=== PATIENT | female | born 1935 | race Caucasian/White ===

== ENCOUNTER → 2016-08-11 | Outpatient (CLI) | payer OTHER ==
[~2016-08-11] MED LIST: ACET-1256 PO; ALBUAER19 INH; CALCTAB5 PO; CHOL1CAP57 PO; GLUCTAB7 PO; MULT-1092 PO; MULTCHW PO; OMEG10007 PO; OYST500T47 PO; VNTHFA/IN INH
[2016-08-11 17:23] LABS: BLOOD UREA NITROGEN 24 mg/dl (7-18)
== END | disposition home or self-care (01) ==
LOC: C.LABBC 13:51
DX: R22.0 Localized swelling, mass and lump, head (principal)

== ENCOUNTER → 2016-08-12 | Outpatient (CLI) | payer OTHER ==
[~2016-08-12] MED LIST changes: +OPTIRAY 320 IV PRN
--- NOTE | 2016-08-12 14:13 | DIAGNOSTIC IMAGING REPORT ---
CT OF THE NECK WITH CONTRAST CT DOSE: 561.74 mGy.cm CLINICAL HISTORY: Left anterior parotid/zygomatic fullness on physical exam with swelling. TECHNIQUE: Axial images of the neck were obtained following intravenous injection of 93 cc Optiray 320 IV. Sagittal and coronal reconstructions were viewed. COMPARISON STUDY: Maxillofacial CT August 09, 2007. FINDINGS: Visualized portions of the intracranial contents are unremarkable. The orbits are unremarkable. The left maxillary sinus is largely opacified with mucosal thickening and secretions. Mastoid air cells are clear. There is no mass or lymphadenopathy within the neck. A 2.4 x 0.8 cm soft tissue density is noted anterior to the left parotid gland. This is similar to CT of August 09, 2007 and suggestive of accessory parotid tissue. There is no suspicious mass. Airway is patent. Epiglottis is normal. No mucosal lesion is identified although these may be occult by CT. Submandibular glands are normal. There is a 9 mm left lobe thyroid nodule. Mild emphysema is noted within visualized portions of the lungs. No suspicious osseous lesions are present. IMPRESSION: 1. 2.4 x 0.8 cm soft tissue density superficial to the left masseter muscle and anterior to the left parotid gland. This could reflect the palpable abnormality. This is unchanged since exam of August 09, 2007 and consistent with accessory parotid tissue. 2. Findings suggestive of left maxillary sinusitis, possibly acute. Electronically signed by: Reynaldo Cheng M.D. 08/12/2016 2:10 PM Dictated Date/Time: 08/12/2016 2:00 PM
== END | disposition home or self-care (01) ==
LOC: C.CTS 12:56
DX: R22.0 Localized swelling, mass and lump, head (principal); M79.9 Soft tissue disorder, unspecified

== ENCOUNTER → 2016-09-10 | Outpatient (CLI) | payer OTHER ==
[~2016-09-10] MED LIST changes: -OPTIRAY 320 IV PRN
--- NOTE | 2016-09-10 11:10 | DIAGNOSTIC IMAGING REPORT ---
FUSION CT SINUSES W/O HISTORY: J32.9 Chronic sinusitis PATIENT WITH LEFT MAXILLARY SINUSITIS ON TECHNIQUE: Multiaxial CT images of the sinuses were performed and reformatted in the coronal plane without the use of contrast. COMPARISON STUDY: Maxillofacial CT 08/09/2007. Neck CT 08/12/2016. FINDINGS: The frontal sinuses, ethmoid air cells, right renal sinus, and right maxillary sinus are clear. The mastoid air cells are clear. Small amount of bubbly secretions within the left sphenoid sinus, unchanged. There is improved aeration within the left maxillary sinus with [id number] polypoid mucosal thickening remaining. No fluid levels within the left maxillary sinus. The nasal septum is essentially midline. The orbital floors and lamina papyracea are intact. The bilateral ostiomeatal units are patent. Small defect seen within the medial wall the left maxillary sinus may be due to postoperative change. This is best seen on coronal image 28 of 79. This measures 4 mm in diameter. The orbits are unremarkable. Asymmetric prominence of the right extra-axial space within the brain is again noted. This favors a stable chronic subdural hematoma. IMPRESSION: 1. Improved aeration within the left maxillary sinus with mild to moderate polypoid mucosal thickening remaining. Small amount of bubbly secretions within the left sphenoid sinus, unchanged. 2. No fluid levels within the paranasal sinuses. 3. The bilateral ostiomeatal units are patent. 4. Stable asymmetric prominence of the right extra-axial space within the brain suggesting a chronic subdural hematoma. Electronically signed by: Tao Ward M.D. 09/10/2016 11:09 AM Dictated Date/Time: 09/10/2016 10:57 AM
== END | disposition home or self-care (01) ==
LOC: C.CTS 10:40
DX: J32.9 Chronic sinusitis, unspecified (principal)

== ENCOUNTER → 2016-09-11 | Outpatient (CLI) | payer OTHER ==
--- NOTE | 2016-09-11 11:40 | DIAGNOSTIC IMAGING REPORT ---
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 DISCUSSION: Moderate degenerative change of the interphalangeal joints. Mild hallux valgus configuration to the great toe with bunion deformity distal first metatarsal. Small heel spur. Somewhat diminished generalized bone mineralization. There is no evidence for soft tissue swelling. IMPRESSION: Moderate generalized degenerative change. Osteopenia. Small heel spur. Electronically signed by: Darci Heller M.D. 09/11/2016 11:39 AM Dictated Date/Time: 09/11/2016 11:38 AM
--- NOTE | 2016-09-11 11:51 | DIAGNOSTIC IMAGING REPORT ---
RIGHT WRIST MIN 3 VIEWS ROUTINE CLINICAL HISTORY: Osteoporosis. Crystal arthropathy. COMPARISON: None FINDINGS: There is chondrocalcinosis within the TFCC. There is marked joint space narrowing of the triscaphe joint and the right first carpometacarpal joint. There is moderate to severe arthritis of the right second metacarpophalangeal joint. There is no fracture or suspicious lesion. IMPRESSION: 1. Marked joint space narrowing with osteophytosis of the right triscaphe and first carpometacarpal joints which suggests severe osteoarthritis. 2. Chondrocalcinosis within the TFCC with moderate to severe arthritis of the right second metacarpophalangeal joint. The findings could reflect osteoarthritis or CPPD arthropathy. Electronically signed by: Reynaldo Cheng M.D. 09/11/2016 11:50 AM Dictated Date/Time: 09/11/2016 11:48 AM
--- NOTE | 2016-09-11 11:53 | DIAGNOSTIC IMAGING REPORT ---
RIGHT HAND MIN 3 VIEWS ROUTINE CLINICAL HISTORY: Osteoporosis. Crystal arthropathy. COMPARISON: None FINDINGS: There is chondrocalcinosis within the TFCC. There is marked joint space narrowing of the triscaphe joint and the right first carpometacarpal joint. There is moderate to severe arthritis of the right second metacarpophalangeal joint. There is no fracture or suspicious lesion. There is moderate to severe arthritis of multiple distal interphalangeal joints, most prominent within the second and third digits. There is no acute fracture. IMPRESSION: 1. Marked joint space narrowing with osteophytosis of the right triscaphe and first carpometacarpal joints which suggests severe osteoarthritis. 2. Chondrocalcinosis within the TFCC with moderate to severe arthritis of the right second metacarpophalangeal joint. The findings could reflect osteoarthritis or CPPD arthropathy. Electronically signed by: Reynaldo Cheng M.D. 09/11/2016 11:51 AM Dictated Date/Time: 09/11/2016 11:50 AM
== END | disposition home or self-care (01) ==
LOC: C.RAD1850 11:09
PROVIDERS: ATTEND Internal Medicine Rheumatology
DX: M10.9 Gout, unspecified (principal); M81.0 Age-related osteoporosis without current pathological fracture; M25.841 Other specified joint disorders, right hand; M25.741 Osteophyte, right hand; M11.241 Other chondrocalcinosis, right hand; M85.871 Other specified disorders of bone density and structure, right ankle and foot

== ENCOUNTER → 2016-10-30 | Outpatient (CLI) | payer OTHER ==
[~2016-10-30] MED LIST changes: -MULT-1092 PO; -OYST500T47 PO; -VNTHFA/IN INH
--- NOTE | 2016-10-30 09:50 | DIAGNOSTIC IMAGING REPORT ---
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 FINDINGS: There is no fracture or dislocation. Mild medial soft tissue swelling. No radiopaque foreign bodies. Plantar heel spur. IMPRESSION: No fractures. Electronically signed by: Tao Ward M.D. 10/30/2016 9:48 AM Dictated Date/Time: 10/30/2016 9:47 AM
--- NOTE | 2016-10-30 09:56 | DIAGNOSTIC IMAGING REPORT ---
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 DISCUSSION: Components of the medial humeral calcific and colitis. All remaining components of the elbow appear unremarkable. No significant joint effusion. No evidence for fracture or dislocation. There is no evidence for soft tissue swelling. IMPRESSION: Calcific medial epicondylitis Electronically signed by: Darci Heller M.D. 10/30/2016 9:54 AM Dictated Date/Time: 10/30/2016 9:54 AM
== END | disposition home or self-care (01) ==
LOC: C.RAD1850 09:27
PROVIDERS: ATTEND Internal Medicine Rheumatology
DX: E83.59 Other disorders of calcium metabolism (principal); M25.571 Pain in right ankle and joints of right foot; M70.20 Olecranon bursitis, unspecified elbow

== ENCOUNTER → 2017-03-30 | Outpatient (CLI) | payer OTHER ==
[~2017-03-30] MED LIST changes: -ALBUAER19 INH; -CALCTAB5 PO; -GLUCTAB7 PO; +MULT-1092 PO; -MULTCHW PO; -OMEG10007 PO; +OYST500T47 PO; +VNTHFA/IN INH
--- NOTE | 2017-03-30 15:10 | MAMMOGRAPHY REPORT ---
BILATERAL DIGITAL SCREENING MAMMOGRAM WITH CAD: 03/30/2017 CLINICAL HISTORY: Routine screening. Patient has no complaints. TECHNIQUE: Bilateral CC, MLO and repeat right MLO views were obtained. Current study was also evalua rosette with a Computer Aided Detection (CAD) system. COMPARISON: Comparison is made to exams dated: 03/24/2016 mammogram, 03/20/2015 mammogram, 4 mammogram, 03/16/2013 mammogram, 03/14/2012 mammogram, and 03/11/2011 mammogram - [facility]. BREAST COMPOSITION: The tissue of both breasts is heterogeneously dense, which may obscure small mas ses. FINDINGS: There are stable benign rim calcifications and rodlike signatory calcifications in the kermit asts. Minimal vascular calcification. No suspicious mass, architectural distortion or cluster of george rocalcifications is seen. IMPRESSION: ACR BI-RADS CATEGORY 2: BENIGN There is no mammographic evidence of malignancy. A 1 year screening mammogram is recommended. The pa tient will receive written notification of the results. Approximately 10% of breast cancers are not detected with mammography. A negative mammographic report should not delay biopsy if a clinically suggestive mass is present. Brenna Huang M.D. ay/:03/30/2017 12:49:55 Shipping & Receiving Lead: Nesha JACOBO(Hugo)(Mushtaq)([place]), [facility] letter sent: Normal 1/2 BI-RADS Code: ACR BI-RADS Category 2: Benign
== END | disposition home or self-care (01) ==
LOC: C.MAMM 09:22
PROVIDERS: ATTEND Internal Medicine Pulmonary Disease
DX: Z12.31 Encounter for screening mammogram for malignant neoplasm of breast (principal)

== ENCOUNTER → 2017-04-08 | Outpatient (CLI) | payer OTHER ==
[2017-04-08 10:43] LABS: BASO % 0.4 %; BASO ABS # 0.03 K/uL (0-0.2); COMPLETE YES; EOS % 2.9 %; HEMATOCRIT 44.8 % (37-47); IG% 0.6 %; LYMPH % 36.2 %; LYMPH ABS # 2.85 K/uL (1.2-3.4); MEAN CELL VOLUME 100.7 fL (80-100); MEAN CORPUSCULAR HEMOGLOBIN 32.6 pg (25-34); MEAN CORPUSCULAR HGB CONC 32.4 g/dl (32-36); MONO % 15.7 %; NEUT % 44.2 %; PLATELET COUNT 254 K/uL (130-400); RED BLOOD COUNT 4.45 M/uL (4.2-5.4); WHITE BLOOD COUNT 7.88 K/uL (4.8-10.8)
[2017-04-08 10:53] LABS: ESTIMATED AVERAGE GLUCOSE 123 mg/dl; HA1C FLAG Normal (Normal)
[2017-04-08 11:08] LABS: BLOOD UREA NITROGEN 25 mg/dl (7-18); BUN/CREATININE RATIO 19.9 (10-20); CALCIUM 9.3 mg/dl (8.5-10.1); CARBON DIOXIDE 29 mmol/L (21-32); CHLORIDE 106 mmol/L (98-107); CREATININE 1.24 mg/dl (0.60-1.20); GLUCOSE 87 mg/dl (70-99); POTASSIUM 4.3 mmol/L (3.5-5.1); SODIUM 139 mmol/L (136-145)
[2017-04-08 11:20] LABS: ALB/GLOB RATIO 1.2 (0.9-2); ALKALINE PHOSPHATASE 76 U/L (45-117); ALT/SGPT 21 U/L (12-78); AST/SGOT 16 U/L (15-37); CHOLESTEROL 217 mg/dl (0-200); CHOLESTEROL/HDL RATIO 2.9; HDL CHOLESTEROL 74 mg/dl; LDL CHOLESTEROL CALCULATED 113 mg/dl; TRIGLYCERIDES 152 mg/dl (0-150); VERY LOW DENSITY LIPOPROT CALC 30 mg/dl
== END | disposition home or self-care (01) ==
LOC: C.LABBC 08:17
PROVIDERS: ATTEND Internal Medicine Pulmonary Disease
DX: Z00.00 Encounter for general adult medical examination without abnormal findings (principal); M19.90 Unspecified osteoarthritis, unspecified site; H91.90 Unspecified hearing loss, unspecified ear; R73.9 Hyperglycemia, unspecified; E78.5 Hyperlipidemia, unspecified; J44.9 Chronic obstructive pulmonary disease, unspecified

== ENCOUNTER → 2017-04-09 | Day surgery (SDC) | payer OTHER ==
[2017-04-07 14:09] VITALS: Ht 167.6 cm; Wt 72.7 kg
[~2017-04-09] VITALS: Ht 167.6 cm; Wt 72.7 kg
[~2017-04-09] MED LIST changes: +BUPIVACAINE 0.25% 2.5MG/ML PF 10 ML VIAL ONE; +IOPAMIDOL INJ 61% 15 ML VIAL ONE; +LIDOCAINE HCL 1% MPF 5 ML VIAL ONE
--- NOTE | 2017-04-09 15:30 | History & Physical Bridge - [place] ---
H&P Re-Evaluation Bridge Note: I have examined the patient, reviewed the History & Physical and in the interval since the performance of the History & Physical I have noted the following changes of clinical significance: No changes noted
[2017-04-09 15:50] VITALS: TEMP 37.2
--- NOTE | 2017-04-09 15:52 | Discharge Instructions ---
Discharge Instructions Date of Service Apr 09, 2017. Visit Reason for Visit: Sacroiliitis Discharge Discharge Diagnosis / Problem: low back pain Discharge Goals Goal(s): Decrease discomfort, Improve function Activity Recommendations Activity Limitations: resume your previous activity Anesthesia . Post Anesthesia Instructions: If you have had General Anesthesia or IV Sedation: * Do not drive today. * Resume driving when surgeon permits. * Do not make important decisions or sign legal documents today. * Call surgeon for: 1. Temperature elevations greater than 101 degrees F. 2. Uncontrollable pain. 3. Excessive bleeding. 4. Persistent nausea and vomiting. 5. Medication intolerance (nausea, vomiting or rash). * For nausea and vomiting use only clear liquids such as: tea, soda, bouillon until nausea subsides, then gradually increase diet as tolerated. * If you have any concerns or questions, call your surgeon's office. If physician is unavailable and it is an emergency, call 911 or go to the nearest emergency room. . Diet Recommendations Recommended Home Diet: resume previous diet Procedures Procedures Performed: Sacroccygeal Ligament Injection Pending Studies Studies pending at discharge: no Medical Emergencies . Who to Call and When: Medical Emergencies: If at any time you feel your situation is an emergency, please call 911 immediately. . Non-Emergent Contact Non-Emergency issues call your: Specialist . . "Provider Documentation" section prepared by Farhan Horn. .
[2017-04-09 16:01] VITALS: BP 171/83; PULSE 77; O2SAT 96
--- NOTE | 2017-04-09 16:10 | OPERATIVE REPORT ---
DATE OF OPERATION: 04/09/2017 PREOPERATIVE DIAGNOSIS: Coccydynia. POSTOPERATIVE DIAGNOSIS: Same. PROCEDURE: Sacrococcygeal ligament injection under fluoroscopic guidance. INDICATIONS: The patient is an 81-year-old female who had a fantastic response to bilateral SI joint injections with 80% relief. She still; however, bothered by coccydynia. She had underwent injections about a year ago in the SI joint and then a sacrococcygeal ligament injection that relieved entirely of her pain. She presents today for a sacrococcygeal ligament injection to provide her with relief. PHYSICAL EXAMINATION: Pleasant female seated comfortably. She has coccyx pain to the tip of her coccyx; other areas are nontender including the sacroiliac joints. CONSENT: Verbal and written consent was obtained from the patient. Risks and benefits were reviewed. Risks include but are not limited to abscess and allergic reaction. The patient wishes to proceed. PROCEDURE: The patient was taken back to the special procedures room of the [facility]. She was maintained in a prone position. Backside was cleansed with Betadine x3 and a dry sterile dressing was applied. Fluoroscope was used to identify the sacrococcygeal ligament junction. The overlying skin was anesthetized with 2 mL of lidocaine 1% with a 25 gauge 1.5-inch needle and a 25 gauge 3.5 inch spinal needle was then directed under fluoroscopic guidance into the SI joint. Injection was well tolerated and she was injected with 1 mL of bupivacaine 0.25% and 40 mg of Depo-Medrol. DISPOSITION: 1. The patient is taken out into the discharge recovery area where she will be discharged home once discharge criteria have been met. 2. Follow up in the [facility] office in 4 weeks' time. I attest to the content of the Intraoperative Record and any orders documented therein. Any exception s are noted below.
== END | disposition home or self-care (01) ==
LOC: X.SURG 13:53
PROVIDERS: ATTEND Physical Medicine & Rehabilitation
DX: M53.3 Sacrococcygeal disorders, not elsewhere classified (principal); M46.1 Sacroiliitis, not elsewhere classified

== ENCOUNTER 2022-05-05 16:44 | Inpatient (IN) ==
[2022-05-05 19:27] LABS: Alanine Aminotransferase 69 U/L (7-52); Albumin Level 3.3 gm/dl (3.4-5.0); Alkaline Phosphatase 57 U/L (34-104); Anion Gap 10 (3-11); Aspartate Aminotransferase 122 U/L (13-39); BUN Creatinine Ratio 31.3 (10-20); Blood Urea Nitrogen 56 mg/dl (6-23); Carbon Dioxide 22 mmol/L (21-32); Chloride 92 mmol/L (98-107); Est GFR (African American) 29.4 ml/min; Est GFR (Non-African American) 25.4 ml/min; Globulin 3.3 gm/dl (2.5-4.0); Glucose 119 mg/dl (70-99(Fasting)); Potassium 3.9 mmol/L (3.5-5.1); Sodium 124 mmol/L (136-145); Total Protein 6.6 gm/dl (6.0-8.3)
[2022-05-05 19:47] LABS: Hematocrit (blood only) 34.7 % (34.1-44.9); Hemoglobin 12.4 g/dl (12.0-16.0); Mean Corpuscular Hemoglobin 33.6 pg (25.0-34.0); Mean Corpuscular Hgb Conc 35.7 g/dL (32.0-36.0); Mean Platelet Volume 11.4 fL (9.4-12.3); Platelet Count 216 K/uL (130-400); RDW Coefficient of Variation 15.1 % (11.5-14.5); RDW Standard Deviation 52.1 fL (36.4-46.3); Red Blood Count 3.69 M/uL (3.93-5.22); White Blood Count 8.89 K/ul (4.8-10.8)
[2022-05-05 19:49] LABS: Basophils # (auto) 0.03 K/uL (0-0.2); Basophils % (auto) 0.3 %; Dohle Bodies 1+; Echinocytes 1+; Immature Granulocytes # (auto) 0.12 K/uL (0.00-0.02); Immature Granulocytes % (auto) 1.3 %; Lymphocytes # (auto) 0.49 K/uL (1.2-3.4); Lymphocytes % (auto) 5.5 %; Monocytes % (auto) 4.5 %; Neutrophils # (auto) 7.85 K/uL (1.4-6.5); Neutrophils % (auto) 88.4 %; Toxic Granulation 1+; Toxic Vacuolation 1+
[2022-05-05 20:06] LABS: Influenza A virus by PCR Negative (Neg); Influenza B virus by PCR Negative (Neg); RSV by PCR Negative (Neg); SARS CoV2 RNA(COVID-19) Ceph NEGATIVE (Negative)
[2022-05-05] MEDS ORDERED: CEFEPIME 2,000 MG/20 ML VIAL IV STA (23:14)
[2022-05-05] MEDS ORDERED: SODIUM CHLORIDE 0.9% 1000ML 1,000 ML IV SCH (23:15)
--- NOTE | 2022-05-05 23:22 | Emergency Department Note ---
Impression & Plan Dyspnea, Hypoxia, SHABBIR (acute kidney injury), Hyponatremia, Elevated procalcitonin ED Provider Note INFORMANT: Patient and daughter ED PROVIDER(S): Dr. Nath CHIEF COMPLAINT: Shortness of breath, fever, diarrhea, dehydration, chest pain PLAN: Disposition: Inpatient hospitalization Condition: Fair Outpatient prescription management: none MEDICAL DECISION MAKING: This is an 86-year-old female who presents to the emergency department due to concern for worsening flulike symptoms over the course of the week. Patient presented on day of high volume and acuity and protocols were started by nursing staff prior to my evaluation. Patient was placed in a room and I reviewed labs with her that had resulted which included concerning abnormalities for evolving infection. Additional labs for possible sepsis were added by myself at this time. I also reviewed the abnormalities on chest x-ray given patient's history of COPD and ongoing tobacco abuse with her. We discussed IV antibiotics and additional medications to aid in her breathing. We discussed IV fluids that she has had decreased oral intake over the last several days. Patient and family who was present at bedside and helped with history both verbalized understanding of this and were agreement with the plan for additional inpatient evaluation and treatment. EKG and chest x-ray read by me as documented below. Patient rechecked multiple times after interventions have been initiated and continued to report feeling improved. She was placed on oxygen via nasal cannula. Case was discussed with hospitalist for additional evaluation and management. Patient with an increase risk of complication given age and comorbidities, and also risk of evolving sepsis. Patient and family made aware blood cultures were pending and will take 48 hours to result. Patient given IV fluids, nebulizer treatments, and 2 different IV antibiotics while in the emergency room. After review of the information above and other included data, I feel the patient requires additional inpatient management. Triage Nursing notes reviewed and agree them. Vital Signs: reviewed and remarkable for tachycardia, tachypnea, and mild hypoxia. Prior /Outside records reviewed: none Differential diagnosis: Differential diagnoses includes but is not limited to pneumonia, bronchitis, COPD/Asthma exacerbation, pneumothorax, pulmonary embolism, congestive heart failure, acute coronary syndrome, pleural effusion, noncompliance Diagnostics, as interpreted by me: ECG: Sinus tachycardia 108, normal QRS and QTc, normal axis, nonspecific ST/T wave changes, low voltage noted, PVC present Cardiac Monitoring: An order was placed for continuous cardiac monitoring. The monitor shows a rate of 100 with sinus tachycardia. Medical decision rules: CURB 65 score elevated - severe risk Imaging studies: Chest: A single view study of the chest was reviewed and was negative for cardiomegaly, or wide mediastinum. Left sided infiltrate and effus ion. HPI: This is an 86-year-old female who presents emergency department with daughter at bedside due to concern for worsening flulike symptoms over the course of the week. Patient states she noticed fevers, increasing cough, decreased appetite, diarrhea, weakness and fatigue, increased shortness of breath over the course of the last 4 to 5 days. Patient does have a history of COPD and has inhalers but does not typically wear oxygen at home. Daughter has been coming to check on her daily the last 3 days and had noticed a steady decline including minimal oral intake, and weakness so much so the patient cannot even safely get up and down off the toilet. Daughter states she does not believe she has been using any of her inhalers or breathing treatments at home. She confirms she does not typically wear home oxygen however they do have a pulse oximeter and it has been reading in the mid to upper 80s daily. Patient states she does still smoke approximately 4 cigarettes a day. Patient denies any known sick contact. She states she does have accompanying chest pain on the left side of her chest just inferior to the left breast. She states the diarrhea seems to have resolved, however she still has no appetite. She denies any abdominal pain. She denies any falls or injury related to her recent illness. I did contact her PCP and were instructed to come the emergency room for additional evaluation. PAST MEDICAL HISTORY: See Below, COPD PAST SURGICAL HISTORY: See Below, SOCIAL HISTORY: See Below, HOME MEDICATIONS: See Below ALLERGIES:None reported by patient VITALS: [See Below] PHYSICAL EXAMINATION: GENERAL: alert, unwell appearing, well nourished, no distress, non-toxic EYE EXAM: normal conjunctiva, PERRL and EOM's grossly intact OROPHARYNX: no exudate, no erythema, lips, buccal mucosa, and tongue normal and mucous membranes are moist NECK: supple, no nuchal rigidity, no adenopathy, non-tender LUNGS: Decreased b/l to auscultation. Normal chest wall mechanics, no w/r/r HEART: no murmurs, S1 normal and S2 normal ABDOMEN: abdomen soft, non-tender, normo-active bowel sounds, no masses, no rebound or guarding. BACK: Back is symmetrical on inspection and there is no deformity, no midline tenderness, no CVA tenderness. SKIN: no rashes and no bruising UPPER EXTREMITIES: upper extremities are grossly normal. FROM, nml pulses b/l. LOWER EXTREMITIES: No pitting edema. FROM, nml pulses b/l. NEURO EXAM: Normal sensorium, cranial nerves II-XII grossly intact, normal speech, no gross weakness of arms, no gross weakness of legs. Gross sensation intact. Past Med/Surg History Medical History Chronic back pain Chronic obstructive pulmonary disease CKD (chronic kidney disease) Hx of gastric ulcer Hx of gout Hx of skin cancer, basal cell Osteoarthritis Osteoporosis Sacroiliitis Schatzki's ring Sciatica RT Scoliosis Sensorineural hearing loss (SNHL) of both ears SNHL (sensorineural hearing loss) Spinal stenosis Surgical History History of arthroplasty of knee RT/LEFT History of bilateral tubal ligation History of breast biopsy History of colonoscopy History of esophagogastroduodenoscopy (EGD) History of Mohs micrographic surgery for skin cancer S/P epidural steroid injection Family History Mother Family history of colon cancer Family history of cardiac disorder Hearing loss Cancer Other No family history of adverse response to anesthesia Denies family history of Ovarian cancer Prostate cancer Myocardial infarction Breast cancer Colorectal cancer Social History Smoking Status: Current every day smoker Tobacco Type: Cigarettes Cigarettes Per Day: 4 CIGS DAILY; Second Hand Exposure: Yes ( A CHILD); Hx Alcohol Use: No Hx Substance Use: No Preferred Language: Turkish Communication Ability: Effective Manager Science Required: No Beliefs That Will Affect Care: Anabaptism marital status: / Current Living Situation: Alone current occupational status: retired Other Information That Helps Us Care for You: No Feels Safe at Home: Yes Safety Concerns: Feels Safe At This Time Assistive Devices: Hearing Aid - Bilateral Allergies Allergies Allergy/AdvReac Type Severity Reaction Status Date / Time No Known Drug Allergies Allergy Unknown nkda Verified 05/06/22 02:21 Home Meds Home Medications Medication Instructions Recorded Confirmed multivitamin 1 tab PO QAM 02/16/20 05/06/22 calcium carbonate 500 mg calcium 500 mg PO QAM 06/02/21 05/06/22 (1,250 mg) chewable tablet (Calcium 500) aspirin 81 mg tablet 81 mg PO HS 06/12/21 05/06/22 cholecalciferol (vitamin D3) 25 25 mcg PO QAM 06/12/21 05/06/22 mcg (1,000 unit) tablet (Vitamin D3) mecobalamin (vitamin B12) 1,000 3,000 mcg PO DAILY 03/04/22 05/06/22 mcg chewable tablet ascorbic acid (vitamin C) 1,000 mg 1 g PO DAILY 04/07/22 05/06/22 tablet (Vitamin C) potassium gluconate 595 mg (99 mg) 595 mg PO DAILY 04/07/22 05/06/22 tablet Previous Rx's Medication Instructions Recorded allopurinol 300 mg tablet 300 mg PO DAILY #90 tabs 12/15/21 atorvastatin 40 mg tablet 40 mg PO QAM #90 tabs 12/15/21 tiotropium bromide 2.5 2 puff inhalation QAM #4 grams 12/15/21 mcg/actuation mist for inhalation (Spiriva Respimat) albuterol sulfate 90 mcg/actuation 2 puff inhalation Q4H PRN 01/14/22 aerosol inhaler (Ventolin HFA) Shortness Of Breath #1 inhaler Results & Data (ED) Vital Signs Vital Signs - 24 hr 05/05/22 17:03 05/05/22 18:37 05/05/22 22:44 Temperature 36.6 C Temperature Source Temporal Artery Scan Pulse Rate 109 H Pulse Rate [Finger] 101 H 100 H Pulse Strength [Finger] Normal Respiratory Rate 20 20 20 Respiratory Effort / Characteristics Non-Labored Spontaneous Non-Labored Spontaneous Non-Labored Respiratory Depth Normal Normal Normal Respiratory Pattern Regular Blood Pressure 119/58 L Blood Pressure [Right Arm] 123/65 117/74 Blood Pressure Mean 78 Blood Pressure Mean [Right Arm] 84 88 Blood Pressure Position Sitting Pulse Oximetry 92 91 88 L Oxygen Delivery Method Room Air Room Air Room Air Sepsis Recent Fever Within 48 Hours Yes Sepsis New/Unexplained Change in Mental Status N/A Sepsis Action Taken by Nursing No Action Required Laboratory Data 05/05/22 18:49 05/05/22 18:49 Lab Results 05/05/22 05/05/22 05/05/22 Range/Units 18:49 18:49 18:49 WBC 8.89 (4.8-10.8) K/ul RBC 3.69 L (3.93-5.22) M/uL Hgb 12.4 (12.0-16.0) g/dl Hct 34.7 (34.1-44.9) % MCV 94.0 (80.0-100.0) fL MCH 33.6 (25.0-34.0) pg MCHC 35.7 (32.0-36.0) g/dL RDW Std Deviation 52.1 H (36.4-46.3) fL RDW Coeff of Lazara 15.1 H (11.5-14.5) % Plt Count 216 (130-400) K/uL MPV 11.4 (9.4-12.3) fL Immature Gran % (Auto) 1.3 % Neut % (Auto) 88.4 % Lymph % (Auto) 5.5 % [place] % (Auto) 4.5 % Eos % (Auto) 0.0 % Baso % (Auto) 0.3 % Neut # (Auto) 7.85 H (1.4-6.5) K/uL Lymph # (Auto) 0.49 L (1.2-3.4) K/uL [place] # (Auto) 0.40 (0.24-0.82) K/uL Eos # (Auto) 0.00 (0-0.50) K/uL Baso # (Auto) 0.03 (0-0.2) K/uL Immature Gran # (Auto) 0.12 H (0.00-0.02) K/uL Toxic Granulation 1+ Toxic Vacuolation 1+ Dohle Bodies 1+ Echinocytes 1+ ABG pH (7.35-7.45) ABG pCO2 (35-46) mmHg ABG pO2 (80-95) mmHg ABG HCO3 (19-24) mmol/L ABG O2 Saturation (90-95) % ABG Base Excess (-9-1.8) mEq/L Sarbjit Test (Pos) Oxygen Given Sodium 124 L (136-145) mmol/L Potassium 3.9 (3.5-5.1) mmol/L Chloride 92 L (98-107) mmol/L Carbon Dioxide 22 (21-32) mmol/L Anion Gap 10 (3-11) BUN 56 H (6-23) mg/dl Creatinine 1.79 H (0.6-1.2) mg/dl Est Cr Clr Drug Dosing Not Reportable Est GFR ( Amer) 29.4 ml/min Est GFR (Non-Af Amer) 25.4 ml/min BUN/Creatinine Ratio 31.3 H (10-20) Glucose 119 H (70-99(Fasting)) mg/dl Lactate (0.4-2.0) mmol/L Calcium 9.0 (8.5-10.1) mg/dl Magnesium (1.7-2.4) mg/dl Total Bilirubin 1.0 (0.2-1.0) mg/dl AST 122 H (13-39) U/L ALT 69 H (7-52) U/L Alkaline Phosphatase 57 (34-104) U/L Total Creatine Kinase (26-192) U/L Troponin I High Sens (0-14) pg/ml Total Protein 6.6 (6.0-8.3) gm/dl Albumin 3.3 L (3.4-5.0) gm/dl Globulin 3.3 (2.5-4.0) gm/dl Albumin/Globulin Ratio 1.0 (0.9-2) Procalcitonin 64.44 H (0-0.5) ng/ml SARS-CoV-2 (PCR) (Negative) Influenza Type A (PCR) (Neg) Influenza Type B (PCR) (Neg) RSV (RT-PCR) (Neg) Streptococcus sp PCR (NotDetected) Strep pneumoniae (PCR) (NotDetected) Bld Cult ID Panel PCR (NotDetected) 05/05/22 05/05/22 05/05/22 Range/Units 18:52 23:46 23:46 WBC (4.8-10.8) K/ul RBC (3.93-5.22) M/uL Hgb (12.0-16.0) g/dl Hct (34.1-44.9) % MCV (80.0-100.0) fL MCH (25.0-34.0) pg MCHC (32.0-36.0) g/dL RDW Std Deviation (36.4-46.3) fL RDW Coeff of Lazara (11.5-14.5) % Plt Count (130-400) K/uL MPV (9.4-12.3) fL Immature Gran % (Auto) % Neut % (Auto) % Lymph % (Auto) % [place] % (Auto) % Eos % (Auto) % Baso % (Auto) % Neut # (Auto) (1.4-6.5) K/uL Lymph # (Auto) (1.2-3.4) K/uL [place] # (Auto) (0.24-0.82) K/uL Eos # (Auto) (0-0.50) K/uL Baso # (Auto) (0-0.2) K/uL Immature Gran # (Auto) (0.00-0.02) K/uL Toxic Granulation Toxic Vacuolation Dohle Bodies Echinocytes ABG pH (7.35-7.45) ABG pCO2 (35-46) mmHg ABG pO2 (80-95) mmHg ABG HCO3 (19-24) mmol/L ABG O2 Saturation (90-95) % ABG Base Excess (-9-1.8) mEq/L Sarbjit Test (Pos) Oxygen Given Sodium (136-145) mmol/L Potassium (3.5-5.1) mmol/L Chloride (98-107) mmol/L Carbon Dioxide (21-32) mmol/L Anion Gap (3-11) BUN (6-23) mg/dl Creatinine (0.6-1.2) mg/dl Est Cr Clr Drug Dosing Est GFR ( Amer) ml/min Est GFR (Non-Af Amer) ml/min BUN/Creatinine Ratio (10-20) Glucose (70-99(Fasting)) mg/dl Lactate 0.8 (0.4-2.0) mmol/L Calcium (8.5-10.1) mg/dl Magnesium 1.9 (1.7-2.4) mg/dl Total Bilirubin (0.2-1.0) mg/dl AST (13-39) U/L ALT (7-52) U/L Alkaline Phosphatase (34-104) U/L Total Creatine Kinase 257 H (26-192) U/L Troponin I High Sens 36.5 H (0-14) pg/ml Total Protein (6.0-8.3) gm/dl Albumin (3.4-5.0) gm/dl Globulin (2.5-4.0) gm/dl Albumin/Globulin Ratio (0.9-2) Procalcitonin (0-0.5) ng/ml SARS-CoV-2 (PCR) NEGATIVE (Negative) Influenza Type A (PCR) Negative (Neg) Influenza Type B (PCR) Negative (Neg) RSV (RT-PCR) Negative (Neg) Streptococcus sp PCR (NotDetected) Strep pneumoniae (PCR) (NotDetected) Bld Cult ID Panel PCR (NotDetected) 05/05/22 05/05/22 Range/Units 23:46 23:46 WBC (4.8-10.8) K/ul RBC (3.93-5.22) M/uL Hgb (12.0-16.0) g/dl Hct (34.1-44.9) % MCV (80.0-100.0) fL MCH (25.0-34.0) pg MCHC (32.0-36.0) g/dL RDW Std Deviation (36.4-46.3) fL RDW Coeff of Lazara (11.5-14.5) % Plt Count (130-400) K/uL MPV (9.4-12.3) fL Immature Gran % (Auto) % Neut % (Auto) % Lymph % (Auto) % [place] % (Auto) % Eos % (Auto) % Baso % (Auto) % Neut # (Auto) (1.4-6.5) K/uL Lymph # (Auto) (1.2-3.4) K/uL [place] # (Auto) (0.24-0.82) K/uL Eos # (Auto) (0-0.50) K/uL Baso # (Auto) (0-0.2) K/uL Immature Gran # (Auto) (0.00-0.02) K/uL Toxic Granulation Toxic Vacuolation Dohle Bodies Echinocytes ABG pH 7.45 (7.35-7.45) ABG pCO2 30 L (35-46) mmHg ABG pO2 61 L (80-95) mmHg ABG HCO3 21 (19-24) mmol/L ABG O2 Saturation 93.5 (90-95) % ABG Base Excess -2.1 (-9-1.8) mEq/L Sarbjit Test Pos (Pos) Oxygen Given RA Sodium (136-145) mmol/L Potassium (3.5-5.1) mmol/L Chloride (98-107) mmol/L Carbon Dioxide (21-32) mmol/L Anion Gap (3-11) BUN (6-23) mg/dl Creatinine (0.6-1.2) mg/dl Est Cr Clr Drug Dosing Est GFR ( Amer) ml/min Est GFR (Non-Af Amer) ml/min BUN/Creatinine Ratio (10-20) Glucose (70-99(Fasting)) mg/dl Lactate (0.4-2.0) mmol/L Calcium (8.5-10.1) mg/dl Magnesium (1.7-2.4) mg/dl Total Bilirubin (0.2-1.0) mg/dl AST (13-39) U/L ALT (7-52) U/L Alkaline Phosphatase (34-104) U/L Total Creatine Kinase (26-192) U/L Troponin I High Sens (0-14) pg/ml Total Protein (6.0-8.3) gm/dl Albumin (3.4-5.0) gm/dl Globulin (2.5-4.0) gm/dl Albumin/Globulin Ratio (0.9-2) Procalcitonin (0-0.5) ng/ml SARS-CoV-2 (PCR) (Negative) Influenza Type A (PCR) (Neg) Influenza Type B (PCR) (Neg) RSV (RT-PCR) (Neg) Streptococcus sp PCR DETECTED A (NotDetected) Strep pneumoniae (PCR) DETECTED A (NotDetected) Bld Cult ID Panel PCR See PCR Comment (NotDetected) Administered Medications Albuterol (Albut/Ipratrop 3mg/0.5mg Neb 3 Ml Vial) 3 ml NEB QIDR NATALIE; Protocol Stop: 06/05/22 06:59 Last Admin: 05/06/22 17:39 Dose: 3 ml Documented By: Admin: 05/06/22 14:31 Dose: 3 ml Documented By: Admin: 05/06/22 11:12 Dose: 3 ml Documented By: Admin: 05/06/22 07:24 Dose: 3 ml Documented By: SUZY Allopurinol (Allopurinol 300 Mg Tab) 300 mg PO DAILY [facility] Stop: 06/05/22 08:59 Last Admin: 05/06/22 08:00 Dose: 300 mg Documented By: HS Ascorbic Acid (Ascorbic Acid 500 Mg Tab) 1,000 mg PO DAILY NATALIE Stop: 06/05/22 08:59 Last Admin: 05/06/22 07:59 Dose: 1,000 mg Documented By: HS Aspirin (Aspirin 81 Mg Ectab) 81 mg PO [facility] Stop: 06/05/22 20:59 Last Admin: 05/06/22 20:40 Dose: 81 mg Documented By: BOBBY Atorvastatin Calcium ([facility]atin 40 Mg Tab) [facility]: 06/05/22 08:59 Last Admin: 05/06/22 08:00 Dose: 40 mg Documented By: HS Calcium Carbonate (Calcium Carbonate 1250mg Tab) 1,[facility]: 06/05/22 08:59 Last Admin: 05/06/22 08:00 Dose: 1,250 mg Documented By: HS Cyanocobalamin (Cyanocobalamin (B-12) 500 Mcg Tablet) 3,000 mcg PO DAILY [facility] Stop: 06/05/22 08:59 Last Admin: 05/06/22 07:59 Dose: 3,000 mcg Documented By: HS Enoxaparin Sodium (Enoxaparin Inj 30 Mg/0.3 Ml Syr) 30 mg SQ Q24H NATALIE Stop: 06/05/22 08:59 Last Admin: 05/06/22 08:01 Dose: 30 mg Documented By: HS Guaifenesin (Guaifenesin 600 Mg Tabcr) 1,200 mg PO Q12 [facility] Stop: 06/05/22 08:59 Last Admin: 05/06/22 20:42 Dose: 1,200 mg Documented By: Admin: 05/06/22 08:00 Dose: 1,200 mg Documented By: HS Ceftriaxone Sodium 1,000 mg/ (Dextrose) 50 mls @ 100 mls/hr IV Q24H [facility]; Protocol Stop: 05/11/22 23:59 Last Infusion: 05/07/22 01:38 Dose: 0 mls/hr Documented By: Admin: 05/07/22 00:39 Dose: 100 mls/hr Documented By: HANK Sodium Chloride (Nss) 500 mls @ 80 mls/hr IV .Q6H15M [facility] Stop: 05/07/22 06:29 Last Admin: 05/07/22 02:56 Dose: 80 mls/hr Documented By: Infusion: 05/07/22 02:55 Dose: 0 mls/hr Documented By: Admin: 05/06/22 19:18 Dose: 80 mls/hr Documented By: BOBBY Multivitamins (Multivitamin Tab) 1 tab PO [facility] Stop: 06/05/22 08:59 Last Admin: 05/06/22 08:00 Dose: 1 tab Documented By: AGNIESZKA Prednisone (Prednisone 20 Mg Tab) 40 mg PO [facility] Stop: 05/10/22 09:01 Last Admin: 05/06/22 10:43 Dose: 40 mg Documented By: AGNIESZKA Umeclidinium Oran (Umeclidinium Or[place] 62.5mcg/Blister 7 Puffs/Inhaler) 1 puffs INH [facility] Stop: 06/05/22 08:59 Last Admin: 05/06/22 08:01 Dose: 1 puffs Documented By: AGNIESZKA Vitamin D (Cholecalciferol 1,000 Units 25 Mcg Tab) 1,000 units PO [facility] Stop: 06/05/22 08:59 Last Admin: 05/06/22 08:00 Dose: 1,000 units Documented By: AGNIESZKA Discontinued Medications Azithromycin (Azithromycin 250 Mg Tab) 500 mg PO NOW ONE Stop: 05/06/22 10:27 Last Admin: 05/06/22 10:43 Dose: 500 mg Documented By: AGNIESZKA Sodium Chloride (Nss 1000ml) 1,000 mls @ 999 mls/hr IV .Q1H1M [facility] Stop: 05/06/22 00:15 Last Infusion: 05/06/22 01:21 Dose: 0 mls/hr Documented By: Admin: 05/05/22 23:54 Dose: 999 mls/hr Documented By: MANASA Cefepime HCl (Maxipime) 2,000 mg in 20 mls @ 5 mls/min IV NOW STA; Protocol Stop: 05/05/22 23:17 Last Admin: 05/05/22 23:55 Dose: 5 mls/min Documented By: MANASA Sodium Chloride (Nss 1000ml) 1,000 mls @ 80 mls/hr IV .[id number] NATALIE Stop: 05/06/22 15:07 Last Infusion: 05/06/22 15:30 Dose: 0 mls/hr Documented By: Admin: 05/06/22 03:00 Dose: 80 mls/hr Documented By: JEFF Discharge Plan Visit Data Chief Complaint: Illness Stated Complaint: ILLNESS ED Provider: Karissa Nath Discharge Problem: Dyspnea, Hypoxia, SHABBIR (acute kidney injury), Hyponatremia, Elevated procalcitonin Patient Disposition: Admitted As Inpatient Discharge Instructions Interventions: ED Discharge Assessment Last Done: 05/06/22 02:39
[2022-05-05 23:59] LABS: Base Excess ABG -2.1 mEq/L (-9-1.8); HCO3 ABG 21 mmol/L (19-24); Oxygen Saturation ABG 93.5 % (90-95); PCO2 ABG 30 mmHg (35-46); PO2 ABG 61 mmHg (80-95); pH ABG 7.45 (7.35-7.45)
[2022-05-06] LABS: Allen Test Pos (Pos)
[2022-05-06 00:20] LABS: Magnesium 1.9 mg/dl (1.7-2.4)
[2022-05-06 00:23] LABS: Troponin I High Sensitivity 36.5 pg/ml (0-14)
--- NOTE | 2022-05-06 00:34 | History & Physical Report ---
Date of Service May 06, 2022 Assessment & Plan (1) Acute respiratory failure with hypoxia: (2) COPD exacerbation: (3) Pneumonia involving left lung: (4) Hyponatremia: (5) Acute kidney injury superimposed on CKD: (6) Arthritis: (7) Hyperlipidemia: (8) Peripheral arterial disease: (9) Gout: Plan Acute respiratory failure with hypoxia/pneumonia involving left lung/COPD exacerbation- Cefepime 2 g IV every 12 hours Duonebs every 4 hours while awake and every 2 hours when necessary. Guaifenesin extended release 12 mg p.o. twice daily MRSA swab Continue Incruse Ellipta Nasal cannula oxygen, titrate to keep pulse ox around 94% Elevated troponin- Troponin 36.5 on admission The patient will be admitted to telemetry for serial cardiac enzymes, serial EKG's, cardiac rhythm monitoring and a 2-D echocardiogram with Dopplers. Continue aspirin 81 mg daily Hyponatremia/acute kidney injury- Sodium 124 at admission Creatinine 1.79, with baseline 1.14 Patient has had significantly decreased oral intake over the past few days Placedon NSS at 80 mils per hour, and recheck laboratories in a.m. Hyperlipidemia- Continue atorvastatin 40 mg daily Gout- Continue allopurinol 300 mg daily B12 deficiency- Continue supplement 3000 mcg daily History of Present Illness Chief Complaint: The patient presents to the emergency department with complaint of shortness of breath, dyspnea on exertion, decreased oral intake, intermittently productive cough, 1 day of loose stools 3 days ago. Primary Care Provider: Angel Ac MD The patient is an 86-year-old female with a past medical history including sacroiliitis, arthritis, calcium pyrophosphate deposition disease, COPD, lumbar disc degeneration, Hatle hernia, hyperlipidemia, renal insufficiency, acquired spondylolisthesis, PAD, gout, CKD, SNHL of bilateral ears, Schatzki's ring and osteoporosis. The patient presents to the emergency department with symptoms as noted above. Work-up in the emergency department include the following abnormal laboratories: Sodium 124, creatinine 1.79, glucose 119, troponin 36.5, AST 12.2, ALT 69, albumin 3.3, Pro-Bao 64.44. Patient was COVID-19, influenza a and B, and RSV negative Chest x-ray showed left sided pneumonia Pulse ox was 88% on room air Allergies Allergy/AdvReac Type Severity Reaction Status Date / Time No Known Drug Allergies Allergy Unknown [id number] Verified 05/06/22 02:21 Home Medications Medication Instructions Recorded Confirmed Type multivitamin 1 tab PO QAM 02/16/20 05/06/22 History calcium carbonate 500 mg calcium 500 mg PO QAM 06/02/21 05/06/22 History (1,250 mg) chewable tablet (Calcium 500) aspirin 81 mg tablet 81 mg PO HS 06/12/21 05/06/22 History cholecalciferol (vitamin D3) 25 25 mcg PO QAM 06/12/21 05/06/22 History mcg (1,000 unit) tablet (Vitamin D3) allopurinol 300 mg tablet 300 mg PO DAILY #90 tabs 12/15/21 05/06/22 Rx atorvastatin 40 mg tablet 40 mg PO QAM #90 tabs 12/15/21 05/06/22 Rx tiotropium bromide 2.5 2 puff inhalation QAM #4 grams 12/15/21 05/06/22 Rx mcg/actuation mist for inhalation (Spiriva Respimat) albuterol sulfate 90 mcg/actuation 2 puff inhalation Q4H PRN 01/14/22 05/06/22 Rx aerosol inhaler (Ventolin HFA) Shortness Of Breath #1 inhaler mecobalamin (vitamin B12) 1,000 3,000 mcg PO DAILY 03/04/22 05/06/22 History mcg chewable tablet ascorbic acid (vitamin C) 1,000 mg 1 g PO DAILY 04/07/22 05/06/22 History tablet (Vitamin C) potassium gluconate 595 mg (99 mg) 595 mg PO DAILY 04/07/22 05/06/22 History tablet Past Med/Surg History Medical History Chronic back pain Chronic obstructive pulmonary disease CKD (chronic kidney disease) Hx of gastric ulcer Hx of gout Hx of skin cancer, basal cell Osteoarthritis Osteoporosis Sacroiliitis Schatzki's ring Sciatica RT Scoliosis Sensorineural hearing loss (SNHL) of both ears SNHL (sensorineural hearing loss) Spinal stenosis Surgical History History of arthroplasty of knee RT/LEFT History of bilateral tubal ligation History of breast biopsy History of colonoscopy History of esophagogastroduodenoscopy (EGD) History of Mohs micrographic surgery for skin cancer S/P epidural steroid injection Family History Mother Family history of colon cancer Family history of cardiac disorder Hearing loss Cancer Other No family history of adverse response to anesthesia Denies family history of Ovarian cancer Prostate cancer Myocardial infarction Breast cancer Colorectal cancer Social History Smoking Status: Current every day smoker Tobacco Type: Cigarettes Cigarettes Per Day: 4 CIGS DAILY; Second Hand Exposure: Yes ( A CHILD); Hx Alcohol Use: Yes Alcohol type: beer, wine and hard liquor Hx Substance Use: No Preferred Language: Persian Communication Ability: Effective Documentation Engineer Required: No Beliefs That Will Affect Care: None marital status: / Current Living Situation: Alone current occupational status: retired Feels Safe at Home: Yes Assistive Devices: Glasses and Hearing Aid - Bilateral Review of Systems Review of Systems: The patient denies chest pain, palpitations, lower extremity swelling, sore throat, fevers, chills, sweats, nausea, vomiting, diarrhea , constipation, abdominal pain, pelvic pain, blood in urine or stool, dysuria, urinary frequency or urgency, lightheadedness, dizziness, headache, memory loss, loss of consciousness, rash, abnormal bruising or bleeding, Focal weakness, numbness or tingling in arms or legs, generalized arthralgias or myalgias, back or neck pain, or night sweats. The review of systems is otherwise negative other than for that already noted above, and at least 10 systems have been reviewed. Physical Exam Physical Exam: The patient is awake, alert and oriented 3, well developed and well nourished, normocephalic and atraumatic, lying in bed and in no acute di stress. HEENT--PERRL, EOMI, mucous membranes and oropharynx normal. Neck--supple. No JVD. No bruits. Thyroid normal, trachea midline, no adenopathy. Heart--normal S1 and S2. No murmurs, rubs or gallops. Lungs--coarse breath sounds left much greater than right. No respiratory distress, no accessory muscle use. Abdomen--normal bowel sounds and soft. Nontender. Nondistended, no hernias or masses, no organomegaly. Extremities--no cyanosis or clubbing. No edema. Dermatologic--normal skin turgor, normal color, no abnormal lymph nodes, no rash. Neurologic--cranial nerves II through XII grossly intact. Rheumatologic--normal range of motion. Psychiatric--normal affect. Results & Data Results & Data ([facility]) Vital Signs (Past 12 Hours) Vital Signs Temp Pulse Pulse Resp BP BP Pulse Ox 05/06/22 00:30 95 H 25 H 94 05/06/22 00:20 94 H 25 H 95 05/06/22 00:10 96 H 28 H 94 05/05/22 23:50 96 H 20 90 05/05/22 22:44 100 H 20 117/74 88 L 05/05/22 18:37 101 H 20 123/65 91 05/05/22 17:03 36.6 C 109 H 20 119/58 L 92 O2 Del Method 05/06/22 00:30 05/06/22 00:20 05/06/22 00:10 05/05/22 23:50 Room Air 05/05/22 22:44 Room Air 05/05/22 18:37 Room Air 05/05/22 17:03 Room Air Laboratory Results Laboratory Results WBC 8.89 K/ul (4.8-10.8) 05/05/22 18:49 RBC 3.69 M/uL (3.93-5.22) L 05/05/22 18:49 Hgb 12.4 g/dl (12.0-16.0) 05/05/22 18:49 Hct 34.7 % (34.1-44.9) 05/05/22 18:49 MCV 94.0 fL (80.0-100.0) 05/05/22 18:49 MCH 33.6 pg (25.0-34.0) 05/05/22 18:49 MCHC 35.7 g/dL (32.0-36.0) 05/05/22 18:49 RDW Std Deviation 52.1 fL (36.4-46.3) H 05/05/22 18:49 RDW Coeff of Lazara 15.1 % (11.5-14.5) H 05/05/22 18:49 Plt Count 216 K/uL (130-400) 05/05/22 18:49 MPV 11.4 fL (9.4-12.3) 05/05/22 18:49 Immature Gran % (Auto) 1.3 % 05/05/22 18:49 Neut % (Auto) 88.4 % 05/05/22 18:49 Lymph % (Auto) 5.5 % 05/05/22 18:49 [place] % (Auto) 4.5 % 05/05/22 18:49 Eos % (Auto) 0.0 % 05/05/22 18:49 Baso % (Auto) 0.3 % 05/05/22 18:49 Neut # (Auto) 7.85 K/uL (1.4-6.5) H 05/05/22 18:49 Lymph # (Auto) 0.49 K/uL (1.2-3.4) L 05/05/22 18:49 [place] # (Auto) 0.40 K/uL (0.24-0.82) 05/05/22 18:49 Eos # (Auto) 0.00 K/uL (0-0.50) 05/05/22 18:49 Baso # (Auto) 0.03 K/uL (0-0.2) 05/05/22 18:49 Immature Gran # (Auto) 0.12 K/uL (0.00-0.02) H 05/05/22 18:49 Toxic Granulation 1+ 05/05/22 18:49 Toxic Vacuolation 1+ 05/05/22 18:49 Dohle Bodies 1+ 05/05/22 18:49 Echinocytes 1+ 05/05/22 18:49 ABG pH 7.45 (7.35-7.45) 05/05/22 23:46 ABG pCO2 30 mmHg (35-46) L 05/05/22 23:46 ABG pO2 61 mmHg (80-95) L 05/05/22 23:46 ABG HCO3 21 mmol/L (19-24) 05/05/22 23:46 ABG O2 Saturation 93.5 % (90-95) 05/05/22 23:46 ABG Base Excess -2.1 mEq/L (-9-1.8) 05/05/22 23:46 Sarbjit Test Pos (Pos) 05/05/22 23:46 Oxygen Given RA 05/05/22 23:46 Sodium 124 mmol/L (136-145) L 05/05/22 18:49 Potassium 3.9 mmol/L (3.5-5.1) 05/05/22 18:49 Chloride 92 mmol/L (98-107) L 05/05/22 18:49 Carbon Dioxide 22 mmol/L (21-32) 05/05/22 18:49 Anion Gap 10 (3-11) 05/05/22 18:49 BUN 56 mg/dl (6-23) H 05/05/22 18:49 Creatinine 1.79 mg/dl (0.6-1.2) H 05/05/22 18:49 Est Cr Clr Drug Dosing Not Reportable 05/05/22 18:49 Est GFR ( Amer) 29.4 ml/min 05/05/22 18:49 Est GFR (Non-Af Amer) 25.4 ml/min 05/05/22 18:49 BUN/Creatinine Ratio 31.3 (10-20) H 05/05/22 18:49 Glucose 119 mg/dl (70-99(Fasting)) H 05/05/22 18:49 Lactate 0.8 mmol/L (0.4-2.0) 05/05/22 23:46 Calcium 9.0 mg/dl (8.5-10.1) 05/05/22 18:49 Magnesium 1.9 mg/dl (1.7-2.4) 05/05/22 23:46 Total Bilirubin 1.0 mg/dl (0.2-1.0) 05/05/22 18:49 AST 122 U/L (13-39) H 05/05/22 18:49 ALT 69 U/L (7-52) H 05/05/22 18:49 Alkaline Phosphatase 57 U/L (34-104) 05/05/22 18:49 Total Creatine Kinase 257 U/L (26-192) H 05/05/22 23:46 Troponin I High Sens 34.8 pg/ml (0-14) H 05/06/22 02:37 Total Protein 6.6 gm/dl (6.0-8.3) 05/05/22 18:49 Albumin 3.3 gm/dl (3.4-5.0) L 05/05/22 18:49 Globulin 3.3 gm/dl (2.5-4.0) 05/05/22 18:49 Albumin/Globulin Ratio 1.0 (0.9-2) 05/05/22 18:49 Procalcitonin 64.44 ng/ml (0-0.5) H 05/05/22 18:49 SARS-CoV-2 (PCR) NEGATIVE (Negative) 05/05/22 18:52 Influenza Type A (PCR) Negative (Neg) 05/05/22 18:52 Influenza Type B (PCR) Negative (Neg) 05/05/22 18:52 RSV (RT-PCR) Negative (Neg) 05/05/22 18:52 Code Status & VTE Plan Code Status Full code VTE Prophylaxis Plan VTE Prophylaxis will be ordered: Yes
[2022-05-06] MEDS ORDERED: ONDANSETRON INJ 2 MG/ML 2 ML VIAL IV PRN (02:38)
[2022-05-06] MEDS ORDERED: SODIUM CHLORIDE 0.9% 1000ML 1,000 ML IV SCH (02:38)
--- NOTE | 2022-05-06 04:56 | Billing Data ---
Date of Service May 06, 2022 Coding Level of Care Code 06161 INT INP/OBS CARE
[2022-05-06 07:10] LABS: Albumin Level 2.9 gm/dl (3.4-5.0); BUN Creatinine Ratio 32.5 (10-20); Bilirubin,Total 0.9 mg/dl (0.2-1.0); Creatinine Clr Calc Pharmacy 25.3 ml/min; Est GFR (African American) 31.5 ml/min; Est GFR (Non-African American) 27.2 ml/min; Globulin 2.9 gm/dl (2.5-4.0); Potassium 3.6 mmol/L (3.5-5.1); Total Protein 5.8 gm/dl (6.0-8.3)
[2022-05-06] MEDS: ALBUT/IPRATROP 3MG/0.5MG NEB 3 ML VIAL NEB SCH ×4 (07:24→17:39)
[2022-05-06 07:25] LABS: Hematocrit (blood only) 32.1 % (34.1-44.9); Hemoglobin 11.4 g/dl (12.0-16.0); Mean Corpuscular Hgb Conc 35.5 g/dL (32.0-36.0); Platelet Count 184 K/uL (130-400); RDW Coefficient of Variation 13.8 % (11.5-14.5); RDW Standard Deviation 46.3 fL (36.4-46.3); Red Blood Count 3.45 M/uL (3.93-5.22); White Blood Count 8.19 K/ul (4.8-10.8)
[2022-05-06 07:26] LABS: Basophils # (auto) 0.03 K/uL (0-0.2); Basophils % (auto) 0.4 %; Immature Granulocytes # (auto) 0.18 K/uL (0.00-0.02); Immature Granulocytes % (auto) 2.2 %; Lymphocytes # (auto) 0.55 K/uL (1.2-3.4); Lymphocytes % (auto) 6.7 %; Monocytes # (auto) 0.26 K/uL (0.24-0.82); Monocytes % (auto) 3.2 %; Neutrophils # (auto) 7.17 K/uL (1.4-6.5); Neutrophils % (auto) 87.5 %; Polychromasia 1+
--- NOTE | 2022-05-06 07:40 | Hospitalist Progress Note ---
Date of Service May 06, 2022 Assessment & Plan (1) Acute respiratory failure with hypoxia: (2) COPD exacerbation: (3) Pneumonia involving left lung: (4) Hyponatremia: (5) Acute kidney injury superimposed on CKD: (6) Arthritis: (7) Hyperlipidemia: (8) Peripheral arterial disease: (9) Gout: Plan 86 y/o female with a PMHx of COPD, gout, HLD, and B12 deficiency presented for evaluation of SOB, CASTILLO, productive cough, and decreased PO intake found to be hyponatremic to 126 and hypoxic with increased RR and new oxygen requirement likely in the setting of PNA and subsequent COPD exacerbation admitted for supplemental oxygen, abx management, and hydration. #Acute respiratory failure with hypoxia/pneumonia involving left lung/COPD exacerbation [] Cefepime 2 g IV every 12 hours - less likely need for pseudomonas coverage, switch to ceftriaxone [] add on atypical coverage with Azithromycin 500 mg x1, 250 x4 [] pred 40 mg QAM for 5 days [] Pulmonary Toilet - duonebs every 4 hours while awake and every 2 hours when necessary, guaifenesin extended release 12 mg PO BID [] IS/flutter valve hourly while awake [] MRSA swab [] Continue Incruse Ellipta [] supplemental oxygen - titrate to keep pulse ox around 94% [] blood cultures #Slightly elevated troponin - peaked Troponin 36.5 on admission --> 34.8. Likely in the setting of acute infection, but she did have an abnormal EKG in the ED. TTE. Awaiting cards read of EKG. [] admit to tele, serial EKGs, trend trops [] ASA 81 mg QD [] TTE #Hyponatremia/acute kidney injury 2/2 decreased PO intake Sodium 124 at admission. Creatinine 1.79, with baseline 1.14. Patient has had significantly decreased oral intake over the past few days. Likely in the setting of decreased PO intake. Urine solutes ordered. [] urine sodium and osmolality [] IVF NS 80 mL/hr [] AM BMP #Hyperlipidemia Continue atorvastatin 40 mg daily #Gout Continue allopurinol 300 mg daily #B12 deficiency Continue supplement 3000 mcg daily Code status: full DVT ppx: lovenox FENGI: IVF NS 80 mL/hr, heart healthy diet Dispo:admit to tele Admission and Anticipated Discharge Date Admission Date: May 06, 2022 Supervising Physician Co-Signing Physician Notes I personally examined the patient and verified all dowd points of history and exam, discussed case, and agree with decision making with Dr Finley. Feels about the same as yesterday. Still cough still shortness of breath. Vitals noted, in general she is awake and alert pleasant no distress. HEENT normocephalic atraumatic mucous membranes moist. Left lower lung diminished with faint rales above. Right is clear Community-acquired pneumonia with subsequent COPD exacerbationantibiotics, steroids, time. Appears to have had subsequent strep bacteremiawe will need to repeat cultures, and evaluate for possible endocarditisalthough fortunately at this point does not seem overly likely Otherwise as above Subjective Patient notes that she is feeling about the same. No change in breathing. Does report having general achiness diffusely. Has not noticed a change in symptoms at this time. Review of Systems Review of Systems: See HPI Physical Exam Physical Exam: The patient is awake, alert and oriented 3, well developed and well nourished, normocephalic and atraumatic, lying in bed and in no acute distress. HEENT--PERRL, EOMI, mucous membranes and oropharynx normal. Neck--supple. No JVD. No bruits. Thyroid normal, trachea midline, no adenopathy. Heart--normal S1 and S2. No murmurs, rubs or gallops. Lungs--coarse breath sounds left much greater than right. No respiratory distress, no accessory muscle use. Abdomen--normal bowel sounds and soft. Nontender. Nondistended, no hernias or masses, no organomegaly. Extremities--no cyanosis or clubbing. No edema. Dermatologic--normal skin turgor, normal color, no abnormal lymph nodes, no rash. Neurologic--cranial nerves II through XII grossly intact. Rheumatologic--normal range of motion. Psychiatric--normal affect. Results & Data Results & Data ([facility]) Vital Signs (Past 12 Hours) Vital Signs Pulse Pulse Resp BP BP Pulse Ox O2 Del Method 05/06/22 07:25 102 H 18 99 Nasal Cannula 05/06/22 06:00 95 H 22 120/65 95 Nasal Cannula 05/06/22 06:00 Nasal Cannula 05/06/22 03:22 68 19 88 L Room Air 05/06/22 02:10 97 H 25 H 91 05/06/22 02:02 94 H 24 92 05/06/22 02:01 113/60 05/06/22 02:00 95 H 25 H 91 05/06/22 01:50 99 H 25 H 93 05/06/22 01:40 94 H 26 H 05/06/22 01:30 95 H 30 H 93 05/06/22 01:20 96 H 26 H 93 05/06/22 01:10 98 H 27 H 93 05/06/22 01:00 95 H 25 H 94 05/06/22 00:50 92 H 26 H 94 05/06/22 00:40 93 H 26 H 05/06/22 00:30 95 H 25 H 94 05/06/22 00:20 94 H 25 H 95 05/06/22 00:10 96 H 28 H 94 05/05/22 23:50 96 H 20 90 Room Air 05/05/22 22:44 100 H 20 117/74 88 L Room Air O2 Flow Rate 05/06/22 07:25 2 05/06/22 06:00 2 05/06/22 06:00 2 05/06/22 03:22 2 05/06/22 02:10 05/06/22 02:02 05/06/22 02:01 05/06/22 02:00 05/06/22 01:50 05/06/22 01:40 05/06/22 01:30 05/06/22 01:20 05/06/22 01:10 05/06/22 01:00 05/06/22 00:50 05/06/22 00:40 05/06/22 00:30 05/06/22 00:20 05/06/22 00:10 05/05/22 23:50 05/05/22 22:44 Laboratory Results 05/06/22 05/06/22 05/06/22 Range/Units 06:30 06:30 02:37 WBC 8.19 (4.8-10.8) K/ul RBC 3.45 L (3.93-5.22) M/uL Hgb 11.4 L (12.0-16.0) g/dl Hct 32.1 L (34.1-44.9) % MCV 93.0 (80.0-100.0) fL MCH 33.0 (25.0-34.0) pg MCHC 35.5 (32.0-36.0) g/dL RDW Std Deviation 46.3 (36.4-46.3) fL RDW Coeff of Lazara 13.8 (11.5-14.5) % Plt Count 184 (130-400) K/uL MPV 11.0 (9.4-12.3) fL Immature Gran % (Auto) 2.2 % Neut % (Auto) 87.5 % Lymph % (Auto) 6.7 % [place] % (Auto) 3.2 % Eos % (Auto) 0.0 % Baso % (Auto) 0.4 % Neut # (Auto) 7.17 H (1.4-6.5) K/uL Lymph # (Auto) 0.55 L (1.2-3.4) K/uL [place] # (Auto) 0.26 (0.24-0.82) K/uL Eos # (Auto) 0.00 (0-0.50) K/uL Baso # (Auto) 0.03 (0-0.2) K/uL Immature Gran # (Auto) 0.18 H (0.00-0.02) K/uL Toxic Granulation Toxic Vacuolation Dohle Bodies Polychromasia 1+ Echinocytes ABG pH (7.35-7.45) ABG pCO2 (35-46) mmHg ABG pO2 (80-95) mmHg ABG HCO3 (19-24) mmol/L ABG O2 Saturation (90-95) % ABG Base Excess (-9-1.8) mEq/L Sarbjit Test (Pos) Oxygen Given Sodium 126 L (136-145) mmol/L Potassium 3.6 (3.5-5.1) mmol/L Chloride 97 L (98-107) mmol/L Carbon Dioxide 20 L (21-32) mmol/L Anion Gap 9 (3-11) BUN 55 H (6-23) mg/dl Creatinine 1.69 H (0.6-1.2) mg/dl Est Cr Clr Drug Dosing 25.3 Est GFR ( Amer) 31.5 ml/min Est GFR (Non-Af Amer) 27.2 ml/min BUN/Creatinine Ratio 32.5 H (10-20) Glucose 97 (70-99(Fasting)) mg/dl Lactate (0.4-2.0) mmol/L Calcium 8.0 L (8.5-10.1) mg/dl Magnesium (1.7-2.4) mg/dl Total Bilirubin 0.9 (0.2-1.0) mg/dl AST 97 H (13-39) U/L ALT 60 H (7-52) U/L Alkaline Phosphatase 51 (34-104) U/L Total Creatine Kinase (26-192) U/L Troponin I High Sens 34.8 H (0-14) pg/ml Total Protein 5.8 L (6.0-8.3) gm/dl Albumin 2.9 L (3.4-5.0) gm/dl Globulin 2.9 (2.5-4.0) gm/dl Albumin/Globulin Ratio 1.0 (0.9-2) Procalcitonin (0-0.5) ng/ml SARS-CoV-2 (PCR) (Negative) Influenza Type A (PCR) (Neg) Influenza Type B (PCR) (Neg) RSV (RT-PCR) (Neg) 05/05/22 05/05/22 05/05/22 Range/Units 23:46 23:46 23:46 WBC (4.8-10.8) K/ul RBC (3.93-5.22) M/uL Hgb (12.0-16.0) g/dl Hct (34.1-44.9) % MCV (80.0-100.0) fL MCH (25.0-34.0) pg MCHC (32.0-36.0) g/dL RDW Std Deviation (36.4-46.3) fL RDW Coeff of Lazara (11.5-14.5) % Plt Count (130-400) K/uL MPV (9.4-12.3) fL Immature Gran % (Auto) % Neut % (Auto) % Lymph % (Auto) % [place] % (Auto) % Eos % (Auto) % Baso % (Auto) % Neut # (Auto) (1.4-6.5) K/uL Lymph # (Auto) (1.2-3.4) K/uL [place] # (Auto) (0.24-0.82) K/uL Eos # (Auto) (0-0.50) K/uL Baso # (Auto) (0-0.2) K/uL Immature Gran # (Auto) (0.00-0.02) K/uL Toxic Granulation Toxic Vacuolation Dohle Bodies Polychromasia Echinocytes ABG pH 7.45 (7.35-7.45) ABG pCO2 30 L (35-46) mmHg ABG pO2 61 L (80-95) mmHg ABG HCO3 21 (19-24) mmol/L ABG O2 Saturation 93.5 (90-95) % ABG Base Excess -2.1 (-9-1.8) mEq/L Sarbjit Test Pos (Pos) Oxygen Given RA Sodium (136-145) mmol/L Potassium (3.5-5.1) mmol/L Chloride (98-107) mmol/L Carbon Dioxide (21-32) mmol/L Anion Gap (3-11) BUN (6-23) mg/dl Creatinine (0.6-1.2) mg/dl Est Cr Clr Drug Dosing Est GFR ( Amer) ml/min Est GFR (Non-Af Amer) ml/min BUN/Creatinine Ratio (10-20) Glucose (70-99(Fasting)) mg/dl Lactate 0.8 (0.4-2.0) mmol/L Calcium (8.5-10.1) mg/dl Magnesium 1.9 (1.7-2.4) mg/dl Total Bilirubin (0.2-1.0) mg/dl AST (13-39) U/L ALT (7-52) U/L Alkaline Phosphatase (34-104) U/L Total Creatine Kinase 257 H (26-192) U/L Troponin I High Sens 36.5 H (0-14) pg/ml Total Protein (6.0-8.3) gm/dl Albumin (3.4-5.0) gm/dl Globulin (2.5-4.0) gm/dl Albumin/Globulin Ratio (0.9-2) Procalcitonin (0-0.5) ng/ml SARS-CoV-2 (PCR) (Negative) Influenza Type A (PCR) (Neg) Influenza Type B (PCR) (Neg) RSV (RT-PCR) (Neg) 05/05/22 05/05/22 05/05/22 Range/Units 18:52 18:49 18:49 WBC (4.8-10.8) K/ul RBC (3.93-5.22) M/uL Hgb (12.0-16.0) g/dl Hct (34.1-44.9) % MCV (80.0-100.0) fL MCH (25.0-34.0) pg MCHC (32.0-36.0) g/dL RDW Std Deviation (36.4-46.3) fL RDW Coeff of Lazara (11.5-14.5) % Plt Count (130-400) K/uL MPV (9.4-12.3) fL Immature Gran % (Auto) % Neut % (Auto) % Lymph % (Auto) % [place] % (Auto) % Eos % (Auto) % Baso % (Auto) % Neut # (Auto) (1.4-6.5) K/uL Lymph # (Auto) (1.2-3.4) K/uL [place] # (Auto) (0.24-0.82) K/uL Eos # (Auto) (0-0.50) K/uL Baso # (Auto) (0-0.2) K/uL Immature Gran # (Auto) (0.00-0.02) K/uL Toxic Granulation Toxic Vacuolation Dohle Bodies Polychromasia Echinocytes ABG pH (7.35-7.45) ABG pCO2 (35-46) mmHg ABG pO2 (80-95) mmHg ABG HCO3 (19-24) mmol/L ABG O2 Saturation (90-95) % ABG Base Excess (-9-1.8) mEq/L Sarbjit Test (Pos) Oxygen Given Sodium 124 L (136-145) mmol/L Potassium 3.9 (3.5-5.1) mmol/L Chloride 92 L (98-107) mmol/L Carbon Dioxide 22 (21-32) mmol/L Anion Gap 10 (3-11) BUN 56 H (6-23) mg/dl Creatinine 1.79 H (0.6-1.2) mg/dl Est Cr Clr Drug Dosing Not Reportable Est GFR ( Amer) 29.4 ml/min Est GFR (Non-Af Amer) 25.4 ml/min BUN/Creatinine Ratio 31.3 H (10-20) Glucose 119 H (70-99(Fasting)) mg/dl Lactate (0.4-2.0) mmol/L Calcium 9.0 (8.5-10.1) mg/dl Magnesium (1.7-2.4) mg/dl Total Bilirubin 1.0 (0.2-1.0) mg/dl AST 122 H (13-39) U/L ALT 69 H (7-52) U/L Alkaline Phosphatase 57 (34-104) U/L Total Creatine Kinase (26-192) U/L Troponin I High Sens (0-14) pg/ml Total Protein 6.6 (6.0-8.3) gm/dl Albumin 3.3 L (3.4-5.0) gm/dl Globulin 3.3 (2.5-4.0) gm/dl Albumin/Globulin Ratio 1.0 (0.9-2) Procalcitonin 64.44 H (0-0.5) ng/ml SARS-CoV-2 (PCR) NEGATIVE (Negative) Influenza Type A (PCR) Negative (Neg) Influenza Type B (PCR) Negative (Neg) RSV (RT-PCR) Negative (Neg) 05/05/22 Range/Units 18:49 WBC 8.89 (4.8-10.8) K/ul RBC 3.69 L (3.93-5.22) M/uL Hgb 12.4 (12.0-16.0) g/dl Hct 34.7 (34.1-44.9) % MCV 94.0 (80.0-100.0) fL MCH 33.6 (25.0-34.0) pg MCHC 35.7 (32.0-36.0) g/dL RDW Std Deviation 52.1 H (36.4-46.3) fL RDW Coeff of Lazara 15.1 H (11.5-14.5) % Plt Count 216 (130-400) K/uL MPV 11.4 (9.4-12.3) fL Immature Gran % (Auto) 1.3 % Neut % (Auto) 88.4 % Lymph % (Auto) 5.5 % [place] % (Auto) 4.5 % Eos % (Auto) 0.0 % Baso % (Auto) 0.3 % Neut # (Auto) 7.85 H (1.4-6.5) K/uL Lymph # (Auto) 0.49 L (1.2-3.4) K/uL [place] # (Auto) 0.40 (0.24-0.82) K/uL Eos # (Auto) 0.00 (0-0.50) K/uL Baso # (Auto) 0.03 (0-0.2) K/uL Immature Gran # (Auto) 0.12 H (0.00-0.02) K/uL Toxic Granulation 1+ Toxic Vacuolation 1+ Dohle Bodies 1+ Polychromasia Echinocytes 1+ ABG pH (7.35-7.45) ABG pCO2 (35-46) mmHg ABG pO2 (80-95) mmHg ABG HCO3 (19-24) mmol/L ABG O2 Saturation (90-95) % ABG Base Excess (-9-1.8) mEq/L Sarbjit Test (Pos) Oxygen Given Sodium (136-145) mmol/L Potassium (3.5-5.1) mmol/L Chloride (98-107) mmol/L Carbon Dioxide (21-32) mmol/L Anion Gap (3-11) BUN (6-23) mg/dl Creatinine (0.6-1.2) mg/dl Est Cr Clr Drug Dosing Est GFR ( Amer) ml/min Est GFR (Non-Af Amer) ml/min BUN/Creatinine Ratio (10-20) Glucose (70-99(Fasting)) mg/dl Lactate (0.4-2.0) mmol/L Calcium (8.5-10.1) mg/dl Magnesium (1.7-2.4) mg/dl Total Bilirubin (0.2-1.0) mg/dl AST (13-39) U/L ALT (7-52) U/L Alkaline Phosphatase (34-104) U/L Total Creatine Kinase (26-192) U/L Troponin I High Sens (0-14) pg/ml Total Protein (6.0-8.3) gm/dl Albumin (3.4-5.0) gm/dl Globulin (2.5-4.0) gm/dl Albumin/Globulin Ratio (0.9-2) Procalcitonin (0-0.5) ng/ml SARS-CoV-2 (PCR) (Negative) Influenza Type A (PCR) (Neg) Influenza Type B (PCR) (Neg) RSV (RT-PCR) (Neg) Diagnostic Findings Chest X-Ray 05/05/22 23:14 XR chest 1V portable HISTORY: 86 years-old Female Sepsis acute sepsis COMPARISON: Chest radiograph 01/14/2022 TECHNIQUE: AP view of the chest FINDINGS: Cardiac silhouette is enlarged. No pneumothorax. Left pleural effusion with left midlung and left basilar consolidation. No pneumothorax. Degenerative changes of the shoulders and spine. IMPRESSION: Extensive left lung airspace opacities suggestive of pneumonia with small left pleural effusion. ACT 112: Negative or not required by law. The above report was generated using voice recognition software. It may contain grammatical, syntax or spelling errors. Electronically signed by: Sivakumar Jacobson M.D. 05/06/2022 8:45 AM Resident Activity Tracking Resident Involvement: Resident Care Provided Care Provided: Adult Hospital Medicine
[2022-05-06] MEDS: ASCORBIC ACID 500 MG TAB PO SCH (07:59)
[2022-05-06] MEDS: CYANOCOBALAMIN (B-12) 500 MCG TABLET PO SCH (07:59)
[2022-05-06] MEDS: ATORVASTATIN 40 MG TAB PO SCH (08:00)
[2022-05-06] MEDS: allopurinoL 300 MG TAB PO SCH (08:00)
[2022-05-06] MEDS: guaiFENesin 600 MG TABCR PO SCH ×2 (08:00→20:42)
[2022-05-06] MEDS: MULTIVITAMIN TAB PO SCH (08:00)
[2022-05-06] MEDS: CHOLECALCIFEROL 1,000 UNITS 25 MCG TAB PO SCH (08:00)
[2022-05-06] MEDS: CALCIUM CARBONATE 1250MG TAB PO SCH (08:00)
[2022-05-06] MEDS: ENOXAPARIN INJ 30 MG/0.3 ML SYR SQ SCH (08:01)
[2022-05-06] MEDS: UMECLIDINIUM BROMIDE 62.5MCG/BLISTER 7 PUFFS/INHALER INH SCH (08:01)
--- NOTE | 2022-05-06 08:47 | XRay Report ---
XR chest 1V portable HISTORY: 86 years-old Female Sepsis acute sepsis COMPARISON: Chest radiograph 01/14/2022 TECHNIQUE: AP view of the chest FINDINGS: Cardiac silhouette is enlarged. No pneumothorax. Left pleural effusion with left midlung and left bas ilar consolidation. No pneumothorax. Degenerative changes of the shoulders and spine. IMPRESSION: Extensive left lung airspace opacities suggestive of pneumonia with small left pleural ef fusion. ACT 112: Negative or not required by law. The above report was generated using voice recognition software. It may contain grammatical, syntax o r spelling errors. Electronically signed by: Sivakumar Jacobson M.D. 05/06/2022 8:45 AM
[2022-05-06] MEDS ORDERED: NON-FORMULARY MEDICATION (Potassium Gluconate 595 mg (99 mg) Tablet) PO SCH (09:00)
[2022-05-06] MEDS ORDERED: AZITHROMYCIN 250 MG TAB PO ONE (10:26)
[2022-05-06] MEDS: predniSONE 20 MG TAB PO SCH (10:43)
[2022-05-06 12:09] LABS: A calco-baum cmplx NotReported Not Detected (NotDetected); Bact fragilis Not Reported Not Detected (NotDetected); C auris Not Reported Not Detected (NotDetected); Calbicans Not Reported Not Detected (NotDetected); Candida glabrata Not Reported Not Detected (NotDetected); Candida krusei Not Reported Not Detected (NotDetected); Cneoformans/gatti Not Reported Not Detected (NotDetected); Cparapsilosis Not Reported Not Detected (NotDetected); Ctropicalis Not Reported Not Detected (NotDetected); E cloacae compx Not Reported Not Detected (NotDetected); Efaecalis Not Reported Not Detected (NotDetected); Efaecium Not Reported Not Detected (NotDetected); Enterobacterales Not Reported Not Detected (NotDetected); Escherichia coli Not Reported Not Detected (NotDetected); H influenzae Not Reported Not Detected (NotDetected); K aerogenes Not Reported Not Detected (NotDetected); Koxytoca Not Reported Not Detected (NotDetected); Kpneumoniae grp Not Reported Not Detected (NotDetected); Lmonocyt Not Reported Not Detected (NotDetected); N meningitidis Not Reported Not Detected (NotDetected); P aeruginosa Not Reported Not Detected (NotDetected); Proteus spp Not Reported Not Detected (NotDetected); Salmonella spp Not Reported Not Detected (NotDetected); Smarcescens Not Reported Not Detected (NotDetected); Staph lugdunensis Not Reported Not Detected (NotDetected); Staph spp. Not Reported Not Detected (NotDetected); Staphaureus Not Reported Not Detected (NotDetected); Staphepi Not Reported Not Detected (NotDetected); Stenmaltophilia Not Reported Not Detected (NotDetected); Strep agal(GrpB) Not Reported Not Detected (NotDetected); Strep pneum Not Reported DETECTED (NotDetected); Strep pyog (GrpA) Not Reported Not Detected (NotDetected); Strep spp Not Reported DETECTED (NotDetected); Streptococcus spp DETECTED (NotDetected)
--- NOTE | 2022-05-06 12:10 | XCELERA ---
[id number]
[2022-05-06 12:44] LABS: Streptococcus pneumoniae DETECTED (NotDetected)
--- NOTE | 2022-05-06 13:52 | Pharmacy Report ---
ED Pharmacist Progress Note - ED Pharmacist Progress Note Date of Service:: May 06, 2022 Notes:: Gram positive cocci in chains growing in 3/4 blood cultures. Identified as Strep pneumo on BCID2. Patient is on rocephin which should cover Strep pneumo but pending sensitivities. (100% non-meningitis sensitivity on latest antibiogram). Inpatient team alerted to results.
--- NOTE | 2022-05-06 14:51 | Electrocardiogram Report ---
Test Reason : Blood Pressure : / mmHG Vent. Rate : 108 BPM Atrial Rate : 108 BPM P-R Int : 148 ms QRS Dur : 068 ms QT Int : 304 ms P-R-T Axes : 073 -03 052 degrees QTc Int : 407 ms Poor data quality, interpretation may be adversely affected Sinus tachycardia with occasional Premature ventricular complexes Low voltage QRS Cannot rule out Inferior infarct , age undetermined Possible Anterolateral infarct , age undetermined Abnormal ECG When compared with ECG of 19-AUG-2000 15:21, Premature ventricular complexes are now Present Vent. rate has increased BY 42 BPM Borderline criteria for Anterior infarct are now Present Borderline criteria for Anterolateral infarct are now Present Confirmed by Jorge A Dugan ([id number]) on 05/06/2022 2:50:35 PM Referred By: REFERRED SELF Confirmed By:Jorge A Dugan
[2022-05-06 18:26] LABS: Appearance Urine Cloudy (Clear); Bilirubin Urine Negative (Negative); Blood Urine 1+ (Negative); Color Urine Yellow; Glucose Urine UA Negative (Negative); Ketones Urine Negative (Negative); Leukocyte Esterase Urine Negative (Negative); Nitrite Urine Negative (Negative); Protein Urine 2+ (Negative); RBC Urine Automated 0-4 /hpf (0-4); Specific Gravity Urine 1.012 (1.000-1.030); Urobilinogen Urine Negative (Negative); pH Urine 5.5 (4.5-7.5)
[2022-05-06 19:02] LABS: Amorphous Sediment Urine Present (None Prsent)
[2022-05-06 19:03] LABS: Bacteria Urine Automated 1+ (Negative)
[2022-05-06] MEDS: SODIUM CHLORIDE 0.9% 500 ML IV SCH (19:18)
[2022-05-06] MEDS: ASPIRIN 81 MG ECTAB PO SCH (20:40)
--- NOTE | 2022-05-06 21:35 | Billing Data ---
Date of Service May 06, 2022 Coding Level of Care Code 62275 SUB INP/OBS CARE
[2022-05-06] MEDS ORDERED: CEFEPIME 2,000 MG in SYRINGE 0 ML IV SCH (22:00)
[2022-05-07] MEDS: cefTRIAXone SODIUM 1,000 MG in DEXTROSE 5% AD-VAN 50 ML IV SCH ×2 (00:39→23:37)
[2022-05-07] MEDS: SODIUM CHLORIDE 0.9% 500 ML IV SCH (02:56)
[2022-05-07] MEDS: ALBUT/IPRATROP 3MG/0.5MG NEB 3 ML VIAL NEB SCH (05:29)
--- NOTE | 2022-05-07 07:44 | Hospitalist Progress Note ---
Date of Service May 07, 2022 Assessment & Plan (1) Acute respiratory failure with hypoxia: (2) COPD exacerbation: (3) Pneumonia involving left lung: (4) Hyponatremia: (5) Acute kidney injury superimposed on CKD: (6) Arthritis: (7) Hyperlipidemia: (8) Peripheral arterial disease: (9) Gout: Plan 86 y/o female with a PMHx of COPD, gout, HLD, and B12 deficiency presented for evaluation of SOB, CASTILLO, productive cough, and decreased PO intake found to be hyponatremic to 126 and hypoxic with increased RR and new oxygen requirement likely in the setting of PNA and subsequent COPD exacerbation admitted for supplemental oxygen, abx management, and hydration who has noted new chest pain with deep inspiration and coughing. #Gram Positive Bacteremia - s. pneumonia #Acute respiratory failure with hypoxia/pneumonia involving left lung/COPD exacerbation Blood cultures grew s. pneumonia. MRSA negative. Patient had new onset CP with deep inspiration and coughing. Repeat CXR showed worsening left sided pleural effusion with small right side effusion. CT Chest w/o ordered. Patient continues to be HDS and afebrile. [] CT Chest - concern for necrotizing PNA, add on anaerobic coverage with Clindamycin 600 mg IV Q8H [] blood cultures - s. pneumonia, waiting on sensitivities [] Azithromycin 500 mg x1, 250 x4 - final dose 05/10. Ceftriaxone Q24 as less likely need for pseudomonas coverage - less likely need for pseudomonas coverage, switch to from cefepime to ceftriaxone [] pred 40 mg QAM for 5 days - final dose 05/10 [] Duonebs as needed, guaifenesin extended release 12 mg PO BID [] IS/flutter valve hourly while awake [] Continue Incruse Ellipta [] supplemental oxygen - titrate to keep pulse ox around 94% [] AM CXR #Hyponatremia/acute kidney injury 2/2 decreased PO intake - improving with IVF Sodium 124 at admission, now 132 - avoid overcorrection. Creatinine 1.79 - 1.40, with baseline 1.14. Patient has had significantly decreased oral intake over the past few days. Likely in the setting of decreased PO intake. [] IVF NS 80 mL/hr [] AM BMP #Slightly elevated troponin - peaked Troponin peak 36.6. Likely in the setting of acute infection, but she did have an abnormal EKG in the ED. TTE - normal LVF EF 60-65%, mild tricuspid regurg. A waiting cards read of EKG. [] admit to tele [] ASA 81 mg QD #Hyperlipidemia Continue atorvastatin 40 mg daily #Gout Continue allopurinol 300 mg daily #B12 deficiency Continue supplement 3000 mcg daily Code status: full DVT ppx: Lovenox FENGI: IVF NS 80 mL/hr, heart healthy diet Dispo:admit to tele Admission and Anticipated Discharge Date Admission Date: May 06, 2022 Supervising Physician Co-Signing Physician Notes I personally examined the patient and verified all dowd points of history and exam, discussed case, and agree with decision making with Dr Finley. Feels the same, maybe a little bit worse. Very weak. Not much of an appetite. Vitals noted, in general she is awake and alert pleasant no distress. HEENT normocephalic atraumatic mucous membranes moist. Breathing unlabored no accessory muscle use good effort. Skin shows no rashes no pallor or icterus. Neuro without focal deficits. Community-acquired pneumonia with subsequent COPD exacerbationfeeling worse/looking worse this morningrepeat chest x-raythis showed a much larger effusionconcern on empyemachest CT without anything appearing consistent with empyema at this time, but did appear to have a degree of a necrotic area. Fortunately clinically she is stableno clear indication for acute bronchoscopy. Add anaerobic coverage given the concern on possible necrotic area versus abscess, continue supportive care and follow closely. May need bronchoscopy or simply following imaging to clearing, but for now aggressive medical management. Deconditioningencouraged as much activity as possible, encourage p.o. intake. Otherwise as above Subjective Patient notes that she is feeling worse today. She reports feeling chest pain with coughing and deep inspiration. Patient is coughing more. Review of Systems Review of Systems: See HPI Physical Exam Physical Exam: Gen: awake, alert, and oriented. Non-toxic yet ill appearing female in NAD. Patient is coughing and wincing with deep inhalation HEENT--PERRL, EOMI, dry mucous membranes Neck--supple. trachea midline Heart--normal S1 and S2. No murmurs, rubs or gallops. Lungs--coarse breath sounds left much greater than right. Muffled breath sounds LLL. No respiratory distress, no accessory muscle use. Abdomen--Nondistended, Extremities--no cyanosis or clubbing. No edema. Neurologic--cranial nerves II through XII grossly intact. Psychiatric--normal affect. Results & Data Results & Data ([facility]) Vital Signs (Past 12 Hours) Vital Signs Pulse Pulse Resp BP Pulse Ox Pulse Ox O2 Del Method 05/07/22 07:30 92 H 20 151/86 H 94 Nasal Cannula 05/07/22 07:00 100 H 19 93 05/07/22 06:30 97 H 19 93 05/07/22 05:30 BiPAP 05/07/22 05:00 79 20 117/74 05/07/22 03:00 119/63 93 05/07/22 06:20 Nasal Cannula 05/07/22 03:00 93 05/07/22 05:31 80 18 93 Nasal Cannula 05/07/22 02:01 113/65 94 05/07/22 01:00 94 05/07/22 00:00 128/65 93 05/06/22 23:57 124/69 91 05/06/22 20:00 110/59 L 94 05/06/22 20:00 93 05/06/22 19:59 88 L O2 Del Method O2 Flow Rate O2 Flow Rate 05/07/22 07:30 2 05/07/22 07:00 05/07/22 06:30 05/07/22 05:30 05/07/22 05:00 05/07/22 03:00 05/07/22 06:20 2 05/07/22 03:00 Nasal Cannula 2 05/07/22 05:31 2 05/07/22 02:01 05/07/22 01:00 05/07/22 00:00 05/06/22 23:57 05/06/22 20:00 05/06/22 20:00 Nasal Cannula 2 05/06/22 19:59 Room Air 0 Laboratory Results 05/07/22 05/07/22 05/06/22 Range/Units 08:18 08:18 20:41 WBC 13.37 H (4.8-10.8) K/ul RBC 3.41 L (3.93-5.22) M/uL Hgb 11.4 L (12.0-16.0) g/dl Hct 32.1 L (34.1-44.9) % MCV 94.1 (80.0-100.0) fL MCH 33.4 (25.0-34.0) pg MCHC 35.5 (32.0-36.0) g/dL RDW Std Deviation 52.8 H (36.4-46.3) fL RDW Coeff of Lazara 15.4 H (11.5-14.5) % Plt Count 203 (130-400) K/uL MPV 11.2 (9.4-12.3) fL Immature Gran % (Auto) 4.8 % Neut % (Auto) 86.8 % Lymph % (Auto) 4.1 % Wilcox % (Auto) 4.0 % Eos % (Auto) 0.0 % Baso % (Auto) 0.3 % Neut # (Auto) 11.60 H (1.4-6.5) K/uL Lymph # (Auto) 0.55 L (1.2-3.4) K/uL Wilcox # (Auto) 0.54 (0.24-0.82) K/uL Eos # (Auto) 0.00 (0-0.50) K/uL Baso # (Auto) 0.04 (0-0.2) K/uL Immature Gran # (Auto) 0.64 H (0.00-0.02) K/uL Sodium 132 L (136-145) mmol/L Potassium 3.4 L (3.5-5.1) mmol/L Chloride 101 (98-107) mmol/L Carbon Dioxide 21 (21-32) mmol/L Anion Gap 10 (3-11) BUN 44 H (6-23) mg/dl Creatinine 1.40 H (0.6-1.2) mg/dl Est Cr Clr Drug Dosing 30.6 ml/min Est GFR ( Amer) 39.6 ml/min Est GFR (Non-Af Amer) 34.2 ml/min BUN/Creatinine Ratio 31.4 H (10-20) Glucose 97 (70-99(Fasting)) mg/dl Calcium 8.7 (8.5-10.1) mg/dl Magnesium 2.0 (1.7-2.4) mg/dl Total Bilirubin 0.6 (0.2-1.0) mg/dl AST 123 H (13-39) U/L ALT 81 H (7-52) U/L Alkaline Phosphatase 78 (34-104) U/L Troponin I High Sens 27.8 H (0-14) pg/ml Total Protein 6.2 (6.0-8.3) gm/dl Albumin 3.0 L (3.4-5.0) gm/dl Globulin 3.2 (2.5-4.0) gm/dl Albumin/Globulin Ratio 0.9 (0.9-2) Urine Color Urine Appearance (Clear) Urine pH (4.5-7.5) Ur Specific [place] (1.000-1.030) Urine Protein (Negative) Urine Glucose (UA) (Negative) Urine Ketones (Negative) Urine Blood (Negative) Urine Nitrite (Negative) Urine Bilirubin (Negative) Urine Urobilinogen (Negative) Ur Leukocyte Esterase (Negative) Urine WBC (Auto) (0-5) /hpf Urine RBC (Auto) (0-4) /hpf U Hyaline Cast (Auto) (0-5) /lpf U Epithel Cells (Auto) (0-5) /lpf Urine Bacteria (Auto) (Negative) Ur Renal Epithelial Cell (0-5) /lpf Amorphous Sediment (None Prsent) Urine Yeast Urine Osmolality (500-800) mOsm/kg Ur Random Sodium mmol/L Nasal Screen MRSA (PCR) (Negative) Streptococcus sp PCR (NotDetected) Strep pneumoniae (PCR) (NotDetected) Bld Cult ID Panel PCR (NotDetected) 01/04/23 01/04/23 01/04/23 Range/Units 17:58 17:58 17:58 WBC (4.8-10.8) K/ul RBC (3.93-5.22) M/uL Hgb (12.0-16.0) g/dl Hct (34.1-44.9) % MCV (80.0-100.0) fL MCH (25.0-34.0) pg MCHC (32.0-36.0) g/dL RDW Std Deviation (36.4-46.3) fL RDW Coeff of Lazara (11.5-14.5) % Plt Count (130-400) K/uL MPV (9.4-12.3) fL Immature Gran % (Auto) % Neut % (Auto) % Lymph % (Auto) % Wilcox % (Auto) % Eos % (Auto) % Baso % (Auto) % Neut # (Auto) (1.4-6.5) K/uL Lymph # (Auto) (1.2-3.4) K/uL Wilcox # (Auto) (0.24-0.82) K/uL Eos # (Auto) (0-0.50) K/uL Baso # (Auto) (0-0.2) K/uL Immature Gran # (Auto) (0.00-0.02) K/uL Sodium (136-145) mmol/L Potassium (3.5-5.1) mmol/L Chloride (98-107) mmol/L Carbon Dioxide (21-32) mmol/L Anion Gap (3-11) BUN (6-23) mg/dl Creatinine (0.6-1.2) mg/dl Est Cr Clr Drug Dosing ml/min Est GFR ( Amer) ml/min Est GFR (Non-Af Amer) ml/min BUN/Creatinine Ratio (10-20) Glucose (70-99(Fasting)) mg/dl Calcium (8.5-10.1) mg/dl Magnesium (1.7-2.4) mg/dl Total Bilirubin (0.2-1.0) mg/dl AST (13-39) U/L ALT (7-52) U/L Alkaline Phosphatase (34-104) U/L Troponin I High Sens (0-14) pg/ml Total Protein (6.0-8.3) gm/dl Albumin (3.4-5.0) gm/dl Globulin (2.5-4.0) gm/dl Albumin/Globulin Ratio (0.9-2) Urine Color Yellow Urine Appearance Cloudy A (Clear) Urine pH 5.5 (4.5-7.5) Ur Specific [place] 1.012 (1.000-1.030) Urine Protein 2+ H (Negative) Urine Glucose (UA) Negative (Negative) Urine Ketones Negative (Negative) Urine Blood 1+ H (Negative) Urine Nitrite Negative (Negative) Urine Bilirubin Negative (Negative) Urine Urobilinogen Negative (Negative) Ur Leukocyte Esterase Negative (Negative) Urine WBC (Auto) 1-5 (0-5) /hpf Urine RBC (Auto) 0-4 (0-4) /hpf U Hyaline Cast (Auto) 1-5 (0-5) /lpf U Epithel Cells (Auto) 10-20 H (0-5) /lpf Urine Bacteria (Auto) 1+ H (Negative) Ur Renal Epithelial Cell 5-10 H (0-5) /lpf Amorphous Sediment Present A (None Prsent) Urine Yeast Not Reportable Urine Osmolality 294 L (500-800) mOsm/kg Ur Random Sodium 13 mmol/L Nasal Screen MRSA (PCR) (Negative) Streptococcus sp PCR (NotDetected) Strep pneumoniae (PCR) (NotDetected) Bld Cult ID Panel PCR (NotDetected) 05/06/22 05/06/22 05/05/22 Range/Units 14:51 14:35 23:46 WBC (4.8-10.8) K/ul RBC (3.93-5.22) M/uL Hgb (12.0-16.0) g/dl Hct (34.1-44.9) % MCV (80.0-100.0) fL MCH (25.0-34.0) pg MCHC (32.0-36.0) g/dL RDW Std Deviation (36.4-46.3) fL RDW Coeff of Lazara (11.5-14.5) % Plt Count (130-400) K/uL MPV (9.4-12.3) fL Immature Gran % (Auto) % Neut % (Auto) % Lymph % (Auto) % Wilcox % (Auto) % Eos % (Auto) % Baso % (Auto) % Neut # (Auto) (1.4-6.5) K/uL Lymph # (Auto) (1.2-3.4) K/uL Wilcox # (Auto) (0.24-0.82) K/uL Eos # (Auto) (0-0.50) K/uL Baso # (Auto) (0-0.2) K/uL Immature Gran # (Auto) (0.00-0.02) K/uL Sodium (136-145) mmol/L Potassium (3.5-5.1) mmol/L Chloride (98-107) mmol/L Carbon Dioxide (21-32) mmol/L Anion Gap (3-11) BUN (6-23) mg/dl Creatinine (0.6-1.2) mg/dl Est Cr Clr Drug Dosing ml/min Est GFR ( Amer) ml/min Est GFR (Non-Af Amer) ml/min BUN/Creatinine Ratio (10-20) Glucose (70-99(Fasting)) mg/dl Calcium (8.5-10.1) mg/dl Magnesium (1.7-2.4) mg/dl Total Bilirubin (0.2-1.0) mg/dl AST (13-39) U/L ALT (7-52) U/L Alkaline Phosphatase (34-104) U/L Troponin I High Sens 34.4 H (0-14) pg/ml Total Protein (6.0-8.3) gm/dl Albumin (3.4-5.0) gm/dl Globulin (2.5-4.0) gm/dl Albumin/Globulin Ratio (0.9-2) Urine Color Urine Appearance (Clear) Urine pH (4.5-7.5) Ur Specific [place] (1.000-1.030) Urine Protein (Negative) Urine Glucose (UA) (Negative) Urine Ketones (Negative) Urine Blood (Negative) Urine Nitrite (Negative) Urine Bilirubin (Negative) Urine Urobilinogen (Negative) Ur Leukocyte Esterase (Negative) Urine WBC (Auto) (0-5) /hpf Urine RBC (Auto) (0-4) /hpf U Hyaline Cast (Auto) (0-5) /lpf U Epithel Cells (Auto) (0-5) /lpf Urine Bacteria (Auto) (Negative) Ur Renal Epithelial Cell (0-5) /lpf Amorphous Sediment (None Prsent) Urine Yeast Urine Osmolality (500-800) mOsm/kg Ur Random Sodium mmol/L Nasal Screen MRSA (PCR) Negative (Negative) Streptococcus sp PCR DETECTED A (NotDetected) Strep pneumoniae (PCR) DETECTED A (NotDetected) Bld Cult ID Panel PCR See PCR Comment (NotDetected) Diagnostic Findings Chest X-Ray 05/07/22 10:11 XR chest 2V PA/lateral CLINICAL HISTORY: cough, pneumonia TECHNIQUE: 2 views of the chest were obtained. Comparison: Comparison is made to chest radiograph 05/05/2022 FINDINGS: No lines and tubes are seen. Cardiomegaly is noted. Left lower lung consolidation is unchanged from prior exam. Redemonstration of a trace right and small to moderate left pleural effusion. IMPRESSION: Stable left airspace disease, suggestive of pneumonia, and small to moderate left pleural effusion. Trace right pleural effusion which was not well evaluated on prior exam. Chest CT 05/07/22 12:27 CT SCAN OF THE CHEST WITHOUT IV CONTRAST CLINICAL HISTORY: Sepsis. Pleural effusion. COMPARISON STUDY: Chest x-ray dated 05/07/2022. TECHNIQUE: CT scan of the thorax was performed from the thoracic inlet to the upper abdomen. Images are reviewed in the axial, sagittal, and coronal planes. IV contrast was not administered for this examination as per the referring clinician. Note that the examination was performed in significantly suboptimal fashion without IV contrast. A dose lowering technique was utilized adhering to the principles of ALARA. CT DOSE: 297.42 mGy.cm FINDINGS: Thyroid: Normal in size and heterogeneous in attenuation. Thoracic aorta: There is atherosclerotic calcification of the thoracic aorta, which is normal in caliber and demonstrates standard 3-vessel arch anatomy. Heart: The heart is top normal in size and without pericardial effusion. Lungs and pleural spaces: Evaluation of the lung parenchyma is degraded by motion artifact. There is moderate emphysematous change. The trachea is clear. There is a small right pleural effusion with right basilar atelectasis. There is dense airspace consolidation throughout the left lower lobe and a small left pleural effusion. Foci of cavitation and fluid within the superior segment of the left lower lobe is seen on image #128. This measures at least 3.5 cm. Abscess is not excluded. No pleural collection is clearly identified. Atelectasis/consolidation is also seen in the lingula. There is focal narrowing of the left lower lobe bronchus seen on image #152. Mediastinum: There are numerous mildly enlarged mediastinal lymph nodes. An AP window node measures 14 mm in short axis. Prevascular nodes measure up to 11 mm short axis. Phoebe: Not well assessed without IV contrast. Axillae: There is no axillary lymphadenopathy. Upper abdomen: There is an indeterminant 2.3 cm left adrenal nodule. Partially visualized upper abdominal viscera is within normal limits. Skeletal structures: The skeletal structures are osteopenic. No lytic or blastic bony lesions are seen. Degenerative change and kyphoscoliosis is noted in the thoracic spine. IMPRESSION: 1. Emphysema. 2. There is dense airspace consolidation throughout the left lower lobe. 3. Cavitation with loculated gas and fluid is seen in the superior segment of the left lower lobe. This is consistent with necrotizing pneumonia. Developing abscess would be impossible to exclude. 4. Small pleural effusions, left larger than right. No pleural collection is clearly seen. 5. There is focal narrowing of the left lower lobe bronchus. An underlying mass lesion would be impossible to exclude. Follow-up to resolution is recommended. 6. Mildly enlarged mediastinal lymph nodes are nonspecific and may be reactive. 7. Additional findings as above. Resident Activity Tracking Resident Involvement: Resident Care Provided Care Provided: Adult [facility] Medicine
[2022-05-07] MEDS: ENOXAPARIN INJ 30 MG/0.3 ML SYR SQ SCH (07:57)
[2022-05-07] MEDS: predniSONE 20 MG TAB PO SCH (07:58)
[2022-05-07] MEDS: AZITHROMYCIN 250 MG TAB PO SCH (07:59)
[2022-05-07] MEDS: CHOLECALCIFEROL 1,000 UNITS 25 MCG TAB PO SCH (07:59)
[2022-05-07] MEDS: UMECLIDINIUM BROMIDE 62.5MCG/BLISTER 7 PUFFS/INHALER INH SCH (07:59)
[2022-05-07] MEDS: allopurinoL 300 MG TAB PO SCH (07:59)
[2022-05-07] MEDS: CALCIUM CARBONATE 1250MG TAB PO SCH (07:59)
[2022-05-07] MEDS: MULTIVITAMIN TAB PO SCH (07:59)
[2022-05-07] MEDS: ASCORBIC ACID 500 MG TAB PO SCH (07:59)
[2022-05-07] MEDS: ATORVASTATIN 40 MG TAB PO SCH (07:59)
[2022-05-07] MEDS: CYANOCOBALAMIN (B-12) 500 MCG TABLET PO SCH (08:05)
[2022-05-07] MEDS: guaiFENesin 600 MG TABCR PO SCH ×2 (08:06→19:52)
[2022-05-07 08:41] LABS: Hematocrit (blood only) 32.1 % (34.1-44.9); Hemoglobin 11.4 g/dl (12.0-16.0); Mean Corpuscular Hemoglobin 33.4 pg (25.0-34.0); Mean Corpuscular Hgb Conc 35.5 g/dL (32.0-36.0); Mean Corpuscular Volume 94.1 fL (80.0-100.0); Mean Platelet Volume 11.2 fL (9.4-12.3); Platelet Count 203 K/uL (130-400); RDW Coefficient of Variation 15.4 % (11.5-14.5); RDW Standard Deviation 52.8 fL (36.4-46.3); Red Blood Count 3.41 M/uL (3.93-5.22); White Blood Count 13.37 K/ul (4.8-10.8)
[2022-05-07 09:03] LABS: Basophils # (auto) 0.04 K/uL (0-0.2); Basophils % (auto) 0.3 %; Immature Granulocytes # (auto) 0.64 K/uL (0.00-0.02); Immature Granulocytes % (auto) 4.8 %; Lymphocytes # (auto) 0.55 K/uL (1.2-3.4); Lymphocytes % (auto) 4.1 %; Monocytes # (auto) 0.54 K/uL (0.24-0.82); Neutrophils % (auto) 86.8 %
[2022-05-07 09:37] LABS: Albumin Globulin Ratio 0.9 (0.9-2); BUN Creatinine Ratio 31.4 (10-20); Bilirubin,Total 0.6 mg/dl (0.2-1.0); Calcium 8.7 mg/dl (8.5-10.1); Creatinine Clr Calc Pharmacy 30.6 ml/min; Est GFR (African American) 39.6 ml/min; Est GFR (Non-African American) 34.2 ml/min; Globulin 3.2 gm/dl (2.5-4.0); Potassium 3.4 mmol/L (3.5-5.1); Total Protein 6.2 gm/dl (6.0-8.3)
[2022-05-07] MEDS ORDERED: POTASSIUM CHLORIDE CRTAB 20 MEQ TABCR PO STA (10:15)
[2022-05-07] MEDS: SODIUM CHLORIDE 0.9% 1000ML 1,000 ML IV SCH (10:30)
--- NOTE | 2022-05-07 12:09 | XRay Report ---
XR chest 2V PA/lateral CLINICAL HISTORY: cough, pneumonia TECHNIQUE: 2 views of the chest were obtained. Comparison: Comparison is made to chest radiograph 05/05/2022 FINDINGS: No lines and tubes are seen. Cardiomegaly is noted. Left lower lung consolidation is unchanged from p rior exam. Redemonstration of a trace right and small to moderate left pleural effusion. IMPRESSION: Stable left airspace disease, suggestive of pneumonia, and small to moderate left pleural effusion. T race right pleural effusion which was not well evaluated on prior exam. ACT 112: Negative or not required by law. Electronically signed by: Eduar Guardado M.D. 05/07/2022 12:08 PM
--- NOTE | 2022-05-07 14:48 | CT Scan Report ---
CT SCAN OF THE CHEST WITHOUT IV CONTRAST CLINICAL HISTORY: Sepsis. Pleural effusion. COMPARISON STUDY: Chest x-ray dated 05/07/2022. TECHNIQUE: CT scan of the thorax was performed from the thoracic inlet to the upper abdomen. Images are reviewed in the axial, sagittal, and coronal planes. IV contrast was not administered for this ex amination as per the referring clinician. Note that the examination was performed in significantly mohamud boptimal fashion without IV contrast. A dose lowering technique was utilized adhering to the principl es of ALARA. CT DOSE: 297.42 mGy.cm FINDINGS: Thyroid: Normal in size and heterogeneous in attenuation. Thoracic aorta: There is atherosclerotic calcification of the thoracic aorta, which is normal in merlin nadiya and demonstrates standard 3-vessel arch anatomy. Heart: The heart is top normal in size and without pericardial effusion. Lungs and pleural spaces: Evaluation of the lung parenchyma is degraded by motion artifact. There is moderate emphysematous change. The trachea is clear. There is a small right pleural effusion with rig ht basilar atelectasis. There is dense airspace consolidation throughout the left lower lobe and a sm all left pleural effusion. Foci of cavitation and fluid within the superior segment of the left lower lobe is seen on image #128. This measures at least 3.5 cm. Abscess is not excluded. No pleural colle ction is clearly identified. Atelectasis/consolidation is also seen in the lingula. There is focal na rrowing of the left lower lobe bronchus seen on image #152. Mediastinum: There are numerous mildly enlarged mediastinal lymph nodes. An AP window node measures 1 4 mm in short axis. Prevascular nodes measure up to 11 mm short axis. Phoebe: Not well assessed without IV contrast. Axillae: There is no axillary lymphadenopathy. Upper abdomen: There is an indeterminant 2.3 cm left adrenal nodule. Partially visualized upper abdom inal viscera is within normal limits. Skeletal structures: The skeletal structures are osteopenic. No lytic or blastic bony lesions are see n. Degenerative change and kyphoscoliosis is noted in the thoracic spine. IMPRESSION: 1. Emphysema. 2. There is dense airspace consolidation throughout the left lower lobe. 3. Cavitation with loculated gas and fluid is seen in the superior segment of the left lower lobe. Th is is consistent with necrotizing pneumonia. Developing abscess would be impossible to exclude. 4. Small pleural effusions, left larger than right. No pleural collection is clearly seen. 5. There is focal narrowing of the left lower lobe bronchus. An underlying mass lesion would be impos sible to exclude. Follow-up to resolution is recommended. 6. Mildly enlarged mediastinal lymph nodes are nonspecific and may be reactive. 7. Additional findings as above. ACT 112: Negative or not required by law. Electronically signed by: Danyel Shukla M.D. 05/07/2022 2:47 PM
[2022-05-07] MEDS ORDERED: CLINDAMYCIN/D5W 600 MG/50 ML BAG IV SCH (18:00)
--- NOTE | 2022-05-07 18:54 | Billing Data ---
Date of Service May 07, 2022 Coding Level of Care Code 68762 SUB INP/OBS CARE MIN
[2022-05-07] MEDS: metroNIDAZOLE 500 MG/100 ML BAG IV SCH (19:41)
[2022-05-07] MEDS: ASPIRIN 81 MG ECTAB PO SCH (19:52)
[2022-05-08] MEDS: SODIUM CHLORIDE 0.9% 1000ML 1,000 ML IV SCH ×2 (01:16→12:20)
[2022-05-08] MEDS: metroNIDAZOLE 500 MG/100 ML BAG IV SCH ×3 (03:22→18:30)
[2022-05-08] MEDS: ACETAMINOPHEN 500 MG TAB PO PRN (05:43)
[2022-05-08] MEDS: ALBUT/IPRATROP 3MG/0.5MG NEB 3 ML VIAL NEB PRN (05:55)
[2022-05-08 06:14] LABS: Hematocrit (blood only) 32.9 % (34.1-44.9); Hemoglobin 11.8 g/dl (12.0-16.0); Mean Corpuscular Hemoglobin 33.6 pg (25.0-34.0); Mean Corpuscular Hgb Conc 35.9 g/dL (32.0-36.0); Mean Corpuscular Volume 93.7 fL (80.0-100.0); Mean Platelet Volume 11.1 fL (9.4-12.3); Nucleated RBC # (auto) 0.02 K/uL (0-0); Nucleated RBC % (auto) 0.1 %; Platelet Count 259 K/uL (130-400); RDW Coefficient of Variation 15.7 % (11.5-14.5); RDW Standard Deviation 53.4 fL (36.4-46.3); Red Blood Count 3.51 M/uL (3.93-5.22); White Blood Count 18.53 K/ul (4.8-10.8)
[2022-05-08 06:30] LABS: Albumin Globulin Ratio 0.9 (0.9-2); Albumin Level 2.9 gm/dl (3.4-5.0); Bilirubin,Total 0.9 mg/dl (0.2-1.0); Calcium 8.7 mg/dl (8.5-10.1); Creatinine Clr Calc Pharmacy 35.1 ml/min; Est GFR (African American) 47.4 ml/min; Est GFR (Non-African American) 40.9 ml/min; Globulin 3.4 gm/dl (2.5-4.0); Magnesium 1.8 mg/dl (1.7-2.4); Potassium 3.7 mmol/L (3.5-5.1); Total Protein 6.3 gm/dl (6.0-8.3)
[2022-05-08 06:49] LABS: Basophils # (auto) 0.07 K/uL (0-0.2); Basophils % (auto) 0.4 %; Echinocytes 1+; Immature Granulocytes # (auto) 0.79 K/uL (0.00-0.02); Immature Granulocytes % (auto) 4.3 %; Lymphocytes # (auto) 0.73 K/uL (1.2-3.4); Lymphocytes % (auto) 3.9 %; Monocytes # (auto) 0.67 K/uL (0.24-0.82); Monocytes % (auto) 3.6 %; Neutrophils # (auto) 16.27 K/uL (1.4-6.5); Neutrophils % (auto) 87.8 %; Polychromasia 1+
--- NOTE | 2022-05-08 07:24 | Hospitalist Progress Note ---
Date of Service May 08, 2022 Assessment & Plan (1) Acute respiratory failure with hypoxia: (2) COPD exacerbation: (3) Pneumonia involving left lung: (4) Hyponatremia: (5) Acute kidney injury superimposed on CKD: (6) Arthritis: (7) Hyperlipidemia: (8) Peripheral arterial disease: (9) Gout: Plan 86 y/o female with a PMHx of COPD, gout, HLD, and B12 deficiency presented for evaluation of SOB, CASTILLO, productive cough, and decreased PO intake found to be hyponatremic to 126 and hypoxic with increased RR and new oxygen requirement likely in the setting of PNA and subsequent COPD exacerbation admitted for supplemental oxygen, abx management, and hydration with worsening of pleural effusion and minimal improvement. #LLL Community Acquired Pneumonia with concern for necrotizing PNA and COPD exacerbation c/b acute respiratory failure CAP with s. pneumonia - afebrile and HDS. MRSA negative. On abx. No O2 requirement at baseline. On 2L. [] ceftriaxone, flagyl - will likely continue abx therapy for 4 weeks [] azithromycin x 5 days for anti-inflammatory effect - final dose 05/10 [] blood cultures - pansensitive s. pneumonia, f/u repeat blood cx [] pred 40 mg x 5 days - final dose 05/10 [] pulmonary toilet, duonebs PRN, mucinex BID, IS/flutter Q1HWA [] continue home inhaler - Incruse Ellipta [] supplemental oxygen - goal ~94% #Gram Positive Bacteremia - pansensitive s. pneumonia [] ceftriaxone [] repeat blood cultures at 48 hours - pending [] IVF #Pleural effusion Patient had new onset CP with deep inspiration and coughing. Repeat CXR showed worsening left sided pleural effusion with small right side effusion. CT chest showed concern for necrotizing PNA and worsening effusions. AM CXR looked worse per my read. Patient does not have an urgent need for a tap, but may progress to this. Pulm consult for possible thoracentesis. Will likely need bronchoscopy outpatient. Appreciate recs - effusion not large enough to tap per pulm, sputum culture, rec 3 weeks abx with repeat CT Chest in a month. [] AM CXR [] pulm consult [] monitor respiratory status and respiratory effort [] sputum cx #Hyponatremia/acute kidney injury 2/2 decreased PO intake - improving with IVF Sodium 124 at admission, now 132 - avoid overcorrection. Creatinine 1.79 --> 1.20, with baseline 1.14. Patient has had significantly decreased oral intake over the past few days. SHABBIR likely pre-renal in the setting of decreased PO intake. [] IVF NS 80 mL/hr [] AM BMP #Slightly elevated troponin - peaked Troponin peak 36.6. Likely in the setting of acute infection, but she did have an abnormal EKG in the ED. TTE - normal LVF EF 60-65%, mild tricuspid regurg. Awaiting cards read of EKG. [] admit to tele [] ASA 81 mg QD #Transaminitis AST 122 ALT 69 Alk Phos 57 on admit - up trending. Likely in the setting of acute infection and bacteremia. Will continue to monitor. [] AM CMP #Hyperlipidemia Continue atorvastatin 40 mg daily #Gout Continue allopurinol 300 mg daily #B12 deficiency Continue supplement 3000 mcg daily Code status: full DVT ppx: Lovenox FENGI: IVF NS 80 mL/hr, heart healthy diet Dispo:admit to tele Admission and Anticipated Discharge Date Admission Date: May 06, 2022 Supervising Physician Co-Signing Physician Notes I personally examined the patient and verified all dowd points of history and exam, discussed case, and agree with decision making with Dr Finley. Still weak, overall about the same. Vitals noted, in general she is awake and alert pleasant no distress. HEENT normocephalic atraumatic mucous membranes moist. Breathing unlabored no accessory muscle use good effort. Skin shows no rashes no pallor or icterus. Neuro without focal deficits. Community-acquired pneumonia with subsequent COPD exacerbationand subsequent strep bacteremiaeffusion, necrotizing pneumoniaoverall stable, appreciate pulmonary input. Continue antibiotics, echo reassuring, repeat cultures negative to date. We will likely goodman infectious disease input, but then again, given duration of antibiotics likely to need to be long, if follow-up cultures remain negative may simply be treating for the same duration anyway. Deconditioningencouraged as much activity as possible, encourage p.o. intake. Otherwise as above Subjective Patient notes little to no improvement in symptoms. Reports continued chest pain with deep inhalation. Review of Systems Review of Systems: See HPI Physical Exam Physical Exam: Gen: awake, alert, and oriented. Non-toxic yet ill appearing female in NAD. Patient is coughing and wincing with deep inhalation HEENT--PERRL, EOMI, dry mucous membranes Neck--supple. trachea midline Heart--normal S1 and S2. No murmurs, rubs or gallops. Lungs--coarse breath sounds left much greater than right. Muffled breath sounds LLL. No respiratory distress, no accessory muscle use. Abdomen--Nondistended, Extremities--no cyanosis or clubbing. No edema. Neurologic--cranial nerves II through XII grossly intact. Psychiatric--normal affect. Results & Data Results & Data ([facility]) Vital Signs (Past 12 Hours) Vital Signs Temp Pulse Pulse Resp BP Pulse Ox Pulse Ox 05/08/22 06:00 100 H 92 05/08/22 04:00 36.6 C 88 18 123/75 96 05/08/22 04:06 81 05/08/22 03:35 95 05/07/22 19:40 05/07/22 22:49 37.0 C 84 20 102/64 94 O2 Del Method O2 Del Method O2 Flow Rate O2 Flow Rate 05/08/22 06:00 Nasal Cannula 2 05/08/22 04:00 Nasal Cannula 2 05/08/22 04:06 05/08/22 03:35 Nasal Cannula 1 05/07/22 19:40 Nasal Cannula 2 05/07/22 22:49 Room Air Laboratory Results 05/08/22 05/08/22 05/07/22 Range/Units 05:36 05:36 08:18 WBC 18.53 H (4.8-10.8) K/ul RBC 3.51 L (3.93-5.22) M/uL Hgb 11.8 L (12.0-16.0) g/dl Hct 32.9 L (34.1-44.9) % MCV 93.7 (80.0-100.0) fL MCH 33.6 (25.0-34.0) pg MCHC 35.9 (32.0-36.0) g/dL RDW Std Deviation 53.4 H (36.4-46.3) fL RDW Coeff of Lazara 15.7 H (11.5-14.5) % Plt Count 259 (130-400) K/uL MPV 11.1 (9.4-12.3) fL Immature Gran % (Auto) 4.3 % Neut % (Auto) 87.8 % Lymph % (Auto) 3.9 % Bledsoe % (Auto) 3.6 % Eos % (Auto) 0.0 % Baso % (Auto) 0.4 % Neut # (Auto) 16.27 H (1.4-6.5) K/uL Lymph # (Auto) 0.73 L (1.2-3.4) K/uL Bledsoe # (Auto) 0.67 (0.24-0.82) K/uL Eos # (Auto) 0.00 (0-0.50) K/uL Baso # (Auto) 0.07 (0-0.2) K/uL Immature Gran # (Auto) 0.79 H (0.00-0.02) K/uL Absolute Nucleated RBC 0.02 H (0-0) K/uL Nucleated RBC % (auto) 0.1 % Polychromasia 1+ Echinocytes 1+ Sodium 132 L 132 L (136-145) mmol/L Potassium 3.7 3.4 L (3.5-5.1) mmol/L Chloride 103 101 (98-107) mmol/L Carbon Dioxide 21 21 (21-32) mmol/L Anion Gap 8 10 (3-11) BUN 36 H 44 H (6-23) mg/dl Creatinine 1.20 1.40 H (0.6-1.2) mg/dl Est Cr Clr Drug Dosing 35.1 30.6 ml/min Est GFR ( Amer) 47.4 39.6 ml/min Est GFR (Non-Af Amer) 40.9 34.2 ml/min BUN/Creatinine Ratio 30.0 H 31.4 H (10-20) Glucose 86 97 (70-99(Fasting)) mg/dl Calcium 8.7 8.7 (8.5-10.1) mg/dl Magnesium 1.8 2.0 (1.7-2.4) mg/dl Total Bilirubin 0.9 0.6 (0.2-1.0) mg/dl AST 268 H 123 H (13-39) U/L ALT 198 H 81 H (7-52) U/L Alkaline Phosphatase 165 H D 78 (34-104) U/L Total Protein 6.3 6.2 (6.0-8.3) gm/dl Albumin 2.9 L 3.0 L (3.4-5.0) gm/dl Globulin 3.4 3.2 (2.5-4.0) gm/dl Albumin/Globulin Ratio 0.9 0.9 (0.9-2) 05/07/22 Range/Units 08:18 WBC 13.37 H (4.8-10.8) K/ul RBC 3.41 L (3.93-5.22) M/uL Hgb 11.4 L (12.0-16.0) g/dl Hct 32.1 L (34.1-44.9) % MCV 94.1 (80.0-100.0) fL MCH 33.4 (25.0-34.0) pg MCHC 35.5 (32.0-36.0) g/dL RDW Std Deviation 52.8 H (36.4-46.3) fL RDW Coeff of Lazara 15.4 H (11.5-14.5) % Plt Count 203 (130-400) K/uL MPV 11.2 (9.4-12.3) fL Immature Gran % (Auto) 4.8 % Neut % (Auto) 86.8 % Lymph % (Auto) 4.1 % Bledsoe % (Auto) 4.0 % Eos % (Auto) 0.0 % Baso % (Auto) 0.3 % Neut # (Auto) 11.60 H (1.4-6.5) K/uL Lymph # (Auto) 0.55 L (1.2-3.4) K/uL Bledsoe # (Auto) 0.54 (0.24-0.82) K/uL Eos # (Auto) 0.00 (0-0.50) K/uL Baso # (Auto) 0.04 (0-0.2) K/uL Immature Gran # (Auto) 0.64 H (0.00-0.02) K/uL Absolute Nucleated RBC (0-0) K/uL Nucleated RBC % (auto) % Polychromasia Echinocytes Sodium (136-145) mmol/L Potassium (3.5-5.1) mmol/L Chloride (98-107) mmol/L Carbon Dioxide (21-32) mmol/L Anion Gap (3-11) BUN (6-23) mg/dl Creatinine (0.6-1.2) mg/dl Est Cr Clr Drug Dosing ml/min Est GFR ( Amer) ml/min Est GFR (Non-Af Amer) ml/min BUN/Creatinine Ratio (10-20) Glucose (70-99(Fasting)) mg/dl Calcium (8.5-10.1) mg/dl Magnesium (1.7-2.4) mg/dl Total Bilirubin (0.2-1.0) mg/dl AST (13-39) U/L ALT (7-52) U/L Alkaline Phosphatase (34-104) U/L Total Protein (6.0-8.3) gm/dl Albumin (3.4-5.0) gm/dl Globulin (2.5-4.0) gm/dl Albumin/Globulin Ratio (0.9-2) Resident Activity Tracking Resident Involvement: Resident Care Provided Care Provided: Adult Hospital Medicine
[2022-05-08] MEDS: UMECLIDINIUM BROMIDE 62.5MCG/BLISTER 7 PUFFS/INHALER INH SCH (07:38)
[2022-05-08] MEDS: CALCIUM CARBONATE 1250MG TAB PO SCH (08:07)
[2022-05-08] MEDS: AZITHROMYCIN 250 MG TAB PO SCH (08:07)
[2022-05-08] MEDS: predniSONE 20 MG TAB PO SCH (08:07)
[2022-05-08] MEDS: allopurinoL 300 MG TAB PO SCH (08:07)
[2022-05-08] MEDS: ATORVASTATIN 40 MG TAB PO SCH (08:07)
[2022-05-08] MEDS: guaiFENesin 600 MG TABCR PO SCH ×2 (08:07→20:24)
[2022-05-08] MEDS: MULTIVITAMIN TAB PO SCH (08:08)
[2022-05-08] MEDS: ASCORBIC ACID 500 MG TAB PO SCH (08:08)
[2022-05-08] MEDS: CHOLECALCIFEROL 1,000 UNITS 25 MCG TAB PO SCH (08:08)
[2022-05-08] MEDS: CYANOCOBALAMIN (B-12) 500 MCG TABLET PO SCH (08:08)
--- NOTE | 2022-05-08 09:05 | Pulmonary Consultation ---
Date of Consultation May 08, 2022 Assessment & Plan (1) Acute respiratory failure with hypoxia: (2) Multifocal pneumonia: (3) Pleural effusion: (4) COPD with emphysema: Plan CT chest 05/07/2022 personally reviewed: Bilateral apical pleural scarring, centrilobular emphysema appreciated bilaterally Dense consolidative process appreciated in the left lower lobe with possible necrosis Small loculated left-sided pleural effusion Minimal reactive mediastinal lymphadenopathy -- Dense consolidative process of the left lower lobe Small left-sided pleural effusion loculated Blood culture positive for strep pneumonia Likely representing necrotizing strep pneumonia COVID-19 PCR, influenza A/B, RSV all negative Nasal MRSA negative Procalcitonin 64.4 Continue with antibiotics --Acute respiratory failure with hypoxia Secondary to above Continue with O2 supplementation to keep oxygen saturation between 90-92% --Pleural effusion Bilateral, loculated on the left side Too small to intervene --COPD with emphysema On Spiriva at home Continue with Incruse while in the hospital Plan: Small likely difficult effusion, no need for thoracentesis Would recommend continuing antibiotics for at least 3 weeks and repeating a CAT scan at around 4 weeks. No need for bronchoscopy right now. Follow-up sputum culture Case was discussed with Dr. Geronimo Please note the above document was generated using voice recognition software. It may contain grammatical, syntax or spelling errors.Any formal questions or concerns about the content, text or information contained within the body of this dictation should be directly addressed to the provider for clarification. History of Present Illness Attending Physician: Abdiaziz Quinones DO History of Present Illness 87-year-old female admitted to the hospital with complaints of shortness of breath cough Past medical history: Sacroiliitis, calcium pyrophosphate deposition disease, COPD, lumbar degeneration, CKD, peripheral vascular disease, Schatzki's ring Pulmonary consulted because of abnormal chest CT At the time of examination patient was saturating 93-94% on 2 L nasal cannula. She was not in any respiratory distress. She stated that she still has pain when she takes deep breath and on the left side. It has not decreased in intensity since coming to the hospital She does have phlegm and has difficulty bringing it up. Patient has been having issues with fatigue and shortness of breath for approximately 2 weeks and she did not seek any medical attention prior to this. No hemoptysis. No dysuria, had 1 bout of diarrhea up extremity 2 days prior to presentation Social history: Approximately 30-[id number]-hcgc smoking history currently smoking 3-4 cigarettes a day. No birds or poultry nearby. No history of lung cancer in the family Allergies Allergy/AdvReac Type Severity Reaction Status Date / Time No Known Drug Allergies Allergy Unknown nkda Verified 05/06/22 02:21 Home Medications Medication Instructions Recorded Confirmed Type multivitamin 1 tab PO QAM 02/16/20 05/06/22 History calcium carbonate 500 mg calcium 500 mg PO QAM 06/02/21 05/06/22 History (1,250 mg) chewable tablet (Calcium 500) aspirin 81 mg tablet 81 mg PO HS 06/12/21 05/06/22 History cholecalciferol (vitamin D3) 25 25 mcg PO QAM 06/12/21 05/06/22 History mcg (1,000 unit) tablet (Vitamin D3) allopurinol 300 mg tablet 300 mg PO DAILY #90 tabs 12/15/21 05/06/22 Rx atorvastatin 40 mg tablet 40 mg PO QAM #90 tabs 12/15/21 05/06/22 Rx tiotropium bromide 2.5 2 puff inhalation QAM #4 grams 12/15/21 05/06/22 Rx mcg/actuation mist for inhalation (Spiriva Respimat) albuterol sulfate 90 mcg/actuation 2 puff inhalation Q4H PRN 01/14/22 05/06/22 Rx aerosol inhaler (Ventolin HFA) Shortness Of Breath #1 inhaler mecobalamin (vitamin B12) 1,000 3,000 mcg PO DAILY 03/04/22 05/06/22 History mcg chewable tablet ascorbic acid (vitamin C) 1,000 mg 1 g PO DAILY 04/07/22 05/06/22 History tablet (Vitamin C) potassium gluconate 595 mg (99 mg) 595 mg PO DAILY 04/07/22 05/06/22 History tablet Patient History Medical History Chronic back pain Chronic obstructive pulmonary disease CKD (chronic kidney disease) Hx of gastric ulcer Hx of gout Hx of skin cancer, basal cell Osteoarthritis Osteoporosis Sacroiliitis Schatzki's ring Sciatica RT Scoliosis Sensorineural hearing loss (SNHL) of both ears SNHL (sensorineural hearing loss) Spinal stenosis Surgical History History of arthroplasty of knee RT/LEFT History of bilateral tubal ligation History of breast biopsy History of colonoscopy History of esophagogastroduodenoscopy (EGD) History of Mohs micrographic surgery for skin cancer S/P epidural steroid injection Family History Mother Family history of colon cancer Family history of cardiac disorder Hearing loss Cancer Other No family history of adverse response to anesthesia Denies family history of Ovarian cancer Prostate cancer Myocardial infarction Breast cancer Colorectal cancer Social History Smoking Status: Current every day smoker Tobacco Type: Cigarettes Cigarettes Per Day: 4 CIGS DAILY; Second Hand Exposure: Yes ( A CHILD); Hx Alcohol Use: No Hx Substance Use: No Preferred Language: Kiswahili Communication Ability: Effective Dark Room Attendant Required: No Beliefs That Will Affect Care: Confucianist marital status: / Current Living Situation: Alone current occupational status: retired Feels Safe at Home: Yes Assistive Devices: Hearing Aid - Bilateral Review of Systems Review of Systems: All systems reviewed & are unremarkable except as noted in HPI & below Physical Exam Physical Exam: Constitutional: No acute distress HEENT: EOMI, PERRLA Respiratory system: Decreased air entry bilaterally, more decreased on the left side, positive crackles bilateral lower lobes, no wheeze, no rhonchi CVS: S1-S2 positive, no murmurs or gallops Abdomen: Soft, nontender, nondistended, positive bowel sounds x4 Extremities: +2 pulses bilaterally radialis/ dorsalis pedis, no cyanosis, no edema Neuro: Awake alert oriented x3 Psych: Normal mood and affect G/U: No Celestin Skin: no rashes, warm and dry Lymphatic: no cervical or axillary lymphadenopathy Results & Data Results & Data ([facility]) Vital Signs (Past 12 Hours) Vital Signs Temp Pulse Pulse Resp BP Pulse Ox Pulse Ox 05/08/22 07:56 37 C 101 H 18 115/52 L 94 05/08/22 06:00 100 H 92 05/08/22 04:00 36.6 C 88 18 123/75 96 05/08/22 04:06 81 05/08/22 03:35 95 05/07/22 22:49 37.0 C 84 20 102/64 94 O2 Del Method O2 Del Method O2 Flow Rate O2 Flow Rate 05/08/22 07:56 Nasal Cannula 2 05/08/22 06:00 Nasal Cannula 2 05/08/22 04:00 Nasal Cannula 2 05/08/22 04:06 05/08/22 03:35 Nasal Cannula 1 05/07/22 22:49 Room Air Laboratory Results 05/08/22 05:36 05/08/22 05:36 PG Care Time/CCT Total # of Minutes Spent Total Time Spent with Patient: Total time spent is greater than 50% in coordination of care (as documented) at patient's floor/unit and/or counseling patient: Coding Level of Care Code 70950 INT INP/OBS CARE 375MIN Diagnoses Acute respiratory failure with hypoxia J96.01 Multifocal pneumonia J18.9 Pleural effusion J90 COPD with emphysema J43.9
[2022-05-08] MEDS: LACTOBACILLUS ACIDOPHILUS 1 GM PACK PO SCH ×3 (09:52→16:22)
--- NOTE | 2022-05-08 14:32 | XRay Report ---
XR chest 1V portable HISTORY: following possible necrotizing pna to resolution COMPARISON: Chest on 523. FINDINGS: [id number] left pleural effusion has progressed. Left mid to lower lung zone airspac e opacities again noted. No pneumothorax. The heart is stable in size. IMPRESSION: Increase in size in the small to moderate left pleural effusion. The left mid to lower lung zone airs pace opacities are again noted. ACT 112: Negative or not required by law. Electronically signed by: Tao Ward M.D. 05/08/2022 2:31 PM
--- NOTE | 2022-05-08 16:28 | Billing Data ---
Date of Service May 08, 2022 Coding Level of Care Code 61276 SUB INP/OBS CARE MIN
--- NOTE | 2022-05-08 16:28 | Billing Data ---
Date of Service May 08, 2022 Coding Level of Care Code 46559 SUB INP/OBS CARE MIN
[2022-05-08] MEDS: ASPIRIN 81 MG ECTAB PO SCH (20:23)
[2022-05-08] MEDS: cefTRIAXone SODIUM 1,000 MG in DEXTROSE 5% AD-VAN 50 ML IV SCH (22:47)
[2022-05-09] MEDS: metroNIDAZOLE 500 MG/100 ML BAG IV SCH ×3 (03:37→19:55)
[2022-05-09 06:55] LABS: Hemoglobin 10.8 g/dl (12.0-16.0); Mean Corpuscular Hemoglobin 33.4 pg (25.0-34.0); Mean Corpuscular Volume 92.9 fL (80.0-100.0); Mean Platelet Volume 10.6 fL (9.4-12.3); Platelet Count 296 K/uL (130-400); RDW Coefficient of Variation 15.7 % (11.5-14.5); RDW Standard Deviation 53.3 fL (36.4-46.3); Red Blood Count 3.23 M/uL (3.93-5.22); White Blood Count 19.52 K/ul (4.8-10.8)
[2022-05-09] MEDS: LACTOBACILLUS ACIDOPHILUS 1 GM PACK PO SCH ×3 (07:13→16:14)
[2022-05-09 07:21] LABS: Albumin Globulin Ratio 0.9 (0.9-2); Albumin Level 2.4 gm/dl (3.4-5.0); BUN Creatinine Ratio 34.2 (10-20); Bilirubin,Total 0.5 mg/dl (0.2-1.0); Calcium 8.5 mg/dl (8.5-10.1); Creatinine Clr Calc Pharmacy 37.5 ml/min; Est GFR (African American) 52.1 ml/min; Est GFR (Non-African American) 44.9 ml/min; Globulin 2.8 gm/dl (2.5-4.0); Magnesium 1.6 mg/dl (1.7-2.4); Potassium 3.5 mmol/L (3.5-5.1); Total Protein 5.2 gm/dl (6.0-8.3)
--- NOTE | 2022-05-09 07:39 | Hospitalist Progress Note ---
Date of Service May 09, 2022 Assessment & Plan (1) Acute respiratory failure with hypoxia: (2) COPD exacerbation: (3) Pneumonia involving left lung: (4) Hyponatremia: (5) Acute kidney injury superimposed on CKD: (6) Arthritis: (7) Hyperlipidemia: (8) Peripheral arterial disease: (9) Gout: Plan Josie is a 87 yo F with history of COPD, gout, HLD, and B12 deficiency presented for evaluation of SOB, CASTILLO, productive cough, and decreased PO intake. She was found to be hyponatremic and hypoxic in the setting of PNA a/w COPD exacerbation. She is being managed inpatient for pneumonia and Gram + Bacteremia (Strep Pneumoniae). LLL Pneumonia (a/w S. Pneumoniae) a/w Necrotizing Core and COPD Exacerbation - Patient found to be in Acute Respiratory Failure upon presentation - CAP 2/2 infection w/ S. Pneumo - MRSA negative - Receiving Ceftriaxone and Flagyl (planned course 4 weeks) - Receiving 5 days of Azithromycin and Prednisone 40 mg (anti-inflammatory), last dose 05/10 --- Continue pulmonary hygeine support measures --- Continue home inhaler --- Continue Ceftriaxone, Flagyl, Azithromycin, and Prednisone --- SpO2 goal 94%, currently receiving supplemental O2 via NC Gram + (S. pneumoniae) Bacteremia - Pansensitive - Repeat blood cultures remain negative --- Continue Abx as above --- Continue to follow blood cultures Pleural Effusion (Left) - CT Chest indicating Necrotizing PNA w/ worsening effusions - No urgent need for tap at this time - 05/08 Pulmonary consult: Recommending continued abx w/o thoracentesis at this time. Recommending repeat CT scan @ 4 wks. - Follow sputum culture showing scant normal stephanie - 05/09 Repeat CXR showing improvement to LLL w/ possible worsening of RLL --- Follow CXR --- Monitor respiratory status and effort Hyponatremia/SHABBIR a/w poor PO Intake - Improved w/ IVF - Na 134 (from 132) - Cr 1.11 (from 1.20) --- Discontinued IVF, strongly encouraged adequate PO intake --- Continue to monitor Troponin Elevation - S/p peak, 36.5 on admission, 27.8 on 05/06 - Likely a/w acute infection - Abnormal EKG in ED - Normal TTE, EF 60-65% --- Continue Tele --- Continue ASA 81 mg daily Transaminitis - Likely associated w/ acute infection and bacteremia - 05/09 improved overall (AST 121 from 268, ALT 123 from 198) --- Continue to follow HLD - Continue home Atorvastatin 40 mg daily Gout - Continue home Allopurinol 300 mg daily B12 Deficiency - Continue to supplement 3000 mcg daily Code status: Full DVT ppx: Zamonica VILAI: IVF stop 05/09, Heart Healthy Dispo: Med/tele Admission and Anticipated Discharge Date Admission Date: May 06, 2022 Supervising Physician Co-Signing Physician Notes I personally examined the patient and verified all dowd points of history and exam, discussed case, and agree with decision making with Dr Marie May be starting to feel slightly better. Does have slight worsening of back painbut relates it feels like her chronic pain from spinal stenosis. Vitals noted, in general she is awake and alert pleasant no distress. HEENT normocephalic atraumatic mucous membranes moist. Breathing unlabored no accessory muscle use good effort. Skin shows no rashes no pallor or icterus. Neuro without focal deficits. Has minimal tenderness to palpation over spinous processes L-spine, has quite significant tenderness left-sided paraspinals which are high tone, tender, decreased range of motion Community-acquired pneumonia with subsequent COPD exacerbationand subsequent strep bacteremiaeffusion, necrotizing pneumoniaoverall stable, appreciate pulmonary input. Continue antibiotics, echo reassuring, repeat cultures negative to date. Infectious disease consult to evaluate for best choice/duration of antibiotics in the long-term. Follow back pain closelybut suspect it is her chronic pain and being in a strange bedexam nonspecific but strongly favors muscularserial exam/history, low threshold to image L-spine Deconditioningencouraged as much activity as possible, encourage p.o. intake. again - she's doing fairly well in this regard dtr at bedside updated and answered all questions to the best of my ability/to her satisfaction Otherwise as above Subjective Josie is a 87 yo F with history of COPD, gout, HLD, and B12 deficiency presented for evaluation of SOB, CASTILLO, productive cough, and decreased PO intake. She was found to be hyponatremic and hypoxic in the setting of PNA a/w COPD exacerbation. She is being managed inpatient for pneumonia and Gram + Bacteremia (Strep Pneumoniae). Patient states that overall she is improved, but that she continues to have discomfort in her chest, primarily when breathing, and that when she rises to walk to the bathroom she notices an increased work of breathing. She continues to have a deep cough, but denies any central chest pain, fevers/chills, headaches, or bowel/bladder changes. She notes today that she has been experiencing back pain at night, but that this is chronic for her. Last night she awakened overnight and required Tylenol, which improved her symptoms. Review of Systems Review of Systems: As per HPI Physical Exam Physical Exam: Gen: NAD, fatigued, interactive, pt. winces w/ deep inspiration HEENT: Supple, no JVD, MMM Resp:Deep cough, non-labored (at rest), coarse breath sounds bilaterally at bases (L > R), diminished air movement in LLL CV:RRR, normal S1/S2, no M/R/G Abd: Soft, non-distended, no TTP, normoactive bowels, no masses Extr: 2+ dp bilaterally, no edema Skin: No rashes lesions or erythema Results & Data Results & Data ([facility]) Vital Signs (Past 12 Hours) Vital Signs Temp Pulse Pulse Resp BP BP Pulse Ox 05/09/22 04:39 05/09/22 04:31 36.8 C 83 18 101/65 94 05/09/22 01:43 92 H 05/08/22 23:24 36.8 C 91 H 18 123/75 92 05/08/22 21:43 05/08/22 19:48 36.3 C L 88 18 94 Pulse Ox O2 Del Method O2 Del Method O2 Flow Rate O2 Flow Rate 05/09/22 04:39 98 Nasal Cannula 2 05/09/22 04:31 Nasal Cannula 2 05/09/22 01:43 05/08/22 23:24 Nasal Cannula 2 05/08/22 21:43 Nasal Cannula 2 05/08/22 19:48 Nasal Cannula 2 Diagnostic Findings Abnormal lab results 05/09/22 05/09/22 05/09/22 Range/Units 06:41 06:41 06:41 WBC 19.52 H (4.8-10.8) K/ul RBC 3.23 L (3.93-5.22) M/uL Hgb 10.8 L (12.0-16.0) g/dl Hct 30.0 L (34.1-44.9) % RDW Std Deviation 53.3 H (36.4-46.3) fL RDW Coeff of Lazara 15.7 H (11.5-14.5) % Sodium 134 L (136-145) mmol/L Carbon Dioxide 20 L (21-32) mmol/L BUN 38 H (6-23) mg/dl BUN/Creatinine Ratio 34.2 H (10-20) POC Glucose (70-99) mg/dl Magnesium 1.6 L (1.7-2.4) mg/dl AST 121 H (13-39) U/L ALT 123 H (7-52) U/L Alkaline Phosphatase 179 H (34-104) U/L Total Protein 5.2 L (6.0-8.3) gm/dl Albumin 2.4 L (3.4-5.0) gm/dl Procalcitonin 13.98 H (0-0.5) ng/ml 05/09/22 Range/Units 11:13 WBC (4.8-10.8) K/ul RBC (3.93-5.22) M/uL Hgb (12.0-16.0) g/dl Hct (34.1-44.9) % RDW Std Deviation (36.4-46.3) fL RDW Coeff of Lazara (11.5-14.5) % Sodium (136-145) mmol/L Carbon Dioxide (21-32) mmol/L BUN (6-23) mg/dl BUN/Creatinine Ratio (10-20) POC Glucose 106 H (70-99) mg/dl Magnesium (1.7-2.4) mg/dl AST (13-39) U/L ALT (7-52) U/L Alkaline Phosphatase (34-104) U/L Total Protein (6.0-8.3) gm/dl Albumin (3.4-5.0) gm/dl Procalcitonin (0-0.5) ng/ml Chest X-Ray 05/08/22 07:00 XR chest 1V portable HISTORY: following possible necrotizing pna to resolution COMPARISON: Chest on 523. FINDINGS: [id number] left pleural effusion has progressed. Left mid to lower lung zone airspace opacities again noted. No pneumothorax. The heart is stable in size. IMPRESSION: Increase in size in the small to moderate left pleural effusion. The left mid to lower lung zone airspace opacities are again noted. Chest X-Ray 05/09/22 07:00 XR chest 1V portable HISTORY: following possible necrotizing pna to resolution COMPARISON: Chest 05/08/2022. FINDINGS: No pneumothorax. A small to moderate left pleural effusion and left base airspace opacities have slightly improved. A small right pleural effusion and right base airspace opacities have slightly progressed. The heart is stable in size. IMPRESSION: Bilateral pleural effusions with associated airspace opacities as above. Resident Activity Tracking Resident Involvement: Resident Care Provided Care Provided: Adult [facility]
--- NOTE | 2022-05-09 08:01 | XRay Report ---
XR chest 1V portable HISTORY: following possible necrotizing pna to resolution COMPARISON: Chest 05/08/2022. FINDINGS: No pneumothorax. A small to moderate left pleural effusion and left base airspace opacities have slightly improved. A small right pleural effusion and right base airspace opacities have slight ly progressed. The heart is stable in size. IMPRESSION: Bilateral pleural effusions with associated airspace opacities as above. ACT 112: Negative or not required by law. Electronically signed by: Tao Ward M.D. 05/09/2022 8:00 AM
[2022-05-09] MEDS: ATORVASTATIN 40 MG TAB PO SCH (08:08)
[2022-05-09] MEDS: CALCIUM CARBONATE 1250MG TAB PO SCH (08:08)
[2022-05-09] MEDS: AZITHROMYCIN 250 MG TAB PO SCH (08:08)
[2022-05-09] MEDS: guaiFENesin 600 MG TABCR PO SCH ×2 (08:08→20:03)
[2022-05-09] MEDS: CHOLECALCIFEROL 1,000 UNITS 25 MCG TAB PO SCH (08:09)
[2022-05-09] MEDS: ASCORBIC ACID 500 MG TAB PO SCH (08:09)
[2022-05-09] MEDS: predniSONE 20 MG TAB PO SCH (08:09)
[2022-05-09] MEDS: MULTIVITAMIN TAB PO SCH (08:09)
[2022-05-09] MEDS: CYANOCOBALAMIN (B-12) 500 MCG TABLET PO SCH (08:09)
[2022-05-09] MEDS: allopurinoL 300 MG TAB PO SCH (08:09)
[2022-05-09] MEDS: UMECLIDINIUM BROMIDE 62.5MCG/BLISTER 7 PUFFS/INHALER INH SCH (08:10)
--- NOTE | 2022-05-09 10:16 | Pulmonology Progress Note ---
Date of Service May 09, 2022 Assessment & Plan (1) Acute respiratory failure with hypoxia: (2) Multifocal pneumonia: (3) Pleural effusion: (4) COPD with emphysema: Plan CT chest 05/07/2022 personally reviewed: Bilateral apical pleural scarring, centrilobular emphysema appreciated bilaterally Dense consolidative process appreciated in the left lower lobe with possible necrosis Small loculated left-sided pleural effusion Minimal reactive mediastinal lymphadenopathy -- Dense consolidative process of the left lower lobe Small left-sided pleural effusion loculated Blood culture positive for strep pneumonia Likely representing necrotizing strep pneumonia COVID-19 PCR, influenza A/B, RSV all negative Nasal MRSA negative Procalcitonin 64.4 Continue with antibiotics --Acute respiratory failure with hypoxia Secondary to above Continue with O2 supplementation to keep oxygen saturation between 90-92% --Pleural effusion Bilateral, loculated on the left side Too small to intervene --COPD with emphysema On Spiriva at home Continue with Incruse while in the hospital Plan: In/out: +1.4 L Chest x-ray from today shows mild improvement compared to yesterday. On bedside ultrasound today patient has small pleural effusion on the right side, minimal on the left side, no loculations were appreciated on the left side. She does have dense consolidative process in the left lower lobe. Recommend to keep the patient euvolemic to slightly negative balance. Continue with antibiotics Upper airway clearance techniques Incentive spirometry Procalcitonin is trending down Case was discussed with Dr. Marie Please note the above document was generated using voice recognition software. It may contain grammatical, syntax or spelling errors.Any formal questions or concerns about the content, text or information contained within the body of th is dictation should be directly addressed to the provider for clarification. Admission and Anticipated Discharge Date Admission Date: May 06, 2022 Subjective Patient seen and examined at bedside. No acute distress, no adverse events overnight She still complains of chest pain when she takes deep breath in. Has phlegm which is mostly dry. Denies any hemoptysis No headache. No nausea vomiting, fair appetite Has been complaining of blood coming out from the nose when clearing Review of Systems Review of Systems: All systems reviewed & are unremarkable except as noted in Subjective Physical Exam Physical Exam: Constitutional: No acute distress HEENT: EOMI, PERRLA Respiratory system: Decreased air entry bilaterally, more decreased on the left side, positive crackles bilateral lower lobes, no wheeze, no rhonchi CVS: S1-S2 positive, no murmurs or gallops Abdomen: Soft, nontender, nondistended, positive bowel sounds x4 Extremities: +2 pulses bilaterally radialis/ dorsalis pedis, no cyanosis, +1 edema bilateral lower extremity Neuro: Awake alert oriented x3 Psych: Normal mood and affect G/U: No Celestin Skin: no rashes, warm and dry Lymphatic: no cervical or axillary lymphadenopathy Results & Data Results & Data ([facility]) Vital Signs (Past 12 Hours) Vital Signs Temp Pulse Pulse Pulse Resp BP BP 05/09/22 09:00 83 05/09/22 09:00 05/09/22 08:27 36.6 C 97 H 18 157/78 H 05/09/22 04:39 05/09/22 04:31 36.8 C 83 18 101/65 05/09/22 01:43 92 H 05/08/22 23:24 36.8 C 91 H 18 123/75 Pulse Ox Pulse Ox O2 Del Method O2 Del Method O2 Flow Rate O2 Flow Rate 05/09/22 09:00 05/09/22 09:00 Nasal Cannula 2 05/09/22 08:27 91 Nasal Cannula 05/09/22 04:39 98 Nasal Cannula 2 05/09/22 04:31 94 Nasal Cannula 2 05/09/22 01:43 05/08/22 23:24 92 Nasal Cannula 2 Laboratory Results 05/09/22 06:41 05/09/22 06:41 PG Care Time/CCT Total # of Minutes Spent Total Time Spent with Patient: Total time spent is greater than 50% in coordination of care (as documented) at patient's floor/unit and/or counseling patient: Coding Level of Care Code 97239 SUB INP/OBS CARE 3/50MIN Diagnoses Acute respiratory failure with hypoxia J96.01 Multifocal pneumonia J18.9 Pleural effusion J90 COPD with emphysema J43.9
--- NOTE | 2022-05-09 13:10 | Procedure Note ---
Procedure Note Date of Service May 09, 2022 Note Bedside ultrasound: Lung:- Right: Small right-sided pleural effusion, B-lines appreciated posteriorly, a lines anteriorly Left: Minimal left-sided pleural effusion with atelectasis consolidative process of the left lower lobe, no loculations appreciated right now Please note the above document was generated using voice recognition software. It may contain grammatical, syntax or spelling errors.Any formal questions or concerns about the content, text or information contained within the body of this dictation should be directly addressed to the provider for clarification. Coding CPT Codes Pulmonary/Thoracic - Pulmonary and Thoracic: 21831 US, Chest, real time with imaging documentation ([id number]) [facility] [place] Procedure Codes (Charges) Pulmonary/Thoracic Procedure 1: Pulmonary and Thoracic: 88652 US, Chest, real time with imaging documentation
--- NOTE | 2022-05-09 18:51 | Billing Data ---
Date of Service May 09, 2022 Coding Level of Care Code 81074 SUB INP/OBS CARE MIN
[2022-05-09] MEDS: ASPIRIN 81 MG ECTAB PO SCH (20:03)
[2022-05-09] MEDS: ACETAMINOPHEN 500 MG TAB PO PRN (20:03)
[2022-05-09] MEDS: cefTRIAXone SODIUM 1,000 MG in DEXTROSE 5% AD-VAN 50 ML IV SCH (23:02)
[2022-05-10] MEDS: ALBUT/IPRATROP 3MG/0.5MG NEB 3 ML VIAL NEB PRN (02:37)
[2022-05-10] MEDS: metroNIDAZOLE 500 MG/100 ML BAG IV SCH ×3 (03:04→19:38)
--- NOTE | 2022-05-10 07:01 | Hospitalist Progress Note ---
Date of Service May 10, 2022 Assessment & Plan (1) Acute respiratory failure with hypoxia: (2) COPD exacerbation: (3) Pneumonia involving left lung: (4) Hyponatremia: (5) Acute kidney injury superimposed on CKD: (6) Arthritis: (7) Hyperlipidemia: (8) Peripheral arterial disease: (9) Gout: Plan Josie is a 87 yo F with history of COPD, gout, HLD, and B12 deficiency presented for evaluation of SOB, CASTILLO, productive cough, and decreased PO intake. She was found to be hyponatremic and hypoxic in the setting of PNA a/w COPD exacerbation. She is being managed inpatient for pneumonia and Gram + Bacteremia (Strep Pneumoniae). LLL Pneumonia (a/w S. Pneumoniae) a/w Necrotizing Core and COPD Exacerbation - Patient found to be in Acute Respiratory Failure upon presentation - CAP 2/2 infection w/ S. Pneumo - MRSA negative - Receiving Ceftriaxone and Flagyl (planned course 4 weeks) - Receiving 5 days of Azithromycin and Prednisone 40 mg (anti-inflammatory), last dose 05/10 --- Continue pulmonary hygiene support measures and home inhaler --- Continue Ceftriaxone, Flagyl, Azithromycin, and Prednisone --- SpO2 goal 94%, currently receiving supplemental O2 via NC Gram + (S. pneumoniae) Bacteremia - Pansensitive - Repeat blood cultures remain negative - Blood cultures: No growth after 48 hours (05/07) --- Continue Abx as above and monitor for sx Pleural Effusion (Bilateral, R>L) - CT Chest indicating Necrotizing PNA on LLL w/ effusions on L and RLL - No urgent need for tap at this time - 05/08 Pulmonary consult: Recommending continued abx w/o thoracentesis at this time. Recommending repeat CT scan @ 4 wks. - Follow sputum culture showing scant normal stephanie - 05/09 Repeat CXR showing improvement to LLL w/ possible worsening of RLL - 05/10 Repeat CXR showing stable appearance of the left greater than right pleural effusions with associated airspace opacities. --- Monitor respiratory status and effort --- Pulm recommending Lasix 20 mg and Potassium 20 mg today, appreciate recommendations --- Continue to follow volume status closely Hyponatremia/SHABBIR a/w poor PO Intake - Improved w/ IVF - Na 134 (from 132) - Cr 1.11 (from 1.20) --- Discontinued IVF, strongly encouraged adequate PO intake (Boost, small meals, etc) --- Continue to monitor Troponin Elevation - S/p peak, 36.5 on admission, 27.8 on 05/06 - Likely a/w acute infection - Abnormal EKG in ED - Normal TTE, EF 60-65% --- Discontinue Tele --- Continue ASA 81 mg daily Transaminitis - Likely associated w/ acute infection and bacteremia - 05/09 improved overall (AST 121 from 268, ALT 123 from 198) --- Improving, continue to follow HLD - Continue home Atorvastatin 40 mg daily Gout - Continue home Allopurinol 300 mg daily B12 Deficiency - Continue to supplement 3000 mcg daily Code status: Full DVT ppx: Zanox JULITOI: IVF stop 05/09, Heart Healthy Dispo: Med/surg Admission and Anticipated Discharge Date Admission Date: May 06, 2022 Supervising Physician Co-Signing Physician Notes I personally examined the patient and verified all dowd points of history and exam, discussed case, and agree with decision making with Dr Marie Cough, some degree of abdominal discomfort, ongoing poor appetite. She does not spontaneously complain of back painon directed questioning it seems like it is about the same. Vitals noted, in general she is awake and alert pleasant no distress. HEENT normocephalic atraumatic mucous membranes moist. Breathing unlabored no accessory muscle use good effort. Skin shows no rashes no pallor or icterus. Neuro without focal deficits. Has minimal tenderness to palpation over spinous processes L-spine, has quite significant tenderness left-sided paraspinals which are high tone, tender, decreased range of motionexam essentially identical to yesterday Community-acquired pneumonia with subsequent COPD exacerbationand subsequent strep bacteremiaeffusion, necrotizing pneumoniaoverall stable, appreciate pulmonary input. Continue antibiotics, echo reassuring, repeat cultures negative to date. Infectious disease consult to evaluate for best choice/duration of antibiotics in the long-term. Follow back pain closelybut suspect it is her chronic pain and being in a strange bedexam nonspecific but strongly favors muscularserial exam/history, low threshold to image L-spine, stability from yesterday to today is reassuring Deconditioningcontinued to encourage as much activity as possible, encourage p.o. intake. again - she's doing fairly well in this regard Otherwise as above Subjective Josie is a 87 yo F with history of COPD, gout, HLD, and B12 deficiency presented for evaluation of SOB, CASTILLO, productive cough, and decreased PO intake. She was found to be hyponatremic and hypoxic in the setting of PNA a/w COPD exacerbation. She is being managed inpatient for pneumonia and Gram + Bacteremia (Strep Pneumoniae). Patient was sitting upright at bedside and was enjoying a Boost upon arrival. Patient states that she is continuing to improve, but that she continues to have discomfort in her left chest (worst with coughing and deep breaths). She cont inues to have a deep cough, but denies any central chest pain, fevers/chills, headaches, or bowel/bladder changes. Patient's back pain is unchanged and is chronic for her. Review of Systems Review of Systems: As per HPI Physical Exam Physical Exam: Gen: NAD, fatigued, interactive, pt. winces w/ deep inspiration HEENT: Supple, no JVD, MMM Resp:Deep cough, non-labored (at rest), coarse breath sounds bilaterally at bases (L > R, improved) CV:RRR, normal S1/S2, no M/R/G Abd: Soft, non-distended, no TTP, normoactive bowels, no masses Extr: 2+ dp bilaterally, no edema Skin: No rashes lesions or erythema Results & Data Results & Data ([facility]) Vital Signs (Past 12 Hours) Vital Signs Temp Pulse Pulse Pulse Resp BP Pulse Ox 05/10/22 04:05 78 05/10/22 04:04 05/10/22 02:38 80 95 05/10/22 02:24 36.4 C L 73 18 125/74 96 05/09/22 23:15 36.5 C 82 16 120/75 93 05/09/22 19:45 05/09/22 19:04 36.9 C 82 18 141/71 H 95 Pulse Ox O2 Del Method O2 Del Method O2 Flow Rate 05/10/22 04:05 05/10/22 04:04 95 Nasal Cannula 05/10/22 02:38 Nasal Cannula 2 05/10/22 02:24 Nasal Cannula 2 05/09/22 23:15 Nasal Cannula 2 05/09/22 19:45 Nasal Cannula 2 05/09/22 19:04 Nasal Cannula 2 Laboratory Results Abnormal lab results 05/10/22 05/10/22 Range/Units 06:57 06:57 WBC 23.28 H (4.8-10.8) K/ul RBC 3.29 L (3.93-5.22) M/uL Hgb 10.8 L (12.0-16.0) g/dl Hct 29.8 L (34.1-44.9) % MCHC 36.2 H (32.0-36.0) g/dL RDW Std Deviation 53.1 H (36.4-46.3) fL RDW Coeff of Lazara 16.1 H (11.5-14.5) % Plt Count 407 H (130-400) K/uL Sodium 133 L (136-145) mmol/L BUN 41 H (6-23) mg/dl BUN/Creatinine Ratio 36.3 H (10-20) Glucose 115 H (70-99(Fasting)) mg/dl AST 65 H (13-39) U/L ALT 89 H (7-52) U/L Alkaline Phosphatase 194 H (34-104) U/L Total Protein 5.3 L (6.0-8.3) gm/dl Albumin 2.5 L (3.4-5.0) gm/dl Diagnostic Findings Chest X-Ray 05/10/22 07:00 FINDINGS: Left greater than right pleural effusions with possible loculation on the left appears stable. Bibasilar and left midlung airspace opacities are again noted. No pneumothorax. Mild pulmonary vascular congestion. Degenerative changes of the shoulders and spine. IMPRESSION: 1. Stable appearance of the left greater than right pleural effusions with associated airspace opacities. 2. No pneumothorax. Resident Activity Tracking Resident Involvement: Resident Care Provided Care Provided: Adult [facility]
[2022-05-10 08:03] LABS: Hematocrit (blood only) 29.8 % (34.1-44.9); Hemoglobin 10.8 g/dl (12.0-16.0); Mean Corpuscular Hemoglobin 32.8 pg (25.0-34.0); Mean Corpuscular Hgb Conc 36.2 g/dL (32.0-36.0); Mean Corpuscular Volume 90.6 fL (80.0-100.0); Platelet Count 407 K/uL (130-400); RDW Coefficient of Variation 16.1 % (11.5-14.5); RDW Standard Deviation 53.1 fL (36.4-46.3); Red Blood Count 3.29 M/uL (3.93-5.22); White Blood Count 23.28 K/ul (4.8-10.8)
[2022-05-10 08:25] LABS: Albumin Globulin Ratio 0.9 (0.9-2); Albumin Level 2.5 gm/dl (3.4-5.0); BUN Creatinine Ratio 36.3 (10-20); Bilirubin,Total 0.4 mg/dl (0.2-1.0); Calcium 9.2 mg/dl (8.5-10.1); Creatinine Clr Calc Pharmacy 36.8 ml/min; Globulin 2.8 gm/dl (2.5-4.0); Potassium 3.6 mmol/L (3.5-5.1); Total Protein 5.3 gm/dl (6.0-8.3)
[2022-05-10] MEDS: ATORVASTATIN 40 MG TAB PO SCH (08:30)
[2022-05-10] MEDS: allopurinoL 300 MG TAB PO SCH (08:30)
[2022-05-10] MEDS: CALCIUM CARBONATE 1250MG TAB PO SCH (08:30)
[2022-05-10] MEDS: CYANOCOBALAMIN (B-12) 500 MCG TABLET PO SCH (08:30)
[2022-05-10] MEDS: ASCORBIC ACID 500 MG TAB PO SCH (08:30)
[2022-05-10] MEDS: predniSONE 20 MG TAB PO SCH (08:30)
[2022-05-10] MEDS: guaiFENesin 600 MG TABCR PO SCH ×2 (08:30→20:00)
[2022-05-10] MEDS: CHOLECALCIFEROL 1,000 UNITS 25 MCG TAB PO SCH (08:30)
[2022-05-10] MEDS: AZITHROMYCIN 250 MG TAB PO SCH (08:30)
[2022-05-10] MEDS: LACTOBACILLUS ACIDOPHILUS 1 GM PACK PO SCH ×3 (08:30→17:20)
[2022-05-10] MEDS: UMECLIDINIUM BROMIDE 62.5MCG/BLISTER 7 PUFFS/INHALER INH SCH (08:30)
[2022-05-10] MEDS: MULTIVITAMIN TAB PO SCH (08:30)
[2022-05-10] MEDS: ENOXAPARIN INJ 30 MG/0.3 ML SYR SQ SCH (08:31)
--- NOTE | 2022-05-10 08:33 | XRay Report ---
XR chest 1V portable HISTORY: 87 years-old Female following possible necrotizing pna to resolution follow-up study in a p atient with left greater than right pleural effusions COMPARISON: Chest radiograph May 09, 2022, chest CT May 07, 2022 TECHNIQUE: The chest FINDINGS: Left greater than right pleural effusions with possible loculation on the left appears stable. Bibasi lar and left midlung airspace opacities are again noted. No pneumothorax. Mild pulmonary vascular con gestion. Degenerative changes of the shoulders and spine. IMPRESSION: 1. Stable appearance of the left greater than right pleural effusions with associated airspace opacit ies. 2. No pneumothorax. ACT 112: Negative or not required by law. The above report was generated using voice recognition software. It may contain grammatical, syntax o r spelling errors. Electronically signed by: Sivakumar Jacobson M.D. 05/10/2022 8:32 AM
[2022-05-10] MEDS ORDERED: FUROSEMIDE INJ 20 MG/2 ML VIAL IV ONE (10:41)
[2022-05-10] MEDS ORDERED: POTASSIUM CHLORIDE CRTAB 20 MEQ TABCR PO STA (10:42)
--- NOTE | 2022-05-10 10:42 | Pulmonology Progress Note ---
Date of Service May 10, 2022 Assessment & Plan (1) Acute respiratory failure with hypoxia: (2) Multifocal pneumonia: (3) Pleural effusion: (4) COPD with emphysema: Plan CT chest 05/07/2022 personally reviewed: Bilateral apical pleural scarring, centrilobular emphysema appreciated bilaterally Dense consolidative process appreciated in the left lower lobe with possible necrosis Small loculated left-sided pleural effusion Minimal reactive mediastinal lymphadenopathy -- Dense consolidative process of the left lower lobe Small left-sided pleural effusion loculated Blood culture positive for strep pneumonia Likely representing necrotizing strep pneumonia COVID-19 PCR, influenza A/B, RSV all negative Nasal MRSA negative Procalcitonin 64.4 Continue with antibiotics --Acute respiratory failure with hypoxia Secondary to above Continue with O2 supplementation to keep oxygen saturation between 90-92% --Pleural effusion Bilateral, loculated on the left side Too small to intervene --COPD with emphysema On Spiriva at home Continue with Incruse while in the hospital Plan: In/out: -11 ml, +7 L since coming to the hospital Chest x-ray from today does not show any significant change compared to yesterday. Will give 20 mg of Lasix today along with 20 mg of p.o. potassium Bedside ultrasound again shows right greater than left sided pleural effusion. Significant consolidative process in the left lower lobe. Continue with antibiotics, Upper airway clearance techniques Incentive spirometry Please note the above document was generated using voice recognition software. It may contain grammatical, syntax or spelling errors.Any formal questions or concerns about the content, text or information contained within the body of this dictation should be directly addressed to the provider for clarification. Admission and Anticipated Discharge Date Admission Date: May 06, 2022 Subjective Patient seen and examined at bedside. No acute distress, no adverse events overnight. Patient was saturating 92-93% on 2 L nasal cannula at rest. Denies any headache. The pleuritic chest pain is still there but has decreased in intensity Denies any hemoptysis Review of Systems Review of Systems: All systems reviewed & are unremarkable except as noted in Subjective Physical Exam Physical Exam: Constitutional: No acute distress HEENT: EOMI, PERRLA Respiratory system: Decreased air entry bilaterally, more decreased on the left side, positive crackles bilateral lower lobes, no wheeze, no rhonchi CVS: S1-S2 positive, no murmurs or gallops Abdomen: Soft, nontender, nondistended, positive bowel sounds x4 Extremities: +2 pulses bilaterally radialis/ dorsalis pedis, no cyanosis, +1 edema bilateral lower extremity Neuro: Awake alert oriented x3 Psych: Normal mood and affect G/U: No Celestin Skin: no rashes, warm and dry Lymphatic: no cervical or axillary lymphadenopathy Results & Data Results & Data ([facility]) Vital Signs (Past 12 Hours) Vital Signs Temp Pulse Pulse Pulse Resp BP Pulse Ox 05/10/22 08:37 05/10/22 07:35 36.6 C 87 16 124/68 95 05/10/22 04:05 78 05/10/22 04:04 05/10/22 02:38 80 95 05/10/22 02:24 36.4 C L 73 18 125/74 96 05/09/22 23:15 36.5 C 82 16 120/75 93 Pulse Ox O2 Del Method O2 Del Method O2 Flow Rate 05/10/22 08:37 Nasal Cannula 2 05/10/22 07:35 Nasal Cannula 2 05/10/22 04:05 05/10/22 04:04 95 Nasal Cannula 05/10/22 02:38 Nasal Cannula 2 05/10/22 02:24 Nasal Cannula 2 05/09/22 23:15 Nasal Cannula 2 Laboratory Results 05/10/22 06:57 05/10/22 06:57 PG Care Time/CCT Total # of Minutes Spent Total Time Spent with Patient: Total time spent is greater than 50% in coordination of care (as documented) at patient's floor/unit and/or counseling patient: Coding Level of Care Code 22690 SUB INP/OBS CARE 3/50MIN Diagnoses Acute respiratory failure with hypoxia J96.01 Multifocal pneumonia J18.9 Pleural effusion J90 COPD with emphysema J43.9
--- NOTE | 2022-05-10 16:20 | Procedure Note ---
Procedure Note Date of Service May 10, 2022 Note Bedside Ultrasound: Lung:- Right: Small right-sided pleural effusion with minimal atelectasis, a lines anteriorly, B-lines posteriorly Left: Minimal left-sided layering pleural effusion with consolidative process of the left lower lobe, B-lines appreciated posteriorly, no loculations Please note the above document was generated using voice recognition software. It may contain grammatical, syntax or spelling errors.Any formal questions or concerns about the content, text or information contained within the body of this dictation should be directly addressed to the provider for clarification. Coding CPT Codes Pulmonary/Thoracic - Pulmonary and Thoracic: 11898 US, Chest, real time with imaging documentation ([id number]) [facility] [place] Procedure Codes (Charges) Pulmonary/Thoracic Procedure 1: Pulmonary and Thoracic: 14566 US, Chest, real time with imaging documentation
--- NOTE | 2022-05-10 18:48 | Billing Data ---
Date of Service May 10, 2022 Coding Level of Care Code 98740 SUB INP/OBS CARE MIN
[2022-05-10] MEDS: POLYETHYLENE (MIRALAX) 17 GM PACK PO SCH (20:00)
[2022-05-10] MEDS: ASPIRIN 81 MG ECTAB PO SCH (20:00)
[2022-05-10] MEDS: cefTRIAXone SODIUM 1,000 MG in DEXTROSE 5% AD-VAN 50 ML IV SCH (22:37)
[2022-05-11] MEDS: metroNIDAZOLE 500 MG/100 ML BAG IV SCH ×3 (02:58→19:13)
[2022-05-11] MEDS: ACETAMINOPHEN 500 MG TAB PO PRN (03:01)
--- NOTE | 2022-05-11 07:38 | Hospitalist Progress Note ---
Date of Service May 11, 2022 Assessment & Plan (1) Acute respiratory failure with hypoxia: (2) COPD exacerbation: (3) Pneumonia involving left lung: (4) Hyponatremia: (5) Acute kidney injury superimposed on CKD: (6) Arthritis: (7) Hyperlipidemia: (8) Peripheral arterial disease: (9) Gout: Plan Josie is a 87 yo F with history of COPD, gout, HLD, and B12 deficiency presented for evaluation of SOB, CASTILLO, productive cough, and decreased PO intake. She was found to be hyponatremic and hypoxic in the setting of PNA a/w COPD exacerbation. She is being managed inpatient for pneumonia and Gram + Bacteremia (Strep Pneumoniae). LLL Pneumonia (a/w S. Pneumoniae) a/w Necrotizing Core and COPD Exacerbation - Patient found to be in Acute Respiratory Failure upon presentation - CAP 2/2 infection w/ S. Pneumo - MRSA negative - Receiving Ceftriaxone and Flagyl (planned course 4 weeks) - Receiving 5 days of Azithromycin and Prednisone 40 mg (anti-inflammatory), last dose 05/10 --- Continue pulmonary hygiene support measures and home inhaler --- Continue Ceftriaxone, Flagyl, Azithromycin, and Prednisone --- SpO2 goal 94%, currently receiving supplemental O2 via NC Gram + (S. pneumoniae) Bacteremia - Pansensitive - Repeat blood cultures remain negative - Blood cultures: No growth after 48 hours (05/07) --- Continue Abx as above and monitor for sx Pleural Effusion (Bilateral, R>L) - CT Chest indicating Necrotizing PNA on LLL w/ effusions on L and RLL - No urgent need for tap at this time - 05/08 Pulmonary consult: Recommending continued abx w/o thoracentesis at this time. Recommending repeat CT scan @ 4 wks. - Follow sputum culture showing scant normal stephanie - 05/09 Repeat CXR showing improvement to LLL w/ possible worsening of RLL - 05/10 Repeat CXR showing stable appearance of the left greater than right pleural effusions with associated airspace opacities. --- Monitor respiratory status and effort --- Pulm recommending Lasix 20 mg and Potassium 20 mg today, appreciate recommendations --- Continue to follow volume status closely Hyponatremia/SHABBIR a/w poor PO Intake - Improved w/ IVF - Na 134 (from 132) - Cr 1.11 (from 1.20) --- Discontinued IVF, strongly encouraged adequate PO intake (Boost, small meals, etc) --- Continue to monitor Troponin Elevation - S/p peak, 36.5 on admission, 27.8 on 05/06 - Likely a/w acute infection - Abnormal EKG in ED - Normal TTE, EF 60-65% --- Discontinue Tele --- Continue ASA 81 mg daily Transaminitis - Likely associated w/ acute infection and bacteremia - 05/09 improved overall (AST 121 from 268, ALT 123 from 198) --- Improving, continue to follow HLD - Continue home Atorvastatin 40 mg daily Gout - Continue home Allopurinol 300 mg daily B12 Deficiency - Continue to supplement 3000 mcg daily Code status: Full DVT ppx: Alcides VILAI: IVF stop 05/09, Heart Healthy Dispo: Med/surg Admission and Anticipated Discharge Date Admission Date: May 06, 2022 Subjective Patient was seen beside this AM. She has no issues or concerns at this time. Results & Data Results & Data ([facility]) Vital Signs (Past 12 Hours) Vital Signs Temp Pulse Resp BP Pulse Ox O2 Del Method O2 Flow Rate 05/11/22 07:08 36.5 C 79 18 136/80 95 Nasal Cannula 2 05/10/22 21:46 36.6 C 85 16 130/76 96 Nasal Cannula 2
[2022-05-11] MEDS: ENOXAPARIN INJ 30 MG/0.3 ML SYR SQ SCH (09:10)
[2022-05-11] MEDS: CALCIUM CARBONATE 1250MG TAB PO SCH (09:11)
[2022-05-11] MEDS: CYANOCOBALAMIN (B-12) 500 MCG TABLET PO SCH (09:11)
[2022-05-11] MEDS: CHOLECALCIFEROL 1,000 UNITS 25 MCG TAB PO SCH (09:11)
[2022-05-11] MEDS: ASCORBIC ACID 500 MG TAB PO SCH (09:11)
[2022-05-11] MEDS: guaiFENesin 600 MG TABCR PO SCH ×2 (09:11→20:59)
[2022-05-11] MEDS: ATORVASTATIN 40 MG TAB PO SCH (09:11)
[2022-05-11] MEDS: allopurinoL 300 MG TAB PO SCH (09:11)
[2022-05-11] MEDS: UMECLIDINIUM BROMIDE 62.5MCG/BLISTER 7 PUFFS/INHALER INH SCH (09:12)
[2022-05-11] MEDS: LACTOBACILLUS ACIDOPHILUS 1 GM PACK PO SCH ×3 (09:12→16:40)
[2022-05-11] MEDS: MULTIVITAMIN TAB PO SCH (09:12)
[2022-05-11] MEDS: POLYETHYLENE (MIRALAX) 17 GM PACK PO SCH (09:12)
--- NOTE | 2022-05-11 09:28 | Infectious Disease Consult ---
Date of Consultation May 11, 2022 Assessment & Plan (1) Streptococcal bacteremia: (2) Pneumonia involving left lung: (3) COPD exacerbation: (4) Acute respiratory failure with hypoxia: (5) Pleural effusion: (6) Elevated LFTs: Plan 87 yo F with a history of COPD, CKD, sacroiliitis, HLD, PAD, bilateral TKA who presented on 05/05 with a few days of cough, shortness of breath, decreased PO intake, and 1 day of loose stools, and is now admitted with Strep pneumoniae necrotizing pneumonia c/b Strep pneumo bacteremia. CT chest on 05/07 showed a dense airspace consolidation through the LLL, a small L pleural effusion, small R pleural effusion with R basilar atelectasis, foci of cavitation and fluid within superior segment of LLL measuring at least 3.5 cm consistent with necrotizing pneumonia, unable to exclude developing abscess, and a focal narrowing of LLL bronchus with underlying mass lesion impossible to exclude. A TTE on 05/06 showed no visible vegetations (although PV and TV were not well visualized), and repeat BCx from 05/07 are NGTD. COVID-19, flu, RSV negative. She is currently on ceftriaxone and metronidazole, and has completed 5 days of azithromycin. She continues on 2 L supplemental O2, with leukocytosis that peaked at 23.3 on 05/10 (potential contribution from prednisone 40 mg daily). She has had elevated LFTs (peak AST 268, ALT 198, alk phos 194) of unclear etiology, now downtrending. Procalcitonin of 64 has downtrended. Pulmonology is consulted and did not feel pleural effusions were large enough to tap, and bedside ultrasounds have shown no loculations. Micro: 05/08 Sputum cx: light normal stephanie. GS--rare GPCs 05/07 BCx x2: NGTD 05/06 UCx: NG 05/06 MRSA nares: negative 05/05 BCx x2: Strep pneumo in 08/04 bottles Antimicrobial course: Ceftriaxone 05/06 - present Metronidazole 05/07 - present Azithromycin 05/06 - 05/10 Clindamycin 05/07 Cefepime 05/05 Problems: #Strep pneumo necrotizing pneumonia: 3.5 cm cavitation/fluid in LLL, unable to exclude developing abscess #Strep pneumo bacteremia #Bilateral pleural effusions: too small for thoracentesis, no loculations #Hypoxemia #Leukocytosis: likely contribution from being on prednisone 40 mg daily #Elevated LFTs: downtrending Recommendations: -Consider RUQ ultrasound to evaluate elevated LFTs, abdominal pain in setting of Strep pneumo bacteremia. Her abdominal soreness is likely related to her coughing, but also consider seeding (ie hepatic abscess) -Increased ceftriaxone dosing to 2 g IV q24h -No known aspiration event, but ok to continue metronidazole for empiric anaerobic coverage for lung abscess -When stabilized and on discharge, anticipate being able to transition to amoxicillin-clavulanate 875 mg PO BID -Would continue antibiotics until the lung lesion/abscess has resolved or significantly improved on repeat imaging. Would repeat CT chest around week of 06/01 Above recommendations discussed with primary team Consultation Information Consultation was provided via telemedicine using two-way real-time interactive telecommunication between the patient and the telemedicine provider. For the duration of the visit, the provider was performing the assessment from a different facility than the patient. This includesuse of bluetooth stethoscope forauscultationperformed by the telepresenter that the telemedicine provider can hear if described in the physical exam. Negative Assembler contact information: Please call [facility] [phone]. (Phone Number For Physician Use Only) After establishing a telemedicine visit, patient was: Patient was verified with two unique identifiers, Patient/authorized rep acknowledged consent and understanding and Gave permission to continue telehealth session Time Spent with Patient: Initial => 40 min History of Present Illness Reason for Consultation: Strep pneumo bacteremia Attending Physician: Rebecca Hoffmann MD History of Present Illness 87 yo F with a history of COPD, CKD, sacroiliitis, HLD, PAD, bilateral TKA who presented on 05/05 with a few days of shortness of breath, dyspnea on exertion, decreased PO intake, intermittently productive cough, and 1 day of loose stools. On presentation, she was afebrile, with O2 sat as low as 88% on room air, for which she was placed on 2 L NC. Labs showed WBC 8.89, Na 124, Cr 1.79, AST 122, ALT 69, procalcitonin 64. COVID-19, flu, RSV negative. UA with 1-5 WBCs. CXR showed extensive L lung airspace opacities suggestive of pneumonia, with small L pleural effusion. Blood cultures were obtained. She was admitted for CAP and COPD exacerbation. Pt was started on cefepime, then switched to ceftriaxone and azithromycin. BCID PCR panel was positive for Strep pneumo. MRSA nares negative. A TTE was performed to rule out endocarditis--no vegetations were seen, although per report the pulmonic valve and tricuspid valves were not well visualized. Pt developed new chest pain with deep inspiration and coughing, and a repeat CXR showed worsening L sided pleural effusion with small R effusion. A CT chest on 05/07 then showed a dense airspace consoildation through the LLL, a small L pleural effusion, small R pleural effusion with R basilar atelectasis, foci of cavitation and fluid within superior segment of LLL measuring at least 3.5 cm consistent with necrotizing pneumonia, unable to exclude developing abscess, and a focal narrowing of LLL bronchus with underlying mass lesion impossible to exclude. Pulmonology was consulted to evaluate for possible thoracentesis--did not think pleural effusions were large enough to tap, and recommended several weeks of antibiotics with a repeat CT scan in ~4 weeks. A bedside ultrasound on 05/09, 05/10 showed no loculations in the L pleural effusion. Procalcitonin decreased to 13.98 on 05/09. WBC was uptrending to 23.28 on 05/10, and today is stable at 22.47. Cr has downtrended to 1.09. AST, ALT, alk phos downtrending. Repeat BCx from 05/07 NGTD. Sputum culture growing light normal stephanie. Pt states she does not feel she has improved much since admission. Continues to cough and have shortness of breath, and L sided chest pain. Reports lower abdominal soreness associated with coughing. Her diarrhea has resolved. Denies rash. Had bilateral TKA ~20 years ago, denies knee pain/swelling/erythema. Allergies Allergy/AdvReac Type Severity Reaction Status Date / Time No Known Drug Allergies Allergy Unknown [email or web address] Verified 05/06/22 02:21 Home Medications Medication Instructions Recorded Confirmed Type multivitamin 1 tab PO QAM 02/16/20 05/06/22 History calcium carbonate 500 mg calcium 500 mg PO QAM 06/02/21 05/06/22 History (1,250 mg) chewable tablet (Calcium 500) aspirin 81 mg tablet 81 mg PO HS 06/12/21 05/06/22 History cholecalciferol (vitamin D3) 25 25 mcg PO QAM 06/12/21 05/06/22 History mcg (1,000 unit) tablet (Vitamin D3) allopurinol 300 mg tablet 300 mg PO DAILY #90 tabs 12/15/21 05/06/22 Rx atorvastatin 40 mg tablet 40 mg PO QAM #90 tabs 12/15/21 05/06/22 Rx tiotropium bromide 2.5 2 puff inhalation QAM #4 grams 12/15/21 05/06/22 Rx mcg/actuation mist for inhalation (Spiriva Respimat) albuterol sulfate 90 mcg/actuation 2 puff inhalation Q4H PRN 01/14/22 05/06/22 Rx aerosol inhaler (Ventolin HFA) Shortness Of Breath #1 inhaler mecobalamin (vitamin B12) 1,000 3,000 mcg PO DAILY 03/04/22 05/06/22 History mcg chewable tablet ascorbic acid (vitamin C) 1,000 mg 1 g PO DAILY 04/07/22 05/06/22 History tablet (Vitamin C) potassium gluconate 595 mg (99 mg) 595 mg PO DAILY 04/07/22 05/06/22 History tablet Patient History Medical History Chronic back pain Chronic obstructive pulmonary disease CKD (chronic kidney disease) Hx of gastric ulcer Hx of gout Hx of skin cancer, basal cell Osteoarthritis Osteoporosis Sacroiliitis Schatzki's ring Sciatica RT Scoliosis Sensorineural hearing loss (SNHL) of both ears SNHL (sensorineural hearing loss) Spinal stenosis Surgical History History of arthroplasty of knee RT/LEFT History of bilateral tubal ligation History of breast biopsy History of colonoscopy History of esophagogastroduodenoscopy (EGD) History of Mohs micrographic surgery for skin cancer S/P epidural steroid injection Family History Mother Family history of colon cancer Family history of cardiac disorder Hearing loss Cancer Other No family history of adverse response to anesthesia Denies family history of Ovarian cancer Prostate cancer Myocardial infarction Breast cancer Colorectal cancer Social History Smoking Status: Current every day smoker Tobacco Type: Cigarettes Cigarettes Per Day: 4 CIGS DAILY; Second Hand Exposure: Yes ( A CHILD); Hx Alcohol Use: No Hx Substance Use: No Preferred Language: Tuvaluan Communication Ability: Effective Cable Supervisor Required: No Beliefs That Will Affect Care: Holiness marital status: / Current Living Situation: Alone current occupational status: retired Feels Safe at Home: Yes Assistive Devices: Hearing Aid - Bilateral Review of System A complete ROS was performed and is negative except as mentioned in the HPI. Physical Exam Physical Exam: GEN: elderly woman laying in bed in NAD. HEENT: Normocephalic, atraumatic. Nasal cannula in place CV: Regular rate and rhythm RESP: crackles bilaterally ABD: Soft, non-distended. Tender to palpation in RLQ SKIN: No rashes on exposed skin. Bilateral upper extremity ecchymosis NEURO: Alert and oriented. Answers all questions appropriately. Speech not slurred. PSYCH: Normal mood, affect appropriate. Results & Data ([facility]) Vital Signs (Past 12 Hours) Vital Signs Temp Pulse Resp BP Pulse Ox O2 Del Method O2 Flow Rate 05/11/22 07:08 36.5 C 79 18 136/80 95 Nasal Cannula 2 05/10/22 21:46 36.6 C 85 16 130/76 96 Nasal Cannula 2 Laboratory Results Laboratory Results - last 48 hr 05/10/22 05/10/22 05/11/22 06:57 06:57 10:27 WBC 23.28 H 22.47 H RBC 3.29 L 3.30 L Hgb 10.8 L 10.9 L Hct 29.8 L 29.8 L MCV 90.6 90.3 MCH 32.8 33.0 MCHC 36.2 H 36.6 H RDW Std Deviation 53.1 H 53.3 H RDW Coeff of Lazara 16.1 H 16.0 H Plt Count 407 H 512 H MPV 11.0 10.6 Immature Gran % (Auto) 8.3 Neut % (Auto) 73.7 Lymph % (Auto) 9.1 Jerome % (Auto) 7.8 Eos % (Auto) 0.5 Baso % (Auto) 0.6 Neut # (Auto) 16.56 H Lymph # (Auto) 2.04 Jerome # (Auto) 1.75 H Eos # (Auto) 0.12 Baso # (Auto) 0.13 Immature Gran # (Auto) 1.87 H Polychromasia 1+ Target Cells 1+ Sodium 133 L Potassium 3.6 Chloride 105 Carbon Dioxide 22 Anion Gap 6 BUN 41 H Creatinine 1.13 Est Cr Clr Drug Dosing 36.8 Est GFR ( Amer) 51.0 Est GFR (Non-Af Amer) 44.0 BUN/Creatinine Ratio 36.3 H Glucose 115 H Calcium 9.2 Total Bilirubin 0.4 AST 65 H ALT 89 H Alkaline Phosphatase 194 H Total Protein 5.3 L Albumin 2.5 L Globulin 2.8 Albumin/Globulin Ratio 0.9 05/11/22 10:27 WBC RBC Hgb Hct MCV MCH MCHC RDW Std Deviation RDW Coeff of Lazara Plt Count MPV Immature Gran % (Auto) Neut % (Auto) Lymph % (Auto) Jerome % (Auto) Eos % (Auto) Baso % (Auto) Neut # (Auto) Lymph # (Auto) Jerome # (Auto) Eos # (Auto) Baso # (Auto) Immature Gran # (Auto) Polychromasia Target Cells Sodium 136 Potassium 3.4 L Chloride 104 Carbon Dioxide 25 Anion Gap 7 BUN 45 H Creatinine 1.09 Est Cr Clr Drug Dosing 38.2 Est GFR ( Amer) 53.2 Est GFR (Non-Af Amer) 45.9 BUN/Creatinine Ratio 41.3 H Glucose 119 H Calcium 9.9 Total Bilirubin 0.5 AST 36 ALT 67 H Alkaline Phosphatase 156 H Total Protein 5.4 L Albumin 2.5 L Globulin 2.9 Albumin/Globulin Ratio 0.9 Diagnostic Findings Chest X-Ray 05/08/22 07:00 XR chest 1V portable HISTORY: following possible necrotizing pna to resolution COMPARISON: Chest on 523. FINDINGS: [id number] left pleural effusion has progressed. Left mid to lower lung zone airspace opacities again noted. No pneumothorax. The heart is stable in size. IMPRESSION: Increase in size in the small to moderate left pleural effusion. The left mid to lower lung zone airspace opacities are again noted. ACT 112: Negative or not required by law. Electronically signed by: Tao Ward M.D. 05/08/2022 2:31 PM Chest X-Ray 05/09/22 07:00 XR chest 1V portable HISTORY: following possible necrotizing pna to resolution COMPARISON: Chest 05/08/2022. FINDINGS: No pneumothorax. A small to moderate left pleural effusion and left ba se airspace opacities have slightly improved. A small right pleural effusion and right base airspace opacities have slightly progressed. The heart is stable in size. IMPRESSION: Bilateral pleural effusions with associated airspace opacities as above. ACT 112: Negative or not required by law. Electronically signed by: Tao Ward M.D. 05/09/2022 8:00 AM Chest X-Ray 05/10/22 07:00 XR chest 1V portable HISTORY: 87 years-old Female following possible necrotizing pna to resolution follow-up study in a patient with left greater than right pleural effusions COMPARISON: Chest radiograph May 09, 2022, chest CT May 07, 2022 TECHNIQUE: The chest FINDINGS: Left greater than right pleural effusions with possible loculation on the left appears stable. Bibasilar and left midlung airspace opacities are again noted. No pneumothorax. Mild pulmonary vascular congestion. Degenerative changes of the shoulders and spine. IMPRESSION: 1. Stable appearance of the left greater than right pleural effusions with associated airspace opacities. 2. No pneumothorax. ACT 112: Negative or not required by law. The above report was generated using voice recognition software. It may contain grammatical, syntax or spelling errors. Electronically signed by: Sivakumar Jacobson M.D. 05/10/2022 8:32 AM Medications Administered Current Inpatient Medications Acetaminophen (Acetaminophen 500 Mg Tab) 1,000 mg PO Q8H PRN PRN Reason: Pain Stop: 06/07/22 05:11 Last Admin: 05/11/22 03:01 Dose: 1,000 mg Albuterol (Albut/Ipratrop 3mg/0.5mg Neb 3 Ml Vial) 3 ml NEB QIDR PRN; Protocol PRN Reason: Shortness Of Breath Or Wheezing Stop: 06/05/22 06:59 Last Admin: 05/10/22 02:37 Dose: 3 ml Allopurinol (Allopurinol 300 Mg Tab) 300 mg PO DAILY NATALIE Stop: 06/05/22 08:59 Last Admin: 05/11/22 09:11 Dose: 300 mg Ascorbic Acid (Ascorbic Acid 500 Mg Tab) 1,000 mg PO DAILY NATALIE Stop: 06/05/22 08:59 Last Admin: 05/11/22 09:11 Dose: 1,000 mg Aspirin (Aspirin 81 Mg Ectab) 81 mg PO HS [facility] Stop: 06/05/22 20:59 Last Admin: 05/10/22 20:00 Dose: 81 mg Atorvastatin Calcium (Atorvastatin 40 Mg Tab) 40 mg PO QAM [facility] Stop: 06/05/22 08:59 Last Admin: 05/11/22 09:11 Dose: 40 mg Calcium Carbonate (Calcium Carbonate 1250mg Tab) 1,250 mg PO QAM [facility] Stop: 06/05/22 08:59 Last Admin: 05/11/22 09:11 Dose: 1,250 mg Cyanocobalamin (Cyanocobalamin (B-12) 500 Mcg Tablet) 3,000 mcg PO DAILY [facility] Stop: 06/05/22 08:59 Last Admin: 05/11/22 09:11 Dose: 3,000 mcg Enoxaparin Sodium (Enoxaparin Inj 30 Mg/0.3 Ml Syr) 30 mg SQ Q24H [facility] Stop: 06/05/22 08:59 Last Admin: 05/11/22 09:10 Dose: 30 mg Guaifenesin (Guaifenesin 600 Mg Tabcr) 1,200 mg PO Q12 [facility] Stop: 06/05/22 08:59 Last Admin: 05/11/22 09:11 Dose: 1,200 mg Ceftriaxone Sodium 1,000 mg/ (Dextrose) 50 mls @ 100 mls/hr IV Q24H [facility]; Protocol Stop: 05/11/22 23:59 Last Infusion: 05/10/22 23:16 Dose: Infused Metronidazole (Flagyl) 500 mg in 100 mls @ 100 mls/hr IV Q8H [facility] Stop: 05/14/22 18:59 Last Infusion: 05/11/22 04:09 Dose: Infused Lactobacillus Acidophilus (Lactobacillus Acidophilus 1 Gm Pack) 1 gm PO TIDM [facility] Stop: 06/07/22 07:59 Last Admin: 05/11/22 09:12 Dose: 1 gm Multivitamins (Multivitamin Tab) 1 tab PO QAM [facility] Stop: 06/05/22 08:59 Last Admin: 05/11/22 09:12 Dose: 1 tab Ondansetron HCl (Ondansetron Inj 2 Mg/Ml 2 Ml Vial) 4 mg IV Q6H PRN PRN Reason: Nausea Stop: 06/05/22 02:37 Polyethylene Glycol (Polyethylene (Miralax) 17 Gm Pack) 17 gm PO DAILY [facility] Stop: 06/09/22 18:59 Last Admin: 05/11/22 09:12 Dose: Not Given Umeclidinium [place] (Umeclidinium [place] 62.5mcg/Blister 7 Puffs/Inhaler) 1 puffs INH QAM [facility] Stop: 06/05/22 08:59 Last Admin: 05/11/22 09:12 Dose: 1 puffs Vitamin D (Cholecalciferol 1,000 Units 25 Mcg Tab) 1,000 units PO QAM [facility] Stop: 06/05/22 08:59 Last Admin: 05/11/22 09:11 Dose: 1,000 units
[2022-05-11 10:51] LABS: Hematocrit (blood only) 29.8 % (34.1-44.9); Hemoglobin 10.9 g/dl (12.0-16.0); Mean Corpuscular Hgb Conc 36.6 g/dL (32.0-36.0); Mean Corpuscular Volume 90.3 fL (80.0-100.0); Mean Platelet Volume 10.6 fL (9.4-12.3); Platelet Count 512 K/uL (130-400); RDW Standard Deviation 53.3 fL (36.4-46.3); White Blood Count 22.47 K/ul (4.8-10.8)
[2022-05-11 11:23] LABS: Albumin Globulin Ratio 0.9 (0.9-2); Albumin Level 2.5 gm/dl (3.4-5.0); BUN Creatinine Ratio 41.3 (10-20); Bilirubin,Total 0.5 mg/dl (0.2-1.0); Calcium 9.9 mg/dl (8.5-10.1); Creatinine Clr Calc Pharmacy 38.2 ml/min; Est GFR (African American) 53.2 ml/min; Est GFR (Non-African American) 45.9 ml/min; Globulin 2.9 gm/dl (2.5-4.0); Potassium 3.4 mmol/L (3.5-5.1); Total Protein 5.4 gm/dl (6.0-8.3)
[2022-05-11 11:29] LABS: Basophils # (auto) 0.13 K/uL (0-0.2); Basophils % (auto) 0.6 %; Eosinophils # (auto) 0.12 K/uL (0-0.50); Eosinophils % (auto) 0.5 %; Immature Granulocytes # (auto) 1.87 K/uL (0.00-0.02); Immature Granulocytes % (auto) 8.3 %; Lymphocytes # (auto) 2.04 K/uL (1.2-3.4); Lymphocytes % (auto) 9.1 %; Monocytes # (auto) 1.75 K/uL (0.24-0.82); Monocytes % (auto) 7.8 %; Neutrophils # (auto) 16.56 K/uL (1.4-6.5); Neutrophils % (auto) 73.7 %; Polychromasia 1+; Target Cells 1+
--- NOTE | 2022-05-11 12:19 | Medical Student Progress Note ---
Date of Service May 11, 2022 Assessment & Plan (1) COPD with emphysema: (2) COPD exacerbation: (3) Pleural effusion: (4) Acute kidney injury superimposed on CKD: (5) Pneumonia involving left lung: Plan Josie is a 87 yo F with history of COPD, gout, HLD, and B12 deficiency presented 05/05/2022 for sob, cough, and decreased PO intake. She was found to be hyponatremic and hypoxic in the setting of PNA a/w COPD exacerbation. She was given O2, prednisone, duonebs prn, and incruse. She receives 5 days prednisone since last 05/10/2022. She was started on Ceftriaxone and metronidazole due to Imaging revealing possible necrotizing pna. 05/10 pt started on azithromycin. Effusions found on cxr and chest CT followed by pulmonary who recommended one dose of Lasix. LLL Pneumonia (a/w S. Pneumoniae) a/w Necrotizing Core and COPD Exacerbation: improving -negative blood cultures -Receiving Ceftriaxone and Flagyl (planned course 4 weeks) -awaiting Infx disease recs -Receiving 4 days of Azithromycin and last Prednisone 40 mg (anti-inflammatory) 05/10 -SpO2 goal 94%, currently receiving supplemental O2 via NC, incentive spirometry -consider PT/OT evaluation -continue Incruse daily and duonebs prn Gram + (S. pneumoniae) Bacteremia -Pansensitive -Repeat blood cultures remain negative -Blood cultures: No growth after 48 hours (05/07) -Continue Abx as above and monitor for sx Pleural Effusion (Bilateral, R>L) - CT Chest indicating Necrotizing PNA on LLL w/ effusions on L and RLL - No urgent need for tap at this time - 05/08 Pulmonary consult: Recommending continued abx w/o thoracentesis at this time. Recommending repeat CT scan @ 4 wks. Hyponatremia/SHABBIR a/w poor PO Intake - Improved w/ IVF - sodium improved 136 - Cr stable at 1.09 -Discontinued IVF, strongly encouraged adequate PO intake (Boost, small meals, etc) -Continue to monitor Troponin Elevation -S/p peak, 36.5 on admission, 27.8 on 05/06 -Likely a/w acute infection -Abnormal EKG in ED -Normal TTE, EF 60-65% -Discontinue Tele -Continue ASA 81 mg daily Transaminitis -Likely associated w/ acute infection and bacteremia -05/11 improved overall (AST 36, ALT 67) -Improving, continue to follow HLD - Continue home Atorvastatin 40 mg daily Gout - Continue home Allopurinol 300 mg daily B12 Deficiency - Continue to supplement 3000 mcg daily FEN/GI: reg diet DVT PPX: lovenox Dispo: Med/Surg Admission and Anticipated Discharge Date Admission Date: May 06, 2022 Subjective Today pt can get eat and get to bathroom. Still left sided abdominal pain and suprapubic pain with cough. Still sob with activity. no lightheadedness, chest pain, dysuria, hematuria. Physical Exam Constitutional: WD/WN, vitals as above Respiratory: no labored breathing, breath sounds present, rhonchi preset on left > right. deep breaths cause cough. Results & Data ([facility]) Vital Signs (Past 12 Hours) Vital Signs Temp Pulse Resp BP Pulse Ox O2 Del Method O2 Flow Rate 05/11/22 08:00 Nasal Cannula 05/11/22 07:08 36.5 C 79 18 136/80 95 Nasal Cannula 2
[2022-05-11] MEDS: ACETAMINOPHEN 500 MG TAB PO SCH ×2 (14:35→20:59)
--- NOTE | 2022-05-11 14:57 | Medical Student Progress Note ---
Date of Service May 11, 2022 Assessment & Plan (1) COPD with emphysema: (2) COPD exacerbation: (3) Pleural effusion: (4) Acute kidney injury superimposed on CKD: (5) Pneumonia involving left lung: Plan Josie is a 87 yo F with history of COPD, gout, HLD, and B12 deficiency presented 05/05/2022 for sob, cough, and decreased PO intake. She was found to be hyponatremic and hypoxic in the setting of PNA a/w COPD exacerbation. She was given O2, prednisone, duonebs prn, and incruse. She receives 5 days prednisone since last 05/10/2022. She was started on Ceftriaxone and metronidazole due to Imaging revealing possible necrotizing pna. 05/10 pt started on azithromycin. Effusions found on cxr and chest CT followed by pulmonary who recommended one dose of Lasix. LLL Pneumonia (a/w S. Pneumoniae) a/w Necrotizing Core and COPD Exacerbation: improving -repeat blood cultures neg -Receiving Ceftriaxone and Flagyl (planned course 4 weeks) -completed 4 days of Azithromycin and last Prednisone 40 mg 05/10 -SpO2 goal 94%, currently receiving supplemental O2 via NC, incentive spirometry -PT/OT evaluation: prevent deconditioning and assess function -continue Incruse daily and duonebs prn -ID recs -Consider RUQ ultrasound to evaluate elevated LFTs, abdominal pain in setting of Strep pneumo bacteremia. Her abdominal soreness is likely related to her coughing, but also consider seeding (ie hepatic abscess); ordered -Increased ceftriaxone dosing to 2 g IV q24h -No known aspiration event, but ok to continue metronidazole for empiric anaerobic coverage for lung abscess -When stabilized and on discharge, anticipate being able to transition to amoxicillin-clavulanate 875 mg PO BID -Would continue antibiotics until the lung lesion/abscess has resolved or significantly improved on repeat imaging. -Would repeat CT chest around week of 06/01 Gram + (S. pneumoniae) Bacteremia -Pansensitive -Repeat blood cultures remain negative -Blood cultures: No growth after 48 hours (05/07) -Continue Abx as above and monitor for sx Pleural Effusion (Bilateral, R>L) - CT Chest indicating Necrotizing PNA on LLL w/ effusions on L and RLL - No urgent need for tap at this time - 05/08 Pulmonary consult: Recommending continued abx w/o thoracentesis at this time. Recommending repeat CT scan @ 4 wks. Hyponatremia/SHABBIR a/w poor PO Intake - Improved w/ IVF - sodium improved 136 - Cr stable at 1.09 -Discontinued IVF, strongly encouraged adequate PO intake (Boost, small meals, etc) -Continue to monitor Troponin Elevation -S/p peak, 36.5 on admission, 27.8 on 05/06 -Likely a/w acute infection -Abnormal EKG in ED -Normal TTE, EF 60-65% -Discontinue Tele -Continue ASA 81 mg daily Transaminitis -Likely associated w/ acute infection and bacteremia -05/11 improved overall (AST 36, ALT 67) -Improving, continue to follow -Infectious Disease recommends RUQ ultrasound; ordered HLD - Continue home Atorvastatin 40 mg daily Gout - Continue home Allopurinol 300 mg daily B12 Deficiency - Continue to supplement 3000 mcg daily FEN/GI: reg diet DVT PPX: lovenox Dispo: Med/Surg Admission and Anticipated Discharge Date Admission Date: May 06, 2022 Supervising Attestation Medical Student Supervision Note: I was personally present during medical student patient encounter and independently interviewed and examined the patient and verified the dowd history and physical, reviewed labs and image studies, discussed the case with John Mederos and agree with the findings and care plan. Sepsis due to Streptococcus pneumoniae, POA Necrotizing pneumonia Strep Pneumo bacteremia - continue IV ceftriazone - dose increased to 2gm by ID. - to switch to oral abx on discharge - augmentin. course depends on improvement of repeat CT in 3-4 wks - US RUQ for elevated LFT to r/o biliary spread of strep pneumo infection Subjective Today pt can get eat and get to bathroom. Still left sided abdominal pain and suprapubic pain with cough. Still sob with activity. no lightheadedness, chest pain, dysuria, hematuria. Physical Exam Constitutional: WD/WN, vitals as above Respiratory: bilateral breath sounds, scattered rhonchi worse on the left Cardiovascular: RRR no MRG, no edema Results & Data ([facility]) Vital Signs (Past 12 Hours) Vital Signs Temp Pulse Resp BP Pulse Ox O2 Del Method O2 Flow Rate 05/11/22 08:00 Nasal Cannula 05/11/22 07:08 36.5 C 79 18 136/80 95 Nasal Cannula 2
--- NOTE | 2022-05-11 15:03 | Pulmonology Progress Note ---
Date of Service May 11, 2022 Assessment & Plan (1) Acute respiratory failure with hypoxia: (2) Multifocal pneumonia: (3) Pleural effusion: (4) COPD with emphysema: Plan Impression: 87-year-old female with multifocal necrotizing pneumonia and potential small parapneumonic effusion. Her white count has increased over the last 24 to 48 hours. Surveillance cultures have shown no growth to date after initial pneumococcal positive blood cultures on the third. Infectious disease consultation was obtained today. Recommendations: 1. Pneumococcal bacteremia: Antibiotics per ID. Necrotizing pneumonia. May require prolonged course of antibiotics for potential lung abscess. Will defer length of treatment and antimicrobial choice to infectious disease. 2. We will repeat chest x-ray in a.m.. Depending on clinical course, may consider repeat noncontrast CT of the chest especially if her white count continues to elevate. 3. Management of the patient's abdominal complaints per primary service. 4. Hypoxemic respiratory failure: Secondary to #1. Continue to wean oxygen as tolerated. Maintain oxygen saturations at or above 87%. Admission and Anticipated Discharge Date Admission Date: May 06, 2022 Subjective Patient seen and examined. EMR reviewed. Discussed with off going quality control specialist. Patient is sitting up at bedside. She reports some lower abdominal pain which crosses the midline. She is still coughing but not expectorating any phlegm. She states she is having less chest discomfort. She is not had any hemoptysis. No fevers or unintentional weight loss but the patient may be experiencing some slight chills at night. She does not yet feel back to baseline Review of Systems Review of Systems: Unchanged from prior except as noted in HPI Physical Exam Constitutional: WD/WN, vitals as above Neck: trachea midline, no thyromegaly Respiratory: no respiratory distress, no labored breathing and not tachypneic Auscultation: + diminished lung sounds Breath sounds decreased at the bilateral bases with dullness to percussion Cardiovascular: RRR, no murmur, no edema Gastrointestinal (Abdomen): normal bowel sounds, soft, nontender, no hepatosplenomegaly Musculoskeletal: Extremities: extremities normal to inspection Skin: no rashes, warm and dry Neurologic: Nonfocal exam Lymphatic: no cervical lymphadenopathy Results & Data Results & Data ([facility]) Vital Signs (Past 12 Hours) Vital Signs Temp Pulse Resp BP Pulse Ox O2 Del Method O2 Flow Rate 01/09/23 08:00 Nasal Cannula 05/11/22 07:08 36.5 C 79 18 136/80 95 Nasal Cannula 2 Critical Care Results & Data Vital Signs (Past 12 Hours) Vital Signs Temp Pulse Resp BP Pulse Ox O2 Del Method O2 Flow Rate 05/11/22 08:00 Nasal Cannula 05/11/22 07:08 36.5 C 79 18 136/80 95 Nasal Cannula 2 Lab & Micro Results (Past 24 Hours) RBC 3.30 M/uL (3.93-5.22) L 05/11/22 WBC 22.47 K/ul (4.8-10.8) H 05/11/22 Hgb 10.9 g/dl (12.0-16.0) L 05/11/22 Hct 29.8 % (34.1-44.9) L 05/11/22 MCV 90.3 fL (80.0-100.0) 05/11/22 MCH 33.0 pg (25.0-34.0) 05/11/22 MCHC 36.6 g/dL (32.0-36.0) H 05/11/22 RDW Standard Deviation 53.3 fL (36.4-46.3) H 05/11/22 RDW Coefficient of Variation 16.0 % (11.5-14.5) H 05/11/22 Plt Count 512 K/uL (130-400) H 05/11/22 MPV 10.6 fL (9.4-12.3) 05/11/22 Neutrophils (%) (Auto) 73.7 % 05/11/22 Lymphocytes (%) (Auto) 9.1 % 05/11/22 Monocytes # (Auto) 1.75 K/uL (0.24-0.82) H 05/11/22 Eosinophils # (Auto) 0.12 K/uL (0-0.50) 05/11/22 Immature Granulocyte % (Auto) 8.3 % 05/11/22 Neutrophils # (Auto) 16.56 K/uL (1.4-6.5) H 05/11/22 Lymphocytes # (Auto) 2.04 K/uL (1.2-3.4) 05/11/22 Monocytes # (Auto) 1.75 K/uL (0.24-0.82) H 05/11/22 Eosinophils # (Auto) 0.12 K/uL (0-0.50) 05/11/22 Basophils # (Auto) 0.13 K/uL (0-0.2) 05/11/22 Immature Granulocyte # (Auto) 1.87 K/uL (0.00-0.02) H 05/11 Polychromasia 1+ 05/11/22 Target Cells 1+ 05/11/22 Na 136 mmol/L (136-145) 05/11/22 K 3.4 mmol/L (3.5-5.1) L 05/11/22 Cl 104 mmol/L (98-107) 05/11/22 CO2 25 mmol/L (21-32) 05/11/22 Anion Gap 7 (3-11) 05/11/22 BUN 45 mg/dl (6-23) H 05/11/22 Creatinine 1.09 mg/dl (0.6-1.2) 05/11/22 Estimated GFR ( Amer) 53.2 ml/min 05/11/22 Estimated GFR (Non-Af Amer) 45.9 ml/min 05/11/22 BUN/Creatinine Ratio 41.3 (10-20) H 05/11/22 Glu 119 mg/dl (70-99(Fasting)) H 05/11/22 Ca 9.9 mg/dl (8.5-10.1) 05/11/22 Total Bilirubin 0.5 mg/dl (0.2-1.0) 05/11/22 AST 36 U/L (13-39) 05/11/22 ALT 67 U/L (7-52) H 05/11/22 Alkaline Phosphatase 156 U/L (34-104) H 05/11/22 TP 5.4 gm/dl (6.0-8.3) L 05/11/22 Albumin 2.5 gm/dl (3.4-5.0) L 05/11/22 Globulin 2.9 gm/dl (2.5-4.0) 05/11/22 Albumin/Globulin Ratio 0.9 (0.9-2) 05/11/22 Calcium Level 9.9 mg/dl (8.5-10.1) 05/11/22 10:27 I & O Totals 24 Hours 05/10/22 05/11/22 05/12/22 06:59 06:59 06:59 Intake Total 990 / 990 1175 / 1175 100 / 100 Output Total 1001 / 1001 1000 / 1000 Balance -11 / -11 175 / 175 100 / 100 Cumulative 05/05/22 16:44 thru 05/11/22 12:54 Intake Total 00754.000 Output Total 2701 Balance 7386.000 RT Ventilator Mngmt (Last Documented) Ventilator Ordered Settings Respiratory Rate 18 05/11/22 07:08 Ventilator - PT Measurements Respiratory Rate 18 PG Care Time/CCT Total # of Minutes Spent Total Time Spent with Patient: Total time spent is greater than 50% in coordination of care (as documented) at patient's floor/unit and/or counseling patient: Coding Level of Care Code 29833 SUB INP/OBS CARE 2/35MIN Diagnoses Acute respiratory failure with hypoxia J96.01 Multifocal pneumonia J18.9 Pleural effusion J90 COPD with emphysema J43.9
[2022-05-11] MEDS: LIDOCAINE 5% 1 PATCH TD SCH (20:56)
[2022-05-11] MEDS: ASPIRIN 81 MG ECTAB PO SCH (20:59)
--- NOTE | 2022-05-11 21:01 | Ultrasound Report ---
ABDOMINAL ULTRASOUND, RIGHT UPPER QUADRANT HISTORY: elevated LFTs with abdominal pain. COMPARISON: None. FINDINGS: Pancreas: The pancreatic tail is obscured by overlying bowel gas. The remaining portions of the pancr eas are within normal limits. Liver: There is a 9 mm cyst within the left hepatic lobe. 17 cm in length. Gallbladder: There is sludge layering within the gallbladder. No gallbladder wall thickening. No gall stones. Negative sonographic Azevedo sign CBD: 6 mm. Right kidney: No hydronephrosis. IMPRESSION: 1. Gallbladder sludge. No gallbladder wall thickening or gallstones. 2. A 9 mm left hepatic lobe cyst. ACT 112: Negative or not required by law. Electronically signed by: Tao Ward M.D. 05/11/2022 8:59 PM
[2022-05-11] MEDS: cefTRIAXone SODIUM 2,000 MG in DEXTROSE 5% 50 ML IV SCH (21:04)
[2022-05-11] MEDS ORDERED: cefTRIAXone SODIUM 2,000 MG in DEXTROSE 5% AD-VAN 50 ML IV SCH (22:00)
[2022-05-12] MEDS: metroNIDAZOLE 500 MG/100 ML BAG IV SCH ×3 (04:08→17:59)
[2022-05-12] MEDS: ACETAMINOPHEN 500 MG TAB PO SCH ×3 (04:11→19:55)
[2022-05-12] MEDS: BENZONATATE 100 MG CAPSULE PO PRN (04:31)
--- NOTE | 2022-05-12 07:00 | Hospitalist Progress Note ---
Date of Service May 12, 2022 Assessment & Plan (1) COPD with emphysema: (2) COPD exacerbation: (3) Pleural effusion: (4) Acute kidney injury superimposed on CKD: (5) Pneumonia involving left lung: (6) Rib pain on left side: Plan Josie is a 87 yo F with history of COPD, gout, HLD, and B12 deficiency presented 05/05/2022 for sob, cough, and decreased PO intake. She was found to be hyponatremic and hypoxic in the setting of PNA a/w COPD exacerbation. She was given O2, prednisone, duonebs prn, and incruse. She receives 5 days prednisone since last 05/10/2022. She was started on Ceftriaxone and metronidazole due to Imaging revealing possible necrotizing pna. 05/10 pt started on azithromycin. Effusions found on cxr and chest CT followed by pulmonary who recommended one dose of Lasix. Sepsis due to Streptococcus pneumoniae, POA LLL Pneumonia (a/w S. Pneumoniae) a/w Necrotizing Core and COPD Exacerbation: improving -repeat blood cultures neg -Receiving Ceftriaxone 2gms and Flagyl (planned course 4 weeks) -ID following -When stabilized and on discharge, anticipate being able to transition to amoxicillin-clavulanate 875 mg PO BID -Would repeat CT chest around week of 06/01 -Would continue antibiotics until the lung lesion/abscess has resolved or significantly improved on repeat imaging. -completed 4 days of Azithromycin and last Prednisone 40 mg 05/10 -SpO2 goal 94%, currently receiving supplemental O2 via NC, incentive spirometry -continue Incruse daily and duonebs prn Gram + (S. pneumoniae) Bacteremia -Pansensitive -Repeat blood cultures remain negative -Blood cultures: No growth after 48 hours (05/07) -Continue Abx as above and monitor for sx Pleural Effusion (Bilateral, R>L) - CT Chest indicating Necrotizing PNA on LLL w/ effusions on L and RLL - No urgent need for tap at this time - 05/12; Pulmonary consult: Recommending no significant effusion on US, Will repeat US in the AM. Recommending repeat CT scan @ 4 wks. Hyponatremia/SHABBIR a/w poor PO Intake - Improved w/ IVF - sodium improved 136 - Cr stable at 1.09 -Discontinued IVF, strongly encouraged adequate PO intake (Boost, small meals, etc) -Continue to monitor Rib pain on L side - Pain on her L side gets worse with deep breaths and when coughing. Most likely due to increase coughing spells. Will aim on reducing cough with symptomatic treatment at this time. - Tessalon Perles ordered on 05/11. Patient reports that, her cough did not improve. Will add on Robitussin on 05/12. Decreased Mucinex dosage due to adding on Robitussin and not going over the max daily dose of guaifenesin. - Lidocaine patch QPM - Voltaren gel Q6H prn added to help alleviate rib pain. Troponin Elevation -S/p peak, 36.5 on admission, 27.8 on 05/06 -Likely a/w acute infection -Abnormal EKG in ED -Normal TTE, EF 60-65% -Discontinue Tele -Continue ASA 81 mg daily Transaminitis -Likely associated w/ acute infection and bacteremia -05/11 improved overall (AST 36, ALT 67) -Improving, continue to follow -Infectious Disease recommends RUQ ultrasound did not showed gallbladder sludge and a 9mm L hepatic lobe cyst HLD - Continue home Atorvastatin 40 mg daily Gout - Continue home Allopurinol 300 mg daily B12 Deficiency - Continue to supplement 3000 mcg daily FEN/GI: reg diet DVT PPX: lovenox Dispo: Med/Surg; -PT/OT evaluation: prevent deconditioning and assess function Admission and Anticipated Discharge Date Admission Date: May 06, 2022 Supervising Physician Co-Signing Physician Notes Resident Physician Supervision Note: I independently interviewed and examined the patient and verified the dowd history and physical, reviewed labs and image studies and agree with resident findings and care plan. Subjective Patient was seen beside this AM. She reports that her pain and cough are still the same as yesterday and have no significant improvement. Review of Systems Review of Systems: All systems reviewed & are unremarkable except as noted in HPI & below Physical Exam Constitutional: WD/WN, vitals as above Neck: trachea midline, no thyromegaly Respiratory: no respiratory distress, no labored breathing and not tachypneic Auscultation: + diminished lung sounds Cardiovascular: RRR, no murmur, no edema Gastrointestinal (Abdomen): normal bowel sounds, soft, nontender, no hepatosplenomegaly Musculoskeletal: Extremities: extremities normal to inspection Skin: no rashes, warm and dry Lymphatic: no cervical lymphadenopathy Results & Data Results & Data ([facility]) Vital Signs (Past 12 Hours) Vital Signs Temp Pulse Resp BP Pulse Ox O2 Del Method O2 Flow Rate 05/11/22 20:30 Nasal Cannula 2 05/11/22 21:09 36.8 C 92 H 20 142/81 H 98 Nasal Cannula 2
[2022-05-12] MEDS: ATORVASTATIN 40 MG TAB PO SCH (08:58)
[2022-05-12] MEDS: guaiFENesin 600 MG TABCR PO SCH ×2 (08:59→19:55)
[2022-05-12] MEDS: LACTOBACILLUS ACIDOPHILUS 1 GM PACK PO SCH ×3 (09:00→17:59)
[2022-05-12] MEDS: MULTIVITAMIN TAB PO SCH (09:01)
[2022-05-12] MEDS: CALCIUM CARBONATE 1250MG TAB PO SCH (09:02)
[2022-05-12] MEDS: ASCORBIC ACID 500 MG TAB PO SCH (09:02)
[2022-05-12] MEDS: allopurinoL 300 MG TAB PO SCH (09:02)
[2022-05-12] MEDS: CHOLECALCIFEROL 1,000 UNITS 25 MCG TAB PO SCH (09:02)
[2022-05-12] MEDS: CYANOCOBALAMIN (B-12) 500 MCG TABLET PO SCH (09:03)
[2022-05-12] MEDS: ENOXAPARIN INJ 30 MG/0.3 ML SYR SQ SCH (09:04)
[2022-05-12] MEDS: POLYETHYLENE (MIRALAX) 17 GM PACK PO SCH (09:05)
--- NOTE | 2022-05-12 10:37 | XRay Report ---
XR chest 2V PA/lateral CLINICAL HISTORY: effusion COMPARISON STUDY: Chest CT May 07, 2022 and chest radiograph May 2022. FINDINGS: Small left pleural effusion has decreased in size since prior exam. There is a small right pleural effusion. Extensive left lung airspace opacity is again noted. This contains cavitary foci, b alyssa depicted on prior chest CT. Right lung is clear. No evidence for pulmonary edema. There is no p neumothorax. Cardiomediastinal silhouette is stable. IMPRESSION: 1. Small left pleural effusion, slightly decreased in size since prior chest radiograph. Small right pleural fusion. 2. Extensive left lung airspace opacity consistent with necrotizing pneumonia. ACT 112: Negative or not required by law. Electronically signed by: Reynaldo Cheng M.D. 05/12/2022 10:36 AM
[2022-05-12] MEDS: UMECLIDINIUM BROMIDE 62.5MCG/BLISTER 7 PUFFS/INHALER INH SCH (11:04)
[2022-05-12] MEDS ORDERED: guaiFENesin/CODEINE 100MG/10MG 5ML UDC PO PRN (11:09)
--- NOTE | 2022-05-12 14:03 | Infectious Disease Progress Nt ---
Date of Service May 12, 2022 Assessment & Plan (1) Streptococcal bacteremia: (2) Pneumonia involving left lung: (3) COPD exacerbation: (4) Acute respiratory failure with hypoxia: (5) Pleural effusion: (6) Elevated LFTs: Plan 87 yo F with a history of COPD, CKD, sacroiliitis, HLD, PAD, bilateral TKA who presented on 05/05 with a few days of cough, shortness of breath, decreased PO intake, and 1 day of loose stools, and is now admitted with Strep pneumoniae necrotizing pneumonia c/b Strep pneumo bacteremia. CT chest on 05/07 showed a dense airspace consolidation through the LLL, a small L pleural effusion, small R pleural effusion with R basilar atelectasis, foci of cavitation and fluid within superior segment of LLL measuring at least 3.5 cm consistent with necrotizing pneumonia, unable to exclude developing abscess, and a focal narrowing of LLL bronchus with underlying mass lesion impossible to exclude. A TTE on 05/06 showed no visible vegetations (although PV and TV were not well visualized), and repeat BCx from 05/07 are NGTD. COVID-19, flu, RSV negative. She is currently on ceftriaxone and metronidazole, and has completed 5 days of azithromycin. She continues on 2 L supplemental O2, with leukocytosis that peaked at 23.3 on 05/10 (potential contribution from prednisone 40 mg daily). She has had elevated LFTs (peak AST 268, ALT 198, alk phos 194) of unclear etiology, now downtrending. A RUQ ultrasound showed only a 9 mm L hepatic lobe cyst, and gallbladder sludge. Procalcitonin of 64 has downtrended. Pulmonology is consulted and did not feel pleural effusions were large enough to tap, and bedside ultrasounds have shown no loculations. Micro: 05/08 Sputum cx: light normal stephanie. GS--rare GPCs 05/07 BCx x2: NGTD 05/06 UCx: NG 05/06 MRSA nares: negative 05/05 BCx x2: Strep pneumo in 08/04 bottles Antimicrobial course: Ceftriaxone 05/06 - present Metronidazole 05/07 - present Azithromycin 05/06 - 05/10 Clindamycin 05/07 Cefepime 05/05 Problems: #Strep pneumo necrotizing pneumonia: 3.5 cm cavitation/fluid in LLL, unable to exclude developing abscess #Strep pneumo bacteremia #Bilateral pleural effusions: too small for thoracentesis, no loculations #Hypoxemia #Leukocytosis: likely some contribution from being on prednisone 40 mg daily #Elevated LFTs: downtrending Recommendations: -Continue ceftriaxone 2 g IV q24h -Can continue metronidazole for empiric anaerobic coverage for lung abscess -When stabilized and on discharge, can transition to amoxicillin-clavulanate 875 mg PO BID -Would continue amox/clav until the lung lesion/abscess has resolved or significantly improved on repeat imaging. Would repeat CT chest around week of 06/01 Will sign off. Please page [facility] with further questions. Admission and Anticipated Discharge Date Admission Date: May 06, 2022 Subjective This patient recommendation is based on a telemedicine consult request which was completed asynchronously through chart review and information provided by the primary physician. The patient was not seen or examined today. The evaluation is consultative in nature and all patient care and treatment decisions can either be accepted or rejected by the patient's primary hospital-based treating physician using their own independent medical judgment for their patient. Afebrile Remains on 2 L NC No labs this AM CXR today with small L pleural effusion, decreased in size. Extensive L lung airspace opacity c/w necrotizing pneumonia RUQ US yesterday with 9 mm L hepatic lob cyst, gallbladder sludge Review of System Pt was not seen Physical Exam Physical Exam: Pt was not seen Results & Data ([facility]) Vital Signs (Past 12 Hours) Vital Signs Temp Pulse Resp BP Pulse Ox O2 Del Method O2 Flow Rate 05/12/22 07:00 36.6 C 84 16 118/67 97 Nasal Cannula 2 Laboratory Results Laboratory Results - last 48 hr 05/11/22 05/11/22 10:27 10:27 WBC 22.47 H RBC 3.30 L Hgb 10.9 L Hct 29.8 L MCV 90.3 MCH 33.0 MCHC 36.6 H RDW Std Deviation 53.3 H RDW Coeff of [place] 16.0 H Plt Count 512 H MPV 10.6 Immature Gran % (Auto) 8.3 Neut % (Auto) 73.7 Lymph % (Auto) 9.1 [place] % (Auto) 7.8 Eos % (Auto) 0.5 Baso % (Auto) 0.6 Neut # (Auto) 16.56 H Lymph # (Auto) 2.04 [place] # (Auto) 1.75 H Eos # (Auto) 0.12 Baso # (Auto) 0.13 Immature Gran # (Auto) 1.87 H Polychromasia 1+ Target Cells 1+ Sodium 136 Potassium 3.4 L Chloride 104 Carbon Dioxide 25 Anion Gap 7 BUN 45 H Creatinine 1.09 Est Cr Clr Drug Dosing 38.2 Est GFR ( Amer) 53.2 Est GFR (Non-Af Amer) 45.9 BUN/Creatinine Ratio 41.3 H Glucose 119 H Calcium 9.9 Total Bilirubin 0.5 AST 36 ALT 67 H Alkaline Phosphatase 156 H Total Protein 5.4 L Albumin 2.5 L Globulin 2.9 Albumin/Globulin Ratio 0.9 Diagnostic Findings Liver Ultrasound 05/11/22 14:22 ABDOMINAL ULTRASOUND, RIGHT UPPER QUADRANT HISTORY: elevated LFTs with abdominal pain. COMPARISON: None. FINDINGS: Pancreas: The pancreatic tail is obscured by overlying bowel gas. The remaining portions of the pancreas are within normal limits. Liver: There is a 9 mm cyst within the left hepatic lobe. 17 cm in length. Gallbladder: There is sludge layering within the gallbladder. No gallbladder wall thickening. No gallstones. Negative sonographic Azevedo sign CBD: 6 mm. Right kidney: No hydronephrosis. IMPRESSION: 1. Gallbladder sludge. No gallbladder wall thickening or gallstones. 2. A 9 mm left hepatic lobe cyst. ACT 112: Negative or not required by law. Electronically signed by: Tao Ward M.D. 05/11/2022 8:59 PM Chest X-Ray 05/12/22 07:00 XR chest 2V PA/lateral CLINICAL HISTORY: effusion COMPARISON STUDY: Chest CT May 07, 2022 and chest radiograph May 2022. FINDINGS: Small left pleural effusion has decreased in size since prior exam. There is a small right pleural effusion. Extensive left lung airspace opacity is again noted. This contains cavitary foci, better depicted on prior chest CT. Right lung is clear. No evidence for pulmonary edema. There is no pneumothorax. Cardiomediastinal silhouette is stable. IMPRESSION: 1. Small left pleural effusion, slightly decreased in size since prior chest radiograph. Small right pleural fusion. 2. Extensive left lung airspace opacity consistent with necrotizing pneumonia. ACT 112: Negative or not required by law. Electronically signed by: Reynaldo Cheng M.D. 05/12/2022 10:36 AM Medications Administered Current Inpatient Medications Acetaminophen (Acetaminophen 500 Mg Tab) 1,000 mg PO Q8H [facility] Stop: 06/10/22 12:44 Last Admin: 05/12/22 04:11 Dose: 1,000 mg Albuterol (Albut/Ipratrop 3mg/0.5mg Neb 3 Ml Vial) 3 ml NEB QIDR PRN; Protocol PRN Reason: Shortness Of Breath Or Wheezing Stop: 06/05/22 06:59 Last Admin: 05/10/22 02:37 Dose: 3 ml Allopurinol (Allopurinol 300 Mg Tab) 300 mg PO DAILY NATALIE Stop: 06/05/22 08:59 Last Admin: 05/12/22 09:02 Dose: 300 mg Ascorbic Acid (Ascorbic Acid 500 Mg Tab) 1,000 mg PO DAILY NATALIE Stop: 06/05/22 08:59 Last Admin: 05/12/22 09:02 Dose: 1,000 mg Aspirin (Aspirin 81 Mg Ectab) 81 mg PO HS [facility] Stop: 06/05/22 20:59 Last Admin: 05/11/22 20:59 Dose: 81 mg Atorvastatin Calcium (Atorvastatin 40 Mg Tab) 40 mg PO QAM NATALIE Stop: 06/05/22 08:59 Last Admin: 05/12/22 08:58 Dose: 40 mg Benzonatate (Benzonatate 100 Mg Capsule) 100 mg PO TID PRN PRN Reason: Cough Stop: 06/10/22 13:59 Last Admin: 05/12/22 04:31 Dose: 100 mg Calcium Carbonate (Calcium Carbonate 1250mg Tab) 1,250 mg PO QAM NATALIE Stop: 06/05/22 08:59 Last Admin: 05/12/22 09:02 Dose: 1,250 mg Cyanocobalamin (Cyanocobalamin (B-12) 500 Mcg Tablet) 3,000 mcg PO DAILY NATALIE Stop: 06/05/22 08:59 Last Admin: 05/12/22 09:03 Dose: 3,000 mcg Enoxaparin Sodium (Enoxaparin Inj 30 Mg/0.3 Ml Syr) 30 mg SQ Q24H NATALIE Stop: 06/05/22 08:59 Last Admin: 05/12/22 09:04 Dose: 30 mg Guaifenesin (Guaifenesin 600 Mg Tabcr) 600 mg PO Q12 [facility] Stop: 06/11/22 20:59 Guaifenesin/Codeine Phosphate (Guaifenesin/Codeine 100mg/10mg 5ml Udc) 5 ml PO Q6H PRN PRN Reason: Cough Stop: 06/11/22 11:08 Metronidazole (Flagyl) 500 mg in 100 mls @ 100 mls/hr IV Q8H NATALIE Stop: 05/14/22 18:59 Last Infusion: 05/12/22 12:11 Dose: Infused Ceftriaxone Sodium 2,000 mg/ (Dextrose) 70 mls @ 140 mls/hr IV Q24H NATALIE Stop: 05/18/22 21:59 Last Infusion: 05/11/22 21:46 Dose: Infused Lactobacillus Acidophilus (Lactobacillus Acidophilus 1 Gm Pack) 1 gm PO TIDM NATALIE Stop: 06/07/22 07:59 Last Admin: 05/12/22 09:00 Dose: 1 gm Lidocaine (Lidocaine 5% 1 Patch) 1 patch TD QPM NATALIE Stop: 06/10/22 20:59 Last Admin: 05/11/22 20:56 Dose: 1 patch Miscellaneous (Remove Lidoderm Patch) 1 each N/A DAILY@0900 [facility] Stop: 06/11/22 08:59 Last Admin: 05/12/22 09:05 Dose: 1 each Multivitamins (Multivitamin Tab) 1 tab PO QAM [facility] Stop: 06/05/22 08:59 Last Admin: 05/12/22 09:01 Dose: 1 tab Ondansetron HCl (Ondansetron Inj 2 Mg/Ml 2 Ml Vial) 4 mg IV Q6H PRN PRN Reason: Nausea Stop: 06/05/22 02:37 Polyethylene Glycol (Polyethylene (Miralax) 17 Gm Pack) 17 gm PO DAILY [facility] Stop: 06/09/22 18:59 Last Admin: 05/12/22 09:05 Dose: Not Given Umeclidinium [place] (Umeclidinium [place] 62.5mcg/Blister 7 Puffs/Inhaler) 1 puffs INH QAM [facility] Stop: 06/05/22 08:59 Last Admin: 05/12/22 11:04 Dose: 1 puffs Vitamin D (Cholecalciferol 1,000 Units 25 Mcg Tab) 1,000 units PO QAM [facility] Stop: 06/05/22 08:59 Last Admin: 05/12/22 09:02 Dose: 1,000 units
--- NOTE | 2022-05-12 16:04 | Pulmonology Progress Note ---
Date of Service May 12, 2022 Assessment & Plan (1) Acute respiratory failure with hypoxia: (2) Multifocal pneumonia: (3) Pleural effusion: (4) COPD with emphysema: Plan Impression: 87-year-old female with multifocal necrotizing pneumonia and potential small parapneumonic effusion. Her white count has increased over the last 24 to 48 hours. Surveillance cultures have shown no growth to date after initial pneumococcal positive blood cultures on the third. Infectious disease consultation was obtained today. Recommendations: 1. Pneumococcal bacteremia: Antibiotics per ID. Necrotizing pneumonia. May require prolonged course of antibiotics for potential lung abscess. Will defer length of treatment and antimicrobial choice to infectious disease. 2. Chest x-ray shows improvement. No significant effusion identified on ultrasound requiring thoracentesis. We will continue to follow and perform ultrasound in the morning. Patient may require a follow-up CT scan in 4 to 6 weeks 3. Management of the patient's abdominal complaints per primary service. 4. Hypoxemic respiratory failure: Secondary to #1. Continue to wean oxygen as tolerated. Maintain oxygen saturations at or above 87%. 5. Pain management per primary service. Admission and Anticipated Discharge Date Admission Date: May 06, 2022 Subjective Patient seen and examined. EMR reviewed. Patient continues to complain of left-sided chest pain as well as abdominal pain. She is not had fevers chills. She is coughing but not producing any phlegm. She completed her chest x-ray which showed improvement in the aeration at the left lung base. Review of Systems Review of Systems: All systems reviewed & are unremarkable except as noted in Subjective Physical Exam Constitutional: WD/WN, vitals as above Neck: trachea midline, no thyromegaly Respiratory: no respiratory distress, no labored breathing and not tachypneic Auscultation: + diminished lung sounds Cardiovascular: RRR, no murmur, no edema Gastrointestinal (Abdomen): normal bowel sounds, soft, nontender, no hepatosplenomegaly Musculoskeletal: Extremities: extremities normal to inspection Skin: no rashes, warm and dry Lymphatic: no cervical lymphadenopathy Results & Data Results & Data ([facility]) Vital Signs (Past 12 Hours) Vital Signs Temp Pulse Resp BP Pulse Ox O2 Del Method O2 Flow Rate 05/12/22 15:31 36.8 C 96 H 16 114/68 94 Nasal Cannula 2 05/12/22 09:00 Nasal Cannula 2 01/10/23 07:00 36.6 C 84 16 118/67 97 Nasal Cannula 2 Laboratory Results 05/11/22 10:27 05/11/22 10:27 Diagnostic Findings Limited thoracic ultrasound performed. There is a very small (less than 1 cm) of band of pleural fluid with some compressive atelectasis. Too small to consider thoracentesis. Chest x-ray from this morning independently reviewed XR chest 2V PA/lateral CLINICAL HISTORY: effusion COMPARISON STUDY: Chest CT May 07, 2022 and chest radiograph May 2022. FINDINGS: Small left pleural effusion has decreased in size since prior exam. There is a small right pleural effusion. Extensive left lung airspace opacity is again noted. This contains cavitary foci, better depicted on prior chest CT. Right lung is clear. No evidence for pulmonary edema. There is no pneumothorax. Cardiomediastinal silhouette is stable. IMPRESSION: 1. Small left pleural effusion, slightly decreased in size since prior chest radiograph. Small right pleural fusion. 2. Extensive left lung airspace opacity consistent with necrotizing pneumonia. PG Care Time/CCT Total # of Minutes Spent Total Time Spent with Patient: Total time spent is greater than 50% in coordination of care (as documented) at patient's floor/unit and/or counseling patient: Coding Level of Care Code 71813 SUB INP/OBS CARE 3/50MIN Diagnoses Acute respiratory failure with hypoxia J96.01 Multifocal pneumonia J18.9 Pleural effusion J90 COPD with emphysema J43.9
[2022-05-12] MEDS ORDERED: DICLOFENAC SOD 1% GEL 100 GM TUBE EXT PRN (17:47)
[2022-05-12] MEDS: LIDOCAINE 5% 1 PATCH TD SCH (19:55)
[2022-05-12] MEDS: ASPIRIN 81 MG ECTAB PO SCH (19:55)
[2022-05-12] MEDS: cefTRIAXone SODIUM 2,000 MG in DEXTROSE 5% 50 ML IV SCH (21:55)
[2022-05-13] MEDS: ACETAMINOPHEN 500 MG TAB PO SCH ×3 (06:09→20:14)
[2022-05-13] MEDS: metroNIDAZOLE 500 MG/100 ML BAG IV SCH ×3 (06:49→21:30)
--- NOTE | 2022-05-13 06:55 | Hospitalist Progress Note ---
Date of Service May 13, 2022 Assessment & Plan (1) COPD with emphysema: (2) COPD exacerbation: (3) Pleural effusion: (4) Acute kidney injury superimposed on CKD: (5) Pneumonia involving left lung: (6) Rib pain on left side: Plan Josie is a 87 yo F with history of COPD, gout, HLD, and B12 deficiency presented 05/05/2022 for sob, cough, and decreased PO intake. She was found to be hyponatremic and hypoxic in the setting of PNA a/w COPD exacerbation. She was given O2, prednisone, duonebs prn, and incruse. She receives 5 days prednisone since last 05/10/2022. She was started on Ceftriaxone and metronidazole due to Imaging revealing possible necrotizing pna. 05/10 pt started on azithromycin. Effusions found on cxr and chest CT followed by pulmonary who recommended one dose of Lasix. Sepsis due to Streptococcus pneumoniae, POA LLL Pneumonia (a/w S. Pneumoniae) a/w Necrotizing Core and COPD Exacerbation: improving Gram + (S. pneumoniae) Bacteremia - pansensitive -repeat blood cultures neg -Receiving Ceftriaxone 2gms and Flagyl (planned course 4 weeks) -ID following -When stabilized and on discharge, anticipate being able to transition to amoxicillin-clavulanate 875 mg PO BID -Repeat CT chest around week of 06/01, which will determine if continuing antibiotics is needed. -completed 4 days of Azithromycin and last Prednisone 40 mg on 05/10 -SpO2 goal 94%, currently receiving supplemental O2 via NC, incentive spirometry -continue Incruse daily and duonebs prn -05/13:Patient is improving. VSS, 96% on 3L NC. Will need 2 step prior to discharge. -Patient continues to have a leukocytosis of 23.83. Has plateaued over the past 3-4 days. No longer on steroids since 05/10 but is otherwise clinically stable at this time. Most likely 2/2 to above diagnosis and should improve. Will c ontinue to monitor and be quick to intervene Pleural Effusion (Bilateral, R>L) - CT Chest indicating Necrotizing PNA on LLL w/ effusions on L and RLL - No urgent need for tap at this time - Pulmonary consult: No significant effusion on US requiring thoracentesis. Recommending repeat CT scan @ 4 wks. Hyponatremia/SHABBIR a/w poor PO Intake - Improved w/ IVF - sodium improved 134 - Cr stable -Discontinued IVF, strongly encouraged adequate PO intake (Boost, small meals, etc) -Continue to monitor Rib pain on L side - Pain on her L side gets worse with deep breaths and when coughing. Most likely due to increase coughing spells. Will aim on reducing cough with symptomatic treatment at this time. - Tessalon Perles ordered on 05/11. Patient reports that, her cough did not improve. - Lidocaine patch QPM - Robitussin started to help with cough and Voltaren Q6H prn gel started on 05/12 help alleviate rib pain. Both improve pain. - Will continue on working on pain management without significant reducing respiratory drive. Troponin Elevation -S/p peak, 36.5 on admission, 27.8 on 05/06 -Likely a/w acute infection -Abnormal EKG in ED -Normal TTE, EF 60-65% -Discontinue Tele -Continue ASA 81 mg daily Transaminitis -Likely associated w/ acute infection and bacteremia -05/11 improved overall (AST 36, ALT 67) -Improving, continue to follow -RUQ ultrasound did show gallbladder sludge and a 9mm L hepatic lobe cyst HLD - Continue home Atorvastatin 40 mg dailly Gout - Continue home Allopurinol 300 mg daily B12 Deficiency - Continue to supplement 3000 mcg daily FEN/GI: reg diet DVT PPX: lovenox Dispo: Med/Surg PT/OT evaluation: prevent deconditioning and assess function Admission and Anticipated Discharge Date Admission Date: May 06, 2022 Supervising Physician Co-Signing Physician Notes Resident Physician Supervision Note: I independently interviewed and examined the patient and verified the dowd history and physical, reviewed labs and image studies and agree with resident findings and care plan. Subjective Patient was seen beside this AM. She states that she is feeling better today than yesterday. She still is having SOB with her cough and she states that her L lower ab and rib pain continues to hurt but the Voltaren gel helped with her sleeping last night. Review of Systems Review of Systems: All systems reviewed & are unremarkable except as noted in HPI & below Physical Exam Constitutional: WD/WN, vitals as above Respiratory: No respiratory distress. left lower lung crackles/rhonchi +. Cardiovascular: RRR, no murmur, no edema Psychiatric: A+Ox3, euthymic affect Results & Data Results & Data ([facility]) Vital Signs (Past 12 Hours) Vital Signs Temp Pulse Resp BP Pulse Ox O2 Del Method O2 Flow Rate 05/12/22 19:30 Nasal Cannula 2 05/12/22 22:23 36.9 C 83 18 118/65 96 Nasal Cannula Resident Activity Tracking Resident Involvement: Resident Care Provided Care Provided: Adult Hospital Medicine
[2022-05-13 07:19] LABS: BUN Creatinine Ratio 34.5 (10-20); Calcium 9.6 mg/dl (8.5-10.1); Creatinine Clr Calc Pharmacy 47.8 ml/min; Est GFR (African American) 69.9 ml/min; Est GFR (Non-African American) 60.3 ml/min
[2022-05-13 07:26] LABS: Hematocrit (blood only) 30.7 % (34.1-44.9); Mean Corpuscular Hemoglobin 33.4 pg (25.0-34.0); Mean Corpuscular Hgb Conc 35.8 g/dL (32.0-36.0); Mean Corpuscular Volume 93.3 fL (80.0-100.0); Mean Platelet Volume 10.8 fL (9.4-12.3); Platelet Count 594 K/uL (130-400); RDW Coefficient of Variation 15.9 % (11.5-14.5); RDW Standard Deviation 53.9 fL (36.4-46.3); Red Blood Count 3.29 M/uL (3.93-5.22); White Blood Count 23.83 K/ul (4.8-10.8)
[2022-05-13 07:49] LABS: Basophils # (auto) 0.14 K/uL (0-0.2); Basophils % (auto) 0.6 %; Eosinophils % (auto) 0.8 %; Immature Granulocytes # (auto) 2.25 K/uL (0.00-0.02); Immature Granulocytes % (auto) 9.4 %; Lymphocytes # (auto) 1.45 K/uL (1.2-3.4); Lymphocytes % (auto) 6.1 %; Monocytes # (auto) 3.03 K/uL (0.24-0.82); Monocytes % (auto) 12.7 %; Neutrophils # (auto) 16.76 K/uL (1.4-6.5); Neutrophils % (auto) 70.4 %
[2022-05-13] MEDS: MULTIVITAMIN TAB PO SCH (08:21)
[2022-05-13] MEDS: guaiFENesin 600 MG TABCR PO SCH ×2 (08:21→19:56)
[2022-05-13] MEDS: allopurinoL 300 MG TAB PO SCH (08:21)
[2022-05-13] MEDS: ASCORBIC ACID 500 MG TAB PO SCH (08:22)
[2022-05-13] MEDS: CHOLECALCIFEROL 1,000 UNITS 25 MCG TAB PO SCH (08:22)
[2022-05-13] MEDS: CALCIUM CARBONATE 1250MG TAB PO SCH (08:23)
[2022-05-13] MEDS: CYANOCOBALAMIN (B-12) 500 MCG TABLET PO SCH (08:23)
[2022-05-13] MEDS: ATORVASTATIN 40 MG TAB PO SCH (08:23)
[2022-05-13] MEDS: POLYETHYLENE (MIRALAX) 17 GM PACK PO SCH (08:25)
[2022-05-13] MEDS: ENOXAPARIN INJ 30 MG/0.3 ML SYR SQ SCH (08:25)
[2022-05-13] MEDS: UMECLIDINIUM BROMIDE 62.5MCG/BLISTER 7 PUFFS/INHALER INH SCH (08:26)
[2022-05-13] MEDS: LACTOBACILLUS ACIDOPHILUS 1 GM PACK PO SCH ×3 (08:26→17:49)
--- NOTE | 2022-05-13 15:54 | Pulmonology Progress Note ---
Date of Service May 13, 2022 Assessment & Plan (1) Acute respiratory failure with hypoxia: (2) Multifocal pneumonia: (3) Pleural effusion: (4) COPD with emphysema: Plan Impression: 87-year-old female with multifocal necrotizing pneumonia and potential small parapneumonic effusion. She appears clinically better and is afebrile however her white count remains elevated. Recommendations: 1. Pneumococcal bacteremia: Antibiotics per ID. Necrotizing pneumonia. May require prolonged course of antibiotics for potential lung abscess. Will defer length of treatment and antimicrobial choice to infectious disease. 2. Chest x-ray shows improvement. No significant effusion identified on ultrasound requiring thoracentesis. Patient may require a follow-up CT scan in 4 to 6 weeks. If she were to develop fevers or if her white count fails to resolve, repeat imaging in the form of contrast-enhanced CT scan may be of benefit 3. Management of the patient's abdominal complaints per primary service. 4. Hypoxemic respiratory failure: Secondary to #1. Continue to wean oxygen as tolerated. Maintain oxygen saturations at or above 87%. I suspect the patient may require some form of rehab. She lives independently. Occupational the patient has recommended inpatient rehab. From my standpoint, she is ok to discharge to rehab with follow up as noted. She can followup with Dr. Cihcas in the outpatient setting if needed. Not much to else to add from a pulmonary perspective. Please contact us with questions Admission and Anticipated Discharge Date Admission Date: May 06, 2022 Subjective Patient seen and examined. EMR reviewed. She feels like she is making some slow steady progress. She is having less chest pain. She continues to cough. She is complaining of some lower abdominal pain. No fevers overnight. She denies chills or night sweats. She is tolerating an appetite. She is working with therapy. She feels weak. She is ambulating with the assistance of a walker. She lives independently. Review of Systems Review of Systems: All systems reviewed & are unremarkable except as noted in Subjective Physical Exam Constitutional: WD/WN, vitals as above Neck: trachea midline, no thyromegaly Respiratory: no respiratory distress, no labored breathing and not tachypneic Auscultation: + diminished lung sounds Cardiovascular: RRR, no murmur, no edema Gastrointestinal (Abdomen): normal bowel sounds, soft, nontender, no hepatosplenomegaly Musculoskeletal: Extremities: extremities normal to inspection Skin: no rashes, warm and dry Lymphatic: no cervical lymphadenopathy Results & Data Results & Data ([facility]) Vital Signs (Past 12 Hours) Vital Signs Temp Pulse Resp BP Pulse Ox O2 Del Method O2 Flow Rate 05/13/22 15:22 36.4 C L 88 16 110/67 97 Oxymask 3 05/13/22 07:45 Nasal Cannula 3 05/13/22 07:06 36.9 C 87 18 116/70 96 Nasal Cannula 3 Laboratory Results 05/13/22 06:07 05/13/22 06:07 PG Care Time/CCT Total # of Minutes Spent Total Time Spent with Patient: Total time spent is greater than 50% in coordination of care (as documented) at patient's floor/unit and/or counseling patient: Coding Level of Care Code 04894 SUB INP/OBS CARE 2/35MIN Diagnoses Acute respiratory failure with hypoxia J96.01 Multifocal pneumonia J18.9 Pleural effusion J90 COPD with emphysema J43.9
[2022-05-13] MEDS: LIDOCAINE 5% 1 PATCH TD SCH (19:56)
[2022-05-13] MEDS: ASPIRIN 81 MG ECTAB PO SCH (19:56)
[2022-05-13] MEDS: cefTRIAXone SODIUM 2,000 MG in DEXTROSE 5% 50 ML IV SCH (20:14)
[2022-05-14] MEDS: metroNIDAZOLE 500 MG/100 ML BAG IV SCH ×2 (06:12→13:04)
[2022-05-14] MEDS: ACETAMINOPHEN 500 MG TAB PO SCH ×3 (06:14→21:02)
--- NOTE | 2022-05-14 06:50 | Hospitalist Progress Note ---
Date of Service May 14, 2022 Assessment & Plan (1) COPD with emphysema: (2) COPD exacerbation: (3) Pleural effusion: (4) Acute kidney injury superimposed on CKD: (5) Pneumonia involving left lung: (6) Rib pain on left side: Plan Josie is a 87 yo F with history of COPD, gout, HLD, and B12 deficiency presented 05/05/2022 for sob, cough, and decreased PO intake. She was found to be hyponatremic and hypoxic in the setting of PNA a/w COPD exacerbation. She was given O2, prednisone, duonebs prn, and incruse. She receives 5 days prednisone since last 05/10/2022. She was started on Ceftriaxone and metronidazole due to Imaging revealing possible necrotizing pna. 05/10 pt started on azithromycin. Effusions found on cxr and chest CT followed by pulmonary who recommended one dose of Lasix. Sepsis due to Streptococcus pneumoniae, POA LLL Pneumonia (a/w S. Pneumoniae) a/w Necrotizing Core and COPD Exacerbation: improving Gram + (S. pneumoniae) Bacteremia - pansensitive -repeat blood cultures neg -Receiving Ceftriaxone 2gms and Flagyl (planned course 4 weeks) -completed 4 days of Azithromycin and last Prednisone 40 mg on 05/10 -ID following -When stabilized and on discharge, anticipate being able to transition to amoxicillin-clavulanate 875 mg PO BID -Repeat CT chest around week of 06/01, which will determine if continuing antibiotics is needed. -continue Incruse daily and duonebs prn -Patient continues to have a leukocytosis of 22.24. Has plateaued over the past 4-5 days. No longer on steroids since 05/10 but is otherwise clinically stable at this time. Most likely 2/2 to above diagnosis and should improve. Will continue to monitor and be quick to intervene Acute respiratory failure with Hypoxia -SpO2 goal 94%, currently receiving supplemental O2 via NC, incentive spirometry -05/14: VSS, 98% on 3L NC. Will need 2 step prior to discharge. Pleural Effusion (Bilateral, R>L) - CT Chest indicating Necrotizing PNA on LLL w/ effusions on L and RLL - No urgent need for tap at this time - Pulmonary consult: No significant effusion on US requiring thoracentesis. Recommending repeat CT scan @ 4 wks. Hyponatremia/SHABBIR a/w poor PO Intake - Improved w/ IVF - stable around 130s. follow Rib pain on L side Pain on her L side gets worse with deep breaths and when coughing. Most likely due to increase coughing spells. Will aim on reducing cough with symptomatic treatment at this time. - Tessalon Perles prn - Lidocaine patch QPM - Robitussin and Voltaren ordered prn. Tristonitussin received on 05/12 at night and was able to sleep well. Did not get any on 05/13 at night and had a hard time sleeping. Will order robitussin scheduled QHS for the next 3 days to see if helps with pain and cough during the night time. - Will continue on working on pain management without significant reducing respiratory drive. Troponin Elevation -demand ischemia Transaminitis -Likely associated w/ acute infection and bacteremia -05/11 improved overall (AST 36, ALT 67) -Improving, continue to follow -RUQ ultrasound did show gallbladder sludge and a 9mm L hepatic lobe cyst HLD - Continue home Atorvastatin 40 mg dailly Gout - Continue home Allopurinol 300 mg daily B12 Deficiency - Continue to supplement 3000 mcg daily FEN/GI: reg diet DVT PPX: lovenox Dispo: Med/Surg PT/OT evaluation: prevent deconditioning and assess function, rehab most likely needed at time of discharge. Admission and Anticipated Discharge Date Admission Date: May 06, 2022 Supervising Physician Co-Signing Physician Notes Resident Physician Supervision Note: I independently interviewed and examined the patient and verified the dowd history and physical, reviewed labs and image studies and agree with resident findings and care plan. Subjective Patient was seen beside this AM. She reports that she is in pain today and feels very fatigued. She states that she did not sleep well last night do to the pain. She is having pain when she coughs and with movement. She states that some of the pain though is due to her chronic back pain as well and the cough making that worse as well. She also states that she is able to eat but has a limited appetite. She denies any nausea but states that she feels like she might vomit at times. Review of Systems Review of Systems: All systems reviewed & are unremarkable except as noted in HPI & below Physical Exam Constitutional: WD/WN, vitals as above Neck: trachea midline, no thyromegaly Respiratory: no respiratory distress, no labored breathing and not tachypneic Auscultation: + diminished lung sounds Cardiovascular: RRR, no murmur, no edema Gastrointestinal (Abdomen): normal bowel sounds, soft, nontender, no hepatosplenomegaly Musculoskeletal: Extremities: extremities normal to inspection Skin: no rashes, warm and dry Lymphatic: no cervical lymphadenopathy Results & Data Results & Data ([facility]) Vital Signs (Past 12 Hours) Vital Signs Temp Pulse Resp BP Pulse Ox O2 Del Method O2 Flow Rate 05/13/22 21:19 36.6 C 86 16 127/65 97 Room Air 3.0 05/13/22 19:45 Nasal Cannula 3 Resident Activity Tracking Resident Involvement: Resident Care Provided Care Provided: Adult Hospital Medicine
[2022-05-14 07:06] LABS: Hematocrit (blood only) 29.7 % (34.1-44.9); Hemoglobin 10.5 g/dl (12.0-16.0); Mean Corpuscular Hemoglobin 32.8 pg (25.0-34.0); Mean Corpuscular Hgb Conc 35.4 g/dL (32.0-36.0); Mean Corpuscular Volume 92.8 fL (80.0-100.0); Mean Platelet Volume 10.5 fL (9.4-12.3); Platelet Count 641 K/uL (130-400); RDW Coefficient of Variation 15.9 % (11.5-14.5); RDW Standard Deviation 53.4 fL (36.4-46.3); White Blood Count 22.24 K/ul (4.8-10.8)
[2022-05-14 07:44] LABS: Basophils # (auto) 0.14 K/uL (0-0.2); Basophils % (auto) 0.6 %; Eosinophils # (auto) 0.17 K/uL (0-0.50); Eosinophils % (auto) 0.8 %; Immature Granulocytes # (auto) 2.19 K/uL (0.00-0.02); Immature Granulocytes % (auto) 9.8 %; Lymphocytes # (auto) 1.31 K/uL (1.2-3.4); Lymphocytes % (auto) 5.9 %; Monocytes # (auto) 2.52 K/uL (0.24-0.82); Monocytes % (auto) 11.3 %; Neutrophils # (auto) 15.91 K/uL (1.4-6.5); Neutrophils % (auto) 71.6 %
[2022-05-14] MEDS: CHOLECALCIFEROL 1,000 UNITS 25 MCG TAB PO SCH (08:19)
[2022-05-14] MEDS: LACTOBACILLUS ACIDOPHILUS 1 GM PACK PO SCH ×3 (08:19→18:02)
[2022-05-14] MEDS: ASCORBIC ACID 500 MG TAB PO SCH (08:20)
[2022-05-14] MEDS: CYANOCOBALAMIN (B-12) 500 MCG TABLET PO SCH (08:20)
[2022-05-14] MEDS: CALCIUM CARBONATE 1250MG TAB PO SCH (08:21)
[2022-05-14] MEDS: ATORVASTATIN 40 MG TAB PO SCH (08:21)
[2022-05-14] MEDS: allopurinoL 300 MG TAB PO SCH (08:21)
[2022-05-14] MEDS: ENOXAPARIN INJ 30 MG/0.3 ML SYR SQ SCH (08:22)
[2022-05-14] MEDS: MULTIVITAMIN TAB PO SCH (08:22)
[2022-05-14] MEDS: UMECLIDINIUM BROMIDE 62.5MCG/BLISTER 7 PUFFS/INHALER INH SCH (08:22)
[2022-05-14] MEDS: guaiFENesin 600 MG TABCR PO SCH ×2 (08:22→21:02)
[2022-05-14] MEDS: POLYETHYLENE (MIRALAX) 17 GM PACK PO SCH (08:22)
[2022-05-14 09:05] LABS: BUN Creatinine Ratio 26.4 (10-20); Calcium 9.9 mg/dl (8.5-10.1); Creatinine Clr Calc Pharmacy 47.8 ml/min; Est GFR (African American) 69.9 ml/min; Est GFR (Non-African American) 60.3 ml/min; Potassium 4.2 mmol/L (3.5-5.1)
[2022-05-14] MEDS: cefTRIAXone SODIUM 2,000 MG in DEXTROSE 5% 50 ML IV SCH (21:01)
[2022-05-14] MEDS: ASPIRIN 81 MG ECTAB PO SCH (21:02)
[2022-05-14] MEDS: LIDOCAINE 5% 1 PATCH TD SCH (21:02)
[2022-05-14] MEDS: guaiFENesin/CODEINE 100MG/10MG 5ML UDC PO SCH (21:02)
[2022-05-15] MEDS: ACETAMINOPHEN 500 MG TAB PO SCH ×3 (05:34→20:38)
--- NOTE | 2022-05-15 06:56 | Hospitalist Progress Note ---
Date of Service May 15, 2022 Assessment & Plan (1) COPD with emphysema: (2) COPD exacerbation: (3) Pleural effusion: (4) Acute kidney injury superimposed on CKD: (5) Pneumonia involving left lung: (6) Rib pain on left side: Plan Josie is a 87 yo F with history of COPD, gout, HLD, and B12 deficiency presented 05/05/2022 for sob, cough, and decreased PO intake. She was found to be hyponatremic and hypoxic in the setting of PNA a/w COPD exacerbation. She was given O2, prednisone, duonebs prn, and incruse. She receives 5 days prednisone since last 05/10/2022. She was started on Ceftriaxone and metronidazole due to Imaging revealing possible necrotizing pna. 05/10 pt started on azithromycin. Effusions found on cxr and chest CT followed by pulmonary who recommended one dose of Lasix. Sepsis due to Streptococcus pneumoniae, POA LLL Pneumonia (a/w S. Pneumoniae) a/w Necrotizing Core and COPD Exacerbation: improving Gram + (S. pneumoniae) Bacteremia - pansensitive -repeat blood cultures neg -Receiving Ceftriaxone 2gms and Flagyl (planned course 4 weeks) -completed 4 days of Azithromycin and last Prednisone 40 mg on 05/10 -ID consulted during admission and transition to amoxicillin-clavulanate 875 mg PO BID will be done on discharge. -Will Repeat CT chest around week of 06/01, which will determine if continuing antibiotics is needed. -continue Incruse daily and duonebs prn -Patient continues to improve and at this at point, once placement is made then patient can be D/C on an oral abx regiment. Acute respiratory failure with Hypoxia -SpO2 goal 94%, currently receiving supplemental O2 via NC, incentive spirometry -05/14: VSS, 98% on 3L NC. Will need 2 step prior to discharge. Pleural Effusion (Bilateral, R>L) - CT Chest indicating Necrotizing PNA on LLL w/ effusions on L and RLL - No urgent need for tap at this time - Pulmonary consult: No significant effusion on US requiring thoracentesis. Recommending repeat CT scan @ 4 wks. Hyponatremia/SHABBIR a/w poor PO Intake - Improved w/ IVF - stable around 130s. follow Rib pain on L side Pain on her L side gets worse with deep breaths and when coughing. Most likely due to increase coughing spells. Will aim on reducing cough with symptomatic treatment at this time. - Tessalon Perles prn - Lidocaine patch QPM - Robitussin and Voltaren ordered prn. Robitussin received on 05/12 at night and was able to sleep well. Did not get any on 05/13 at night and had a hard time sleeping. Will order robitussin scheduled QHS for the next 3 days to see if helps with pain and cough during the night time. - Will continue on working on pain management without significant reducing respiratory drive. Troponin Elevation -demand ischemia Transaminitis -Likely associated w/ acute infection and bacteremia -05/11 improved overall (AST 36, ALT 67) -Improving, continue to follow -RUQ ultrasound did show gallbladder sludge and a 9mm L hepatic lobe cyst HLD - Continue home Atorvastatin 40 mg dailly Gout - Continue home Allopurinol 300 mg daily B12 Deficiency - Continue to supplement 3000 mcg daily FEN/GI: reg diet DVT PPX: lovenox Dispo: Med/Surg PT/OT evaluation: prevent deconditioning and assess function, rehab most likely needed at time of discharge. Admission and Anticipated Discharge Date Admission Date: May 06, 2022 Supervising Physician Co-Signing Physician Notes Resident Physician Supervision Note: I independently interviewed and examined the patient and verified the dowd histor y and physical, reviewed labs and image studies and agree with resident findings and care plan. Subjective Patient seen beside this AM, she states that she is feeling a little better today than yesterday. She states that her appetite has improved but she still feels very weak and fatiqued. When discussing rehab after discharge. Patient stated that she lives by herself and does not think that she will have trouble with ambulation at home. Review of Systems Review of Systems: All systems reviewed & are unremarkable except as noted in HPI & below Physical Exam Constitutional: WD/WN, vitals as above Neck: trachea midline, no thyromegaly Respiratory: no respiratory distress, no labored breathing and not tachypneic Auscultation: + diminished lung sounds Cardiovascular: RRR, no murmur, no edema Gastrointestinal (Abdomen): normal bowel sounds, soft, nontender, no hepatosplenomegaly Musculoskeletal: Extremities: extremities normal to inspection Skin: no rashes, warm and dry Lymphatic: no cervical lymphadenopathy Results & Data Results & Data ([facility]) Vital Signs (Past 12 Hours) Vital Signs Temp Pulse Resp BP Pulse Ox O2 Del Method O2 Flow Rate 05/14/22 20:00 Nasal Cannula 3 05/14/22 21:06 36.7 C 96 H 20 132/78 96 Nasal Cannula 3 Resident Activity Tracking Resident Involvement: Resident Care Provided Care Provided: Adult Hospital Medicine
[2022-05-15] MEDS: MULTIVITAMIN TAB PO SCH (08:48)
[2022-05-15] MEDS: guaiFENesin 600 MG TABCR PO SCH ×2 (08:48→20:38)
[2022-05-15] MEDS: CHOLECALCIFEROL 1,000 UNITS 25 MCG TAB PO SCH (08:48)
[2022-05-15] MEDS: allopurinoL 300 MG TAB PO SCH (08:48)
[2022-05-15] MEDS: ASCORBIC ACID 500 MG TAB PO SCH (08:48)
[2022-05-15] MEDS: ATORVASTATIN 40 MG TAB PO SCH (08:48)
[2022-05-15] MEDS: CYANOCOBALAMIN (B-12) 500 MCG TABLET PO SCH (08:48)
[2022-05-15] MEDS: LACTOBACILLUS ACIDOPHILUS 1 GM PACK PO SCH ×3 (08:49→17:27)
[2022-05-15] MEDS: CALCIUM CARBONATE 1250MG TAB PO SCH (08:49)
[2022-05-15] MEDS: ENOXAPARIN INJ 30 MG/0.3 ML SYR SQ SCH (08:49)
[2022-05-15] MEDS: POLYETHYLENE (MIRALAX) 17 GM PACK PO SCH (08:49)
[2022-05-15] MEDS: UMECLIDINIUM BROMIDE 62.5MCG/BLISTER 7 PUFFS/INHALER INH SCH (08:50)
[2022-05-15] MEDS: BENZONATATE 100 MG CAPSULE PO PRN (08:52)
[2022-05-15 09:28] LABS: Hematocrit (blood only) 30.7 % (34.1-44.9); Hemoglobin 10.8 g/dl (12.0-16.0); Mean Corpuscular Hemoglobin 33.2 pg (25.0-34.0); Mean Corpuscular Hgb Conc 35.2 g/dL (32.0-36.0); Mean Corpuscular Volume 94.5 fL (80.0-100.0); Mean Platelet Volume 10.9 fL (9.4-12.3); Platelet Count 758 K/uL (130-400); RDW Coefficient of Variation 15.9 % (11.5-14.5); Red Blood Count 3.25 M/uL (3.93-5.22)
[2022-05-15 10:13] LABS: Basophils # (auto) 0.09 K/uL (0-0.2); Basophils % (auto) 0.5 %; Eosinophils # (auto) 0.16 K/uL (0-0.50); Eosinophils % (auto) 0.8 %; Immature Granulocytes # (auto) 1.46 K/uL (0.00-0.02); Immature Granulocytes % (auto) 7.5 %; Lymphocytes # (auto) 1.45 K/uL (1.2-3.4); Lymphocytes % (auto) 7.5 %; Monocytes # (auto) 2.13 K/uL (0.24-0.82); Neutrophils # (auto) 14.11 K/uL (1.4-6.5); Neutrophils % (auto) 72.7 %; Polychromasia 1+
[2022-05-15 10:16] LABS: Albumin Globulin Ratio 0.9 (0.9-2); Albumin Level 2.6 gm/dl (3.4-5.0); BUN Creatinine Ratio 23.8 (10-20); Bilirubin,Total 0.5 mg/dl (0.2-1.0); Calcium 9.8 mg/dl (8.5-10.1); Est GFR (African American) 77.4 ml/min; Est GFR (Non-African American) 66.8 ml/min; Globulin 2.8 gm/dl (2.5-4.0); Total Protein 5.4 gm/dl (6.0-8.3)
[2022-05-15] MEDS: ASPIRIN 81 MG ECTAB PO SCH (20:38)
[2022-05-15] MEDS: LIDOCAINE 5% 1 PATCH TD SCH (20:38)
[2022-05-15] MEDS: guaiFENesin/CODEINE 100MG/10MG 5ML UDC PO SCH (20:41)
[2022-05-15] MEDS: cefTRIAXone SODIUM 2,000 MG in DEXTROSE 5% 50 ML IV SCH (22:38)
[2022-05-16] MEDS: ACETAMINOPHEN 500 MG TAB PO SCH ×3 (05:29→20:30)
[2022-05-16 06:05] LABS: Hematocrit (blood only) 28.9 % (34.1-44.9); Mean Corpuscular Hemoglobin 33.1 pg (25.0-34.0); Mean Corpuscular Hgb Conc 34.6 g/dL (32.0-36.0); Mean Corpuscular Volume 95.7 fL (80.0-100.0); Mean Platelet Volume 10.5 fL (9.4-12.3); Platelet Count 740 K/uL (130-400); RDW Coefficient of Variation 15.9 % (11.5-14.5); RDW Standard Deviation 55.8 fL (36.4-46.3); Red Blood Count 3.02 M/uL (3.93-5.22); White Blood Count 17.25 K/ul (4.8-10.8)
[2022-05-16 06:33] LABS: BUN Creatinine Ratio 19.5 (10-20); Calcium 9.8 mg/dl (8.5-10.1); Creatinine Clr Calc Pharmacy 47.8 ml/min; Est GFR (African American) 69.9 ml/min; Est GFR (Non-African American) 60.3 ml/min; Potassium 4.3 mmol/L (3.5-5.1)
[2022-05-16 06:59] LABS: Basophils # (auto) 0.07 K/uL (0-0.2); Basophils % (auto) 0.4 %; Eosinophils # (auto) 0.17 K/uL (0-0.50); Immature Granulocytes # (auto) 1.11 K/uL (0.00-0.02); Immature Granulocytes % (auto) 6.4 %; Lymphocytes # (auto) 1.42 K/uL (1.2-3.4); Lymphocytes % (auto) 8.2 %; Monocytes # (auto) 2.26 K/uL (0.24-0.82); Monocytes % (auto) 13.1 %; Neutrophils # (auto) 12.22 K/uL (1.4-6.5); Neutrophils % (auto) 70.9 %
--- NOTE | 2022-05-16 07:21 | Hospitalist Progress Note ---
Date of Service May 16, 2022 Assessment & Plan (1) COPD with emphysema: (2) COPD exacerbation: (3) Pleural effusion: (4) Acute kidney injury superimposed on CKD: (5) Pneumonia involving left lung: (6) Rib pain on left side: Plan Josie is a 87 yo F with history of COPD, gout, HLD, and B12 deficiency presented 05/05/2022 for sob, cough, and decreased PO intake. She was found to be hyponatremic and hypoxic in the setting of PNA a/w COPD exacerbation. She was given O2, prednisone, duonebs prn, and incruse. She receives 5 days prednisone since last 05/10/2022. She was started on Ceftriaxone and metronidazole due to Imaging revealing possible necrotizing pna. 05/10 pt started on azithromycin. Effusions found on cxr and chest CT followed by pulmonary who recommended one dose of Lasix. Sepsis due to Streptococcus pneumoniae, POA LLL Pneumonia (a/w S. Pneumoniae) a/w Necrotizing Core and COPD Exacerbation: improving Gram + (S. pneumoniae) Bacteremia - pansensitive -repeat blood cultures neg -Receiving Ceftriaxone 2gms and Flagyl (planned course 4 weeks) -completed 4 days of Azithromycin and last Prednisone 40 mg on 05/10 -continue Incruse daily and duonebs prn -Patient continues to improve and at this at point, once placement is made then patient can be D/C on an oral abx regimen augmentin 875mg bid. -Will Repeat CT chest around week of 06/01, which will determine the duration of antibiotics. Acute respiratory failure with Hypoxia -SpO2 goal 94%, currently receiving supplemental O2 via NC, incentive spirometry -05/16: VSS, 96% on 3L NC. Has not transitioned from 3L NC in some time. Will need 2 step prior to discharge. Pleural Effusion (Bilateral, R>L) - CT Chest indicating Necrotizing PNA on LLL w/ effusions on L and RLL - No urgent need for tap at this time - Pulmonary consult: No significant effusion on US requiring thoracentesis. Recommending repeat CT scan @ 4 wks. Hyponatremia/SHABBIR a/w poor PO Intake - Improved w/ IVF - stable around 130s. follow Rib pain on L side - Pain on her L side gets worse with deep breaths and when coughing. Most likely due to increase coughing spells. Will aim on reducing cough with symptomatic treatment at this time. - Changed Tessalon Perles prn to schedule to help with cough. - Lidocaine patch QPM - Robitussin and Voltaren ordered prn. - Will continue on working on pain management without significant reducing respiratory drive. Troponin Elevation -demand ischemia Transaminitis -Likely associated w/ acute infection and bacteremia -05/11 improved overall (AST 36, ALT 67) -Improving, continue to follow -RUQ ultrasound did show gallbladder sludge and a 9mm L hepatic lobe cyst HLD - Continue home Atorvastatin 40 mg dailly Gout - Continue home Allopurinol 300 mg daily B12 Deficiency - Continue to supplement 3000 mcg daily FEN/GI: reg diet DVT PPX: lovenox Dispo: Med/Surg PT/OT evaluation: prevent deconditioning and assess function, SNF needed at time of discharge. Admission and Anticipated Discharge Date Admission Date: May 06, 2022 Supervising Physician Co-Signing Physician Notes Resident Physician Supervision Note: I independently interviewed and examined the patient and verified the dowd history and physical, reviewed labs and image studies and agree with resident findings and care plan. Subjective Patient was seen beside this AM. She states that she continues to feel about the same as yesterday. She has lower back pain and pain with coughing. She is also fatigued and having trouble with sleeping at night. Review of Systems Review of Systems: All systems reviewed & are unremarkable except as noted in HPI & below Physical Exam Constitutional: WD/WN, vitals as above Neck: trachea midline, no thyromegaly Respiratory: no respiratory distress, no labored breathing and not tachypneic Auscultation: + diminished lung sounds Cardiovascular: RRR, no murmur, no edema Gastrointestinal (Abdomen): normal bowel sounds, soft, nontender, no hepatosplenomegaly Musculoskeletal: Extremities: extremities normal to inspection Skin: no rashes, warm and dry Lymphatic: no cervical lymphadenopathy Results & Data Results & Data ([facility]) Vital Signs (Past 12 Hours) Vital Signs Temp Pulse Pulse Resp BP BP Pulse Ox 05/16/22 07:20 37.6 C H 90 18 123/67 96 05/15/22 20:00 05/15/22 20:35 36.6 C 93 H 20 136/79 98 O2 Del Method O2 Flow Rate 05/16/22 07:20 Nasal Cannula 3 05/15/22 20:00 Nasal Cannula 3 05/15/22 20:35 Nasal Cannula 3 Resident Activity Tracking Resident Involvement: Resident Care Provided Care Provided: Adult Hospital Medicine
[2022-05-16] MEDS: LACTOBACILLUS ACIDOPHILUS 1 GM PACK PO SCH ×3 (09:04→17:53)
[2022-05-16] MEDS: guaiFENesin 600 MG TABCR PO SCH ×2 (09:06→20:24)
[2022-05-16] MEDS: CYANOCOBALAMIN (B-12) 500 MCG TABLET PO SCH (09:07)
[2022-05-16] MEDS: allopurinoL 300 MG TAB PO SCH (09:07)
[2022-05-16] MEDS: ENOXAPARIN INJ 30 MG/0.3 ML SYR SQ SCH (09:07)
[2022-05-16] MEDS: ASCORBIC ACID 500 MG TAB PO SCH (09:07)
[2022-05-16] MEDS: CALCIUM CARBONATE 1250MG TAB PO SCH (09:07)
[2022-05-16] MEDS: MULTIVITAMIN TAB PO SCH (09:07)
[2022-05-16] MEDS: ATORVASTATIN 40 MG TAB PO SCH (09:07)
[2022-05-16] MEDS: CHOLECALCIFEROL 1,000 UNITS 25 MCG TAB PO SCH (09:07)
[2022-05-16] MEDS: UMECLIDINIUM BROMIDE 62.5MCG/BLISTER 7 PUFFS/INHALER INH SCH (09:08)
[2022-05-16] MEDS: POLYETHYLENE (MIRALAX) 17 GM PACK PO SCH (09:08)
[2022-05-16] MEDS: BENZONATATE 100 MG CAPSULE PO SCH ×2 (14:29→20:25)
[2022-05-16] MEDS: LIDOCAINE 5% 1 PATCH TD SCH (20:18)
[2022-05-16] MEDS: ASPIRIN 81 MG ECTAB PO SCH (20:24)
[2022-05-16] MEDS: guaiFENesin/CODEINE 100MG/10MG 5ML UDC PO SCH (20:27)
[2022-05-16] MEDS: cefTRIAXone SODIUM 2,000 MG in DEXTROSE 5% 50 ML IV SCH (22:35)
[2022-05-17] MEDS: ACETAMINOPHEN 500 MG TAB PO SCH ×3 (05:57→22:22)
--- NOTE | 2022-05-17 06:54 | Hospitalist Progress Note ---
Date of Service May 17, 2022 Assessment & Plan (1) COPD with emphysema: (2) COPD exacerbation: (3) Pleural effusion: (4) Acute kidney injury superimposed on CKD: (5) Pneumonia involving left lung: (6) Rib pain on left side: Plan Josie is a 87 yo F with history of COPD, gout, HLD, and B12 deficiency presented 05/05/2022 for sob, cough, and decreased PO intake. She was found to be hyponatremic and hypoxic in the setting of PNA a/w COPD exacerbation. She was given O2, prednisone, duonebs prn, and incruse. She receives 5 days prednisone since last 05/10/2022. She was started on Ceftriaxone and metronidazole due to Imaging revealing possible necrotizing pna. 05/10 pt started on azithromycin. Effusions found on cxr and chest CT followed by pulmonary who recommended one dose of Lasix. Sepsis due to Streptococcus pneumoniae, POA LLL Pneumonia (a/w S. Pneumoniae) a/w Necrotizing Core and COPD Exacerbation: improving Gram + (S. pneumoniae) Bacteremia - pansensitive 05/17 update: continue to improve. No changes to treatment plan below. WBC elevated but trending downward. -repeat blood cultures neg -Receiving Ceftriaxone 2gms and Flagyl (planned course 4 weeks) -completed 4 days of Azithromycin and last Prednisone 40 mg on 05/10 -continue Incruse daily and duonebs prn -Patient continues to improve. -switch to oral abx regimen augmentin 875mg bid on discharge. -Will Repeat CT chest around week of 06/01, which will determine the duration of antibiotics. Acute respiratory failure with Hypoxia -SpO2 goal 94%, currently receiving supplemental O2 via NC, incentive spirometry -05/17: VSS, 96% on 3L NC. Has not transitioned from 3L NC in some time. Will need 2 step prior to discharge if goes home -encourage IS use Pleural Effusion (Bilateral, R>L) - CT Chest indicating Necrotizing PNA on LLL w/ effusions on L and RLL - No urgent need for tap at this time - Pulmonary consult: No significant effusion on US requiring thoracentesis. Recommending repeat CT scan @ 4 wks. Hyponatremia/SHABBIR a/w poor PO Intake - Improved w/ IVF - stable around 130s. follow Rib pain on L side - sec to infection - Changed Tessalon Perles prn to schedule to help with cough. - Lidocaine patch QPM - Lula and Judithn ordered prn. - Will continue on working on pain management without significant reducing respiratory drive. Troponin Elevation -demand ischemia Transaminitis -Likely associated w/ acute infection and bacteremia -05/11 improved overall (AST 36, ALT 67) -Improving, continue to follow -RUQ ultrasound did show gallbladder sludge and a 9mm L hepatic lobe cyst HLD - Continue home Atorvastatin 40 mg dailly Gout - Continue home Allopurinol 300 mg daily B12 Deficiency - Continue to supplement 3000 mcg daily FEN/GI: reg diet DVT PPX: lovenox Dispo: Med/Surg PT/OT evaluation: prevent deconditioning and assess function, SNF needed at time of discharge. Pending placement. possibly on Wednesday. Will need 2 step before leaving if goes home. Admission and Anticipated Discharge Date Admission Date: May 06, 2022 Supervising Physician Co-Signing Physician Notes Resident Physician Supervision Note: I independently interviewed and examined the patient and verified the dowd history and physical, reviewed labs and image studies and agree with resident findings and care plan. Subjective Patient was seen bedside today. She continues to get a little better everyday. She still says that cough is causing her pain in her side. The cough comes and goes in spurts. Review of Systems Review of Systems: All systems reviewed & are unremarkable except as noted in HPI & below Physical Exam Constitutional: WD/WN, vitals as above Neck: trachea midline, no thyromegaly Respiratory: no respiratory distress, no labored breathing and not tachypneic Auscultation: + diminished lung sounds Cardiovascular: RRR, no murmur, no edema Gastrointestinal (Abdomen): normal bowel sounds, soft, nontender, no hepatosplenomegaly Musculoskeletal: Extremities: extremities normal to inspection Skin: no rashes, warm and dry Lymphatic: no cervical lymphadenopathy Results & Data Results & Data ([facility]) Vital Signs (Past 12 Hours) Vital Signs Temp Pulse Resp BP Pulse Ox O2 Del Method O2 Flow Rate 05/16/22 19:45 Nasal Cannula 3 05/16/22 20:32 36.6 C 97 H 18 138/82 97 Nasal Cannula 3 Resident Activity Tracking Resident Involvement: Resident Care Provided Care Provided: Adult [facility] Medicine
[2022-05-17 07:17] LABS: Hematocrit (blood only) 29.9 % (34.1-44.9); Hemoglobin 10.3 g/dl (12.0-16.0); Mean Corpuscular Hgb Conc 34.4 g/dL (32.0-36.0); Mean Corpuscular Volume 95.8 fL (80.0-100.0); Mean Platelet Volume 10.1 fL (9.4-12.3); Platelet Count 703 K/uL (130-400); RDW Coefficient of Variation 15.7 % (11.5-14.5); RDW Standard Deviation 54.8 fL (36.4-46.3); Red Blood Count 3.12 M/uL (3.93-5.22); White Blood Count 16.12 K/ul (4.8-10.8)
[2022-05-17 07:43] LABS: Albumin Globulin Ratio 0.9 (0.9-2); Albumin Level 2.6 gm/dl (3.4-5.0); BUN Creatinine Ratio 16.9 (10-20); Bilirubin,Total 0.4 mg/dl (0.2-1.0); Calcium 9.8 mg/dl (8.5-10.1); Creatinine Clr Calc Pharmacy 50.1 ml/min; Est GFR (Non-African American) 63.9 ml/min; Globulin 2.8 gm/dl (2.5-4.0); Potassium 4.3 mmol/L (3.5-5.1); Total Protein 5.4 gm/dl (6.0-8.3)
[2022-05-17] MEDS: ATORVASTATIN 40 MG TAB PO SCH (08:31)
[2022-05-17] MEDS: guaiFENesin 600 MG TABCR PO SCH ×2 (08:31→22:23)
[2022-05-17] MEDS: LACTOBACILLUS ACIDOPHILUS 1 GM PACK PO SCH ×3 (08:32→17:35)
[2022-05-17] MEDS: CALCIUM CARBONATE 1250MG TAB PO SCH (08:32)
[2022-05-17] MEDS: MULTIVITAMIN TAB PO SCH (08:32)
[2022-05-17] MEDS: CHOLECALCIFEROL 1,000 UNITS 25 MCG TAB PO SCH (08:32)
[2022-05-17] MEDS: UMECLIDINIUM BROMIDE 62.5MCG/BLISTER 7 PUFFS/INHALER INH SCH (08:33)
[2022-05-17] MEDS: ASCORBIC ACID 500 MG TAB PO SCH (08:33)
[2022-05-17] MEDS: POLYETHYLENE (MIRALAX) 17 GM PACK PO SCH (08:33)
[2022-05-17] MEDS: allopurinoL 300 MG TAB PO SCH (08:33)
[2022-05-17] MEDS: BENZONATATE 100 MG CAPSULE PO SCH ×3 (08:34→22:21)
[2022-05-17] MEDS: ENOXAPARIN INJ 30 MG/0.3 ML SYR SQ SCH (08:34)
[2022-05-17] MEDS: CYANOCOBALAMIN (B-12) 500 MCG TABLET PO SCH (08:34)
[2022-05-17] MEDS: ASPIRIN 81 MG ECTAB PO SCH (22:21)
[2022-05-17] MEDS: LIDOCAINE 5% 1 PATCH TD SCH (22:21)
[2022-05-17] MEDS: cefTRIAXone SODIUM 2,000 MG in DEXTROSE 5% 50 ML IV SCH (22:36)
[2022-05-18] MEDS: ACETAMINOPHEN 500 MG TAB PO SCH (06:00)
--- NOTE | 2022-05-18 07:03 | Hospitalist Progress Note ---
Date of Service May 18, 2022 Assessment & Plan (1) COPD with emphysema: (2) COPD exacerbation: (3) Pleural effusion: (4) Acute kidney injury superimposed on CKD: (5) Pneumonia involving left lung: (6) Rib pain on left side: Plan Josie is a 87 yo F with history of COPD, gout, HLD, and B12 deficiency presented 05/05/2022 for sob, cough, and decreased PO intake. She was found to be hyponatremic and hypoxic in the setting of PNA a/w COPD exacerbation. She was given O2, prednisone, duonebs prn, and incruse. She receives 5 days prednisone since last 05/10/2022. She was started on Ceftriaxone and metronidazole due to Imaging revealing possible necrotizing pna. 05/10 pt started on azithromycin. Effusions found on cxr and chest CT followed by pulmonary who recommended one dose of Lasix. Sepsis due to Streptococcus pneumoniae, POA LLL Pneumonia (a/w S. Pneumoniae) a/w Necrotizing Core and COPD Exacerbation: improving Gram + (S. pneumoniae) Bacteremia - pansensitive 05/17 update: continue to improve. No changes to treatment plan below. WBC elevated but trending downward. -repeat blood cultures neg -Receiving Ceftriaxone 2gms and Flagyl (planned course 4 weeks) -completed 4 days of Azithromycin and last Prednisone 40 mg on 05/10 -continue Incruse daily and duonebs prn -Patient continues to improve. -switch to oral abx regimen augmentin 875mg bid on discharge. -Will Repeat CT chest around week of 06/01, which will determine the duration of antibiotics. Acute respiratory failure with Hypoxia -SpO2 goal 94%, currently receiving supplemental O2 via NC, incentive spirometry -05/17: VSS, 96% on 3L NC. Has not transitioned from 3L NC in some time. Will need 2 step prior to discharge if goes home -encourage IS use Pleural Effusion (Bilateral, R>L) - CT Chest indicating Necrotizing PNA on LLL w/ effusions on L and RLL - No urgent need for tap at this time - Pulmonary consult: No significant effusion on US requiring thoracentesis. Recommending repeat CT scan @ 4 wks. Hyponatremia/SHABBIR a/w poor PO Intake - Improved w/ IVF - stable around 130s. follow Rib pain on L side - sec to infection - Changed Tessalon Perles prn to schedule to help with cough. - Lidocaine patch QPM - Lula and Mandy ordered prn. - Will continue on working on pain management without significant reducing respiratory drive. Troponin Elevation -demand ischemia Transaminitis -Likely associated w/ acute infection and bacteremia -05/11 improved overall (AST 36, ALT 67) -Improving, continue to follow -RUQ ultrasound did show gallbladder sludge and a 9mm L hepatic lobe cyst HLD - Continue home Atorvastatin 40 mg dailly Gout - Continue home Allopurinol 300 mg daily B12 Deficiency - Continue to supplement 3000 mcg daily FEN/GI: reg diet DVT PPX: lovenox Dispo: Med/Surg PT/OT evaluation: prevent deconditioning and assess function, SNF needed at time of discharge. Pending placement. possibly on Wednesday. Will need 2 step before leaving if goes home. Admission and Anticipated Discharge Date Admission Date: May 06, 2022 Results & Data Results & Data ([facility]) Vital Signs (Past 12 Hours) Vital Signs Temp Pulse Resp BP Pulse Ox O2 Del Method O2 Flow Rate 05/17/22 21:00 Nasal Cannula 3 05/17/22 22:25 36.6 C 94 H 18 122/74 98 Nasal Cannula 3
[2022-05-18] MEDS: POLYETHYLENE (MIRALAX) 17 GM PACK PO SCH (07:55)
[2022-05-18] MEDS: BENZONATATE 100 MG CAPSULE PO SCH (08:53)
[2022-05-18] MEDS: CHOLECALCIFEROL 1,000 UNITS 25 MCG TAB PO SCH (08:53)
[2022-05-18] MEDS: UMECLIDINIUM BROMIDE 62.5MCG/BLISTER 7 PUFFS/INHALER INH SCH (08:53)
[2022-05-18] MEDS: LACTOBACILLUS ACIDOPHILUS 1 GM PACK PO SCH ×2 (08:54→12:05)
[2022-05-18] MEDS: CALCIUM CARBONATE 1250MG TAB PO SCH (08:54)
[2022-05-18] MEDS: ENOXAPARIN INJ 30 MG/0.3 ML SYR SQ SCH (08:54)
[2022-05-18] MEDS: CYANOCOBALAMIN (B-12) 500 MCG TABLET PO SCH (08:54)
[2022-05-18] MEDS: ATORVASTATIN 40 MG TAB PO SCH (08:54)
[2022-05-18] MEDS: MULTIVITAMIN TAB PO SCH (08:54)
[2022-05-18] MEDS: ASCORBIC ACID 500 MG TAB PO SCH (08:54)
[2022-05-18] MEDS: allopurinoL 300 MG TAB PO SCH (08:54)
[2022-05-18] MEDS: guaiFENesin 600 MG TABCR PO SCH (08:54)
[2022-05-18] MEDS ORDERED: metroNIDAZOLE 500 MG/100 ML BAG IV SCH (10:30)
--- NOTE | 2022-05-18 11:54 | Discharge Summary ---
Date of Service May 18, 2022 Admission HPI Per Admitting Provider The patient is an 86-year-old female with a past medical history including sacroiliitis, arthritis, calcium pyrophosphate deposition disease, COPD, lumbar disc degeneration, Hatle hernia, hyperlipidemia, renal insufficiency, acquired spondylolisthesis, PAD, gout, CKD, SNHL of bilateral ears, Schatzki's ring and osteoporosis. The patient presents to the emergency department with symptoms as noted above. Work-up in the emergency department include the following abnormal laboratories: Sodium 124, creatinine 1.79, glucose 119, troponin 36.5, AST 12.2, ALT 69, albumin 3.3, Pro-Bao 64.44. Patient was COVID-19, influenza a and B, and RSV negative Chest x-ray showed left sided pneumonia Pulse ox was 88% on room air Admission Exam Per Admitting Provider The patient is awake, alert and oriented 3, well developed and well nourished, normocephalic and atraumatic, lying in bed and in no acute distress. HEENT--PERRL, EOMI, mucous membranes and oropharynx normal. Neck--supple. No JVD. No bruits. Thyroid normal, trachea midline, no adenopathy. Heart--normal S1 and S2. No murmurs, rubs or gallops. Lungs--coarse breath sounds left much greater than right. No respiratory distress, no accessory muscle use. Abdomen--normal bowel sounds and soft. Nontender. Nondistended, no hernias or masses, no organomegaly. Extremities--no cyanosis or clubbing. No edema. Dermatologic--normal skin turgor, normal color, no abnormal lymph nodes, no rash. Neurologic--cranial nerves II through XII grossly intact. Rheumatologic--normal range of motion. Psychiatric--normal affect. Principal Diagnosis LLL pneumonia with gram positive bacteremia Discharge Exam Constitutional: WD/WN, vitals as above Neck: trachea midline, no thyromegaly Respiratory: no respiratory distress, no labored breathing and not tachypneic Auscultation: + diminished lung sounds Cardiovascular: RRR, no murmur, no edema Gastrointestinal (Abdomen): normal bowel sounds, soft, nontender, no hepatosplenomegaly Musculoskeletal: Extremities: extremities normal to inspection Skin: no rashes, warm and dry Lymphatic: no cervical lymphadenopathy Discharge Data Allergies Allergy/AdvReac Type Severity Reaction Status Date / Time No Known Drug Allergies Allergy Unknown nkda Verified 05/06/22 02:21 Consultations 05/06/22 00:01 ED Decision to Admit Stat 05/08/22 07:09 Consult Pulmonology Routine 05/11/22 07:00 Consult Infectious Diseases Routine Ordered Studies 05/07/22 12:27 CT chest diagnostic wo con Urgent 05/09/22 10:15 US point of care ultrasound Urgent 05/10/22 10:38 US point of care ultrasound Urgent 05/11/22 14:22 US RUQ [US liver] Urgent Hospital Course (1) COPD with emphysema: (2) COPD exacerbation: (3) Pleural effusion: (4) Acute kidney injury superimposed on CKD: (5) Pneumonia involving left lung: (6) Rib pain on left side: Emery Galindo is a 87 yo F with history of COPD, gout, HLD, and B12 deficiency presented 05/05/2022 for sob, cough, and decreased PO intake. She was found to be hyponatremic and hypoxic in the setting of PNA a/w COPD exacerbation. She was given O2, prednisone, duonebs prn, and incruse. She receives 5 days prednisone since last 05/10/2022. She was started on Ceftriaxone and metronidazole due to Imaging revealing possible necrotizing pna. 05/10 pt started on azithromycin. Effusions found on cxr and chest CT followed by pulmonary who recommended one dose of Lasix. Sepsis due to Streptococcus pneumoniae, POA LLL Pneumonia (a/w S. Pneumoniae) a/w Necrotizing Core and COPD Exacerbation: improving Gram + (S. pneumoniae) Bacteremia - pansensitive 05/18 update: continue to improve. No changes to treatment plan below. WBC elev ated but trending downward. -repeat blood cultures neg -Receiving Ceftriaxone 2gms and Flagyl (planned course 4 weeks). Switched to oral Augmentin 875mg BID at time of discharge. Should continue abx until CT chest -completed 4 days of Azithromycin and last Prednisone 40 mg on 05/10 -continue Incruse daily and duonebs prn -Patient continues to improve. -Repeat CT chest around week of 06/01, which will determine the duration of antibiotics. Acute respiratory failure with Hypoxia -SpO2 goal 94%, currently receiving supplemental O2 via NC, incentive spirometry -05/18: VSS, 98% on 3L NC. Has not transitioned from 3L NC in some time. Pleural Effusion (Bilateral, R>L) - CT Chest indicating Necrotizing PNA on LLL w/ effusions on L and RLL - No urgent need for tap at this time - Pulmonary consult: No significant effusion on US requiring thoracentesis. Recommending repeat CT scan @ 4 wks. Hyponatremia/SHABBIR a/w poor PO Intake - Improved w/ IVF - stable around 130s. Rib pain on L side - sec to infection - Changed Tessalon Perles prn to schedule to help with cough. - Lidocaine patch QPM - Robitussin and Voltaren ordered prn. - Continue on working on pain management without significant reducing respiratory drive. Troponin Elevation -demand ischemia Transaminitis -Likely associated w/ acute infection and bacteremia -05/11 improved overall (AST 36, ALT 67) -Improving, continue to follow -RUQ ultrasound did show gallbladder sludge and a 9mm L hepatic lobe cyst -No follow up needed. HLD - Continue home Atorvastatin 40 mg dailly Gout - Continue home Allopurinol 300 mg daily B12 Deficiency - Continue to supplement 3000 mcg daily Total Time Total Time Spent Total Time Spent (In Minutes): 15 Discharge Plan Discharge Items Patient Disposition: Transfer Inpatient Rehab Fac Reason For Visit: ACUTE RESP FAILURE WITH HYPOXIA, LEFT PNEUMONIA Discharge Diagnosis: pneumonia and Gram positive bacteremia Activity: Per Instructions section Lifting: Gradually increase as tolerated Non-emergency contact: Primary Care Provider Call non-emergency contact if: you have any medication questions, your pain is unusual for you and your temperature is above 101.5 Follow-up/Referrals: Angel Ac MD [Primary Care Provider] - Diet: Regular Addtl Attending Provider Instructions: Josie is a 87 yo F with history of COPD, gout, HLD, and B12 deficiency presented 05/05/2022 for sob, cough, and decreased PO intake. She was found to be hyponatremic and hypoxic in the setting of PNA a/w COPD exacerbation. She was given O2, prednisone, duonebs prn, and incruse. She receives 5 days prednisone since last 05/10/2022. She was started on Ceftriaxone and metronidazole due to Imaging revealing possible necrotizing pna. 05/10 pt started on azithromycin. Effusions found on cxr and chest CT followed by pulmonary who recommended one d ose of Lasix. Sepsis due to Streptococcus pneumoniae, POA LLL Pneumonia (a/w S. Pneumoniae) a/w Necrotizing Core and COPD Exacerbation: improving Gram + (S. pneumoniae) Bacteremia - pansensitive 05/18 update: continue to improve. No changes to treatment plan below. WBC elevated but trending downward. -repeat blood cultures neg -Receiving Ceftriaxone 2gms and Flagyl (planned course 4 weeks). Switched to oral Augmentin 875mg BID at time of discharge. Should continue abx until CT chest -completed 4 days of Azithromycin and last Prednisone 40 mg on 05/10 -continue Incruse daily and duonebs prn -Patient continues to improve. -Will Repeat CT chest around week of 06/01, which will determine the duration of antibiotics. Acute respiratory failure with Hypoxia -SpO2 goal 94%, currently receiving supplemental O2 via NC, incentive spirometry -05/18: VSS, 98% on 3L NC. Has not transitioned from 3L NC in some time. Pleural Effusion (Bilateral, R>L) - CT Chest indicating Necrotizing PNA on LLL w/ effusions on L and RLL - No urgent need for tap at this time - Pulmonary consult: No significant effusion on US requiring thoracentesis. Recommending repeat CT scan @ 4 wks. Hyponatremia/SHABBIR a/w poor PO Intake - Improved w/ IVF - stable around 130s. Rib pain on L side - sec to infection - Changed Tessalon Perles prn to schedule to help with cough. - Lidocaine patch QPM - Robitussin and Voltaren ordered prn. - Will continue on working on pain management without significant reducing respiratory drive. Troponin Elevation -demand ischemia Transaminitis -Likely associated w/ acute infection and bacteremia -05/11 improved overall (AST 36, ALT 67) -Improving, continue to follow -RUQ ultrasound did show gallbladder sludge and a 9mm L hepatic lobe cyst -No follow up needed. HLD - Continue home Atorvastatin 40 mg dailly Gout - Continue home Allopurinol 300 mg daily B12 Deficiency - Continue to supplement 3000 mcg daily Pending Studies at Discharge: No Stand-Alone Forms: [employer] Skilled Items Patient informed of condition?: Yes DNR: No Discharge Level of Care: Skilled Communicable Disease: No Discharge Prognosis: Improving Lines: None Urinary Catheter: No Medications and DC Order Prescriptions: New ipratropium-albuterol 0.5 mg-3 mg(2.5 mg base)/3 mL Solution For Nebulization 3 ml NEB QIDR PRN (Reason: shortness of breath or wheezing) Qty: 90 0RF benzonatate 100 mg Capsule 100 mg PO TID 4 Days Qty: 12 0RF amoxicillin-pot clavulanate 875-125 mg tablet 1 tab PO BID 28 Days Qty: 56 0RF Continued allopurinol 300 mg tablet 300 mg PO DAILY Qty: 90 3RF atorvastatin 40 mg tablet 40 mg PO QAM Qty: 90 3RF Spiriva Respimat 2.5 mcg/actuation mist 2 puff inhalation QAM Qty: 4 11RF albuterol sulfate [Ventolin HFA] 90 mcg/actuation HFA aerosol inhaler 2 puff inhalation Q4H PRN (Reason: Shortness Of Breath) Qty: 1 11RF calcium carbonate [Calcium 500] 500 mg calcium (1,250 mg) tablet,chewable 500 mg PO QAM mecobalamin (vitamin B12) 1,000 mcg tablet,chewable 3,000 mcg PO DAILY multivitamin Tablet 1 tab PO QAM aspirin 81 mg Tablet 81 mg PO HS cholecalciferol (vitamin D3) [Vitamin D3] 25 mcg (1,000 unit) Tablet 25 mcg PO QAM ascorbic acid (vitamin C) [Vitamin C] 1,000 mg Tablet 1 g PO DAILY potassium gluconate 595 mg (99 mg) Tablet 595 mg PO DAILY Discharge Orders: Discharge Order (Routine); Ordered 05/18/22 Ordered By: Danyel Garcia Admission Data Admit Date/Time: 05/06/22 00:33 Attending Provider: Abdiaziz Quinones Admit Provider: Kevon Bynum Primary Care Provider: Angel Ac Other Providers: Kevon Bynum ; Mendoza Chicas ; Nida Menon ; John Jang ; Alda Kinney ; Leidy Fenton ; Bindu Ruvalcaba ; Janae Henley ; Dyana Jasmine ; Marcus Muñiz ; Millicent Chung ; [facility] ; [facility] ; [place],[facility] ; Rebecca Hoffmann Other Interventions: Discharge Summary Assessment (RN) Last Done: 01/16/23 10:37 Supervising Physician Co-Signing Physician Notes I personally examined the patient and verified all dowd points of history and exam, discussed case, and agree with decision making with Dr Garcia Feels up to going to rehab. Questions answered to the best of my ability. Vitals noted, in general she is awake and alert pleasant no distress. HEENT normocephalic atraumatic mucous membranes moist. Breathing unlabored no accessory muscle use good effort. Skin shows no rashes no pallor or icterus. Neuro without focal deficits. Community-acquired pneumonia with subsequent COPD exacerbationand subsequent strep bacteremiaeffusion, necrotizing pneumoniaoverall stable, stable for rehab. Prolonged course of antibiotics, ongoing outpatient follow-up. Otherwise as above. Deconditioningfor rehab Otherwise as above Resident Activity Tracking Resident Involvement: Resident Care Provided Care Provided: Adult Hospital Medicine
--- NOTE | 2022-05-18 19:28 | Billing Data ---
Date of Service May 18, 2022 Coding Level of Care Code HOSP INP/OBS DISCH 30 MIN/LESS
== END 2022-05-18 12:49 | DRG 871 ==
LOC: ED 16:44 → EDINP 05-06 00:33 → SUATTDRO 05-06 00:33 → 2S 05-07 02:39 → 3E 05-10 16:38

== ENCOUNTER 2023-07-06 15:04 | Inpatient (IN) ==
--- NOTE | 2023-07-06 16:11 | ED Triage Note ---
Date of Service July 06, 2023 Provider in Triage Author: Whit Porras History of Present Illness This patient was briefly evaluated while in triage. An abbreviated physical exam was performed. This patient is a 88-year-old Female who presents to the ED for evaluation of a low hemoglobin. She states that she feels perfectly normal. She was seen at her PCP's office this morning because she had noticed some blood in her stool. She was seen and had blood work done and was called and told to come in right away. She is currently being treated for lung cancer with immunotherapy. She did recently take Aleve for pain. Physical Exam GENERAL: Non-toxic and in no acute distress. HEENT: Pupils equal. No obvious scleral icterus. HEART: Regular rate and rhythm. LUNGS: Clear to auscultation. No accessory muscle use. NEURO: Alert and oriented. No obvious neurological deficits on quick neuro exam. Initial orders for labs and / or imaging were placed and patient was placed in the waiting area until a bed is available. Please see further documentation for the full ED course. MDM / Impression Impression Impression: GI bleed Impression: GI bleed Qualifiers: GI bleed type/associated pathology: unspecified gastrointestinal hemorrhage type Qualified Code(s): K92.2 - Gastrointestinal hemorrhage, unspecified
[2023-07-06] MEDS ORDERED: SODIUM CHLORIDE 0.9% 250 ML IV PRN ×2 (16:13→17:11)
[2023-07-06 16:56] LABS: Hematocrit (blood only) 21.4 % (37.0-47.0); Hemoglobin 6.5 g/dl (12.0-16.0); Mean Corpuscular Hgb Conc 30.4 g/dL (32.0-36.0); Mean Corpuscular Volume 98.6 fL (80.0-100.0); Mean Platelet Volume 9.7 fL (9.4-12.4); Nucleated RBC # (auto) 0.04 K/uL (0.00-0.12); Nucleated RBC % (auto) 0.4 %; Platelet Count 404 K/uL (130-400); RDW Coefficient of Variation 18.3 % (11.5-14.5); RDW Standard Deviation 64.8 fL (36.4-46.3); Red Blood Count 2.17 M/uL (4.20-5.40)
[2023-07-06 17:06] LABS: Albumin Globulin Ratio 1.6 (0.9-2); Albumin Level 3.9 gm/dl (3.4-5.0); BUN Creatinine Ratio 27.8 (10-20); Bilirubin,Total 0.4 mg/dl (0.2-1.0); Calcium 9.4 mg/dl (8.6-10.3); Creatinine Clr Calc Pharmacy 31.4 ml/min; Est GFR (African American) 53.5 ml/min; Est GFR (Non-African American) 46.1 ml/min; Globulin 2.5 gm/dl (2.5-4.0); Potassium 4.1 mmol/L (3.5-5.1); Total Protein 6.4 gm/dl (6.0-8.3)
[2023-07-06 17:10] LABS: Anisocytosis Present; Basophils # (auto) 0.04 K/uL (0.00-0.20); Basophils % (auto) 0.4 %; Eosinophils # (auto) 0.16 K/uL (0.00-0.50); Eosinophils % (auto) 1.4 %; Immature Granulocytes # (auto) 0.17 K/uL (0.01-0.20); Immature Granulocytes % (auto) 1.5 %; Lymphocytes % (auto) 14.4 %; Monocytes # (auto) 1.02 K/uL (0.11-0.59); Monocytes % (auto) 9.2 %; Neutrophils # (auto) 8.11 K/uL (1.40-6.50); Neutrophils % (auto) 73.1 %; Polychromasia 1+; Tear Drop Cells 1+
[2023-07-06 17:29] LABS: INR 1.1 (0.9-1.1); Partial Thromboplastin Ratio 1.1; Partial Thromboplastin Time 31 Seconds (21-31); Prothrombin Time 12.3 Seconds (9.0-12.0)
--- NOTE | 2023-07-06 17:54 | History & Physical Report ---
Date of Service July 06, 2023 Assessment & Plan (1) Acute blood loss anemia: Plan: -Admit to the PCU on tele -Currently brisa tachycardic with HR of 103 but hemodynamically stable and stable on RA -Presented to the ED after outpatient labs showed a Hgb of 6.7 (down from 9.4 on 06/30/23) -At this time the most likely cause of her blood loss anemia is an upper GI bleed due to recent Aleve use and patient being on Elqiuis for her hx of BL DVT and massive PE in January of 2023 -Was reported to have heme positive stool this am at her PCP's office -Appears clinically well and is otherwise symptomatic -Continue pantoprazole drip for now -GI consult placed, will keep her NPO except meds for now -Patient has been blood consent by the ED (confirmed in chart) >3 units PRBC's are being prepared >Will give 1 unit PRBC's on admission >Will start q6h CBC at midnight -Since the patient has been hemodynamically stable, without massive bleeding, and without abdominal discomfort we will hold anticoagulation reversal at this time -She is without any abdominal discomfort, nausea, or vomiting, will hold abdominal imaging at this time -Continue to hold Eliquis for now, last dose was this am -Will need to discuss dosing with heme onc prior to discharge as they were considering decreasing her dose from therapeutic to prophylactic starting in August of 2023 >Did speak with hematology prior to admission, appreciate their assistance >If not clinically needed for admission, can hold obtaining repeat staging CT of the chest, they will obtain outpatient as planned -Will obtain Bl LE venous dopplers to monitor for residual DVT's while holding Eliquis -Fall precautions -NPO except meds -AM CMP, mag, PT/INR, q6h CBC (2) Chronic anticoagulation: Plan: -Has been on 5 mg BID Eliquis since her admission in January of 2023 when she was diagnosed with a massive PE due to BL DVT's -Did undergo intravenous thrombolytic therapy during her admission in 2022 -Continue to hold Eliquis for now, would discussion further anticoagulation with Hematology prior to discharge (3) Squamous cell carcinoma of lung, stage III: Plan: -Continue to follow with heme/onc on discharge (4) Hyperlipidemia: Plan: -Hod statin while npo -Resume on DC (5) COPD with emphysema: Plan: -Stable on RA, no wheezing on exam -Continue home breathing treatments -Incentive spirometry Plan The patient was discussed with Dr. Ruffin at the time of the admission History of Present Illness Chief Complaint: Abnormal outpatient labs Primary Care Provider: Angel Ac MD Josie is an 88 year old female with a PMH significant for [facility] admission from 02/01-02/05 for Acute massive PE thought to be due to BL LE DVT's S/P intravenous thrombolytic therapy (on Eliquis), squamous cell carcinoma of the left lower lobe currently undergoing radiation and chemotherapy treatment (carbo/taxol), COPD, and chronic hypoxic respiratory failure on baseline 2L NC at night who presented to the [facility] ED on 07/06/23 after outpatient labs showed a Hgb of 6.7. She was noted to be tachycardic with HR of 102 but was otherwise stable while in the ED. Repeat labs in the ED showed a hgb of 6.5 (down from 9.4 as of 06/30/23), leukocytosis of 11 with neutrophil predominance of 8, BUN of 30 with stable Cr and reported heme positive stool at her PCP's office. Prior to admission the patient was started on pantoprazole drip, with bolus. She was consented for blood and was ordered for a total of 3 units to be prepared and one unit to be given on admission. At the time of the exam the patient was sitting in bed in no acute distress with her daughter sitting bedside, history was obtained from both. The patient has been experiencing chronic neck pain and headaches last week so she started to take BID Aleve at the recommended dosing. Starting on 07/01 she noticed that her stool was starting to appear "monique" in color. She denies any bright red blood with BM's and has been without abdominal pain, nausea, and vomiting. She saw her PCP this am due to concerns of possible GI bleed as she had a previous stomach ulcer approximately 10 years ago while off anticoagulation and using Aleve. Her last dose of Eliquis was this am. She denies recent fever, chills, lightheadedness, dizziness, chest pain, SOB, cough, abd pain, nausea, vomiting, diarrhea, LE swelling/pain, and recent trauma. She confirms that she is a D NR/DNI and her daughter would make medical decisions for her if she cannot make them herself. Please refer to Dr. Ruffin's attestation for any changes to the treatment plan Allergies Allergy/AdvReac Type Severity Reaction Status Date / Time No Known Allergies Allergy Verified 07/06/23 17:35 Home Medications Medication Instructions Recorded Confirmed Type multivitamin 1 tab PO QAM 02/16/20 07/06/23 History albuterol sulfate 90 mcg/actuation 2 puff inhalation Q4H PRN 01/14/22 07/06/23 Rx aerosol inhaler (Ventolin HFA) Shortness Of Breath #1 inhaler Oxygen Home [id number] 06/01/22 07/06/23 History Over Night Pulse OX #1 ea 11/30/22 07/06/23 Rx acetaminophen 500 mg tablet 1,000 mg PO DIRECTED PRN Pain 12/28/22 07/06/23 History (Tylenol Extra Strength) allopurinol 300 mg tablet 300 mg PO DAILY #90 tabs 01/21/23 07/06/23 Rx atorvastatin 40 mg tablet 40 mg PO QAM #90 tabs 02/11/23 07/06/23 Rx apixaban 5 mg tablet (Eliquis) 5 mg PO BID #60 tabs 03/10/23 07/06/23 Rx mirabegron 25 mg tablet,extended 25 mg PO DAILY #30 tabs 06/29/23 07/06/23 Rx release 24 hr tiotropium bromide 2.5 2 inh inhalation QAM 07/06/23 07/06/23 History mcg/actuation mist for inhalation (Spiriva Respimat) Past Med/Surg History Medical History (Updated 07/06/23 @ 18:40 by Paramjit Saleh PA-C) GERD (gastroesophageal reflux disease) 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) Elevated LFTs Multifocal pneumonia Acute kidney injury superimposed on CKD Elevated procalcitonin Hyponatremia SHABBIR (acute kidney injury) Hypoxia Dyspnea Sacroiliitis Sciatica RT CKD (chronic kidney disease) Sensorineural hearing loss (SNHL) of both ears Hx of gout Gout Osteoarthritis Scoliosis Spinal stenosis Chronic back pain Hx of gastric ulcer Hx of skin cancer, basal cell Chronic obstructive pulmonary disease SNHL (sensorineural hearing loss) Schatzki's ring Osteoporosis Chronic obstructive pulmonary disease Surgical History History of bronchoscopy History of Mohs micrographic surgery for skin cancer History of bilateral tubal ligation History of esophagogastroduodenoscopy (EGD) S/P epidural steroid injection History of colonoscopy History of arthroplasty of knee RT/LEFT History of breast biopsy Family History Mother Family history of colon cancer Family history of cardiac disorder Hearing loss Cancer Ovarian cancer Rectal cancer Other No family history of adverse response to anesthesia Denies family history of Myocardial infarction Breast cancer Colorectal cancer Social History Smoking Status: Never smoker Tobacco Type: Cigarettes Age Started Using Tobacco: 23; Age Quit Using Tobacco: 86; Cigarettes Per Day: 10; Second Hand Exposure: Yes ( A CHILD); Do You Dip or Chew Tobacco: No; Hx Alcohol Use: No Hx Substance Use: No Preferred Language: Vincentian Communication Ability: Effective Visual Impairment: No Limitations Hearing Ability: Use of Hearing Aid Welfare Interviewer Required: No Beliefs That Will Affect Care: None marital status: / Current Living Situation: Alone current occupational status: retired Feels Safe at Home: Yes Diet: regular during the past year weight has: decreased > 10 lbs Assistive Devices: Glasses, Hearing Aid - Bilateral and Oxygen - at Night Physical Exam Physical Exam: Physical Exam: General: In no acute distress, stated age, well-nourished, good hygiene, non- toxic appearing HEENT: Normocephalic, atraumatic, no scleral icterus, pupils around round, symmetrical, and reactive to light, moist mucus membranes, trachea midline, no thyromegaly Chest/Pulm: No respiratory distress, symmetrical chest expansion, clear breath sounds throughout Cardiac: RRR, no murmurs noted Abdomen: Negative for ascites and bruising, normoactive bowel sounds, soft, non-tender to palpation throughout Musculoskeletal: Symmetrical and without signs of acute trauma, upper and lower extremities with full ROM, no atrophy, spasticity, or flaccidity Extremities: Radial, dorsalis pedis, and posterior tibial pulses are intact and symmetrical, no edema noted in the BL LE's Skin: Warm, dry, no rashes , lesions, or scars noted Neuro: Alert and oriented to person, place, month, year, and president, no focal defects, no tremors noted Psych: No acute distress, calm and cooperative during the exam Results & Data Results & Data Vital Signs (Past 12 Hours) Vital Signs Temp Pulse Pulse Resp BP BP Pulse Ox 07/06/23 17:27 102 H 16 127/75 99 07/06/23 17:26 102 H 07/06/23 16:09 36.8 C 135 H 20 150/74 H 94 O2 Del Method 07/06/23 17:27 07/06/23 17:26 07/06/23 16:09 Room Air Laboratory Results Abnormal lab results 07/06/23 Range/Units 16:26 WBC 11.10 H (4.8-10.8) K/ul RBC 2.17 L (4.20-5.40) M/uL Hgb 6.5 L* (12.0-16.0) g/dl Hct 21.4 L (37.0-47.0) % MCHC 30.4 L (32.0-36.0) g/dL RDW Std Deviation 64.8 H (36.4-46.3) fL RDW Coeff of Lazara 18.3 H (11.5-14.5) % Plt Count 404 H (130-400) K/uL Neut # (Auto) 8.11 H (1.40-6.50) K/uL [place] # (Auto) 1.02 H (0.11-0.59) K/uL PT 12.3 H (9.0-12.0) Seconds BUN 30 H (6-23) mg/dl BUN/Creatinine Ratio 27.8 H (10-20) Glucose 104 H (70-99(Fasting)) mg/dl Alkaline Phosphatase 135 H (34-104) U/L Crossmatch See Detail ECG Additional Comments: Will obtain at the time of the admission Code Status & VTE Plan Code Status DNR/DNI VTE Prophylaxis Plan VTE Prophylaxis will be ordered: Yes Supervising Physician Co-Signing Physician Notes Patient seen and examined, chart reviewed, case discussed with Paramjit Saleh PA-C and I agree with the assessment and plan as above except as otherwise noted Labs and images reviewed Josie is an 88-year-old female with past medical history of bilateral lower extremity DVTs and massive PE s/p thrombolytics and anticoagulation in January, who has been on continuous anticoagulation for 5 to 6 months, COPD, 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 Previously had ulcers with NSAID use. At bedside assessment she is hemodynamically stable, normotensive and nontachycardic with 1 unit of blood transfusion. Eliquis temporarily held, patient has been on anticoagulation for nearly 6 months. PPI therapy initiated, GI consulted. Recommend resuming prophylactic anticoagulation once acute bleeding is addressed. No further NSAID use in the future. Lungs are clear, patient is nondistressed, heart rate is regular at bedside assessment. Agree with assessment and recommendations as above PG Care Time/CCT Total # of Minutes Spent Total Time Spent with Patient: Total time spent is greater than 50% in coordination of care (as documented) at patient's floor/unit and/or counseling patient: Coding [place] [address] INT INP/OBS CARE 3/75MIN Patient Type Established Medical Decision Making High Complexity Diagnoses Acute blood loss anemia D62 Chronic anticoagulation Z79.01 Stage III squamous cell carcinoma of left lung C34.92 Laterality: left Hyperlipidemia E78.5 Centrilobular emphysema J43.2 Emphysema type: centrilobular (3) Squamous cell carcinoma of lung, stage III Laterality: left Qualified Code(s): C34.92 - Malignant neoplasm of unspecified part of left bronchus or lung (5) COPD with emphysema Emphysema type: centrilobular Qualified Code(s): J43.2 - Centrilobular emphysema
[2023-07-06] MEDS: PANTOprazole 80 MG in DEXTROSE 5% 100 ML IV ONE (17:56)
[2023-07-06] MEDS: PANTOprazole 40 MG in DEXTROSE 5% MINI-B 100 ML IV SCH (18:21)
[2023-07-06] MEDS: PANTOPRAZOLE BOLUS/DRIP IV STA (19:30)
--- NOTE | 2023-07-06 19:47 | XRay Report ---
SINGLE VIEW CHEST CLINICAL HISTORY: Preoperative examination. FINDINGS: An AP, portable, upright chest radiograph is compared to chest x-ray and chest CT dated 02/01/2023. The heart is top normal for projection noting atherosclerotic calcification of the thoracic a asha. The pulmonary vasculature is noncongestive. Emphysema and chronic interstitial thickening is si milar to previous. There is elevation of the left hemidiaphragm with bibasilar scarring/atelectasis. Cystic change in the superior segment of the left lower lobe is again noted. There are new airspace o pacities in the left upper lung and at the right lung base. Trace pleural effusions are suspected. No pneumothorax is seen. The skeletal structures are osteopenic. The bony thorax is grossly intact. IMPRESSION: 1. Emphysema. 2. There are new airspace opacities in the left upper lobe and at the right lung base. This could rep resent scarring/atelectasis versus pneumonia/aspiration pneumonitis. Clinical correlation will be req uired and radiographic follow-up to resolution is recommended. 3. Suspect trace pleural effusions. ACT 112: Negative or not required by law. Electronically signed by: Danyel Shukla M.D. 07/06/2023 7:45 PM
[2023-07-06] MEDS ORDERED: ALBUTEROL HFA 8 GM INHALER INH PRN (20:14)
--- NOTE | 2023-07-06 22:32 | Emergency Department Note ---
History of Present Illness General Chief complaint: Referred by Doctor Stated complaint: REF BY DOC FOR INTERNAL BLEED Time Seen by Provider: 07/06/23 17:01 History of Present Illness Provider Complaint: + melena and + gross hematochezia Onset (ago): 6 day(s) Pain Consistency: + constant Relieved By: + none Exacerbated By: + bowel movement Context: + history of GI bleed, + anticoagulant use (eliquis) and + frequent NSAID use (aleve); no rectal trauma, no alcohol abuse or no known esophageal varices Associated symptoms: no abdominal pain, no nausea, no vomiting, no epistaxis, no fever, no chills, no headaches or no shortness of breath Home Medications Medication Instructions Recorded Confirmed Type multivitamin 1 tab PO QAM 02/16/20 07/06/23 History albuterol sulfate 90 mcg/actuation 2 puff inhalation Q4H PRN 01/14/22 07/06/23 Rx aerosol inhaler (Ventolin HFA) Shortness Of Breath #1 inhaler Oxygen Home [id number] 06/01/22 07/06/23 History Over Night Pulse OX #1 ea 11/30/22 07/06/23 Rx acetaminophen 500 mg tablet 1,000 mg PO DIRECTED PRN Pain 12/28/22 07/06/23 History (Tylenol Extra Strength) allopurinol 300 mg tablet 300 mg PO DAILY #90 tabs 01/21/23 07/06/23 Rx atorvastatin 40 mg tablet 40 mg PO QAM #90 tabs 02/11/23 07/06/23 Rx apixaban 5 mg tablet (Eliquis) 5 mg PO BID #60 tabs 03/10/23 07/06/23 Rx mirabegron 25 mg tablet,extended 25 mg PO DAILY #30 tabs 06/29/23 07/06/23 Rx release 24 hr tiotropium bromide 2.5 2 inh inhalation QAM 07/06/23 07/06/23 History mcg/actuation mist for inhalation (Spiriva Respimat) Allergies Allergy/AdvReac Type Severity Reaction Status Date / Time No Known Allergies Allergy Verified 07/06/23 17:35 Past Med/Surg History Medical History GERD (gastroesophageal reflux disease) 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) Elevated LFTs Multifocal pneumonia Acute kidney injury superimposed on CKD Elevated procalcitonin Hyponatremia SHABBIR (acute kidney injury) Hypoxia Dyspnea Sacroiliitis Sciatica RT CKD (chronic kidney disease) Sensorineural hearing loss (SNHL) of both ears Hx of gout Gout Osteoarthritis Scoliosis Spinal stenosis Chronic back pain Hx of gastric ulcer Hx of skin cancer, basal cell Chronic obstructive pulmonary disease SNHL (sensorineural hearing loss) Schatzki's ring Osteoporosis Chronic obstructive pulmonary disease Surgical History History of bronchoscopy History of Mohs micrographic surgery for skin cancer History of bilateral tubal ligation History of esophagogastroduodenoscopy (EGD) S/P epidural steroid injection History of colonoscopy History of arthroplasty of knee RT/LEFT History of breast biopsy Family History Mother Family history of colon cancer Family history of cardiac disorder Hearing loss Cancer Ovarian cancer Rectal cancer Other No family history of adverse response to anesthesia Denies family history of Myocardial infarction Breast cancer Colorectal cancer Social History Smoking Status: Never smoker Tobacco Type: Cigarettes Age Started Using Tobacco: 23; Age Quit Using Tobacco: 86; Cigarettes Per Day: 10; Second Hand Exposure: Yes ( A CHILD); Do You Dip or Chew Tobacco: No; Hx Alcohol Use: No Hx Substance Use: No Preferred Language: Burkinan Communication Ability: Effective Visual Impairment: No Limitations Hearing Ability: Use of Hearing Aid Electric Distribution Engineer Required: No Beliefs That Will Affect Care: None marital status: / Current Living Situation: Alone current occupational status: retired Feels Safe at Home: Yes Diet: regular during the past year weight has: decreased > 10 lbs Assistive Devices: Glasses, Hearing Aid - Bilateral and Oxygen - at Night Physical Exam 2 Vital Signs: Vital Signs - 24 hr 07/06/23 16:09 07/06/23 17:16 07/06/23 17:20 Temperature 36.8 C Temperature Source Temporal Artery Sc an Pulse Rate 135 H 103 H 104 H Pulse Rate [Apical ] Pulse Rate from Sp O2 Sensor 104 H 105 H Pulse Rhythm Regular Respiratory Rate 20 21 24 Respiratory Effort / Characteristics Non-Labored Sponta neous Respiratory Depth Normal Blood Pressure 150/74 H Blood Pressure [Le ft Arm] Blood Pressure Sisi n 99 Blood Pressure Sisi n [Left Arm] Pulse Oximetry 94 96 95 Oxygen Delivery Me thod Room Air Sepsis Recent Feve r Within 48 Hours No Sepsis New/Unexpla ined Change in Men ronal Status No Sepsis Action Take n by Nursing No Action Required 07/06/23 17:26 07/06/23 17:27 07/06/23 17:30 Temperature Temperature Source Pulse Rate 102 H 99 H Pulse Rate [Apical ] 102 H Pulse Rate from Sp O2 Sensor 100 H Pulse Rhythm Respiratory Rate 16 27 H Respiratory Effort / Characteristics Respiratory Depth Blood Pressure Blood Pressure [Le ft Arm] 127/75 Blood Pressure Sisi n Blood Pressure Sisi n [Left Arm] 92 Pulse Oximetry 99 95 Oxygen Delivery Me thod Sepsis Recent Feve r Within 48 Hours Sepsis New/Unexpla ined Change in Men ronal Status Sepsis Action Take n by Nursing 07/06/23 17:40 07/06/23 17:50 07/06/23 18:00 Temperature Temperature Source Pulse Rate 112 H 102 H 100 H Pulse Rate [Apical ] Pulse Rate from Sp O2 Sensor 101 H 101 H Pulse Rhythm Respiratory Rate 22 19 23 Respiratory Effort / Characteristics Respiratory Depth Blood Pressure Blood Pressure [Le ft Arm] Blood Pressure Siis n Blood Pressure Sisi n [Left Arm] Pulse Oximetry 95 96 Oxygen Delivery Me thod Sepsis Recent Feve r Within 48 Hours Sepsis New/Unexpla ined Change in Men ronal Status Sepsis Action Take n by Nursing 07/06/23 18:10 07/06/23 18:11 07/06/23 18:11 Temperature Temperature Source Pulse Rate 99 H 101 H Pulse Rate [Apical ] Pulse Rate from Sp O2 Sensor 98 H 101 H Pulse Rhythm Respiratory Rate 42 H 31 H Respiratory Effort / Characteristics Respiratory Depth Blood Pressure 130/67 Blood Pressure [Le ft Arm] Blood Pressure Sisi n 85 Blood Pressure Sisi n [Left Arm] Pulse Oximetry 96 98 Oxygen Delivery Me thod Sepsis Recent Feve r Within 48 Hours Sepsis New/Unexpla ined Change in Men ronal Status Sepsis Action Take n by Nursing 07/06/23 18:14 07/06/23 18:20 Temperature 36.8 C Temperature Source Oral Pulse Rate 99 H 97 H Pulse Rate [Apical ] Pulse Rate from Sp O2 Sensor 100 H Pulse Rhythm Respiratory Rate 16 23 Respiratory Effort / Characteristics Respiratory Depth Blood Pressure 130/67 Blood Pressure [Le ft Arm] Blood Pressure Sisi n 88 Blood Pressure Sisi n [Left Arm] Pulse Oximetry 96 97 Oxygen Delivery Me thod Sepsis Recent Feve r Within 48 Hours Sepsis New/Unexpla ined Change in Men ronal Status Sepsis Action Take n by Nursing Physical Exam: Physical Exam GENERAL: She is oriented to person, place, and time. She appears well-developed and well-nourished. She does not appear distressed. HENT: Exam performed. -Head: Normocephalic and atraumatic. -Right Ear: External ear normal. No mastoid erythema -Left Ear: External ear normal. No mastoid erythema -Mouth/Throat: The oropharynx is clear and moist. No trismus in the jaw. No dental abscesses or uvula swelling. No oropharyngeal exudate or tonsillar abscesses. EYES: Conjunctivae and EOM are normal.Right eye exhibits no discharge. Left eye exhibits no discharge. No scleral icterus. NECK: Normal range of motion. Neck supple. No JVD present. No tracheal deviation and normal range of motion present. CV: Normal rate, regular rhythm, normal heart sounds and intact distal pulses. There is no peripheral edema. Palpable radial pulses bue. PULM/CHEST: Effort normal and breath sounds normal. No respiratory distress. No stridor. She has no wheezes. She has no rales. -Chest Wall: She exhibits no tenderness. ABD: The abdomen is soft. Bowel sounds are normal. She has no distension. No mass is present. There is no tenderness. There is no rebound, no guarding, no Azevedo's sign and no tenderness at McBurney's point. Rovsig negative MUSC/SKEL: Normal range of motion. There is no peripheral edema, tenderness or deformity. NEURO: Motor and sensation grossly intact. SKIN: Skin is warm and dry. She is not diaphoretic. PSYCH: She has a normal mood and affect. Behavior is normal. Judgment and thought content normal. Course Course 1700: The patient was evaluated in room D3A. A complete history and physical exam was performed Administered Medications Pantoprazole Sodium 40 mg/ (Dextrose) 100 mls @ 20 mls/hr IV Q5H NATALIE Stop: 08/05/23 17:29 Last Admin: 07/06/23 18:21 Dose: 8 mg/hr, 20 mls/hr Documented By: KV Discontinued Medications Pantoprazole Sodium 80 mg/ (Dextrose) 120 mls @ 480 mls/hr IV NOW ONE Stop: 07/06/23 17:25 Last Infusion: 07/06/23 19:15 Dose: Infused Documented By: Admin: 07/06/23 17:56 Dose: 480 mls/hr Documented By: NICOLE Pantoprazole Sodium (Pantoprazole Bolus/Drip) 1 each IV NOW STA Stop: 07/06/23 17:12 Last Admin: 07/06/23 19:30 Dose: 1 each Documented By: SUZY Medical Decision Making Medical Records Attestation: I reviewed the patient's medical records. External medical records reviewed.Patient was seen by her PCP today and found to have heme positive stools and hematochezia. Rectal exam was performed at the PCPs office by Millicent Rodriguez which did show Hemoccult positive stools. Patient had blood work done outpatient today which showed a hemoglobin of 6.7. Laboratory Data Attestation: I reviewed the patient's lab results. 07/06/23 16:26 07/06/23 16:26 Lab Results 07/06/23 Range/Units 16:26 WBC 11.10 H (4.8-10.8) K/ul RBC 2.17 L (4.20-5.40) M/uL Hgb 6.5 L* (12.0-16.0) g/dl Hct 21.4 L (37.0-47.0) % MCV 98.6 (80.0-100.0) fL MCH 30.0 (25.0-34.0) pg MCHC 30.4 L (32.0-36.0) g/dL RDW Std Deviation 64.8 H (36.4-46.3) fL RDW Coeff of Lazara 18.3 H (11.5-14.5) % Plt Count 404 H (130-400) K/uL MPV 9.7 (9.4-12.4) fL Immature Gran % (Auto) 1.5 % Neut % (Auto) 73.1 % Lymph % (Auto) 14.4 % [place] % (Auto) 9.2 % Eos % (Auto) 1.4 % Baso % (Auto) 0.4 % Neut # (Auto) 8.11 H (1.40-6.50) K/uL Lymph # (Auto) 1.60 (1.20-3.40) K/uL [place] # (Auto) 1.02 H (0.11-0.59) K/uL Eos # (Auto) 0.16 (0.00-0.50) K/uL Baso # (Auto) 0.04 (0.00-0.20) K/uL Immature Gran # (Auto) 0.17 (0.01-0.20) K/uL Absolute Nucleated RBC 0.04 (0.00-0.12) K/uL Nucleated RBC % (auto) 0.4 % Polychromasia 1+ Anisocytosis Present Tear Drop Cells 1+ PT 12.3 H (9.0-12.0) Seconds INR 1.1 (0.9-1.1) APTT 31 (21-31) Seconds PTT Ratio 1.1 Sodium 141 (136-145) mmol/L Potassium 4.1 (3.5-5.1) mmol/L Chloride 107 (98-107) mmol/L Carbon Dioxide 25 (21-32) mmol/L Anion Gap 9 (3-11) BUN 30 H (6-23) mg/dl Creatinine 1.08 (0.6-1.2) mg/dl Est Cr Clr Drug Dosing 31.4 ml/min Est GFR ( Amer) 53.5 ml/min Est GFR (Non-Af Amer) 46.1 ml/min BUN/Creatinine Ratio 27.8 H (10-20) Glucose 104 H (70-99(Fasting)) mg/dl Calcium 9.4 (8.6-10.3) mg/dl Total Bilirubin 0.4 (0.2-1.0) mg/dl AST 19 (13-39) U/L ALT 14 (7-52) U/L Alkaline Phosphatase 135 H (34-104) U/L Total Protein 6.4 (6.0-8.3) gm/dl Albumin 3.9 (3.4-5.0) gm/dl Globulin 2.5 (2.5-4.0) gm/dl Albumin/Globulin Ratio 1.6 (0.9-2) Blood Type O Positive Antibody Screen NEGATIVE Crossmatch See Detail MDM Narrative Cardiac monitoring: An order was placed for continuous cardiac monitoring. The monitor shows a rate of 90 with sinus rhythm interpreted by me Patient was seen during a time of extreme volume and extreme acuity in the emergency department. Nursing triage protocols were initiated and labs were drawn by protocol in the triage area. Patient's hemoglobin6.5. Patient declined rectal exam as she had 1 done earlier today in her PCPs office. Patient will be admitted and transfused 1 unit packed red blood cells. Protonix bolus and drip started for the patient. Patient admitted to the [facility] team. Impression & Plan GI bleed Critical Care Time Critical Care Time: Yes Total Critical Care Time: 36 I have personally spent greater than 36 minutes of critical care time in the direct management of this patient. This includes bedside care, interpretation of diagnostic studies, and testing, discussion with consultants, patient, and family members, and other required patient management activities. This 36 minutes is in excess of all separately billable procedures. Discharge Plan Visit Data Chief Complaint: Referred by Doctor Stated Complaint: REF BY DOC FOR INTERNAL BLEED ED Provider: Fer Fisher Discharge Problem: GI bleed Patient Disposition: Admitted As Inpatient Discharge Instructions Interventions: ED Discharge Assessment Last Done: 07/06/23 20:16 Discharge Problem: GI bleed Qualifiers: GI bleed type/associated pathology: unspecified gastrointestinal hemorrhage type Qualified Code(s): K92.2 - Gastrointestinal hemorrhage, unspecified
--- NOTE | 2023-07-06 22:54 | Ultrasound Report ---
Exam(s): US VENOUS BILATERAL LOWER EXTREMITIES EXAM: US Duplex Bilateral Lower Extremities Veins CLINICAL HISTORY: Reason for exam: acute GI bleed, on anticoagulation for DVT/PE. TECHNIQUE: Real-time duplex ultrasound scan of the bilateral lower extremity veins integrating B-mode two-dimensional vascular structure, Doppler spectral analysis, color flow Doppler imaging and compression. COMPARISON: None. FINDINGS: Right deep veins: Unremarkable. No DVT in the right common femoral, femoral, proximal deep femoral or popliteal veins. The veins demonstrate normal color flow, are normally compressible, with normal phasic flow and/or augmentation response. Right superficial veins: Unremarkable. No thrombus in the visualized right great saphenous vein. Left deep veins: Unremarkable. No DVT in the left common femoral, femoral, proximal deep femoral or popliteal veins. The veins demonstrate normal color flow, are normally compressible, with normal phasic flow and/or augmentation response. Left superficial veins: Unremarkable. No thrombus in the visualized left great saphenous vein. Soft tissues: No acute findings. No popliteal cyst. IMPRESSION: No sonographic evidence of deep vein thrombosis in the right or left lower extremity. Electronically signed by: Rufus Dumont MD 07/06/23 22:53 PM
[2023-07-07 01:07] LABS: Hematocrit (blood only) 25.2 % (37.0-47.0); Mean Corpuscular Hemoglobin 30.5 pg (25.0-34.0); Mean Corpuscular Hgb Conc 31.7 g/dL (32.0-36.0); Mean Corpuscular Volume 96.2 fL (80.0-100.0); Mean Platelet Volume 9.5 fL (9.4-12.4); Nucleated RBC # (auto) 0.03 K/uL (0.00-0.12); Nucleated RBC % (auto) 0.4 %; Platelet Count 308 K/uL (130-400); RDW Coefficient of Variation 18.6 % (11.5-14.5); RDW Standard Deviation 62.6 fL (36.4-46.3); Red Blood Count 2.62 M/uL (4.20-5.40); White Blood Count 8.49 K/ul (4.8-10.8)
[2023-07-07 07:20] LABS: Hematocrit (blood only) 24.2 % (37.0-47.0); Hemoglobin 7.6 g/dl (12.0-16.0); Mean Corpuscular Hemoglobin 29.8 pg (25.0-34.0); Mean Corpuscular Hgb Conc 31.4 g/dL (32.0-36.0); Mean Corpuscular Volume 94.9 fL (80.0-100.0); Mean Platelet Volume 9.5 fL (9.4-12.4); Platelet Count 317 K/uL (130-400); RDW Coefficient of Variation 19.2 % (11.5-14.5); RDW Standard Deviation 63.7 fL (36.4-46.3); Red Blood Count 2.55 M/uL (4.20-5.40); White Blood Count 8.14 K/ul (4.8-10.8)
[2023-07-07 07:40] LABS: Albumin Globulin Ratio 1.5 (0.9-2); Albumin Level 3.2 gm/dl (3.4-5.0); BUN Creatinine Ratio 22.3 (10-20); Bilirubin,Total 0.5 mg/dl (0.2-1.0); Calcium 8.8 mg/dl (8.6-10.3); Creatinine Clr Calc Pharmacy 34.6 ml/min; Est GFR (African American) 56.6 ml/min; Est GFR (Non-African American) 48.8 ml/min; Globulin 2.2 gm/dl (2.5-4.0); Magnesium 1.6 mg/dl (1.7-2.4); Total Protein 5.4 gm/dl (6.0-8.3)
[2023-07-07 07:44] LABS: INR 1.1 (0.9-1.1); Prothrombin Time 12.2 Seconds (9.0-12.0)
[2023-07-07] MEDS: UMECLIDINIUM BROMIDE 62.5MCG/BLISTER 7 PUFFS/INHALER INH SCH (08:04)
--- NOTE | 2023-07-07 08:21 | Hospitalist Progress Note ---
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 -Presented to the ED with monique appearing stool since 07/01 after outpatient labs showed a Hgb of 6.7 (down from 9.4 on 06/30/23), heme+ stool in office -At this time the most likely cause of her blood loss anemia is an upper GI bleed due to recent Aleve use and patient being on Elqiuis for her hx of BL DVT and massive PE in January of 2023, LGIB is possible as well given monique stool and no tia melena or tia blood -continue IV PPI -Hg with appropriate increase from 6.7-->7.6 after 1 unit transfusion on admission. Will transfuse 1 unit today - is on immunotherapy currently for cancer will set goal closer to Hgb 8 -stop NSAIDs -discussed with Dr. Brown - considering EGD/colonoscopy wednesday versus empiric treatment only and stopping NSAIDs. He thought would be safe to resume apixaban following IV PPI treatment (2) Chronic anticoagulation: Plan: -Has been on 5 mg BID Eliquis since her admission in January of 2023 when she was diagnosed with a massive PE due to BL DVT's -Did undergo intravenous thrombolytic therapy during her admission in 2022 -hold apixaban (last dose AM 07/05) -anticipate resuming at prophylaxis dose on discharge, if reasonable risk to resume anticoagulation based on GI assessment as above (3) Squamous cell carcinoma of lung, stage III: Plan: Being treated with carbo/taxol and XRT -Continue to follow with heme/onc on discharge -due for repeat chest CT for staging can be done in outpatient setting (4) Hyperlipidemia: Plan: -Hod statin while npo -Resume on DC (5) COPD with emphysema: Plan: Chronic hypoxic respiratory failure - on nocturnal home O2 2L Not in exacerbation -Stable on RA, no wheezing on exam -Continue home breathing treatments -Incentive spirometry Plan mild hypomagnesemia, mag 1.6 - ordered IV replacement 1g updated her daughter at bedside 07/05 Admission and Anticipated Discharge Date Admission Date: July 06, 2023 Subjective no stools overnight no dyspnea or chest pain tolerated transfusion well last night took multiple doses aleve daily x 3 days for neck pain related to falling asleep in funny position sitting (which has completely resolved) no abdominal pain or nausea Physical Exam 2 Physical Exam: PHYSICAL EXAMINATION Last 24h vital signs reviewed, see documentation in flowsheet General: comfortable appearing, no distress HEENT: Normocephalic, atraumatic, pupils round and equal, sclerae anicteric, no conjunctival injection, moist mucus membranes Lungs: Normal respiratory effort. Clear to auscultation bilaterally. No RRW Heart: Regular rate and rhythm, no murmurs. No JVD Abdomen: Soft, nontender, nondistended. Bowel sounds present. Extremities: Warm, dry, well-perfused. No extremity edema. Neuro: Alert and oriented x 4, face symmetric, moves 4 extremities well Psych: Normal affect and behavior Results & Data Results & Data Vital Signs (Past 12 Hours) Vital Signs Temp Pulse Pulse Resp BP BP Pulse Ox 07/07/23 05:00 82 18 115/72 92 07/07/23 01:52 70 18 133/82 98 07/07/23 01:50 07/07/23 00:04 95 H 18 133/82 97 07/06/23 23:10 87 07/06/23 21:17 96 H 07/06/23 20:44 36.8 C 90 18 137/67 99 07/06/23 20:21 106 H 25 H Pulse Ox O2 Del Method O2 Del Method 07/07/23 05:00 Room Air 07/07/23 01:52 Room Air 07/07/23 01:50 95 Room Air 07/07/23 00:04 Room Air 07/06/23 23:10 07/06/23 21:17 07/06/23 20:44 07/06/23 20:21 Laboratory Results 07/07/23 06:47 07/07/23 06:47 PG Care Time/CCT Total # of Minutes Spent Total Time Spent with Patient: Total time spent is greater than 50% in coordination of care (as documented) at patient's floor/unit and/or counseling patient: Coding Level of Care Code 55175 SUB INP/OBS CARE 3/50MIN Diagnoses Acute blood loss anemia D62 Chronic anticoagulation Z79.01 Stage III squamous cell carcinoma of left lung C34.92 Laterality: left Hyperlipidemia E78.5 Centrilobular emphysema J43.2 Emphysema type: centrilobular (3) Squamous cell carcinoma of lung, stage III Laterality: left Qualified Code(s): C34.92 - Malignant neoplasm of unspecified part of left bronchus or lung (5) COPD with emphysema Emphysema type: centrilobular Qualified Code(s): J43.2 - Centrilobular emphysema
[2023-07-07] MEDS: MAGNESIUM SULFATE / D5W 1 GM/100 ML BAG IV ONE (09:44)
[2023-07-07] MEDS ORDERED: SODIUM CHLORIDE 0.9% 250 ML IV PRN (11:22)
[2023-07-07 12:30] LABS: Hematocrit (blood only) 25.1 % (37.0-47.0); Mean Corpuscular Hemoglobin 30.1 pg (25.0-34.0); Mean Corpuscular Hgb Conc 31.9 g/dL (32.0-36.0); Mean Corpuscular Volume 94.4 fL (80.0-100.0); Mean Platelet Volume 9.6 fL (9.4-12.4); Platelet Count 345 K/uL (130-400); RDW Coefficient of Variation 19.3 % (11.5-14.5); RDW Standard Deviation 63.7 fL (36.4-46.3); Red Blood Count 2.66 M/uL (4.20-5.40); White Blood Count 8.34 K/ul (4.8-10.8)
--- NOTE | 2023-07-07 15:44 | Gastrointestinal Consultation ---
Date of Consultation July 07, 2023 Assessment & Plan (1) GI bleed: It is kind of an interesting story. She describes having a GI bleed this past Wednesday and Wednesday with dark rust colored stool and diarrhea. However since then she has had no more bowel movements. She did take aleve but only took a total of less than 9 pills before this started. That really seems too quick to cause an ulcer but I guess it can. She does need evaluation but since she is not actively bleeding now and took eliquis through yesterday I think if we do testing we should wait until Wednesday. Also because of the fact that she only took 9 Aleve pills over three days, I think if we do testing we should do both EGD and colonoscopy. She and I discussed this at length. I do think her age should play a role in the decision so I asked her to think about it over night and let me know if she wants to have testing tomorrow. If so we will plan for Wednesday. Since she is not bleeding and she is battling lung cancer I told her she could choose just to observe and take meds for ulcers. We will make the final decision tomorrow. I will let her have clear liquids for now. History of Present Illness Reason for Consultation: anemia Attending Physician: Millicent Zapata MD History of Present Illness 88 year old female who tells me that Wednesday she passed a "funny colored stool". She describes it as dark and "monique". She had no pain with it but she did have diarrhea over Wednesday and Wednesday. She thinks that since Wednesday she has not had a bowel movement. She knows for sure she has not had one yesterday or today. Last week she slept wrong and had a very painful neck strain. On Wednesday when she went through immunotherapy she talked with the person there and they decided she could take Aleve for a few days. She took it Wednesday and Wednesday until the stool turned dark and then she stopped it. She is here now because of anemia and she feels wonderful. Of note she takes Eliquis and took it up through yesterday. She did have an ulcer from Aleve many years ago and stopped taking it then until last week. She tells me her last colonoscopy was 17 years ago. Allergies Allergy/AdvReac Type Severity Reaction Status Date / Time No Known Allergies Allergy Verified 07/06/23 17:35 Home Medications Medication Instructions Recorded Confirmed Type multivitamin 1 tab PO QAM 02/16/20 07/06/23 History albuterol sulfate 90 mcg/actuation 2 puff inhalation Q4H PRN 01/14/22 07/06/23 Rx aerosol inhaler (Ventolin HFA) Shortness Of Breath #1 inhaler Oxygen Home [id number] 06/01/22 07/06/23 History Over Night Pulse OX #1 ea 11/30/22 07/06/23 Rx acetaminophen 500 mg tablet 1,000 mg PO DIRECTED PRN Pain 12/28/22 07/06/23 History (Tylenol Extra Strength) allopurinol 300 mg tablet 300 mg PO DAILY #90 tabs 01/21/23 07/06/23 Rx atorvastatin 40 mg tablet 40 mg PO QAM #90 tabs 02/11/23 07/06/23 Rx apixaban 5 mg tablet (Eliquis) 5 mg PO BID #60 tabs 03/10/23 07/06/23 Rx mirabegron 25 mg tablet,extended 25 mg PO DAILY #30 tabs 06/29/23 07/06/23 Rx release 24 hr tiotropium bromide 2.5 2 inh inhalation QAM 07/06/23 07/06/23 History mcg/actuation mist for inhalation (Spiriva Respimat) Patient History Medical History GERD (gastroesophageal reflux disease) 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) Elevated LFTs Multifocal pneumonia Acute kidney injury superimposed on CKD Elevated procalcitonin Hyponatremia SHABBIR (acute kidney injury) Hypoxia Dyspnea Sacroiliitis Sciatica RT CKD (chronic kidney disease) Sensorineural hearing loss (SNHL) of both ears Hx of gout Gout Osteoarthritis Scoliosis Spinal stenosis Chronic back pain Hx of gastric ulcer Hx of skin cancer, basal cell Chronic obstructive pulmonary disease SNHL (sensorineural hearing loss) Schatzki's ring Osteoporosis Chronic obstructive pulmonary disease Surgical History History of bronchoscopy History of Mohs micrographic surgery for skin cancer History of bilateral tubal ligation History of esophagogastroduodenoscopy (EGD) S/P epidural steroid injection History of colonoscopy History of arthroplasty of knee RT/LEFT History of breast biopsy Family History Mother Family history of colon cancer Family history of cardiac disorder Hearing loss Cancer Ovarian cancer Rectal cancer Other No family history of adverse response to anesthesia Denies family history of Myocardial infarction Breast cancer Colorectal cancer Social History Smoking Status: Never smoker Tobacco Type: Cigarettes Age Started Using Tobacco: 23; Age Quit Using Tobacco: 86; Cigarettes Per Day: 10; Second Hand Exposure: Yes ( A CHILD); Do You Dip or Chew Tobacco: No; Hx Alcohol Use: No Hx Substance Use: No Preferred Language: Slovak Communication Ability: Effective Visual Impairment: No Limitations Hearing Ability: Use of Hearing Aid Supervisor Prep Required: No Beliefs That Will Affect Care: None marital status: / Current Living Situation: Alone Current Living Situation Comment: Lives in [facility] current occupational status: retired Feels Safe at Home: Yes Safety Concerns: Feels Safe At This Time Diet: regular during the past year weight has: decreased > 10 lbs Assistive Devices: Oxygen - at Night and Walker Review of Systems Review of Systems: All systems reviewed & are unremarkable except as noted in HPI & below Physical Exam 2 Constitutional: WD/WN, vitals as above no acute distress Eyes: PERRL, conjunctivae normal, anicteric sclerae ENMT: external ear and nose normal, oropharynx normal Neck: trachea midline, no thyromegaly Respiratory: normal respiratory effort, lungs clear to auscultation Cardiovascular: RRR, no murmur, no edema Gastrointestinal (Abdomen): normal bowel sounds, soft, nontender, no hepatospl enomegaly Musculoskeletal: Extremities: no cyanosis and no clubbing Skin: no rashes, warm and dry Neurologic: PERRL, EOMI, accommodation nl, no face palsy, no dysarthria Psychiatric: Orientation: alert and oriented x 3 Results & Data Vital Signs (Past 12 Hours) Vital Signs Temp Pulse Resp BP Pulse Ox O2 Del Method 07/07/23 14:41 36.5 C 82 19 136/74 95 07/07/23 13:41 36.5 C 77 20 134/75 94 07/07/23 13:05 122/63 07/07/23 13:05 85 23 93 07/07/23 13:00 123/65 07/07/23 13:00 84 20 93 07/07/23 12:56 36.6 C 84 15 115/63 93 07/07/23 12:56 36.8 C 81 18 117/61 95 07/07/23 12:55 115/63 07/07/23 12:55 76 15 93 07/07/23 12:50 117/64 07/07/23 12:50 81 18 95 07/07/23 12:45 117/61 07/07/23 12:45 81 15 93 07/07/23 12:45 36.7 C 80 22 117/61 93 07/07/23 12:40 85 15 07/07/23 12:40 128/74 07/07/23 12:35 36.8 C 86 18 121/69 93 07/07/23 12:34 88 12 07/07/23 12:33 121/69 07/07/23 11:48 91 H 19 07/07/23 11:40 93 H 20 95 07/07/23 11:30 90 25 H 95 07/07/23 11:20 86 21 95 07/07/23 11:10 90 21 96 07/07/23 11:00 89 22 97 07/07/23 10:50 93 H 18 93 07/07/23 10:40 90 18 95 07/07/23 10:30 88 21 97 07/07/23 10:20 86 18 97 07/07/23 10:10 88 27 H 95 07/07/23 10:00 90 17 96 07/07/23 09:50 85 20 94 07/07/23 09:40 83 13 96 07/07/23 09:30 79 21 95 07/07/23 09:20 86 18 91 07/07/23 09:10 84 22 93 07/07/23 09:00 86 21 94 07/07/23 08:58 84 07/07/23 08:50 88 20 94 07/07/23 08:40 88 93 07/07/23 08:30 91 H 20 94 07/07/23 08:23 127/60 07/07/23 08:23 93 H 12 07/07/23 08:00 129/62 07/07/23 08:00 86 14 94 07/07/23 07:50 89 15 93 07/07/23 07:40 81 23 93 07/07/23 07:30 79 22 94 07/07/23 07:20 81 22 92 07/07/23 07:10 85 18 93 07/07/23 07:00 84 13 92 07/07/23 06:50 87 25 H 93 07/07/23 06:49 91 H 24 94 07/07/23 06:49 115/60 07/07/23 06:40 84 11 L 94 07/07/23 06:30 79 16 94 07/07/23 06:20 75 14 98 07/07/23 06:10 85 19 90 07/07/23 06:00 83 24 94 07/07/23 05:50 77 24 96 07/07/23 05:40 80 24 95 07/07/23 05:30 78 20 93 07/07/23 05:20 78 18 95 07/07/23 05:10 81 18 93 07/07/23 05:00 82 18 115/72 92 Room Air Laboratory Results 07/07/23 07/07/23 07/07/23 Range/Units 11:47 06:47 00:12 WBC 8.34 8.14 8.49 (4.8-10.8) K/ul RBC 2.66 L 2.55 L 2.62 L (4.20-5.40) M/uL Hgb 8.0 L 7.6 L 8.0 L (12.0-16.0) g/dl Hct 25.1 L 24.2 L 25.2 L (37.0-47.0) % MCV 94.4 94.9 96.2 (80.0-100.0) fL MCH 30.1 29.8 30.5 (25.0-34.0) pg MCHC 31.9 L 31.4 L 31.7 L (32.0-36.0) g/dL RDW Std Deviation 63.7 H 63.7 H 62.6 H (36.4-46.3) fL RDW Coeff of Lazara 19.3 H 19.2 H 18.6 H (11.5-14.5) % Plt Count 345 317 308 (130-400) K/uL MPV 9.6 9.5 9.5 (9.4-12.4) fL Immature Gran % (Auto) % Neut % (Auto) % Lymph % (Auto) % [place] % (Auto) % Eos % (Auto) % Baso % (Auto) % Neut # (Auto) (1.40-6.50) K/uL Lymph # (Auto) (1.20-3.40) K/uL [place] # (Auto) (0.11-0.59) K/uL Eos # (Auto) (0.00-0.50) K/uL Baso # (Auto) (0.00-0.20) K/uL Immature Gran # (Auto) (0.01-0.20) K/uL Absolute Nucleated RBC 0.03 (0.00-0.12) K/uL Nucleated RBC % (auto) 0.4 % Polychromasia Anisocytosis Tear Drop Cells PT 12.2 H (9.0-12.0) Seconds INR 1.1 (0.9-1.1) APTT (21-31) Seconds PTT Ratio Sodium 141 (136-145) mmol/L Potassium 4.0 (3.5-5.1) mmol/L Chloride 109 H (98-107) mmol/L Carbon Dioxide 26 (21-32) mmol/L Anion Gap 6 (3-11) BUN 23 (6-23) mg/dl Creatinine 1.03 (0.6-1.2) mg/dl Est Cr Clr Drug Dosing 34.6 ml/min Est GFR ( Amer) 56.6 ml/min Est GFR (Non-Af Amer) 48.8 ml/min BUN/Creatinine Ratio 22.3 H (10-20) Glucose 90 (70-99(Fasting)) mg/dl Calcium 8.8 (8.6-10.3) mg/dl Magnesium 1.6 L (1.7-2.4) mg/dl Total Bilirubin 0.5 (0.2-1.0) mg/dl AST 15 (13-39) U/L ALT 11 (7-52) U/L Alkaline Phosphatase 110 H (34-104) U/L Total Protein 5.4 L (6.0-8.3) gm/dl Albumin 3.2 L (3.4-5.0) gm/dl Globulin 2.2 L (2.5-4.0) gm/dl Albumin/Globulin Ratio 1.5 (0.9-2) Blood Type Antibody Screen Crossmatch 07/06/23 Range/Units 16:26 WBC 11.10 H (4.8-10.8) K/ul RBC 2.17 L (4.20-5.40) M/uL Hgb 6.5 L* (12.0-16.0) g/dl Hct 21.4 L (37.0-47.0) % MCV 98.6 (80.0-100.0) fL MCH 30.0 (25.0-34.0) pg MCHC 30.4 L (32.0-36.0) g/dL RDW Std Deviation 64.8 H (36.4-46.3) fL RDW Coeff of Lazara 18.3 H (11.5-14.5) % Plt Count 404 H (130-400) K/uL MPV 9.7 (9.4-12.4) fL Immature Gran % (Auto) 1.5 % Neut % (Auto) 73.1 % Lymph % (Auto) 14.4 % [place] % (Auto) 9.2 % Eos % (Auto) 1.4 % Baso % (Auto) 0.4 % Neut # (Auto) 8.11 H (1.40-6.50) K/uL Lymph # (Auto) 1.60 (1.20-3.40) K/uL [place] # (Auto) 1.02 H (0.11-0.59) K/uL Eos # (Auto) 0.16 (0.00-0.50) K/uL Baso # (Auto) 0.04 (0.00-0.20) K/uL Immature Gran # (Auto) 0.17 (0.01-0.20) K/uL Absolute Nucleated RBC 0.04 (0.00-0.12) K/uL Nucleated RBC % (auto) 0.4 % Polychromasia 1+ Anisocytosis Present Tear Drop Cells 1+ PT 12.3 H (9.0-12.0) Seconds INR 1.1 (0.9-1.1) APTT 31 (21-31) Seconds PTT Ratio 1.1 Sodium 141 (136-145) mmol/L Potassium 4.1 (3.5-5.1) mmol/L Chloride 107 (98-107) mmol/L Carbon Dioxide 25 (21-32) mmol/L Anion Gap 9 (3-11) BUN 30 H (6-23) mg/dl Creatinine 1.08 (0.6-1.2) mg/dl Est Cr Clr Drug Dosing 31.4 ml/min Est GFR ( Amer) 53.5 ml/min Est GFR (Non-Af Amer) 46.1 ml/min BUN/Creatinine Ratio 27.8 H (10-20) Glucose 104 H (70-99(Fasting)) mg/dl Calcium 9.4 (8.6-10.3) mg/dl Magnesium (1.7-2.4) mg/dl Total Bilirubin 0.4 (0.2-1.0) mg/dl AST 19 (13-39) U/L ALT 14 (7-52) U/L Alkaline Phosphatase 135 H (34-104) U/L Total Protein 6.4 (6.0-8.3) gm/dl Albumin 3.9 (3.4-5.0) gm/dl Globulin 2.5 (2.5-4.0) gm/dl Albumin/Globulin Ratio 1.6 (0.9-2) Blood Type O Positive Antibody Screen NEGATIVE Crossmatch See Detail Diagnostic Findings Venous Doppler Study 07/06/23 18:28 Exam(s): US VENOUS BILATERAL LOWER EXTREMITIES EXAM: US Duplex Bilateral Lower Extremities Veins CLINICAL HISTORY: Reason for exam: acute GI bleed, on anticoagulation for DVT/PE. TECHNIQUE: Real-time duplex ultrasound scan of the bilateral lower extremity veins integrating B-mode two-dimensional vascular structure, Doppler spectral analysis, color flow Doppler imaging and compression. COMPARISON: None. FINDINGS: Right deep veins: Unremarkable. No DVT in the right common femoral, femoral, proximal deep femoral or popliteal veins. The veins demonstrate normal color flow, are normally compressible, with normal phasic flow and/or augmentation response. Right superficial veins: Unremarkable. No thrombus in the visualized right great saphenous vein. Left deep veins: Unremarkable. No DVT in the left common femoral, femoral, proximal deep femoral or popliteal veins. The veins demonstrate normal color flow, are normally compressible, with normal phasic flow and/or augmentation response. Left superficial veins: Unremarkable. No thrombus in the visualized left great saphenous vein. Soft tissues: No acute findings. No popliteal cyst. IMPRESSION: No sonographic evidence of deep vein thrombosis in the right or left lower extremity. Electronically signed by: Rufus Dumont MD 07/06/23 22:53 PM Chest X-Ray 07/06/23 18:37 SINGLE VIEW CHEST CLINICAL HISTORY: Preoperative examination. FINDINGS: An AP, portable, upright chest radiograph is compared to chest x-ray and chest CT dated 02/01/2023. The heart is top normal for projection noting atherosclerotic calcification of the thoracic aorta. The pulmonary vasculature is noncongestive. Emphysema and chronic interstitial thickening is similar to previous. There is elevation of the left hemidiaphragm with bibasilar scarring/atelectasis. Cystic change in the superior segment of the left lower lobe is again noted. There are new airspace opacities in the left upper lung and at the right lung base. Trace pleural effusions are suspected. No pneumothorax is seen. The skeletal structures are osteopenic. The bony thorax is grossly intact. IMPRESSION: 1. Emphysema. 2. There are new airspace opacities in the left upper lobe and at the right lung base. This could represent scarring/atelectasis versus pneumonia/aspiration pneumonitis. Clinical correlation will be required and radiographic follow-up to resolution is recommended. 3. Suspect trace pleural effusions. ACT 112: Negative or not required by law. Electronically signed by: Danyel Shukla M.D. 07/06/2023 7:45 PM (1) GI bleed GI bleed type/associated pathology: unspecified gastrointestinal hemorrhage type Qualified Code(s): K92.2 - Gastrointestinal hemorrhage, unspecified
--- NOTE | 2023-07-07 16:10 | Electrocardiogram Report ---
Test Reason : Blood Pressure : / mmHG Vent. 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 rate has decreased BY 46 BPM Criteria for Inferior infarct are no longer Present Confirmed by Troy Sanchez ([id number]) on 07/07/2023 4:09:46 PM Referred By: Angel Ac Confirmed By:Troy Sanchez
[2023-07-07 17:55] LABS: Hematocrit (blood only) 29.7 % (37.0-47.0); Hemoglobin 9.7 g/dl (12.0-16.0); Mean Corpuscular Hemoglobin 29.9 pg (25.0-34.0); Mean Corpuscular Hgb Conc 32.7 g/dL (32.0-36.0); Mean Corpuscular Volume 91.7 fL (80.0-100.0); Mean Platelet Volume 9.4 fL (9.4-12.4); Nucleated RBC # (auto) 0.02 K/uL (0.00-0.12); Nucleated RBC % (auto) 0.3 %; Platelet Count 315 K/uL (130-400); RDW Coefficient of Variation 18.8 % (11.5-14.5); Red Blood Count 3.24 M/uL (4.20-5.40); White Blood Count 7.74 K/ul (4.8-10.8)
[2023-07-08 01:03] LABS: Hematocrit (blood only) 28.3 % (37.0-47.0); Hemoglobin 9.4 g/dl (12.0-16.0); Mean Corpuscular Hemoglobin 30.1 pg (25.0-34.0); Mean Corpuscular Hgb Conc 33.2 g/dL (32.0-36.0); Mean Corpuscular Volume 90.7 fL (80.0-100.0); Mean Platelet Volume 9.2 fL (9.4-12.4); Nucleated RBC # (auto) 0.02 K/uL (0.00-0.12); Nucleated RBC % (auto) 0.2 %; Platelet Count 325 K/uL (130-400); RDW Coefficient of Variation 19.2 % (11.5-14.5); RDW Standard Deviation 60.7 fL (36.4-46.3); Red Blood Count 3.12 M/uL (4.20-5.40); White Blood Count 10.86 K/ul (4.8-10.8)
[2023-07-08 06:08] LABS: Hematocrit (blood only) 27.6 % (37.0-47.0); Hemoglobin 9.2 g/dl (12.0-16.0); Mean Corpuscular Hemoglobin 30.4 pg (25.0-34.0); Mean Corpuscular Hgb Conc 33.3 g/dL (32.0-36.0); Mean Corpuscular Volume 91.1 fL (80.0-100.0); Mean Platelet Volume 9.3 fL (9.4-12.4); Platelet Count 305 K/uL (130-400); RDW Standard Deviation 60.1 fL (36.4-46.3); Red Blood Count 3.03 M/uL (4.20-5.40); White Blood Count 8.48 K/ul (4.8-10.8)
[2023-07-08 06:25] LABS: Albumin Globulin Ratio 1.4 (0.9-2); Albumin Level 3.2 gm/dl (3.4-5.0); BUN Creatinine Ratio 17.8 (10-20); Bilirubin,Total 0.6 mg/dl (0.2-1.0); Calcium 8.9 mg/dl (8.6-10.3); Creatinine Clr Calc Pharmacy 33.3 ml/min; Est GFR (African American) 54.1 ml/min; Est GFR (Non-African American) 46.6 ml/min; Globulin 2.3 gm/dl (2.5-4.0); Magnesium 1.7 mg/dl (1.7-2.4); Potassium 3.9 mmol/L (3.5-5.1); Total Protein 5.5 gm/dl (6.0-8.3)
[2023-07-08 07:58] VITALS: TEMP 97.9
--- NOTE | 2023-07-08 12:01 | Gastroenterology Progress Note ---
Date of Service July 08, 2023 Assessment & Plan (1) GI bleed: Plan: I am okay with her going home. I would do double dose PPI for a month and then back off to daily. No more NSAIDs. Careful anticoagulation. She understands what to look for to determine the need to return here. Admission and Anticipated Discharge Date Admission Date: July 06, 2023 Subjective Feeling well. Had a normal brown bowel movement. Hgb 9.2. Has made decision to forego procedures and go home Physical Exam Physical Exam: She looks well Results & Data Vital Signs (Past 12 Hours) Vital Signs Temp Pulse Pulse Resp BP Pulse Ox Pulse Ox 07/08/23 07:55 36.6 C 88 16 123/76 97 07/08/23 03:16 36.2 C L 92 H 18 92/54 L 92 07/08/23 01:00 97 07/08/23 00:21 83 O2 Del Method O2 Del Method 07/08/23 07:55 Room Air 07/08/23 03:16 Room Air 07/08/23 01:00 Room Air 07/08/23 00:21 (1) GI bleed GI bleed type/associated pathology: unspecified gastrointestinal hemorrhage type Qualified Code(s): K92.2 - Gastrointestinal hemorrhage, unspecified
[2023-07-08 12:02] VITALS: BP 132/64; PULSE 91; RESP 17; O2SAT 96
--- NOTE | 2023-07-08 21:05 | Discharge Summary ---
Date of Service July 08, 2023 Admission HPI Per Admitting Provider Josie is an 88 year old female with a PMH significant for [facility] admission from 02/01-02/05 for Acute massive PE thought to be due to BL LE DVT's S/P intravenous thrombolytic therapy (on Eliquis), squamous cell carcinoma of the left lower lobe currently undergoing radiation and chemotherapy treatment (carbo/taxol), COPD, and chronic hypoxic respiratory failure on baseline 2L NC at night who presented to the [facility] ED on 07/06/23 after outpatient labs showed a Hgb of 6.7. She was noted to be tachycardic with HR of 102 but was otherwise stable while in the ED. Repeat labs in the ED showed a hgb of 6.5 (down from 9.4 as of 06/30/23), leukocytosis of 11 with neutrophil predominance of 8, BUN of 30 with stable Cr and reported heme positive stool at her PCP's office. Prior to admission the patient was started on pantoprazole drip, with bolus. She was consented for blood and was ordered for a total of 3 units to be prepared and one unit to be given on admission. At the time of the exam the patient was sitting in bed in no acute distress with her daughter sitting bedside, history was obtained from both. The patient has been experiencing chronic neck pain and headaches last week so she started to take BID Aleve at the recommended dosing. Starting on 07/01 she noticed that her stool was starting to appear "monique" in color. She denies any bright red blood with BM's and has been without abdominal pain, nausea, and vomiting. She saw her PCP this am due to concerns of possible GI bleed as she had a previous stomach ulcer approximately 10 years ago while off anticoagulation and using Aleve. Her last dose of Eliquis was this am. She denies recent fever, chills, lightheadedness, dizziness, chest pain, SOB, cough, abd pain, nausea, vomiting, diarrhea, LE swelling/pain, and recent trauma. She confirms that she is a DNR/DNI and her daughter would make medical decisions for her if she cannot make them herself. Principal Diagnosis acute gastrointestinal bleeding, acute blood loss anemia Discharge Exam PHYSICAL EXAMINATION Last 24h vital signs reviewed, see documentation in flowsheet General: comfortable appearing, no distress, sitting on EOB in street clothes HEENT: Normocephalic, atraumatic, pupils round and equal, sclerae anicteric, no conjunctival injection, moist mucus membranes Lungs: Normal respiratory effort. Clear to auscultation bilaterally. No RRW Heart: Regular rate and rhythm, no murmurs. No JVD Abdomen: Soft, nontender, nondistended. Bowel sounds present. Extremities: Warm, dry, well-perfused. No extremity edema. Neuro: Alert and oriented x 4, face symmetric, moves 4 extremities well Psych: Normal affect and behavior Discharge Data Allergies Allergy/AdvReac Type Severity Reaction Status Date / Time No Known Allergies Allergy Verified 07/06/23 17:35 Consultations 07/06/23 17:13 ED Decision to Admit Stat 07/06/23 18:35 Consult Gastroenterology Routine Ordered Studies 07/06/23 18:28 US venous doppler LE BI Urgent Venous Doppler Study 07/06/23 18:28 Exam(s): US VENOUS BILATERAL LOWER EXTREMITIES EXAM: US Duplex Bilateral Lower Extremities Veins CLINICAL HISTORY: Reason for exam: acute GI bleed, on anticoagulation for DVT/PE. TECHNIQUE: Real-time duplex ultrasound scan of the bilateral lower extremity veins integrating B-mode two-dimensional vascular structure, Doppler spectral analysis, color flow Doppler imaging and compression. COMPARISON: None. FINDINGS: Right deep veins: Unremarkable. No DVT in the right common femoral, femoral, proximal deep femoral or popliteal veins. The veins demonstrate normal color flow, are normally compressible, with normal phasic flow and/or augmentation response. Right superficial veins: Unremarkable. No thrombus in the visualized right great saphenous vein. Left deep veins: Unremarkable. No DVT in the left common femoral, femoral, proximal deep femoral or popliteal veins. The veins demonstrate normal color flow, are normally compressible, with normal phasic flow and/or augmentation response. Left superficial veins: Unremarkable. No thrombus in the visualized left great saphenous vein. Soft tissues: No acute findings. No popliteal cyst. IMPRESSION: No sonographic evidence of deep vein thrombosis in the right or left lower extremity. Electronically signed by: Rufus Dumont MD 07/06/23 22:53 PM Chest X-Ray 07/06/23 18:37 SINGLE VIEW CHEST CLINICAL HISTORY: Preoperative examination. FINDINGS: An AP, portable, upright chest radiograph is compared to chest x-ray and chest CT dated 02/01/2023. The heart is top normal for projection noting atherosclerotic calcification of the thoracic aorta. The pulmonary vasculature is noncongestive. Emphysema and chronic interstitial thickening is similar to previous. There is elevation of the left hemidiaphragm with bibasilar scarring/atelectasis. Cystic change in the superior segment of the left lower lobe is again noted. There are new airspace opacities in the left upper lung and at the right lung base. Trace pleural effusions are suspected. No pneumothorax is seen. The skeletal structures are osteopenic. The bony thorax is grossly intact. IMPRESSION: 1. Emphysema. 2. There are new airspace opacities in the left upper lobe and at the right lung base. This could represent scarring/atelectasis versus pneumonia/aspiration pneumonitis. Clinical correlation will be required and radiographic follow-up to resolution is recommended. 3. Suspect trace pleural effusions. ACT 112: Negative or not required by law. Electronically signed by: Danyel Shukla M.D. 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 -Presented to the ED with monique appearing stool since 07/01 after outpatient labs showed a Hgb of 6.7 (down from 9.4 on 06/30/23), heme+ stool in office -At this time the most likely cause of her blood loss anemia is an upper GI bleed due to recent Aleve use and patient being on Elqiuis for her hx of BL DVT and massive PE in January of 2023, LGIB is possible as well given monique stool and no tia melena or tia blood -continue IV PPI -Hg with appropriate increase from 6.7-->7.6 after 1 unit transfusion then to above 9 with second unit and remained stable -had brown stool this am. -stop NSAIDs -GI Dr. Brown consulted, ultimately Josie chose against undergoing EGD/colonoscopy favoring empiric treatment with PPI and stopping NSAIDs. -discussed with - bid PPI for a month then daily -discussed with Dr. Blanca - resume apixaban but at prophylaxis dose 2.5 mg bid (2) Chronic anticoagulation: -Has been on 5 mg BID Eliquis since her admission in January of 2023 when she was diagnosed with a massive PE due to BL DVT's -Did undergo intravenous thrombolytic therapy during her admission in 2022 LE duplex this admission negative for DVT Completed 5 months apixaban full dose Disucssed with Dr. Blanca - had planned to change to ppx dose 2.5 mg bid starting August, to reduce dose at this time given risk:benefit and GI bleeding (3) Squamous cell carcinoma of lung, stage III: Was treated with carbo/taxol and XRT, currently immunotherapy -Continue to follow with heme/onc on discharge -due for repeat chest CT for staging - scheduled as outpatient (4) Hyperlipidemia: (5) COPD with emphysema: Chronic hypoxic respiratory failure - on nocturnal home O2 2L Not in exacerbation Plan mild hypomagnesemia replaced IV Total Time Total Time Spent Total Time Spent (In Minutes): 35 minutes spent coordinating care for discharge including discussion with consultants, examining and counseling patient, reviewing vitals and labs, orders instructions and documentation Discharge Plan Discharge Items Patient Disposition: Home - Self-Care Reason For Visit: ACUTE BLOOD LOSS ANEMIA Discharge Diagnosis: Acute gastrointestinal bleeding Activity: Resume your previous activity Non-emergency contact: Primary Care Provider and Oncologist Call non-emergency contact if: you have any medication questions Follow-up/Referrals: Angel Ac MD [Primary Care Provider] - 07/19/23 9:00 am (with Millicent. ) Mary Kate Blanca MD [Physician] - (Please follow up with Dr. Blanca's office to schedule your follow up.) Diet: Regular Addtl Attending Provider Instructions: You were evaluated for gastrointestinal bleeding Dr. Brown with [facility] gastro[facility] consulted Fortunately bleeding has stopped and your blood count came up very well with 2 units blood transfusion It is possible you had stomach bleeding from ulcer related to aleve, though red stool is more characteristic of lower intestinal bleeding You decided not to have endoscopy, which is a reasonable decision Avoid NSAIDs in the future - they cause a high risk of bleeding for people who are taking blood thinners like eliquis NSAIDs include aleve/naproxen and motrin/advil/ibuprofen tylenol/acetaminophen is safe to take for aches and pains Take acid suppression medicine (pantoprazole) twice a day for a month, then decrease to daily for at least another month I spoke with Dr. Blanca and she recommends decreasing the eliquis to prophylaxis dose at this time I sent in prescriptions for these Seek medical attention if you have recurrent bleeding - black/tarry or bloody stools Pending Studies at Discharge: No Stand-Alone Forms: My [facility], Smoking Cessation Medications and DC Order Prescriptions: New apixaban 2.5 mg tablet 2.5 mg PO BID Qty: 60 0RF pantoprazole 40 mg tablet,delayed release (DR/EC) 40 mg PO BID Qty: 60 0RF Continued acetaminophen [Tylenol Extra Strength] 500 mg tablet 1,000 mg PO DIRECTED PRN (Reason: Pain) allopurinol 300 mg tablet 300 mg PO DAILY Qty: 90 3RF atorvastatin 40 mg tablet 40 mg PO QAM Qty: 90 3RF albuterol sulfate [Ventolin HFA] 90 mcg/actuation HFA aerosol inhaler 2 puff inhalation Q4H PRN (Reason: Shortness Of Breath) Qty: 1 11RF (DME) Oxygen Home [id number] Liters Per Minute See Rx Instructions .Route Rx Instructions: As directed - 2lpm at HS mirabegron 25 mg tablet extended release 24 hr 25 mg PO DAILY Qty: 30 2RF (DME) Over Night Pulse OX Misc See Rx Instructions .MEDSUPPLY Qty: 1 0RF Rx Instructions: Room air multivitamin Tablet 1 tab PO QAM Spiriva Respimat 2.5 mcg/actuation mist 2 inh inhalation QAM Rx Instructions: INHALE 2 PUFFS BY MOUTH EVERY MORNING Discontinued Eliquis 5 mg tablet 5 mg PO BID Qty: 60 5RF Rx Instructions: PER PT AND PT'S DAUGHTER "TOLD TO STOP TAKING ELIQUIS NOW". Discharge Orders: Discharge Order (Routine); Ordered 07/08/23 Ordered By: Millicent Zapata Admission Data Admit Date/Time: 07/06/23 18:28 Attending Provider: Millicent Zaptaa Admit Provider: Juan Ruffin Primary Care Provider: Angel Ac Other Providers: Juan Ruffin; Brown,Bong C. Jr Other Interventions: Discharge Summary Assessment (RN) Last Done: 07/08/23 12:34 Coding Level of Care Code 50321 INP/OBS DISCH >30 MIN Diagnoses Acute blood loss anemia D62 Chronic anticoagulation Z79.01 Stage III squamous cell carcinoma of left lung C34.92 Laterality: left Hyperlipidemia E78.5 Centrilobular emphysema J43.2 Emphysema type: centrilobular
== END 2023-07-08 13:30 | disposition home or self-care (01) | DRG 378 ==
LOC: ED 15:04 → EDINP 18:28 → SUATTDRO 18:28 → 4W 07-07 20:16
DX: J96.11 Chronic respiratory failure with hypoxia; Z87.891 Personal history of nicotine dependence; C34.32 Malignant neoplasm of lower lobe, left bronchus or lung; G89.29 Other chronic pain; D68.32 Hemorrhagic disorder due to extrinsic circulating anticoagulants; K92.1 Melena; Z66 Do not resuscitate; E83.42 Hypomagnesemia; T39.395A Adverse effect of other nonsteroidal anti-inflammatory drugs [NSAID], initial encounter; M54.2 Cervicalgia; Z87.11 Personal history of peptic ulcer disease; T45.515A Adverse effect of anticoagulants, initial encounter; E78.5 Hyperlipidemia, unspecified; Z86.711 Personal history of pulmonary embolism; Z79.899 Other long term (current) drug therapy; D62 Acute posthemorrhagic anemia; Z92.21 Personal history of antineoplastic chemotherapy; Z99.81 Dependence on supplemental oxygen; J43.2 Centrilobular emphysema; Z86.718 Personal history of other venous thrombosis and embolism; Z92.3 Personal history of irradiation

== ENCOUNTER 2024-04-26 19:58 | Inpatient (IN) ==
--- NOTE | 2024-04-26 20:23 | Emergency Department Note ---
Impression & Plan Hematemesis, Vomiting, Leukocytosis, Anticoagulated ED Provider Note NAME: LUIS ALBERTO COOK AGE: 88 SEX: F : 1935 ARRIVES VIA: Walk-In INFORMANT: [Patient] ED PROVIDER(S): [Danyel Acosta MD] CHIEF COMPLAINT: Vomiting HISTORY OF PRESENT ILLNESS: The patient is an 88-year-old female on Eliquis. She took her morning Eliquis dose but has not taken the evening dose today. She was feeling fine up until about an hour ago when she suddenly became nauseated and vomited. There was no chest pain or shortness of breath. No abdominal pain. She states that since vomiting, she feels perfectly fine. The patient noticed dark red like discoloration to the vomit, she brought some in for us to check. She is concerned that she may have stomach bleeding. She does take Eliquis. Patient admits that she did have some blueberries today which may have caused the discoloration to the vomit. PMHx/PSHx/Social Hx: See Below PHYSICAL EXAM: GENERAL: Patient is in no acute distress. HEENT: No acute trauma, normocephalic atraumatic, mucous membranes moist, no nasal congestion. NECK: No stridor, no adenopathy, no meningismus, trachea is midline. LUNGS: Clear to auscultation bilaterally, no wheeze, no rhonchi, breath sounds equal. HEART: Mildly tachycardic, regular rhythm, no murmurs. ABDOMEN: Soft, nontender, no peritonitis. EXTREMITIES: No cyanosis, full range of motion of all the joints without pain or difficulty. NEUROLOGIC: Oriented x 3, no acute motor or sensory deficits, no focal weakness. SKIN: No jaundice, no diaphoresis. DIFFERENTIAL DIAGNOSIS: OK, dysrhythmia, gastric bleeding, hematemesis, viral illness, dehydration, among others. EMERGENCY DEPARTMENT PROCEDURES: MEDICAL DECISION MAKING: There is a mild leukocytosis, this could be consistent with infection or just her vomiting. She has a mild anemia but this appears baseline looking back at previous testing. There is a normal platelet count. No elevation to her INR. Creatinine was slightly elevated, she has a history of renal insufficiency. No electrolyte abnormality requiring emergent correction. Alk phos slightly elevated, the remaining liver enzymes were unremarkable. Lipase was normal making pancreatitis unlikely. ECG showed a sinus tachycardia, no acute ST elevation. Cardiac enzyme testing x 1 was not consistent with acute cardiac injury. Gastroccult of her vomitus was positive. Chest film showed some chronic change, no pneumonia. On exam, the patient was without complaints, she was found to be tachycardic. Patient received 1 L of IV saline, her tachycardia has improved. She was given IV Pepcid and IV Protonix. Given her Eliquis use, given the hematemesis, she does require a hospital stay, she will need her hemoglobin followed. She may need seen by GI, an endoscopy may be warranted. I did speak with the patient and case management. The on-call hospitalist was consulted. Prior/Outside records/notes reviewed: None ECG per my interpretation: Indication was tachycardia. The ECG shows a sinus tachycardia with a rate of 120. There is a potential old inferior infarct. There is poor R wave progression. There is no acute ST elevation, no PVCs. QTc is 443. Continuous Cardiac Monitoring per my interpretation: An order was placed for continuous cardiac monitoring. The monitor shows a rate of 131 with sinus tachycardia. Imaging/x-ray results per my interpretation: Chest x-ray shows some chronic change. There is a left pleural effusion which looks similar to previous films. There is no acute pneumonia or free air. Chronic Medical/Social conditions affecting care: Advanced age, Eliquis use. Care/Management discussed with: Case management, the on-call hospitalist. 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 Acute on chronic respiratory failure with hypoxemia DVT of lower extremity, bilateral Hyponatremia Elevated troponin Pre-syncope Acute massive pulmonary embolism Non-small cell lung cancer Carpal tunnel syndrome of right wrist Arthritis (Acute) 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, unspecified (Acute) Disc degeneration, lumbar (Chronic) Hernia, hiatal (Acute) Hyperglycemia (Chronic) Hyperlipidemia (Chronic) Osteoporosis (Acute) Renal insufficiency (Acute) Schatzki's ring (Acute) Spinal stenosis (Acute) Spondylolisthesis, acquired (Acute) Chronic sinusitis SNHL (sensorineural hearing loss) Peripheral arterial disease Sensorineural hearing loss (SNHL) of both ears Podagra CKD (chronic kidney disease) Dyspnea Sacroiliitis Acute respiratory failure with hypoxia Pleural effusion COPD with emphysema Streptococcal bacteremia Rib pain on left side Hand pain, right Medical History GI bleed GERD (gastroesophageal reflux disease) 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) Elevated LFTs Multifocal pneumonia Acute kidney injury superimposed on CKD Elevated procalcitonin SHABBIR (acute kidney injury) Hypoxia Dyspnea Sciatica RT Hx of gout Gout Osteoarthritis Scoliosis Spinal stenosis Chronic back pain Hx of skin cancer, basal cell Chronic obstructive pulmonary disease Chronic obstructive pulmonary disease Surgical History History of bronchoscopy History of Mohs micrographic surgery for skin cancer History of bilateral tubal ligation History of esophagogastroduodenoscopy (EGD) S/P epidural steroid injection History of colonoscopy History of arthroplasty of knee History of breast biopsy Family History Mother Family history of colon cancer Family history of cardiac disorder Hearing loss Cancer Ovarian cancer Rectal cancer Other No family history of adverse response to anesthesia Denies family history of Myocardial infarction Breast cancer Colorectal cancer Social History Smoking Status: Never smoker Tobacco Type: Cigarettes Age Started Using Tobacco: 23; Age Quit Using Tobacco: 86; Cigarettes Per Day: 10; Second Hand Exposure: Yes ( A CHILD); Do You Dip or Chew Tobacco: No; Hx Alcohol Use: No Hx Substance Use: No Preferred Language: Wolof Communication Ability: Effective Visual Impairment: No Limitations Hearing Ability: 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 Beliefs That Will Affect Care: None marital status: / Current Living Situation: Alone Current Living Situation Comment: Lives in [place] current occupational status: retired Feels Safe at Home: Yes Diet: regular during the past year weight has: decreased > 10 lbs Assistive Devices: Oxygen - at Night and Walker Allergies Allergies Allergy/AdvReac Type Severity Reaction Status Date / Time No Known Allergies Allergy Verified 03/07/24 13:15 Home Meds Home Medications Medication Instructions Recorded Confirmed multivitamin 1 tab PO QAM 02/16/20 03/07/24 Oxygen Home 06/01/22 03/07/24 acetaminophen 500 mg tablet 1,000 mg PO DIRECTED PRN Pain 12/28/22 03/07/24 (Tylenol Extra Strength) Previous Rx's Medication Instructions Recorded Over Night Pulse OX #1 ea 11/30/22 apixaban 2.5 mg tablet 2.5 mg PO BID #60 tabs 10/19/23 mirabegron 25 mg tablet,extended 25 mg PO DAILY #30 tabs 12/02/23 release 24 hr (Myrbetriq) atorvastatin 40 mg tablet 40 mg PO QAM #90 tabs 12/27/23 allopurinol 300 mg tablet 300 mg PO DAILY #90 tabs 01/10/24 nystatin-triamcinolone 100,000 1 applic topical BID #30 grams 02/08/24 unit/g-0.1 % topical cream albuterol sulfate 90 mcg/actuation 2 puff inhalation Q4H PRN 02/23/24 aerosol inhaler (Ventolin HFA) Shortness Of Breath #1 inhaler tiotropium bromide 2.5 2 inh inhalation QAM #4 grams 02/23/24 mcg/actuation mist for inhalation (Spiriva Respimat) Results & Data (ED) Vital Signs Vital Signs - 24 hr 04/26/24 20:01 04/26/24 20:16 04/26/24 20:17 Temperature 36.3 C L Temperature Source Temporal Artery Scan Pulse Rate 135 H 121 H 108 H Pulse Rate [Apical] Pulse Rhythm [Apical] Pulse Strength [Apical] Respiratory Rate 16 24 Respiratory Effort / Characteristics Non-Labored Spontaneous Respiratory Depth Normal Blood Pressure 159/84 H Blood Pressure [Right Arm] Blood Pressure Mean 109 Blood Pressure Mean [Right Arm] Blood Pressure Position [Right Arm] Pulse Oximetry 94 94 Oxygen Delivery Method Room Air Room Air Sepsis Recent Fever Within 48 Hours No Sepsis New/Unexplained Change in Mental Status No Sepsis Action Taken by Nursing No Action Required 04/26/24 20:31 Temperature 36.8 C Temperature Source Oral Pulse Rate Pulse Rate [Apical] 108 H Pulse Rhythm [Apical] Regular Pulse Strength [Apical] Normal Respiratory Rate 22 Respiratory Effort / Characteristics Non-Labored Respiratory Depth Normal Blood Pressure Blood Pressure [Right Arm] 174/96 H Blood Pressure Mean Blood Pressure Mean [Right Arm] 122 Blood Pressure Position [Right Arm] Lying Pulse Oximetry 95 Oxygen Delivery Method Room Air Sepsis Recent Fever Within 48 Hours Sepsis New/Unexplained Change in Mental Status Sepsis Action Taken by Usp Medications Current Medication List: was personally reviewed by me Laboratory Data Attestation: I reviewed the patient's lab results. 04/26/24 20:28 04/26/24 20:28 Lab Results 04/26/24 04/26/24 Range/Units 20: 20:29 WBC 13.41 H (4.8-10.8) K/ul RBC 3.73 L (4.20-5.40) M/uL Hgb 11.9 L (12.0-16.0) g/dl Hct 36.9 L (37.0-47.0) % MCV 98.9 (80.0-100.0) fL MCH 31.9 (25.0-34.0) pg MCHC 32.2 (32.0-36.0) g/dL RDW Std Deviation 59.1 H (36.4-46.3) fL RDW Coeff of [place] 16.2 H (11.5-14.5) % Plt Count 299 (130-400) K/uL MPV 9.6 (9.4-12.4) fL Immature Gran % (Auto) 0.5 % Neut % (Auto) 77.4 % Lymph % (Auto) 12.3 % [place] % (Auto) 7.6 % Eos % (Auto) 1.9 % Baso % (Auto) 0.3 % Neut # (Auto) 10.38 H (1.40-6.50) K/uL Lymph # (Auto) 1.65 (1.20-3.40) K/uL [place] # (Auto) 1.02 H (0.11-0.59) K/uL Eos # (Auto) 0.25 (0.00-0.50) K/uL Baso # (Auto) 0.04 (0.00-0.20) K/uL Immature Gran # (Auto) 0.07 (0.01-0.20) K/uL PT 10.6 (9.0-12.0) Seconds INR 1.0 (0.9-1.1) APTT 30 (21-31) Seconds PTT Ratio 1.1 Sodium 140 (136-145) mmol/L Potassium 4.0 (3.5-5.1) mmol/L Chloride 105 (98-107) mmol/L Carbon Dioxide 24 (21-32) mmol/L Anion Gap 11 (3-11) BUN 32 H (6-23) mg/dl Creatinine 1.71 H (0.6-1.2) mg/dl Est Cr Clr Drug Dosing 20.9 ml/min eGFR 28.64 BUN/Creatinine Ratio 18.7 (10-20) Glucose 123 H (70-99(Fasting)) mg/dl Calcium 9.7 (8.6-10.3) mg/dl Magnesium 1.8 (1.7-2.4) mg/dl Total Bilirubin 0.5 (0.2-1.0) mg/dl AST 27 (13-39) U/L ALT 21 (7-52) U/L Alkaline Phosphatase 171 H (34-104) U/L Troponin I High Sens 10.5 (0-14) pg/ml Total Protein 7.4 (6.0-8.3) gm/dl Albumin 4.5 (3.4-5.0) gm/dl Globulin 2.9 (2.5-4.0) gm/dl Albumin/Globulin Ratio 1.6 (0.9-2) Lipase 49 (11-82) U/L Gastric Fluid pH 3 Gastric Occult Blood Positive A (Negative) Administered Medications Discontinued Medications Sodium Chloride (Nss) 500 mls @ 999 mls/hr IV .Q31M ONE Stop: 04/26/24 20:46 Last Infusion: 04/26/24 21:06 Dose: Infused Documented By: Admin: 04/26/24 20:35 Dose: 999 mls/hr Documented By: BHUMI Famotidine (Pepcid 20mg Iv Push) 20 mg in 5 mls @ 2.5 mls/min IV NOW STA Stop: 04/26/24 20:17 Last Admin: 04/26/24 20:34 Dose: 2.5 mls/min Documented By: BHUMI Pantoprazole Sodium 80 mg/ (Dextrose) 120 mls @ 400 mls/hr IV NOW ONE Stop: 04/26/24 21:15 Last Admin: 04/26/24 21:36 Dose: 400 mls/hr Documented By: FRANCISCO Sodium Chloride (Nss) 500 mls @ 999 mls/hr IV .Q31M ONE Stop: 04/26/24 21:52 Last Admin: 04/26/24 21:36 Dose: 999 mls/hr Documented By: FRANCISCO Discharge Plan Visit Data Chief Complaint: Vomiting Stated Complaint: VOMITING ED Provider: Danyel Acosta Discharge Problem: Hematemesis, Vomiting, Leukocytosis, Anticoagulated Patient Disposition: Admitted As Inpatient Condition: Fair Forms Stand Alone Forms: [facility] [place] Prescriptions Prescriptions: No Action acetaminophen [Tylenol Extra Strength] 500 mg tablet 1,000 mg PO DIRECTED PRN (Reason: Pain) apixaban 2.5 mg tablet 2.5 mg PO BID Qty: 60 11RF atorvastatin 40 mg tablet 40 mg PO QAM Qty: 90 3RF (DME) Oxygen Home Liters Per Minute See Rx Instructions .Route Rx Instructions: As directed - 2lpm at HS (DME) Over Night Pulse OX Misc See Rx Instructions .MEDSUPPLY Qty: 1 0RF Rx Instructions: Room air allopurinol 300 mg tablet 300 mg PO DAILY Qty: 90 3RF albuterol sulfate [Ventolin HFA] 90 mcg/actuation HFA aerosol inhaler 2 puff inhalation Q4H PRN (Reason: Shortness Of Breath) Qty: 1 11RF Spiriva Respimat 2.5 mcg/actuation mist 2 inh inhalation QAM Qty: 4 11RF Rx Instructions: INHALE 2 PUFFS BY MOUTH EVERY MORNING nystatin-triamcinolone 100,000-0.1 unit/g-% cream 1 applic topical BID Qty: 30 4RF mirabegron [Myrbetriq] 25 mg tablet extended release 24 hr 25 mg PO DAILY Qty: 30 2RF multivitamin Tablet 1 tab PO QAM Referrals Referrals: Angel Ac MD [Primary Care Provider] - Discharge Problem: Hematemesis Qualifiers: Nausea presence: with nausea Qualified Code(s): K92.0 - Hematemesis Vomiting Qualifiers: Vomiting type: hematemesis Nausea presence: with nausea Qualified Code(s): K 92.0 - Hematemesis Leukocytosis Qualifiers: Leukocytosis type: unspecified Qualified Code(s): D72.829 - Elevated white blood cell count, unspecified
[2024-04-26] MEDS: FAMOTIDINE 20MG IV PUSH 20 MG/5 ML SYR IV STA (20:34)
[2024-04-26] MEDS: SODIUM CHLORIDE 0.9% 500 ML IV ONE ×2 (20:35→21:36)
[2024-04-26 20:48] LABS: Gastric Occult Blood Positive (Negative); pH Gastric Fluid 3
[2024-04-26 20:53] LABS: Basophils # (auto) 0.04 K/uL (0.00-0.20); Basophils % (auto) 0.3 %; Eosinophils # (auto) 0.25 K/uL (0.00-0.50); Eosinophils % (auto) 1.9 %; Hematocrit (blood only) 36.9 % (37.0-47.0); Hemoglobin 11.9 g/dl (12.0-16.0); Immature Granulocytes # (auto) 0.07 K/uL (0.01-0.20); Immature Granulocytes % (auto) 0.5 %; Lymphocytes # (auto) 1.65 K/uL (1.20-3.40); Lymphocytes % (auto) 12.3 %; Mean Corpuscular Hemoglobin 31.9 pg (25.0-34.0); Mean Corpuscular Hgb Conc 32.2 g/dL (32.0-36.0); Mean Corpuscular Volume 98.9 fL (80.0-100.0); Mean Platelet Volume 9.6 fL (9.4-12.4); Monocytes # (auto) 1.02 K/uL (0.11-0.59); Monocytes % (auto) 7.6 %; Neutrophils # (auto) 10.38 K/uL (1.40-6.50); Neutrophils % (auto) 77.4 %; Platelet Count 299 K/uL (130-400); RDW Coefficient of Variation 16.2 % (11.5-14.5); RDW Standard Deviation 59.1 fL (36.4-46.3); Red Blood Count 3.73 M/uL (4.20-5.40); White Blood Count 13.41 K/ul (4.8-10.8)
[2024-04-26 21:12] LABS: Albumin Globulin Ratio 1.6 (0.9-2); Albumin Level 4.5 gm/dl (3.4-5.0); BUN Creatinine Ratio 18.7 (10-20); Bilirubin,Total 0.5 mg/dl (0.2-1.0); Calcium 9.7 mg/dl (8.6-10.3); Creatinine Clr Calc Pharmacy 20.9 ml/min; Globulin 2.9 gm/dl (2.5-4.0); Magnesium 1.8 mg/dl (1.7-2.4); Total Protein 7.4 gm/dl (6.0-8.3)
[2024-04-26 21:19] LABS: Troponin I High Sensitivity 10.5 pg/ml (0-14)
[2024-04-26 21:26] LABS: Partial Thromboplastin Ratio 1.1; Partial Thromboplastin Time 30 Seconds (21-31); Prothrombin Time 10.6 Seconds (9.0-12.0)
[2024-04-26] MEDS: PANTOprazole 80 MG in DEXTROSE 5% 100 ML IV ONE (21:36)
--- NOTE | 2024-04-26 22:25 | History & Physical Report ---
Date of Service April 26, 2024 Assessment & Plan (1) Hematemesis: (2) Leukocytosis: (3) Anticoagulated: (4) Vomiting: (5) History of pulmonary embolism: (6) Hx of gastric ulcer: (7) Squamous cell carcinoma of lung, stage III: (8) CKD (chronic kidney disease): Plan Hematemesis -Episode of emesis with visible blood. Anticoagulated on Eliquis for history of PE, DVTs and current cancer -Normotensive BP, mild tachycardia (HR 90s)- improved with 1L NSS in ED -Hgb 11.9 in ED, had GI bleed in early 2023 which required transfusion (Hgb ~6 at the time). Mild leukocytosis in ED. -Symptoms for last month of worsening GERD, not controlled with famotidine. History of prior GI bleed and anticoagulated on Eliquis -Keep NPO, Protonix 40mg IV BID and IV maintenance fluids. Hold Eliquis -Repeat H&H q6h. Signed blood consent was completed at time of admission. Transfuse at Hgb <8 -GI consulted, appreciate recommendations Left Sided Pleural Effusion -Chest xray shows "moderate sized possibly loculated left pleural effusion", patient denies respiratory symptoms, no increased dyspnea on exertion -Will order CT chest to investigate further, PET scan from March references a small, stable left pleural effusion -Consider pulm consult, will defer while awaiting CT report Squamous Cell Carcinoma of Left Lung -Follows with Dr. Blanca -Recent PET scan completed in March -On maintenance durvalumab since March 2023 CKD -Cr 1.71, slightly increased from baseline which appears to be 1.2-1.3 -Repeat BMP in a.m. -Avoid nephrotoxic medications Admit to telemetry VTE Prophylaxis: contraindicated Diet: NPO Code Status: DNR/DNI History of Present Illness Primary Care Provider: Angel Ac MD Josie Najera is a 88 year-old female with a medical history significant for squamous cell carcinoma of lung, radiation-induced esophagitis, history of PE and DVT, gastric ulcer, CKD, COPD. Patient presented to the ED after an episode of vomiting at home which appeared to have some blood in it, she was concerned about this finding as she takes Eliquis so she came for evaluation. Patient reports history of GI bleed in July 2023 which required transfusion, was suspected that this was caused by NSAID use on top of her Eliquis. Patient states she feels "completely normal" now, endorses a few episodes of vomiting in the past few weeks- states she has had worsening reflux which bothers her most in the evenings despite daily Pepcid and Pepto-Bismol as needed. Denies chest pain or pressure, no current nausea or abdominal pain. States she felt a bit short of breath when she arrived but attributed this to the fact that she had to park "far away" and walk into the ED. States she had a normal BM this morning, no diarrhea or blood/dark color in her stool. Patient states that she recently had a PET scan and follow up with Dr. Blanca. ED Course: -CXR -CBC, CMP -EKG Allergies Allergy/AdvReac Type Severity Reaction Status Date / Time No Known Allergies Allergy Verified 03/07/24 13:15 Home Medications Medication Instructions Recorded Confirmed Type multivitamin 1 tab PO QAM 02/16/20 03/07/24 History Oxygen Home 06/01/22 03/07/24 History Over Night Pulse OX #1 ea 11/30/22 03/07/24 Rx acetaminophen 500 mg tablet 1,000 mg PO DIRECTED PRN Pain 12/28/22 03/07/24 History (Tylenol Extra Strength) apixaban 2.5 mg tablet 2.5 mg PO BID #60 tabs 10/19/23 04/27/24 Rx mirabegron 25 mg tablet,extended 25 mg PO DAILY #30 tabs 12/02/23 03/07/24 Rx release 24 hr (Myrbetriq) atorvastatin 40 mg tablet 40 mg PO QAM #90 tabs 12/27/23 04/27/24 Rx allopurinol 300 mg tablet 300 mg PO DAILY #90 tabs 01/10/24 04/27/24 Rx nystatin-triamcinolone 100,000 1 applic topical BID #30 grams 02/08/24 04/27/24 Rx unit/g-0.1 % topical cream albuterol sulfate 90 mcg/actuation 2 puff inhalation Q4H PRN 02/23/24 04/27/24 Rx aerosol inhaler (Ventolin HFA) Shortness Of Breath #1 inhaler tiotropium bromide 2.5 2 inh inhalation QAM #4 grams 02/23/24 04/27/24 Rx mcg/actuation mist for inhalation (Spiriva Respimat) Past Med/Surg History Problem List Anticoagulated (Acute) Leukocytosis (Acute) Vomiting (Acute) Hematemesis (Acute) Nocturia History of pulmonary embolism Chronic anticoagulation Hx of gastric ulcer Lower urinary tract symptoms (Acute) Incomplete bladder emptying Squamous cell carcinoma of lung, stage III (Chronic) 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 Acute on chronic respiratory failure with hypoxemia DVT of lower extremity, bilateral Hyponatremia Elevated troponin Pre-syncope Acute massive pulmonary embolism Non-small cell lung cancer Carpal tunnel syndrome of right wrist Arthritis (Acute) 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, unspecified (Acute) Disc degeneration, lumbar (Chronic) Hernia, hiatal (Acute) Hyperglycemia (Chronic) Hyperlipidemia (Chronic) Osteoporosis (Acute) Renal insufficiency (Acute) Schatzki's ring (Acute) Spinal stenosis (Acute) Spondylolisthesis, acquired (Acute) Chronic sinusitis SNHL (sensorineural hearing loss) Peripheral arterial disease Sensorineural hearing loss (SNHL) of both ears Podagra CKD (chronic kidney disease) Dyspnea Sacroiliitis Acute respiratory failure with hypoxia Pleural effusion COPD with emphysema Streptococcal bacteremia Rib pain on left side Hand pain, right Medical History GI bleed GERD (gastroesophageal reflux disease) 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) Elevated LFTs Multifocal pneumonia Acute kidney injury superimposed on CKD Elevated procalcitonin SHABBIR (acute kidney injury) Hypoxia Dyspnea Sciatica RT Hx of gout Gout Osteoarthritis Scoliosis Spinal stenosis Chronic back pain Hx of skin cancer, basal cell Chronic obstructive pulmonary disease Chronic obstructive pulmonary disease Surgical History History of bronchoscopy History of Mohs micrographic surgery for skin cancer History of bilateral tubal ligation History of esophagogastroduodenoscopy (EGD) S/P epidural steroid injection History of colonoscopy History of arthroplasty of knee RT/LEFT History of breast biopsy Family History Mother Family history of colon cancer Family history of cardiac disorder Hearing loss Cancer Ovarian cancer Rectal cancer Other No family history of adverse response to anesthesia Denies family history of Myocardial infarction Breast cancer Colorectal cancer Social History Smoking Status: Former smoker Tobacco Type: Cigarettes Age Started Using Tobacco: 23; Age Quit Using Tobacco: 86; Cigarettes Per Day: 10; Second Hand Exposure: Yes ( A CHILD); Do You Dip or Chew Tobacco: No; Hx Alcohol Use: No Hx Substance Use: No Preferred Language: Macedonian Communication Ability: Effective Visual Impairment: No Limitations Hearing Ability: Use of Hearing Aid Supplies Packer Required: No Beliefs That Will Affect Care: None marital status: / Current Living Situation: Alone Current Living Situation Comment: Lives in [facility] current occupational status: retired Feels Safe at Home: Yes Safety Concerns: Feels Safe At This Time Diet: regular during the past year weight has: decreased > 10 lbs Assistive Devices: None Review of Systems 2 Review of Systems: as per above Physical Exam 2 Constitutional: WD/WN, vitals as above Eyes: + anicteric sclerae; no conjunctival abn ormality ENMT: Ears: no external ear abnormality Nose: no external nose abnormality moist mucous membranes Respiratory: normal respiratory effort; no respiratory distress A uscultation: + diminished lung sounds Cardiovascular: Rate/Rhythm: regular rate and regular rhythm Extremities: n o edema Gastrointestinal (Abdomen): Inspection/Auscultation: abdomen normal to inspection; abdomen not distended Percussion/Palpation: abdomen soft; abdomen nontender Musculoskeletal: Moves all limbs independently Skin: no rashes, warm and dry Neurologic: No focal deficits appreciated Psychiatric: A+Ox3, euthymic affect Results & Data Results & Data Vital Signs (Past 12 Hours) Vital Signs Temp Pulse Pulse Resp BP BP Pulse Ox 04/26/24 20:31 36.8 C 108 H 22 174/96 H 95 04/26/24 20:17 108 H 24 94 04/26/24 20:16 121 H 04/26/24 20:01 36.3 C L 135 H 16 159/84 H 94 O2 Del Method 04/26/24 20:31 Room Air 04/26/24 20:17 Room Air 04/26/24 20:16 04/26/24 20:01 Room Air Laboratory Results 04/27/24 02:20 04/26/24 20:28 Diagnostic Findings Chest X-Ray 04/26/24 20:17 Exam(s): XR CXR 1 VIEW EXAM: XR Chest, 1 View CLINICAL HISTORY: Reason for exam: abd pain. TECHNIQUE: Frontal view of the chest. COMPARISON: No relevant prior studies available. FINDINGS: Lungs: Right lung is clear. No consolidation. Pleural space: Moderate size left pleural effusion possibly loculated. No pneumothorax. Heart: Unremarkable. No cardiomegaly. Mediastinum: Unremarkable. Normal mediastinal contour. Bones/joints: Unremarkable. No acute fracture. IMPRESSION: Moderate sized possibly loculated left pleural effusion. Electronically signed by: Abdiaziz Coulter MD 04/26/24 23:28 PM Supervising Physician Co-Signing Physician Notes Patient seen and examined, chart reviewed, case discussed with Dr. Sal and I agree with the assessment and plan as above. In brief, patient is an 88yo female with history of SCC of the left lung presenting with episode of possible hematemesis. Patient is on Eliquis anticoagulation for history of VTE in setting of active malignancy. She had an episode of vomiting which was dark in color. No additional nausea or vomiting. No additional hematemesis. Patient denies black or bloody BMs. No additional complaints On exam she is resting comfortably, NAD. Some mild tachycardia, HR 104bpm Skin - intact, no rashes or lesions HEENT- MMM, neck supple, no JVD Heart - +S1/S2, regular, no m/r/g Lungs - CTA Abd - soft, NT/ND Ext - warm, well perfused, no clubbing/cyanosis or edema Labs and images reviewed Hgb and Hct near baseline of 11.1 and 33.9 Platelets wNL INR WNL, no laboratory evidence of liver disease Assessment/plan 88yo female with history of SCC of left lung, VTE on Eliquis anticoagulation presenting with episode of possible hematemesis - patient reports dark color vomitus, occult blood positive -Admit to medical with telemetry -Hold Eliquis -Trend CBC, transfuse if ongoing bleed or Hgb < 8 -Protonix 40mg IV BID -Remainder as above -GI Consultation appreciated -CXR notes a moderate sized possibly loculated pleural effusion - appears to be larger when compared to previous imaging -Check CT Chest, consider Pulmonary consultation although patient is stable from a respiratory standpoint at this time -Remainder as above Resident Activity Tracking Resident Involvement: Resident Care Provided Care Provided: Adult Hospital Medicine (1) Hematemesis Nausea presence: with nausea Qualified Code(s): K92.0 - Hematemesis (2) Leukocytosis Leukocytosis type: unspecified Qualified Code(s): D72.829 - Elevated white blood cell count, unspecified (4) Vomiting Nausea presence: with nausea Vomiting type: hematemesis Qualified Code(s): K 92.0 - Hematemesis (7) Squamous cell carcinoma of lung, stage III Laterality: left Qualified Code(s): C34.92 - Malignant neoplasm of unspecified part of left bronchus or lung
--- NOTE | 2024-04-26 23:29 | XRay Report ---
Exam(s): XR CXR 1 VIEW EXAM: XR Chest, 1 View CLINICAL HISTORY: Reason for exam: abd pain. TECHNIQUE: Frontal view of the chest. COMPARISON: No relevant prior studies available. FINDINGS: Lungs: Right lung is clear. No consolidation. Pleural space: Moderate size left pleural effusion possibly loculated. No pneumothorax. Heart: Unremarkable. No cardiomegaly. Mediastinum: Unremarkable. Normal mediastinal contour. Bones/joints: Unremarkable. No acute fracture. IMPRESSION: Moderate sized possibly loculated left pleural effusion. Electronically signed by: Abdiaziz Coulter MD 04/26/24 23:28 PM
[2024-04-27 01:20] LABS: Appearance Urine Clear (Clear); Bacteria Urine Automated None Seen (None Seen); Bilirubin Urine Negative (Negative); Blood Urine Negative (Negative); Cast Urine Automated 0-2 /lpf (0-2); Color Urine Yellow; Epithelial Cell Urine Auto 0-2 /hpf (0-2); Glucose Urine UA Negative (Negative); Ketones Urine Negative (Negative); Leukocyte Esterase Urine 1+ (Negative); Nitrite Urine Negative (Negative); Protein Urine Negative (Negative); RBC Urine Automated 0-2 /hpf (0-2); Specific Gravity Urine 1.014 (1.000-1.030); Urobilinogen Urine Negative (Negative); pH Urine 6.5 (4.5-7.5)
[2024-04-27 02:37] LABS: Hematocrit (blood only) 33.9 % (37.0-47.0); Hemoglobin 11.1 g/dl (12.0-16.0)
[2024-04-27] MEDS: SODIUM CHLORIDE 0.9% 1,000 ML IV SCH (03:02)
--- NOTE | 2024-04-27 03:30 | CT Scan Report ---
EXAM: CT chest diagnostic wo con CLINICAL HISTORY: Pleural effusion. TECHNIQUE: Contiguous axial CT images of the chest were acquired without administration of intravenous contrast. Coronal and sagittal reconstructions were obtained. One of the following dose reduction techniques were utilized for this exam: Automated exposure control, adjustment of the mA and/or kV according to patient size, use of iterative reconstruction. COMPARISON: This examination has been compared with Prior PET/CT images dated 03/22/2024 FINDINGS: Lungs: There is evidence of soft tissue density focus seen in the left lingular segment measuring 19 x 18 mm. This is showing internal low attenuation area and few specks of calcifications. There is adjacent groundglass and atelectatic changes in left lung. Mild left-sided pleural effusion is identified. Atelectatic changes are also identified left lower lobe. Two tiny calcified nodules in the left lung lower lobe measuring 3 mm. Due to atelectasis there is reduced volume loss of left lung, with compensatory hyperinflation of right lung, with transmediastinal herniation on the left side. Few tiny nodules are identified in right lower lobe measuring 2 mm No evidence of consolidation, collapse, in right lung. Mild left-sided pleural effusion is identified with air. No pleural effusion is identified on the right side. Mediastinum: Few ubcentimeter mediastinal lymph nodes are identified The heart size is within normal limits. Vascular calcifications seen in aorta. Hilar Structures: The hilar structures appear normal without enlargement or abnormality. Trachea and Main Bronchi: The trachea and main bronchi are patent without evidence of obstruction or abnormality. Chest Wall: The chest wall is unremarkable with no evidence of soft tissue or bony abnormalities. Upper Abdomen: Visualized portions of the liver, spleen, and kidneys are unremarkable. The left adrenal gland is bulky. Right adrenal gland is normal Bones: Visualized osseous structures are normal, no evidence of fracture or lytic/sclerotic lesions. Osteopenia Degenerative changes seen in visualized spine with osteophytes IMPRESSION: 1. Soft tissue density focus, with internal low atteunation area and specks of calcifications seen in the left lingular segment, with the adjacent groundglass, septal thickening atelectatic changes. Interval mild regression in size since last examination. this may be infective. Clinical correlation and if required histopathology suggested to rule out neoplastic lesion. 2. Atelectatic changes are also seen in left lower lobe along with mild left-sided pleural effusion. There is mild progression of the left-sided pleural effusion, with interval progression of air,may be due to infective process, however no significant changes in the atelectasis 3. Due to atelectatic changes at left lung there is compensatory hyperinflation of right lung. 4. The priorly seen one of the nodule in right lower lobe appears to be calcified. 5. Few tiny non-calcified nodules in the left lung lower lobe measuring 3 mm, showing no significant change. 6. Few tiny nodules are identified in right lower lobe. 7. No enlarged mediastinal lymph nodes are identified in the current or prior examination. 8. No significant interval changes. Electronically signed by Jaya Grace 04-27-2024 03:29 AM
--- NOTE | 2024-04-27 06:22 | Billing Data ---
Date of Service April 26, 2024 Coding Level of Care Code 34491 INT INP/OBS CARE
[2024-04-27] MEDS: PANTOprazole 40 MG/10 ML SYR IV SCH (07:51)
[2024-04-27] MEDS: INFLUENZA VACC TS2024-25(65y+)/PF (IIV3) 0.5mL Syr IM ONE (08:11)
[2024-04-27 08:48] LABS: Hematocrit (blood only) 31.5 % (37.0-47.0); Hemoglobin 10.2 g/dl (12.0-16.0)
--- NOTE | 2024-04-27 09:57 | Gastrointestinal Consultation ---
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 He had an obscure GI bleeding in July 2023, EGD/Colon recommended at that time but deferred by patient as her symptoms resolved. She is having some intermittent GERD over the last month or so w/ one isolated episode of hematemesis w/o black or bloody stools. Clear liquid today Recommend EGD/Colonoscopy tomorrow She is not sure how she would like to proceed We will re-assess on afternoon rounds Hold Eliquis No NSAIDs Trend H&H Monitor and document GI output Transfuse PRN per primary team IV PPI bolus/drip We appreciate assistance in the management of any serological abnormality and corrections to include: hemoglobin >7, INR <2, platelets >50,000, potassium levels >3.5 but <5.3, and sodium levels within 5 points of the reference range prior to endoscopic evaluation. Thank you for allowing us to participate in the care of this patient. Please call with any acute changes, questions or concerns. Please see addendum below with additional recommendation from my supervising physician. I spent a total of 60 minutes on the date of service in review of patient's record, and previously obtained information in person and appropriate medical visit, discussion and education of plan, with patient and/or caregiver, placing orders for tests/referral/procedures as medically necessary and documentation of pertinent clinical information in patient's medical records for their visit today. (2) Hematemesis: Supervising Physician Co-Signing Physician Notes I examined the patient and reviewed the medical record, laboratory data and imaging studies. I agree with the assessment and plan of care as suggested by the advanced practice provider. Patient appears comfortable right now she states her last episode of hematemesis was at 7 PM yesterday not had a bowel movement denies any active GI complaints in view of the fact that she is anemic and she has had episodes of hematemesis and hematochezia we will plan for an EGD and colonoscopy in a.m. in the meantime we will place on PPI twice daily and further recommendations after endoscopy. 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 GI was asked to evaluate for UGI bleeding. GI was asked to evaluate for hematemesis. Pt was seen and evaluated, chart reviewed. She was admitted in July w/ a suspected lower GI bleed w/ 2 units RBC. EGD/Colon were recemented at that time but ultimately she decided against these procedures. She was feeling well until she developed intermittent GERD over the last month or so. Was seen by primary care and started on PRN pepcid. Notes that she has had intermittent issues w/ emesis but this was food and bile. Suggests last evening she developed some hematemesis. One episode of emesis which ahd bright bed blood. No black or bloody stools. HGB 11.3 --> 11.9 -->11.1 --> 10.2 BUN 32/[employer] 1.71 EGD 2013: HH, healed gastric ulcer, ring dilated EGD 2013: HH, gastric ulcer, ring Colonoscopy 2006: diverticuli, no polyps Allergies Allergy/AdvReac Type Severity Reaction Status Date / Time No Known Allergies Allergy Verified 03/07/24 13:15 Home Medications Medication Instructions Recorded Confirmed Type multivitamin 1 tab PO QAM 02/16/20 03/07/24 History Oxygen Home 06/01/22 03/07/24 History Over Night Pulse OX #1 ea 11/30/22 03/07/24 Rx acetaminophen 500 mg tablet 1,000 mg PO DIRECTED PRN Pain 12/28/22 03/07/24 History (Tylenol Extra Strength) apixaban 2.5 mg tablet 2.5 mg PO BID #60 tabs 10/19/23 04/27/24 Rx mirabegron 25 mg tablet,extended 25 mg PO DAILY #30 tabs 12/02/23 03/07/24 Rx release 24 hr (Myrbetriq) atorvastatin 40 mg tablet 40 mg PO QAM #90 tabs 12/27/23 04/27/24 Rx allopurinol 300 mg tablet 300 mg PO DAILY #90 tabs 01/10/24 04/27/24 Rx nystatin-triamcinolone 100,000 1 applic topical BID #30 grams 02/08/24 04/27/24 Rx unit/g-0.1 % topical cream albuterol sulfate 90 mcg/actuation 2 puff inhalation Q4H PRN 02/23/24 04/27/24 Rx aerosol inhaler (Ventolin HFA) Shortness Of Breath #1 inhaler tiotropium bromide 2.5 2 inh inhalation QAM #4 grams 02/23/24 04/27/24 Rx mcg/actuation mist for inhalation (Spiriva Respimat) Patient History Medical History GI bleed GERD (gastroesophageal reflux disease) 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) Elevated LFTs Multifocal pneumonia Acute kidney injury superimposed on CKD Elevated procalcitonin SHABBIR (acute kidney injury) Hypoxia Dyspnea Sciatica RT Hx of gout Gout Osteoarthritis Scoliosis Spinal stenosis Chronic back pain Hx of skin cancer, basal cell Chronic obstructive pulmonary disease Chronic obstructive pulmonary disease Surgical History History of bronchoscopy History of Mohs micrographic surgery for skin cancer History of bilateral tubal ligation History of esophagogastroduodenoscopy (EGD) S/P epidural steroid injection History of colonoscopy History of arthroplasty of knee RT/LEFT History of breast biopsy Family History Mother Family history of colon cancer Family history of cardiac disorder Hearing loss Cancer Ovarian cancer Rectal cancer Other No family history of adverse response to anesthesia Denies family history of Myocardial infarction Breast cancer Colorectal cancer Social History Smoking Status: Former smoker Tobacco Type: Cigarettes Age Started Using Tobacco: 23; Age Quit Using Tobacco: 86; Cigarettes Per Day: 10; Second Hand Exposure: Yes ( A CHILD); Do You Dip or Chew Tobacco: No; Hx Alcohol Use: No Hx Substance Use: No Preferred Language: Persian Communication Ability: Effective Visual Impairment: No Limitations Hearing Ability: Use of Hearing Aid Medicine And Health Service Manager Required: No Beliefs That Will Affect Care: None marital status: / Current Living Situation: Alone Current Living Situation Comment: [facility] current occupational status: retired Feels Safe at Home: Yes Safety Concerns: Feels Safe At This Time Diet: regular during the past year weight has: decreased > 10 lbs Assistive Devices: None Review of Systems Review of Systems: All other findings negative except as noted in HPI. Physical Exam Constitutional: WD/WN, vitals as above Respiratory: normal respiratory effort, lungs clear to auscultation Cardiovascular: RRR, no murmur, no edema Gastrointestinal (Abdomen): normal bowel sounds, soft, nontender, no hepatosplenomegaly Skin: no rashes, warm and dry Results & Data Vital Signs (Past 12 Hours) Vital Signs Temp Pulse Pulse Pulse Resp BP BP 04/27/24 07:39 36.7 C 99 H 20 151/76 H 04/27/24 07:30 87 04/27/24 03:15 04/27/24 03:15 36.6 C 104 H 20 136/75 04/27/24 02:30 04/27/24 02:30 36.6 C 104 H 20 136/75 04/27/24 02:05 96 H 04/27/24 01:48 92 H 20 138/102 H 04/26/24 23:00 96 H 17 123/70 Pulse Ox O2 Del Method 04/27/24 07:39 96 Room Air 04/27/24 07:30 04/27/24 03:15 Room Air 04/27/24 03:15 92 Room Air 04/27/24 02:30 Room Air 04/27/24 02:30 92 Room Air 04/27/24 02:05 04/27/24 01:48 95 Room Air 04/26/24 23:00 94 Room Air Laboratory Results 04/27/24 04/27/24 04/27/24 Range/Units 08:23 02:20 00:50 WBC (4.8-10.8) K/ul RBC (4.20-5.40) M/uL Hgb 10.2 L 11.1 L (12.0-16.0) g/dl Hct 31.5 L 33.9 L (37.0-47.0) % MCV (80.0-100.0) fL MCH (25.0-34.0) pg MCHC (32.0-36.0) g/dL RDW Std Deviation (36.4-46.3) fL RDW Coeff of Lazara (11.5-14.5) % Plt Count (130-400) K/uL MPV (9.4-12.4) fL Immature Gran % (Auto) % Neut % (Auto) % Lymph % (Auto) % [place] % (Auto) % Eos % (Auto) % Baso % (Auto) % Neut # (Auto) (1.40-6.50) K/uL Lymph # (Auto) (1.20-3.40) K/uL [place] # (Auto) (0.11-0.59) K/uL Eos # (Auto) (0.00-0.50) K/uL Baso # (Auto) (0.00-0.20) K/uL Immature Gran # (Auto) (0.01-0.20) K/uL PT (9.0-12.0) Seconds INR (0.9-1.1) APTT (21-31) Seconds PTT Ratio Sodium (136-145) mmol/L Potassium (3.5-5.1) mmol/L Chloride (98-107) mmol/L Carbon Dioxide (21-32) mmol/L Anion Gap (3-11) BUN (6-23) mg/dl Creatinine (0.6-1.2) mg/dl Est Cr Clr Drug Dosing ml/min eGFR BUN/Creatinine Ratio (10-20) Glucose (70-99(Fasting)) mg/dl Calcium (8.6-10.3) mg/dl Magnesium (1.7-2.4) mg/dl Total Bilirubin (0.2-1.0) mg/dl AST (13-39) U/L ALT (7-52) U/L Alkaline Phosphatase (34-104) U/L Troponin I High Sens (0-14) pg/ml Total Protein (6.0-8.3) gm/dl Albumin (3.4-5.0) gm/dl Globulin (2.5-4.0) gm/dl Albumin/Globulin Ratio (0.9-2) Lipase (11-82) U/L Urine Color Yellow Urine Appearance Clear (Clear) Urine pH 6.5 (4.5-7.5) Ur Specific Ailey 1.014 (1.000-1.030) Urine Protein Negative (Negative) Urine Glucose (UA) Negative (Negative) Urine Ketones Negative (Negative) Urine Blood Negative (Negative) Urine Nitrite Negative (Negative) Urine Bilirubin Negative (Negative) Urine Urobilinogen Negative (Negative) Ur Leukocyte Esterase 1+ H (Negative) Urine WBC (Auto) 6-10 H (0-5) /hpf Urine RBC (Auto) 0-2 (0-2) /hpf U Hyaline Cast (Auto) 0-2 (0-2) /lpf U Epithel Cells (Auto) 0-2 (0-2) /hpf Urine Bacteria (Auto) None Seen (None Seen) Gastric Fluid pH Gastric Occult Blood (Negative) 04/26/24 04/26/24 Range/Units 20:29 20:28 WBC 13.41 H (4.8-10.8) K/ul RBC 3.73 L (4.20-5.40) M/uL Hgb 11.9 L (12.0-16.0) g/dl Hct 36.9 L (37.0-47.0) % MCV 98.9 (80.0-100.0) fL MCH 31.9 (25.0-34.0) pg MCHC 32.2 (32.0-36.0) g/dL RDW Std Deviation 59.1 H (36.4-46.3) fL RDW Coeff of Lazara 16.2 H (11.5-14.5) % Plt Count 299 (130-400) K/uL MPV 9.6 (9.4-12.4) fL Immature Gran % (Auto) 0.5 % Neut % (Auto) 77.4 % Lymph % (Auto) 12.3 % Lagrange % (Auto) 7.6 % Eos % (Auto) 1.9 % Baso % (Auto) 0.3 % Neut # (Auto) 10.38 H (1.40-6.50) K/uL Lymph # (Auto) 1.65 (1.20-3.40) K/uL [place] # (Auto) 1.02 H (0.11-0.59) K/uL Eos # (Auto) 0.25 (0.00-0.50) K/uL Baso # (Auto) 0.04 (0.00-0.20) K/uL Immature Gran # (Auto) 0.07 (0.01-0.20) K/uL PT 10.6 (9.0-12.0) Seconds INR 1.0 (0.9-1.1) APTT 30 (21-31) Seconds PTT Ratio 1.1 Sodium 140 (136-145) mmol/L Potassium 4.0 (3.5-5.1) mmol/L Chloride 105 (98-107) mmol/L Carbon Dioxide 24 (21-32) mmol/L Anion Gap 11 (3-11) BUN 32 H (6-23) mg/dl Creatinine 1.71 H (0.6-1.2) mg/dl Est Cr Clr Drug Dosing 20.9 ml/min eGFR 28.64 BUN/Creatinine Ratio 18.7 (10-20) Glucose 123 H (70-99(Fasting)) mg/dl Calcium 9.7 (8.6-10.3) mg/dl Magnesium 1.8 (1.7-2.4) mg/dl Total Bilirubin 0.5 (0.2-1.0) mg/dl AST 27 (13-39) U/L ALT 21 (7-52) U/L Alkaline Phosphatase 171 H (34-104) U/L Troponin I High Sens 10.5 (0-14) pg/ml Total Protein 7.4 (6.0-8.3) gm/dl Albumin 4.5 (3.4-5.0) gm/dl Globulin 2.9 (2.5-4.0) gm/dl Albumin/Globulin Ratio 1.6 (0.9-2) Lipase 49 (11-82) U/L Urine Color Urine Appearance (Clear) Urine pH (4.5-7.5) Ur Specific Ailey (1.000-1.030) Urine Protein (Negative) Urine Glucose (UA) (Negative) Urine Ketones (Negative) Urine Blood (Negative) Urine Nitrite (Negative) Urine Bilirubin (Negative) Urine Urobilinogen (Negative) Ur Leukocyte Esterase (Negative) Urine WBC (Auto) (0-5) /hpf Urine RBC (Auto) (0-2) /hpf U Hyaline Cast (Auto) (0-2) /lpf U Epithel Cells (Auto) (0-2) /hpf Urine Bacteria (Auto) (None Seen) Gastric Fluid pH 3 Gastric Occult Blood Positive A (Negative) PG Care Time/CCT Total # of Minutes Spent Total Time Spent with Patient: Total time spent is greater than 50% in coordination of care (as documented) at patient's floor/unit and/or counseling patient: Coding Level of Care Code 34371 INT INP/OBS CARE 2MIN Diagnoses Anticoagulated Z79.01 Hematemesis K92.0 Nausea presence: with nausea (2) Hematemesis Nausea presence: with nausea Qualified Code(s): K92.0 - Hematemesis
--- NOTE | 2024-04-27 11:14 | Electrocardiogram Report ---
Test Reason : Blood Pressure : */* mmHG Vent. Rate : 120 BPM Atrial Rate : 120 BPM P-R Int : 156 ms QRS Dur : 72 ms QT Int : 314 ms P-R-T Axes : 84 -18 83 degrees QTcB Int : 443 ms Sinus tachycardia Possible Left atrial enlargement Low voltage QRS possible Inferior infarct , age undetermined Cannot rule out Anterior infarct (cited on or before 05-May-2022) Abnormal ECG When compared with ECG of 07-Jul-2023 15:20, Inferior infarct is now Present Confirmed by Gabino Adorno [id number] on 04/27/2024 11:13:49 AM Referred By: REFERRED SELF Confirmed By: Gabino Adorno
[2024-04-27 14:32] LABS: Hemoglobin 10.1 g/dl (12.0-16.0)
[2024-04-27] MEDS: LAVAGE SOLUTION 4000ML PO SCH (15:40)
--- NOTE | 2024-04-27 21:42 | Hospitalist Progress Note ---
Date of Service April 27, 2024 Assessment & Plan (1) Hematemesis: (2) Leukocytosis: (3) Anticoagulated: (4) Vomiting: (5) History of pulmonary embolism: (6) Hx of gastric ulcer: (7) Squamous cell carcinoma of lung, stage III: (8) CKD (chronic kidney disease): Plan Acute blood loss anemia due to hematemesis/ upper GI bleed in a 88 yo female on Eliquis for history of PE Hematemesis -Episode of emesis with visible blood. Anticoagulated on Eliquis for history of PE, DVTs and current cancer -Normotensive BP, mild tachycardia (HR 90s)- improved with 1L NSS in ED -Hgb 11.9 in ED, had GI bleed in early 2023 which required transfusion (Hgb ~6 at the time). Mild leukocytosis in ED. -Symptoms for last month of worsening GERD, not controlled with famotidine. History of prior GI bleed and anticoagulated on Eliquis -Protonix 40mg IV BID and IV maintenance fluids. Hold Eliquis -hemoglobin stable.. Signed blood consent was completed at time of admission. Transfuse at Hgb <8 -GI consulted, appreciate recommendations: upper GI and lower scope scheduled tomorrow Left Sided Pleural Effusion -Chest xray shows "moderate sized possibly loculated left pleural effusion", patient denies respiratory symptoms, no increased dyspnea on exertion -Will order CT chest to investigate further, PET scan from March references a small, stable left pleural effusion -Consider pulm consult, will defer while awaiting CT report Squamous Cell Carcinoma of Left Lung -Follows with Dr. Blanca -Recent PET scan completed in March -On maintenance durvalumab since March 2023 CKD -Cr 1.71, slightly increased from baseline which appears to be 1.2-1.3 -Repeat BMP in a.m. -Avoid nephrotoxic medications Admit to telemetry VTE Prophylaxis: contraindicated Code Status: DNR/DNI Admission and Anticipated Discharge Date Admission Date: April 27, 2024 Subjective Patient reports no new symptoms. She is no longer coughing up any blood. Review of Systems Review of Systems: All systems reviewed & are unremarkable except as noted in HPI & below Physical Exam Constitutional: WD/WN, vitals as above Respiratory: normal respiratory effort Cardiovascular: Rate/Rhythm: regular rate and regular rhythm Extremities: no edema Gastrointestinal (Abdomen): Inspection/Auscultation: abdomen normal to inspection; abdomen not distended Percussion/Palpation: abdomen soft; abdomen nontender Psychiatric: A+Ox3, euthymic affect Results & Data Results & Data Vital Signs (Past 12 Hours) Vital Signs Temp Pulse Pulse Resp BP Pulse Ox O2 Del Method 04/27/24 19:42 36.8 C 102 H 16 116/64 95 Room Air 04/27/24 17:38 79 04/27/24 15:37 36.4 C L 93 H 20 109/62 96 Room Air PG Care Time/CCT Total # of Minutes Spent Total Time Spent with Patient: Total time spent is greater than 50% in coordination of care (as documented) at patient's floor/unit and/or counseling patient: Coding Level of Care Code 49114 SUB INP/OBS CARE 3/50MIN Diagnoses Hematemesis K92.0 Nausea presence: with nausea Leukocytosis D72.829 Leukocytosis type: unspecified Anticoagulated Z79.01 Vomiting K92.0 Nausea presence: with nausea Vomiting type: hematemesis History of pulmonary embolism Z86.711 Hx of gastric ulcer Z87.19 Stage III squamous cell carcinoma of left lung C34.92 Laterality: left CKD (chronic kidney disease) N18.9 (1) Hematemesis Nausea presence: with nausea Qualified Code(s): K92.0 - Hematemesis (2) Leukocytosis Leukocytosis type: unspecified Qualified Code(s): D72.829 - Elevated white blood cell count, unspecified (4) Vomiting Nausea presence: with nausea Vomiting type: hematemesis Qualified Code(s): K92.0 - Hematemesis (7) Squamous cell carcinoma of lung, stage III Laterality: left Qualified Code(s): C34.92 - Malignant neoplasm of unspecified part of left bronchus or lung
[2024-04-27 21:58] LABS: Hematocrit (blood only) 30.3 % (37.0-47.0)
[2024-04-28] MEDS: SODIUM CHLORIDE 0.9% 500 ML IV SCH (04:56)
[2024-04-28] MEDS: ACETAMINOPHEN 1,000 MG/100 ML VIAL IV STA (04:57)
[2024-04-28 08:23] LABS: Hematocrit (blood only) 30.2 % (37.0-47.0); Hemoglobin 9.6 g/dl (12.0-16.0); Mean Corpuscular Hemoglobin 31.3 pg (25.0-34.0); Mean Corpuscular Hgb Conc 31.8 g/dL (32.0-36.0); Mean Corpuscular Volume 98.4 fL (80.0-100.0); Platelet Count 240 K/uL (130-400); RDW Coefficient of Variation 16.3 % (11.5-14.5); RDW Standard Deviation 58.7 fL (36.4-46.3); Red Blood Count 3.07 M/uL (4.20-5.40); White Blood Count 5.26 K/ul (4.8-10.8)
[2024-04-28 08:32] LABS: BUN Creatinine Ratio 11.3 (10-20); Calcium 8.9 mg/dl (8.6-10.3); Creatinine Clr Calc Pharmacy 31.5 ml/min
--- NOTE | 2024-04-28 09:51 | Gastroenterology Progress Note ---
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 He had an obscure GI bleeding in July 2023, EGD/Colon recommended at that time but deferred by patient as her symptoms resolved. She is having some intermittent GERD over the last month or so w/ one isolated episode of hematemesis w/o black or bloody stools. Maintain NPO status for EGD/Colonoscopy today Hold Eliquis No NSAIDs Trend H&H Monitor and document GI output Transfuse PRN per primary team IV PPI bolus/drip We appreciate assistance in the management of any serological abnormality and corrections to include: hemoglobin >7, INR <2, platelets >50,000, potassium levels >3.5 but <5.3, and sodium levels within 5 points of the reference range prior to endoscopic evaluation. Thank you for allowing us to participate in the care of this patient. Please call with any acute changes, questions or concerns. Please see addendum below with additional recommendation from my supervising physician. (2) Hematemesis: Admission and Anticipated Discharge Date Admission Date: April 27, 2024 Subjective Pt was seen and evaluated, chart reviewed. Tolerating bowel prep. No bleeding with prep. No abd pain, nausea/vomiting. Review of Systems Review of Systems: All other findings negative except as noted in HPI. Physical Exam Constitutional: WD/WN, vitals as above Respiratory: normal respiratory effort, lungs clear to auscultation Cardiovascular: RRR, no murmur, no edema Gastrointestinal (Abdomen): normal bowel sounds, soft, nontender, no hepatosplenomegaly Skin: no rashes, warm and dry Results & Data Results & Data Vital Signs (Past 12 Hours) Vital Signs Temp Pulse Pulse Pulse Resp BP Pulse Ox 04/28/24 07:41 36.9 C 78 16 104/62 93 04/28/24 07:18 70 04/28/24 04:06 36.9 C 104 H 16 96/49 L 92 04/27/24 23:46 38 C H 103 H 18 108/61 92 O2 Del Method 04/28/24 07:41 Room Air 04/28/24 07:18 04/28/24 04:06 Room Air 04/27/24 23:46 Room Air Laboratory Results 04/28/24 04/27/24 04/27/24 Range/Units 07:38 21:45 14:19 WBC 5.26 (4.8-10.8) K/ul RBC 3.07 L (4.20-5.40) M/uL Hgb 9.6 L 10.0 L 10.1 L (12.0-16.0) g/dl Hct 30.2 L 30.3 L 31.0 L (37.0-47.0) % MCV 98.4 (80.0-100.0) fL MCH 31.3 (25.0-34.0) pg MCHC 31.8 L (32.0-36.0) g/dL RDW Std Deviation 58.7 H (36.4-46.3) fL RDW Coeff of Lazara 16.3 H (11.5-14.5) % Plt Count 240 (130-400) K/uL MPV 10.0 (9.4-12.4) fL Sodium 139 (136-145) mmol/L Potassium 4.0 (3.5-5.1) mmol/L Chloride 106 (98-107) mmol/L Carbon Dioxide 25 (21-32) mmol/L Anion Gap 8 (3-11) BUN 14 (6-23) mg/dl Creatinine 1.24 H D (0.6-1.2) mg/dl Est Cr Clr Drug Dosing 31.5 ml/min eGFR 42.12 BUN/Creatinine Ratio 11.3 (10-20) Glucose 94 (70-99(Fasting)) mg/dl Calcium 8.9 (8.6-10.3) mg/dl PG Care Time/CCT Total # of Minutes Spent Total Time Spent with Patient: Total time spent is greater than 50% in coordination of care (as documented) at patient's floor/unit and/or counseling patient: Coding Level of Care Code None Diagnoses Anticoagulated Z79.01 Hematemesis K92.0 Nausea presence: with nausea (2) Hematemesis Nausea presence: with nausea Qualified Code(s): K92.0 - Hematemesis
--- NOTE | 2024-04-28 11:31 | Anesthesiology Consultation ---
Date of Service April 28, 2024 Assessment & Plan Chart Review Chart Review: Acceptable Risk for Surgery and Patient NOT seen in Pre Admission Testing Consults Requested none ASA ASA4 Proposed Anesthesia Anesthesia Type: MAC History Surgery Operation Date: 04/28/24 17:35 Proposed Procedures p Colonoscopy EGD Dr. Kenroy Jasmine MD Height/Weight Height: 5 ft 5 in Weight: 70.4 kg Allergies Allergy/AdvReac Type Severity Reaction Status Date / Time No Known Allergies Allergy Verified 03/07/24 13:15 Medications Home Medications Medication Instructions Recorded Confirmed Last Taken multivitamin 1 tab PO QAM 02/16/20 03/07/24 07/06/23 Oxygen Home 06/01/22 03/07/24 Unknown Over Night Pulse OX #1 ea 11/30/22 03/07/24 Unknown acetaminophen 500 mg tablet 1,000 mg PO DIRECTED PRN Pain 12/28/22 03/07/24 Unknown (Tylenol Extra Strength) apixaban 2.5 mg tablet 2.5 mg PO BID #60 tabs 10/19/23 04/27/24 Unknown mirabegron 25 mg tablet,extended 25 mg PO DAILY #30 tabs 12/02/23 03/07/24 Unknown release 24 hr (Myrbetriq) atorvastatin 40 mg tablet 40 mg PO QAM #90 tabs 12/27/23 04/27/24 Unknown allopurinol 300 mg tablet 300 mg PO DAILY #90 tabs 01/10/24 04/27/24 Unknown nystatin-triamcinolone 100,000 1 applic topical BID #30 grams 02/08/24 04/27/24 Unknown unit/g-0.1 % topical cream albuterol sulfate 90 mcg/actuation 2 puff inhalation Q4H PRN 02/23/24 04/27/24 Unknown aerosol inhaler (Ventolin HFA) Shortness Of Breath #1 inhaler tiotropium bromide 2.5 2 inh inhalation QAM #4 grams 02/23/24 04/27/24 Unknown mcg/actuation mist for inhalation (Spiriva Respimat) Active Medications Generic Name Dose Route Start Last Admin Trade Name Freq PRN Reason Stop Dose Admin Pantoprazole Sodium 40 mg in 10 mls @ 5 mls/min 04/27/24 09:00 04/28/24 08:09 Protonix IV 05/27/24 08:59 5 mls/min BID NATALIE Administration NPO Date Last Intake of Fluids: 04/28/24 Time Last Intake of Fluids: 10:00 Date Last Intake of Solids: 04/26/24 Time Last Intake of Solids: 12:00 Past Medical History Medical History GI bleed GERD (gastroesophageal reflux disease) 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) Elevated LFTs Multifocal pneumonia Acute kidney injury superimposed on CKD Elevated procalcitonin SHABBIR (acute kidney injury) Hypoxia Dyspnea Sciatica RT Hx of gout Gout Osteoarthritis Scoliosis Spinal stenosis Chronic back pain Hx of skin cancer, basal cell Chronic obstructive pulmonary disease Chronic obstructive pulmonary disease Exercise / Class Metabolic Activity III < 4 Walking/Shop/Light housework Past Family History Family History Mother Family history of colon cancer Family history of cardiac disorder Hearing loss Cancer Ovarian cancer Rectal cancer Other No family history of adverse response to anesthesia Denies family history of Myocardial infarction Breast cancer Colorectal cancer Past Surgical History Surgical History History of bronchoscopy History of Mohs micrographic surgery for skin cancer History of bilateral tubal ligation History of esophagogastroduodenoscopy (EGD) S/P epidural steroid injection History of colonoscopy History of arthroplasty of knee RT/LEFT History of breast biopsy Past Anesthesia History No Hx of Anesthesia Complications and No Family Hx of Anesthesia Complications History of PONV No Hx of PONV and No Hx of Motion Sickness Social History Smoking Status: Former smoker tobacco type: cigarettes Smoking cigarettes per day: 10 Do You Dip or Chew Tobacco: No Hx Alcohol Use: No Alcohol type: beer, wine and hard liquor alcohol intake frequency: a few times a week Hx Substance Use: No substance use type: does not use Physical Exam Vital Signs Last Vital Signs Temp 36.8 C 04/28/24 11:16 Pulse 93 H 04/28/24 11:16 Resp 16 04/28/24 11:16 BP 130/75 04/28/24 11:16 Pulse Ox 95 04/28/24 11:16 O2 Del Method Room Air 04/28/24 11:16 Testing Laboratory Results 04/28/24 07:38 04/28/24 07:38 PT 10.6 Seconds (9.0-12.0) 04/26/24 20:28 INR 1.0 (0.9-1.1) 04/26/24 20:28 APTT 30 Seconds (21-31) 04/26/24 20:28 Urine Color Yellow 04/27/24 00:50 Urine Appearance Clear (Clear) 04/27/24 00:50 Urine pH 6.5 (4.5-7.5) 04/27/24 00:50 Ur Specific [place] 1.014 (1.000-1.030) 04/27/24 00:50 Urine Protein Negative (Negative) 04/27/24 00:50 Urine Glucose (UA) Negative (Negative) 04/27/24 00:50 Urine Ketones Negative (Negative) 04/27/24 00:50 Urine Nitrite Negative (Negative) 04/27/24 00:50 Ur Leukocyte Esterase 1+ (Negative) H 04/27/24 00:50 Urine WBC (Auto) 6-10 /hpf (0-5) H 04/27/24 00:50 Urine RBC (Auto) 0-2 /hpf (0-2) 04/27/24 00:50 U Hyaline Cast (Auto) 0-2 /lpf (0-2) 04/27/24 00:50 U Epithel Cells (Auto) 0-2 /hpf (0-2) 04/27/24 00:50 Urine Bacteria (Auto) None Seen (None Seen) 04/27/24 00:50 Electrocardiogram Date: 04/26/24 Findings: + ST @ (@ 120;LAE;low voltage QRS) Chest X-Ray Date: 04/26/24 Findings: + pleural effusion Echocardiogram Date: 05/17/23 EF: 60% LV Function: normal RWMA: + none Other Findings: + diastolic dysfunction (Grade 1)
[2024-04-28] MEDS ORDERED: ATROPINE SULFATE 0.1 MG/ML 10ML SYR IV PRN (11:32)
[2024-04-28] MEDS ORDERED: ePHEDrine sulfate 50 MG/ML AMP IV PRN (11:32)
--- NOTE | 2024-04-28 12:11 | GI REPORT ---
[facility] Patient: LUIS ALBERTO COOK : 1935 Sex at : Female Age: 88 Years Procedure: Colonoscopy Date: 04/28/2024 Attending Physician: Bryan Jasmine MD Referring MD: Referred Self Indications: - Rectal bleeding Medications: - Monitored Anesthesia Care Complications: - No immediate complications. Estimated Blood Loss: - Estimated blood loss: None. Procedure: - The pediatric colonoscope was introduced through the anus and advanced to the cecum, identified by appendiceal orifice and ileocecal valve. - The colonoscopy was performed with ease. - The patient tolerated the procedure well. - The quality of the bowel preparation was good. 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 Recommendation: - High-fiber diet monitor H&H serially Preparation H cream in view of age would not repeat colonoscopy Procedure Code(s): - 04888, Colonoscopy, flexible; diagnostic, including collection of specimen(s) by brushing or washing, when performed (separate procedure) CPT(R) - 2023 copyright [employer]. All Rights Reserved. The CPT codes, CCI edits and ICD codes generated are intended as suggestions and were generated based on input data. These codes are preliminary and upon compensation administrator review may be revised to meet current compliance and payer requirements. The provider is responsible for the final determination of appropriate codes, and modifiers. Bryan Jasmine MD This document has been electronically signed. Note Initiated:04/28/2024 Note Completed:04/28/2024 12:10 PM [email or web address]\Results\[email or web address]\[id number].pdf
--- NOTE | 2024-04-28 12:13 | GI REPORT ---
[facility] Patient: LUIS ALBERTO COOK : 1935 Sex at : Female Age: 88 Years Procedure: Upper GI endoscopy Date: 04/28/2024 Attending Physician: Bryan Jasmine MD Referring MD: Referred Self Indications: - Hematemesis Medications: - Monitored Anesthesia Care Complications: Estimated Blood Loss: - Estimated blood loss: None. Procedure: - The egd scope was introduced through the mouth and advanced to the second part of the duodenum. - The upper GI endoscopy was accomplished with ease. - The patient tolerated the procedure well. Findings: - Large hiatal hernia diffuse gastritis biopsy done for H. pylori Impression: - Large hiatal hernia diffuse gastritis biopsy done for H. pylori Recommendation: - PPI daily follow-up biopsy follow-up as outpatient with GI Procedure Code(s): - 38892, Esophagogastroduodenoscopy, flexible, transoral; diagnostic, including collection of specimen(s) by brushing or washing, when performed (separate procedure) CPT(R) - 2023 copyright [employer]. All Rights Reserved. The CPT codes, CCI edits and ICD codes generated are intended as suggestions and were generated based on input data. These codes are preliminary and upon crime scene examiner review may be revised to meet current compliance and payer requirements. The provider is responsible for the final determination of appropriate codes, and modifiers. Bryan Jasmine MD This document has been electronically signed. Note Initiated:04/28/2024 Note Completed:04/28/2024 12:12 PM [email or web address]\[email or web address]\Results\[email or web address]\[id number].pdf
--- NOTE | 2024-04-28 12:38 | Anesthesiology Progress Note ---
Date of Service April 28, 2024 Anesthesia Post Procedure Vital Signs Vital Signs: Temp Pulse Pulse Pulse Resp BP Pulse Ox 04/28/24 12:26 70 14 117/56 L 100 04/28/24 12:11 75 14 107/60 98 04/28/24 11:16 36.8 C 93 H 16 130/75 95 04/28/24 07:41 36.9 C 78 16 104/62 93 04/28/24 07:18 70 04/28/24 04:06 36.9 C 104 H 16 96/49 L 92 04/27/24 23:46 38 C H 103 H 18 108/61 92 04/27/24 21:43 100 H 04/27/24 19:42 36.8 C 102 H 16 116/64 95 04/27/24 17:38 79 04/27/24 15:37 36.4 C L 93 H 20 109/62 96 O2 Del Method O2 Flow Rate 04/28/24 12:26 Oxymask 6 04/28/24 12:11 Oxymask 6 04/28/24 11:16 Room Air 04/28/24 07:41 Room Air 04/28/24 07:18 04/28/24 04:06 Room Air 04/27/24 23:46 Room Air 04/27/24 21:43 04/27/24 19:42 Room Air 04/27/24 17:38 04/27/24 15:37 Room Air Transfer of Care Handoff Completed per policy Notes Mental Status: alert / awake / arousable Patient Amnestic to Procedure: Yes Nausea / Vomiting: adequately controlled Pain: adequately controlled Airway Patency, RR, SpO2: stable & adequate BP & HR: stable & adequate Hydration State: stable & adequate Anesthetic Complications: no major complications apparent
[2024-04-28] MEDS: LIDOCAINE 2% 2 ML VIAL/AMP(20MG/ML) INFIL ONE (13:11)
[2024-04-28] MEDS: PROPOFOL IV EMULSION 10 MG/ML 20 ML VIAL IV ONE (13:12)
[2024-04-28 13:13] VITALS: BP 143/76; PULSE 95; RESP 18; TEMP 97.5; O2SAT 94
--- NOTE | 2024-04-29 08:42 | Discharge Summary ---
Discharge Summary Date of Service April 28, 2024 Principal Dx & Hospital Course #1 = Principal Diagnosis (1) Hematemesis: (2) Leukocytosis: (3) Anticoagulated: (4) Vomiting: (5) History of pulmonary embolism: (6) Hx of gastric ulcer: (7) Squamous cell carcinoma of lung, stage III: (8) CKD (chronic kidney disease): Plan Acute blood loss anemia due to hematemesis/ upper GI bleed in a 88 yo female on Eliquis for history of PE Hematemesis -Episode of emesis with visible blood. Anticoagulated on Eliquis for history of PE, DVTs and current cancer -Normotensive BP, mild tachycardia (HR 90s)- improved with 1L NSS in ED -Hgb 11.9 in ED, had GI bleed in early 2023 which required transfusion (Hgb ~6 at the time). Mild leukocytosis in ED. -Symptoms for last month of worsening GERD, not controlled with famotidine. History of prior GI bleed and anticoagulated on Eliquis -Protonix 40mg IV BID and IV maintenance fluids. Held Eliquis, will resume at discharge -hemoglobin stable -GI consulted, appreciate recommendations: Uppe endscopy showed a hiatal hernia; no ulcers. -colonscopy showed diverticulosis. No bleeding. recommend rechecking hemoglobin in 5 days, Left Sided Pleural Effusion -Chest xray shows "moderate sized possibly loculated left pleural effusion", patient denies respiratory symptoms, no increased dyspnea on exertion -Will order CT chest to investigate further, PET scan from March references a small, stable left pleural effusion Squamous Cell Carcinoma of Left Lung -Follows with Dr. Blanca -Recent PET scan completed in March -On maintenance durvalumab since March 2023 CKD -Cr 1.71, slightly increased from baseline which appears to be 1.2-1.3 -Avoid nephrotoxic medications improved to 1.2 Admission HPI Per Admitting Provider Josie Najera is a 88 year-old female with a medical history significant for squamous cell carcinoma of lung, radiation-induced esophagitis, history of PE and DVT, gastric ulcer, CKD, COPD. Patient presented to the ED after an episode of vomiting at home which appeared to have some blood in it, she was concerned about this finding as she takes Eliquis so she came for evaluation. Patient reports history of GI bleed in July 2023 which required transfusion, was suspected that this was caused by NSAID use on top of her Eliquis. Patient states she feels "completely normal" now, endorses a few episodes of vomiting in the past few weeks- states she has had worsening reflux which bothers her most in the evenings despite daily Pepcid and Pepto-Bismol as needed. Denies chest pain or pressure, no current nausea or abdominal pain. States she felt a bit short of breath when she arrived but attributed this to the fact that she had to park "far away" and walk into the ED. States she had a normal BM this morning, no diarrhea or blood/dark color in her stool. Patient states that she recently had a PET scan and follow up with Dr. Blanca. ED Course: -CXR -CBC, CMP -EKG Discharge Exam Constitutional WD/WN, vitals as above Respiratory normal respiratory effort Cardiovascular Rate/Rhythm: regular rate and regular rhythm Extremities: no edema Gastrointestinal (Abdomen) Inspection/Auscultation: abdomen normal to inspection; abdomen not distended Percussion/Palpation: abdomen soft; abdomen nontender Psychiatric A+Ox3, euthymic affect Discharge Plan Discharge Items Patient Disposition: Home - Self-Care Reason For Visit: HEMATEMESIS Discharge Diagnosis: hematemesis Condition on Discharge: Fair Activity: Resume your previous activity Non-emergency contact: Primary Care Provider Call non-emergency contact if: you have any medication questions Follow-up/Referrals: Angel Ac MD [Primary Care Provider] - 05/08/24 9:00 am Dietitian Info: High Fiber Diet Diet: Regular Ambulatory Orders: Hemoglobin and Hematocrit (Timed) Timeframe: [id number] Location: Determined by Patient Ordered By: Bo Sofia Attending Provider Instructions: Recommend close followup with PCP in 1-2 weeks. Recommend rechecking hemoglobin in 5 days. Pending Studies at Discharge: No Stand-Alone Forms: My [employer], Smoking Cessation Medications and DC Order Prescriptions: New pantoprazole 40 mg Tablet,Delayed Release (Dr/Ec) 40 mg PO QAM Qty: 30 0RF Continued acetaminophen [Tylenol Extra Strength] 500 mg tablet 1,000 mg PO DIRECTED PRN (Reason: Pain) apixaban 2.5 mg tablet 2.5 mg PO BID Qty: 60 11RF atorvastatin 40 mg tablet 40 mg PO QAM Qty: 90 3RF (DME) Oxygen Home Liters Per Minute See Rx Instructions .Route Rx Instructions: As directed - 2lpm at HS (DME) Over Night Pulse OX Misc See Rx Instructions .MEDSUPPLY Qty: 1 0RF Rx Instructions: Room air allopurinol 300 mg tablet 300 mg PO DAILY Qty: 90 3RF albuterol sulfate [Ventolin HFA] 90 mcg/actuation HFA aerosol inhaler 2 puff inhalation Q4H PRN (Reason: Shortness Of Breath) Qty: 1 11RF Spiriva Respimat 2.5 mcg/actuation mist 2 inh inhalation QAM Qty: 4 11RF Rx Instructions: INHALE 2 PUFFS BY MOUTH EVERY MORNING nystatin-triamcinolone 100,000-0.1 unit/g-% cream 1 applic topical BID Qty: 30 4RF mirabegron [Myrbetriq] 25 mg tablet extended release 24 hr 25 mg PO DAILY Qty: 30 2RF multivitamin Tablet 1 tab PO QAM Discharge Orders: Discharge Order (Routine); Ordered 04/28/24 Ordered By: Bo Handley/Other Patient Handouts: Eating a High-Fiber Diet Admission Data Admit Date/Time: 04/27/24 00:25 Attending Provider: Bo Adhikari Admit Provider: Debora Sal Primary Care Provider: Angel Ac Other Providers: Daniela Perera; Bryan Jasmine Other Interventions: Discharge Summary Assessment (RN) Last Done: 04/28/24 12:41 Hospital Stay Data Consultations 04/26/24 21:50 ED Decision to Admit Stat 04/27/24 02:24 Consult Gastroenterology Routine Procedures Performed Operation Date: 04/28/24 17:35 Actual Procedures p EGD Biopsy Cytology - Bryan Jasmine MD s Colonoscopy - Bryan Jasmine MD Diagnostic Imagining Performed 04/27/24 00:31 CT chest diagnostic wo con Urgent Pending Results Patient Have Any Pending Studies at Discharge: No Discharge Instructions Given to Patient (Per Discharging Provider) Recommend close followup with PCP in 1-2 weeks. Recommend rechecking hemoglobin in 5 days. Total Time Total Time Spent Total Time Spent (In Minutes): 32 Coding Level of Care Code 49111 INP/OBS DISCH >30 MIN Diagnoses Hematemesis K92.0 Nausea presence: with nausea Leukocytosis D72.829 Leukocytosis type: unspecified Anticoagulated Z79.01 Vomiting K92.0 Nausea presence: with nausea Vomiting type: hematemesis History of pulmonary embolism Z86.711 Hx of gastric ulcer Z87.19 Stage III squamous cell carcinoma of left lung C34.92 Laterality: left CKD (chronic kidney disease) N18.9
[2024-04-29] MEDS ORDERED: PANTOprazole 40 MG TAB PO SCH (09:00)
== END 2024-04-28 15:35 | disposition home or self-care (01) | DRG 378 ==
LOC: ED 19:58 → SUATTDRO 04-27 00:25 → 2W 04-27 00:25